=== PATIENT | female | born 1940 | race Caucasian/White ===

== ENCOUNTER 2016-05-05 19:31 | Inpatient (IN) | payer MEDICARE, OTHER ==
[~2016-05-05] VITALS: Ht 152.4 cm; Wt 57.5 kg
[~2016-05-05 19:31] MED LIST: ACET-2047 PO; ALBU2.5V3 NEB; AMLO5TAB4 PO; ASCO500C7 PO; BACL10TA PO; DICL25CA PO; DOCU-144 PO; DOCU250C58 PO; EPO10ESRD SC; FER325 PO; FOLI-49 PO; GABA100C14 PO; HYDR-3671 PO; HYDR-906 PO; INSU100I12 SQ; LACT20SO2 PO; LEVEM SC; LORA-186 PO; MET25 PO; METO-429 PO; MORP15TA92 PO; ONDA4TAB95 PO; PANT40TA4 PO; SENN25TA21 PO; SITA50TA2 PO; ZOLP5TAB6 PO
[2016-05-05] MEDS ORDERED: ALBUTEROL 0.5% (NEB) 2.5 MG/0.5 ML AMP INH STA (19:36)
[2016-05-05] MEDS ORDERED: IPRATROPIUM (NEB) 0.5 MG/2.5 ML AMP INH STA (19:36)
[2016-05-05] MEDS ORDERED: SODIUM CHLORIDE 0.9% 1L BAG IV* STA (19:36)
[2016-05-05] MEDS ORDERED: CEFEPIME 2GM/50 ML (PMX) 50 ML IVPB STA (19:36)
[2016-05-05] MEDS ORDERED: ACETAMINOPHEN 325 MG TAB PO STA (19:36)
--- NOTE | 2016-05-05 19:40 | ERA ---
ER Documentation Chief Complaint Date/Time DATE: 05/05/16 TIME: 19:40 Chief Complaint short of breath HPI History is limited due to the patient's clinical condition. 75-year-old female with a history of pulmonary fibrosis, respiratory failure, diabetes mellitus type 2, anemia, dyslipidemia, rheumatoid arthritis, DJD, O2 dependent brought to the ED via rescue ambulance complaining of a 1 day history of increasing, severe, shortness of breath and nonproductive cough. Denies chest pain or palpitations. No abdominal pain, nausea vomiting. No leg pain or swelling. Denies headache or neck pain. No fevers or chills. ROS All systems reviewed and are negative except as per history of present illness. Medications Home Meds Reported Medications Glucagon,Human Recombinant (Glucagon Emergency Kit) 1 Mg Kit, 1 MG IM Y for BS < 70, KIT 05/06/16 Insulin Regular, Human (Humulin R) 100 Unit/1 Ml Vial, 4 UNIT SC TID, VIAL 05/06/16 Insulin Glargine* (Lantus*) 100 Unit/Ml Soln, 10 UNIT SC QHS, #1 VIAL 05/06/16 Magnesium Hydroxide* (Milk Of Magnesia*) 400 Mg/5 Ml Oral.susp, 30 ML PO DAILY Y for CONSTIPATION, ML 05/06/16 Multivitamin with Minerals (Multivitamins with Minerals) 1 Each Tablet, 1 EACH PO DAILY, TAB 05/06/16 Linagliptin (TRADJENTA) 5 Mg Tablet, 5 MG PO DAILY, TAB 05/06/16 Budesonide-Formoterol Fumarate* (Symbicort*) 160-4.5 Hfa.aer.ad, 2 PUFF INHALATION BID, #1 EACH 05/06/16 Ipratropium-Albuterol (Ipratropium-Albuterol) 0.5-3 Mg/3 Ml Ampul.neb, 3 ML INHALATION Q2 Y for SHORTNESS OF BREATH, #30 VIAL 05/06/16 Ipratropium-Albuterol (Ipratropium-Albuterol) 0.5-3 Mg/3 Ml Ampul.neb, 3 ML INHALATION Q8, #30 VIAL 05/06/16 Aspirin* (Aspirin* Chew) 81 Mg Tab.chew, 81 MG PO DAILY, TAB.CHEW 05/06/16 Insulin Lispro (Humalog Kwikpen U-100) 100 Unit/1 Ml Insuln.pen, SQ SLIDING SCALE IF 150-199=3UNITS CALL MD IF BS<60;200-249=5UNITS; 250-299=8UNITS; 300-349=10UNITS; 350+12UNITS CALL MD IF BS>351 01/05/16 Zolpidem Tartrate* (Zolpidem Tartrate*) 5 Mg Tablet, 5 MG PO QHS Y for INSOMNIA , #30 TAB 01/05/16 Sennosides (Senna Laxative) 25 Mg Tablet, 25 MG PO QHS Y for BOWEL PREP, TAB 01/05/16 Pantoprazole* (Pantoprazole*) 40 Mg Tablet.dr, 40 MG PO DAILY, TAB 01/05/16 Hydrocodone/Acetaminophen ([place] 5-325 Tablet) 1 Each Tablet, 1 EACH PO Q4 Y for PAIN LEVEL 6-10, TAB 01/05/16 Methotrexate* (Methotrexate*) 2.5 Mg Tab, 15 MG PO Q7D, TAB TAKE EVERY Friday01/05/16 Gabapentin* (Gabapentin*) 100 Mg Capsule, 300 MG PO TID, #180 CAP 01/05/16 Folic Acid* (Folic Acid*) 1 Mg Tablet, 1 MG PO DAILY, TAB 01/05/16 Ferrous Sulfate* (Ferrous Sulfate*) 325 Mg Tabec, 325 MG PO DAILY, TAB 01/05/16 Epoetin Terrell (Epogen) 10,000 Units/Ml Soln, 26006 UNITS SC DAILY, VIAL EVERY MON.,WED.,FRI.,HOLD IF HGB GREATER THAT 10. CALL MD IF HGB>10. 01/05/16 Docusate Sodium* (Colace*) 100 Mg Capsule, 100 MG PO Q12 Y for CONSTIPATION, # 30 CAP 01/05/16 Acetaminophen* (Acetaminophen*) 650 Mg Tablet, 650 MG PO Q6 Y for PAIN AND OR ELEVATED TEMP, #30 TAB FOR PAIN SCALE 1-5, AND FOR TEMPERATURE>101 01/05/16 Discontinued Reported Medications Ascorbic Acid* (Vitamin C*) 500 Mg Capsule.sa, 500 MG PO DAILY, CAP 01/05/16 Ondansetron Hcl* (Ondansetron Hcl*) 4 Mg Tablet, 4 MG PO Q6H Y for VOMITTING, TAB 01/05/16 Morphine Sulfate* (Ms Contin*) 15 Mg Tablet.sa, 15 MG PO Q12 Y for RHEUMATOID ARTHRITIC PAIN, TAB 01/05/16 Metoprolol Tartrate* (Lopressor*) 50 Mg Tab, 50 MG PO BID, #60 TAB HOLD FOR SBP<110 OR <60 01/05/16 Lactulose* (Lactulose*) 20 Gm/30 Ml Solution, 30 GM PO DAILY Y for PRN, ML 01/05/16 Sitagliptin* (Januvia*) 50 Mg Tablet, 50 MG PO DAILY, #30 TAB 01/05/16 Insulin Detemir (Levemir) 100 Unit/1 Ml Vial, 20 UNIT SC QHS, VIAL 01/05/16 Hydralazine Hcl* (Hydralazine Hcl*) 25 Mg Tab, 25 MG PO Q3H Y for NEEDED, TAB FOR HTN SBP>165 01/05/16 Diclofenac Potassium (Zipsor) 25 Mg Capsule, 25 MG PO DAILY Y for INFLAMATION, CAP 01/05/16 Docusate Sodium* (Colace*) 250 Mg Capsule, 250 MG PO DAILY, #30 CAP HOLD FOR LBM 01/05/16 Loratadine* (Claritin*) 10 Mg Tablet, 10 MG PO DAILY, TAB 01/05/16 Baclofen* (Baclofen*) 10 Mg Tablet, 10 MG PO TID, TAB 01/05/16 Amlodipine Besylate* (Norvasc*) 5 Mg Tablet, 5 MG PO BID, TAB HOLD SBP<110 OR HR<60 01/05/16 Albuterol Sulfate* (Albuterol Sulfate* Neb) 0.083%-3 Ml Neb, 2.5 MG NEB Q6 Y for WHEEZING AND SOB, #30 VIAL 01/05/16 Allergies Allergies: Coded Allergies: No Known Allergies (Verified Allergy, Unknown, 05/05/16) PMhx/Soc Reviewed in chart. As per HPI. nursing home facility resident. History of Surgery: Yes (HERNIA REPAIR) Anesthesia Reaction: No Hx Neurological Disorder: No Hx Respiratory Disorders: Yes (COPD) Hx Cardiac Disorders: Yes (HTN) Hx Psychiatric Problems: No Hx Miscellaneous Medical Probl: No Hx Alcohol Use: No Hx Substance Use: No Hx Tobacco Use: No Smoking Status: Former smoker (Quit smoking 40 years ago) FmHx As per previous medical record. Mother: Diabetes. No family history of stroke or cancer. Physical Exam Vitals Vital Signs Date Time Temp Pulse Resp B/P Pulse Ox O2 Delivery O2 Flow Rate FiO2 05/05/16 21:00 120 100 40 05/05/16 20:10 100 15.0 05/05/16 20:07 128 40 100 Non Rebreather Mask 15.0 100 05/05/16 20:06 Rebreather 15 05/05/16 19:50 135 44 137/78 100 Non Rebreather 15.0 05/05/16 19:34 102.7 141 34 100 Physical Exam Const: Alert, severe respiratory distress. Head: Atraumatic Eyes: Normal Conjunctiva ENT: Normal External Ears, Nose and Mouth. Neck: Full range of motion. Nontender. Resp: Markedly decreased breath sounds bilaterally with diffuse crackles in both lung mcmanus and expiratory wheezes Cardio: Tachycardic. Regular rate and rhythm, no murmurs Abd: Soft, non tender, non distended. Normal bowel sounds Skin: No petechiae or rashes Back: No midline or flank tenderness Ext: No cyanosis, or edema. No calf swelling or tenderness Neur: Awake and alert Psych: Normal Mood and Affect Result Diagram: 05/06/16 0616 05/06/16 0616 Results 24 hrs Laboratory Tests Test 05/05/16 00:01 05/05/16 19:48 Urine Amorphous Urates MANY Urine Bacteria FEW Urine Bilirubin NEGATIVE Urine Clarity CLOUDY Urine Color YELLOW Urine Glucose NEGATIVE% Urine Granular Casts FEW Urine Hemoglobin 2+ Urine Ketones TRACE Urine Leukocyte Esterase TRACE Urine Microscopic RBC 25-50/HPF Urine Microscopic WBC 2-5/HPF Urine Nitrite NEGATIVE Urine Specific [place] 1.020 Urine Squamous Epithelial Cells MANY Urine Total Protein 2+ Urine Urobilinogen 0.2 E.U./dL Urine pH 5.5 Activated Partial Thromboplast Time 30.5Sec Alanine Aminotransferase (ALT/SGPT) 8IU/L Albumin 3.1g/dl Albumin/Globulin Ratio 0.67 Alkaline Phosphatase 172IU/L Anion Gap 17 Aspartate Amino Transf (AST/SGOT) 18IU/L Basophils # 0.110^3/ul Basophils % 0.2% Blood Urea Nitrogen 33mg/dl Calcium Level 8.9mg/dl Carbon Dioxide Level 27mmol/L Chloride Level 98mmol/L Creatinine 1.15mg/dl Direct Bilirubin 0.00mg/dl Eosinophils # 0.110^3/ul Eosinophils % 0.6% Globulin 4.60g/dl Glucose Level 208mg/dl Hematocrit 35.3% Hemoglobin 10.5g/dl INR International Normalized Ratio 1.07 Indirect Bilirubin 0.2mg/dl Lactic Acid Level 1.9mmol/L Lymphocytes # 1.510^3/ul Lymphocytes % 6.4% Mean Corpuscular Hemoglobin 26.6pg Mean Corpuscular Hemoglobin Concent 29.7g/dl Mean Corpuscular Volume 89.6fl Mean Platelet Volume 10.2fl Monocytes # 0.810^3/ul Monocytes % 3.4% Neutrophils # 20.310^3/ul Neutrophils % 88.8% Nucleated Red Blood Cells # 0.010^3/ul Nucleated Red Blood Cells % 0.0/100WBC Platelet Count 70778^3/UL Potassium Level 4.6mmol/L Prothrombin Time 13.9Sec Prothrombin Time Ratio 1.1 Red Blood Count 3.9410^6/ul Red Cell Distribution Width 16.8% Sodium Level 137mmol/L Total Bilirubin 0.2mg/dl Total Protein 7.7g/dl Troponin I < 0.012ng/ml White Blood Count 22.910^3/ul Current Medications Medications (Trade) Dose Ordered Sig/Renetta Route PRN Reason Start Time Stop Time Status Last Admin Dose Admin Sodium Chloride (NS) 2,020 ml BOLUS OVER 2 HOURS STAT IV* 05/05/16 19:36 05/05/16 19:41 DC 05/05/16 20:04 Acetaminophen 650 mg 650 mg ONCE STAT PO 05/05/16 19:36 05/05/16 19:41 DC 05/05/16 20:04 Cefepime HCl 50 ml @ 100 mls/hr ONCE STAT IVPB 05/05/16 19:36 05/05/16 20:05 DC 05/05/16 20:04 Vancomycin HCl (Vancocin) 250 ml @ 125 mls/hr ONCE ONCE IVPB 05/05/16 20:00 05/05/16 21:59 DC 05/05/16 20:57 Albuterol (Proventil 0.5% (Neb)) 15 mg ONCE STAT INH 05/05/16 19:36 05/05/16 19:41 DC 05/05/16 20:05 Ipratropium [place] (Atrovent 0.02% (Neb)) 1 mg ONCE STAT INH 05/05/16 19:36 05/05/16 19:41 DC 05/05/16 20:06 RHYTHM STRIP INTERPRETATION: Time: 19:30. Sinus tachycardia. Ventricular rate 140. No ectopy. Indication: Shortness of breath. EKG: TIME: 19:38. Sinus tachycardia. Ventricular rate 139. Normal NC and QRS. Right axis deviation. Nonspecific ST-T wave changes. No ectopy. EP Interpretation: Abnormal EKG. IMAGING: PROCEDURE: XR Chest. CLINICAL INDICATION: Dyspnea, cough TECHNIQUE: Anterior chest x-ray. COMPARISON: 01/05/2016 FINDINGS: Heart is enlarged.. There are atherosclerotic calcifications of the aortic knob.. There is diffuse interstitial prominence multiple small lucencies suggesting severe fibrosis with superimposed CHF or infiltrates.. There is no pleural effusion. There is no pneumothorax. There are postop changes of the lower cervical spine. There are degenerative changes of the shoulders and thoracic spine.. IMPRESSION: 1. Cardiomegaly. 2. Diffuse interstitial prominence with multiple lucency suggesting honeycombing/severe fibrosis. 3. Atherosclerotic calcification of the aorta. 4. No significant change from previous exam. RPTAT: QQ .Jalen Hernandez MD, MD Date Time Electronically viewed and signed by .Jalen Hernandez MD, MD on 05/05/2016 19: 58 .M/ Procedures/MDM DOCUMENTS REVIEWED: ED nurse, prior ED, prior records ED COURSE: Nebulized albuterol 15 mg/Atrovent 1 mg. BiPAP. Tylenol. Normal saline 30 cc/kg fluid bolus. Antibiotics after cultures. MEDICAL DECISION MAKIN-year-old female with a history of pulmonary fibrosis , respiratory failure, diabetes mellitus type 2, anemia, dyslipidemia, rheumatoid arthritis, DJD, O2 dependent brought to the ED via rescue ambulance complaining of a 1 day history of increasing, severe, shortness of breath and nonproductive cough. Patient with hypoxic respiratory failure requiring BiPAP. Criteria for systemic inflammatory response syndrome including fever, tachycardia and tachypnea. Sepsis secondary to pneumonia. Initial lactate is 1.9. Sepsis but no severe sepsis or septic shock. 30cc/kg NS fluid bolus and antibiotics after cultures. Patient will be admitted to telemetry for further evaluation and management Counseled patient regarding diagnosis, diagnostic results and plan for admission. CALLS/CONSULTS: Time 20:40. Dr Marixa Maldonado for Dr Pelletier, Recommends admission to telemetry. PATIENT CARE TRANSITIONED: Time: 21:15, Dr. Marixa Maldonado. Critical Care Time: 35 minutes Treatments/Evaluations: Close monitoring and treatment of unstable vital signs, cardiorespiratory, and neurologic status, while maintaining tight balance of fluid, respiratory, and cardiac interventions. This time includes discussing the case with the patient and the patient's family. This time does not include all procedures stated elsewhere in this record. This time also includes reviewing old records, labs and radiological studies. This time includes examining and re-examining the patient. Additionally, this time also includes arranging care with admitting and consulting physicians. Departure Diagnosis: Primary Impression: Acute respiratory failure Qualified Code: J96.01 - Acute respiratory failure with hypoxia Additional Impressions: Sepsis Qualified Code: A41.9 - Sepsis, due to unspecified organism Pneumonia Qualified Code: J18.9 - Pneumonia of both lungs due to infectious organism, unspecified part of lung Diabetes mellitus type 2 in obese Pulmonary fibrosis Condition: Serious ALEJANDRA MARTINEZ MD May 05, 2016 19:40
--- NOTE | 2016-05-05 19:59 | RADRPT ---
PROCEDURE: XR Chest. CLINICAL INDICATION: Dyspnea, cough TECHNIQUE: Anterior chest x-ray. COMPARISON: 01/05/2016 FINDINGS: Heart is enlarged.. There are atherosclerotic calcifications of the aortic knob.. There is diffuse interstitial prominence multiple small lucencies suggesting severe fibrosis with [place] perimposed CHF or infiltrates.. There is no pleural effusion. There is no pneumothorax. There are postop changes of the lower cervical spine. There are degenerative changes of the shoulders and thoracic spine.. IMPRESSION: 1. Cardiomegaly. 2. Diffuse interstitial prominence with multiple lucency suggesting honeycombing/severe fibrosis. 3. Atherosclerotic calcification of the aorta. 4. No significant change from previous exam. RPTAT: QQ .Jalen Hernandez MD, MD Date Time Electronically viewed and signed by .Jalen Hernandez MD, on 05/05/2016 19:58 .M/
[2016-05-05] MEDS ORDERED: VANCOMYCIN 1 GM (PMX) 250 ML IVPB ONE (20:00)
[2016-05-05 20:06] LABS: ADD SCAN DIFF NO
[2016-05-05 20:10] LABS: ABNORMAL IP MESSAGE 1; BASOPHIL # 0.1 10^3/ul (0.0-0.1); BASOPHILS % 0.2 % (0.0-2.0); EOSINOPHILS # 0.1 10^3/ul (0.0-0.5); EOSINOPHILS % 0.6 % (0.0-7.0); HEMATOCRIT 35.3 % (37.0-47.0); HEMOGLOBIN 10.5 g/dl (12.0-16.0); LYMPHOCYTES # 1.5 10^3/ul (0.8-2.9); LYMPHOCYTES % 6.4 % (15.0-51.0); MEAN CORPUSCULAR HEMOGLOBIN 26.6 pg (29.0-33.0); MEAN CORPUSCULAR HGB CONC 29.7 g/dl (32.0-37.0); MEAN CORPUSCULAR VOLUME 89.6 fl (82.0-101.0); MEAN PLATELET VOLUME 10.2 fl (7.4-10.4); MONOCYTE # 0.8 10^3/ul (0.3-0.9); MONOCYTES % 3.4 % (0.0-11.0); NEUTROPHIL # 20.3 10^3/ul (1.6-7.5); NEUTROPHILS % 88.8 % (39.0-77.0); PLATELET COUNT 294 10^3/UL (140-415); RED BLOOD COUNT 3.94 10^6/ul (4.20-5.40); RED CELL DISTRIBUTION WIDTH 16.8 % (11.5-14.5); WHITE BLOOD COUNT 22.9 10^3/ul (4.8-10.8)
[2016-05-05 20:23] LABS: INR 1.07; PROTIME 13.9 Sec (12.2-14.2); PT RATIO 1.1
[2016-05-05 20:24] LABS: PARTIAL THROMBOPLASTIN TIME 30.5 Sec (25.0-35.0)
[2016-05-05 20:29] LABS: CHLORIDE 98 mmol/L (97-110)
[2016-05-05 20:30] LABS: ALBUMIN 3.1 g/dl (3.3-4.9); POTASSIUM 4.6 mmol/L (3.5-5.1); SODIUM 137 mmol/L (135-144)
[2016-05-05 20:32] LABS: BILIRUBIN,INDIRECT 0.2 mg/dl (0-1.1); BILIRUBIN,TOTAL 0.2 mg/dl (0.2-1.3); CREATININE 1.15 mg/dl (0.44-1.00)
[2016-05-05 20:33] LABS: ALANINE AMINOTRANSFERASE 8 IU/L (13-69); ALBUMIN/GLOBULIN RATIO 0.67; ALKALINE PHOSPHATASE 172 IU/L (42-121); ANION GAP 17 (8-16); ASPARTATE AMINO TRANSFERASE 18 IU/L (15-46); BLOOD UREA NITROGEN 33 mg/dl (7-20); CALCIUM 8.9 mg/dl (8.4-10.2); CARBON DIOXIDE 27 mmol/L (21-31); GLUCOSE 208 mg/dl (70-220); TOTAL PROTEIN 7.7 g/dl (6.1-8.1)
[2016-05-05 20:45] LABS: TROPONIN-I < 0.012 ng/ml (0.00-0.12)
[2016-05-05] MEDS ORDERED: ACETAMINOPHEN 325 MG TAB PO PRN ×2 (21:30→23:30)
[2016-05-05] MEDS ORDERED: ONDANSETRON 4 MG INJ IV PRN (21:30)
[2016-05-05 21:34] VITALS: TEMP 99.3
[2016-05-05 21:56] VITALS: PULSE 115
[2016-05-05 22:00] VITALS: PULSE 115
[2016-05-05 22:30] VITALS: BP 103/52; PULSE 112; RESP 30
[2016-05-05 23:10] VITALS: Ht 152.4 cm; Wt 57.5 kg
[2016-05-05] MEDS ORDERED: DOCUSATE SODIUM 100 MG CAP PO PRN (23:30)
[2016-05-05] MEDS ORDERED: VANCOMYCIN IV PER PHARMACY XX SCH (23:30)
[2016-05-05] MEDS ORDERED: ZOLPIDEM 5 MG TAB PO PRN (23:30)
[2016-05-05] MEDS ORDERED: MAGNESIUM HYDROXIDE 30ML CUP PO PRN (23:30)
[2016-05-05] MEDS ORDERED: SENNA TAB PO PRN (23:30)
[2016-05-05 23:50] VITALS: PULSE 113
[2016-05-05 23:58] LABS: AADO2 Arterial 129.5 mmHg (7.0-24.0); Allen Test ACCEPTAB; Arterial Base Excess -1.9 mmol/L (-3.0-3); Arterial COHb 0.3 % (0.0-3.0); Arterial Fraction of Oxyhgb 97.1 % (93.0-99.0); Arterial HCO3 23.5 mmol/L (22.0-26.0); Arterial MetHb 0.4 % (0.0-1.5); Blood Gas IEPAP 15/5; MODE MASK - BIPAP
[2016-05-06] VITALS (17 sets, daily range): BP systolic 103–146; BP diastolic 47–65; PULSE 74–97; RESP 16–22
[2016-05-06] MEDS ORDERED: PIPER-TAZO 3.375 GM IV (PMX) 100 ML IVPB SCH
[2016-05-06] MEDS: ACCUCHECK XX SCH (02:00)
[2016-05-06] MEDS ORDERED: ACCUCHECK XX SCH (02:00)
[2016-05-06 02:37] LABS: ADD UMIC YES; URINE BILIRUBIN (Dip) NEGATIVE (NEGATIVE); URINE BLOOD (Dip) 2+ (NEGATIVE); URINE COLOR YELLOW (YELLOW); URINE GLUCOSE (Dip) NEGATIVE (NEGATIVE); URINE KETONES (Dip) TRACE (NEGATIVE); URINE LEUKOCYTE ESTERASE (Dip) TRACE (NEGATIVE); URINE NITRITE (Dip) NEGATIVE (NEGATIVE); URINE TOTAL PROTEIN (Dip) 2+ (NEGATIVE); URINE UROBILINOGEN (Dip) 0.2 E.U./dL (0.1-1.0)
[2016-05-06] MEDS: LEVALBUTEROL (NEB) 0.63 MG/3 ML AMP HHN PRN ×2 (03:47→22:40)
[2016-05-06] MEDS: IPRATROPIUM (NEB) 0.5 MG/2.5 ML AMP HHN PRN ×2 (03:47→22:40)
[2016-05-06] MEDS ORDERED: ASPI81TA3 PO (04:56)
[2016-05-06] MEDS ORDERED: MAGN400O4 PO (04:56)
[2016-05-06] MEDS ORDERED: BUDE6HFA INHALATION (04:56)
[2016-05-06] MEDS ORDERED: IPRA3AMP INHALATION ×2 (04:56)
[2016-05-06] MEDS ORDERED: LINA5TAB PO (04:56)
[2016-05-06] MEDS ORDERED: MULT-105 PO (04:56)
[2016-05-06] MEDS ORDERED: LANT3I SC (05:04)
[2016-05-06] MEDS ORDERED: GLUC1KIT IM (05:04)
[2016-05-06] MEDS ORDERED: INSU100V3 SC (05:04)
[2016-05-06 05:23] LABS: BACTERIA,URINE FEW; SQUAMOUS EPITHELIAL CELL,UR MANY; URINE RBCS 25-50 /HPF (0)
[2016-05-06] MEDS: PANTOPRAZOLE (EC) 40 MG TAB PO SCH (05:51)
[2016-05-06] MEDS: PIPER-TAZO 3.375 GM IV (PMX) 100 ML IVPB SCH ×3 (06:02→21:10)
[2016-05-06 07:14] LABS: ADD SCAN DIFF NO
[2016-05-06 07:23] LABS: BASOPHIL # 0.1 10^3/ul (0.0-0.1); BASOPHILS % 0.3 % (0.0-2.0); EOSINOPHILS # 0.3 10^3/ul (0.0-0.5); EOSINOPHILS % 1.7 % (0.0-7.0); HEMATOCRIT 31.2 % (37.0-47.0); HEMOGLOBIN 9.2 g/dl (12.0-16.0); LYMPHOCYTES # 2.2 10^3/ul (0.8-2.9); LYMPHOCYTES % 12.9 % (15.0-51.0); MEAN CORPUSCULAR HEMOGLOBIN 26.8 pg (29.0-33.0); MEAN CORPUSCULAR HGB CONC 29.5 g/dl (32.0-37.0); MEAN PLATELET VOLUME 10.2 fl (7.4-10.4); MONOCYTE # 0.6 10^3/ul (0.3-0.9); MONOCYTES % 3.4 % (0.0-11.0); NEUTROPHILS % 81.1 % (39.0-77.0); PLATELET COUNT 249 10^3/UL (140-415); RED BLOOD COUNT 3.43 10^6/ul (4.20-5.40); WHITE BLOOD COUNT 17.3 10^3/ul (4.8-10.8)
[2016-05-06] MEDS ORDERED: GLUCOSE GEL 15 GRAM TUBE PO PRN ×2 (07:30)
[2016-05-06] MEDS ORDERED: DEXTROSE 50% 50 ML SYRINGE IV PRN ×2 (07:30)
[2016-05-06] MEDS ORDERED: GLUCAGON 1 MG INJ IM PRN (07:30)
[2016-05-06] MEDS ORDERED: GLUCOSE GEL 15 GRAM TUBE BUCCAL PRN (07:30)
[2016-05-06 07:38] LABS: CREATININE 1.14 mg/dl (0.44-1.00)
[2016-05-06 07:39] LABS: CALCIUM 8.5 mg/dl (8.4-10.2); MAGNESIUM 1.7 mg/dl (1.7-2.5); PHOSPHORUS 4.5 mg/dl (2.5-4.9)
[2016-05-06 08:11] LABS: AADO2 Arterial 111.3 mmHg (7.0-24.0); Allen Test ACCEPTAB; Arterial Base Excess -1.3 mmol/L (-3.0-3); Arterial COHb 0.3 % (0.0-3.0); Arterial Fraction of Oxyhgb 97.4 % (93.0-99.0); Arterial HCO3 24.9 mmol/L (22.0-26.0); Arterial MetHb 0.4 % (0.0-1.5); Arterial Total Hemglobin 11.6 g/dl (12.0-18.0); Blood Gas IEPAP 15/5; MODE MASK - BIPAP
[2016-05-06] MEDS: MULTIVITAMINS/MINERALS TAB PO SCH (08:40)
[2016-05-06] MEDS: FERROUS SULFATE (EC) 325 MG TAB PO SCH (08:40)
[2016-05-06] MEDS: ASPIRIN 81 MG TAB PO SCH (08:40)
[2016-05-06] MEDS: GABAPENTIN 300 MG CAP PO SCH ×3 (08:40→20:47)
[2016-05-06] MEDS: SALMETEROL/FLUTICASONE 250/50 INHA INH SCH ×2 (08:41→20:46)
[2016-05-06] MEDS: METOPROLOL 50 MG TAB PO SCH ×2 (08:42→20:47)
[2016-05-06] MEDS: INSULIN ASPART [NOVOLOG] 3 ML PEN SC SCH ×4 (08:50→21:03)
[2016-05-06] MEDS ORDERED: VANCOMYCIN 1 GM INJ ONE (08:51)
[2016-05-06] MEDS ORDERED: PAPAVERINE 60 MG INJ ONE (08:51)
[2016-05-06] MEDS ORDERED: GELATIN SIZE 100 SPONGE ONE (08:51)
[2016-05-06] MEDS ORDERED: THROMBIN 5000 UNIT VIAL ONE (08:51)
[2016-05-06] MEDS ORDERED: HEPARIN 1000 UNITS/ML 10 ML INJ ONE (08:51)
--- NOTE | 2016-05-06 09:17 | HP ---
DATE OF ADMISSION: 05/05/2016 CHIEF COMPLAINT: Respiratory failure. HISTORY OF PRESENT ILLNESS: This is a 75-year-old female with a past medical history of pulmonary f ibrosis, history of diabetes, anemia, dyslipidemia, arthritis, rheumatoid arthritis, degenerative mireya int disease, who presents to [facility] with shortness of breath. The patient's h istory was obtained by reviewing medical records. Patient is currently unable to give adequate hist ory. Apparently over the past several days the patient has noted increased work of breathing and sh ortness of breath. As a result she came to [facility] Emergency Room. Upon arrival to the emergency room, the patient was noted to be hypoxemic. A chest x-ray was obtained which showed dif fuse interstitial prominence with honeycombing, severe fibrosis. The patient in the emergency room was placed on BiPAP, started on IV antibiotics, given IV fluids, and admitted to telemetry. Overnig ht, the patient remained on BiPAP, has been stable. There have been no reports of hemoptysis, hemat emesis or hematochezia. PAST MEDICAL HISTORY: As stated above, history of pulmonary fibrosis, COPD, anemia, dyslipidemia, d iabetes, rheumatoid arthritis. PAST SURGICAL HISTORY: Includes C-spine surgery, total abdominal hysterectomy. SOCIAL HISTORY: History of smoking in the past. FAMILY HISTORY: No family history of kidney disease or heart disease. ALLERGIES: NO KNOWN DRUG ALLERGIES. MEDICATIONS: The patient's medications have been reviewed and reconciled. REVIEW OF SYSTEMS: A 14-point review of systems was conducted. Pertinent positives in HPI, otherwi se negative. PHYSICAL EXAMINATION: VITAL SIGNS: Blood pressure is currently 119/59, respirations 16, pulse 79, temperature 97.6. HEENT: Head is normocephalic. NECK: Supple. HEART: Regular rate. LUNGS: Show diminished breath sounds at base. ABDOMEN: Soft, nontender to palpation. No rebound or guarding. EXTREMITIES: Negative for clubbing, cyanosis. No edema. DERMATOLOGIC: No rashes. MUSCULOSKELETAL: No joint effusions. NEUROLOGIC: Limited exam, but no obvious focal deficits. LABORATORY DATA: Shows white count 17.3, hemoglobin 9.2, hematocrit platelet count 249,000. Sodium 139, potassium 4.4, chloride 102, BUN 34, creatinine 1.14. The patient's urinalysis shows po sitive granular casts, positive bacteria. Chest x-ray as stated in HPI. ASSESSMENT AND PLAN: This is a 75-year-old female who presents with: 1. Acute hypoxemic respiratory failure, etiology secondary to chronic obstructive pulmonary disease exacerbation, advanced pulmonary fibrosis, with possible superimposed pneumonia. The patient is cu rrently on BiPAP, tolerating it well. ABG was reviewed. Patient is also on broad spectrum antibiot ics. The plan at this point is to continue current treatment plan. Continue IV antibiotics, contin ue nebulizer therapy, continue BiPAP. We will place a pulmonary consult with Dr. West for evalua tion and monitor closely. 2. Systemic inflammatory response syndrome, possible sepsis, secondary to healthcare-associated pne umonia. The patient's chest x-ray was reviewed. White count is elevated at 17,000. At this point, continue current antibiotic regimen. We will follow up blood cultures. We will place an infectiou s disease consult for Dr. Hein for evaluation and monitor closely. 3. Nonoliguric acute kidney injury with a previous baseline creatinine of around 0.9 mg/dL. Etiolo gy of acute kidney injury may be secondary to tubular injury, septic acute kidney injury. The patie nt's urinalysis was reviewed, showed evidence of coarse granular casts which can be seen in tubular injury. At this point, would continue supportive care, renally dose all meds, avoid nephrotoxins. Continue to treat underlying sepsis and monitor closely. 4. History of chronic obstructive pulmonary disease/pulmonary fibrosis. Continue current medical m anagement. 5. History of rheumatoid arthritis. Continue methotrexate. 6. Diabetes. Continue Accu-Cheks, insulin sliding scale. 7. Hypertension. Continue current blood pressure regimen. 8. History of coronary artery disease. Continue medical management. 9. Neuropathy. Continue Neurontin. 10. Gastrointestinal and deep venous thrombosis prophylaxis. Continue proton pump inhibitor and Lo venox. Please note, I spent over 25 minutes of abxg-vj-occk time with the patient. I discussed the code st atus. The patient is FULL CODE. Dictated By: ADNNY SHABAZZ DO NR/NTS Conf#: [id number] DID#: [id number]
--- NOTE | 2016-05-06 12:11 | CONS ---
Date/Time of Note Date/Time of Note DATE: 05/06/16 TIME: 12:05 Assessment/Plan Assessment/Plan Additional Assessment/Plan Chest x-ray was reviewed from admission which is showing severe interstitial lung disease. ABG also was reviewed on BiPAP. Assessment recommendations; next 1. Patient admitted with acute bronchitis possibly superimposed pneumonia on a background of severe fibrotic lung disease on account of underlying rheumatoid arthritis. 2. Stable hypertension and neuropathy. Continue current antibiotic regimen. Continue BiPAP on an as-needed basis. Add Solu-Medrol 40 mg every 8 hours. Consultation Date/Type/Reason Admit Date/Time May 05, 2016 at 21:12 Date of Consultation: May 06, 2016 Type of Consultation: Pulmonary Reason for Consultation Pulmonary consultation obtained for evaluation of severe pulmonary fibrosis with hypoxemia and acute bronchitis. History present illness; patient is a very pleasant 75-year-old white lady who came into the emergency room yesterday with a 2 day history of increasing chest congestion with production of yellow and green sputum with increased shortness of breath. Patient does complain of chronic wheezing off and on without any interval change. Denies any high fever chills body aches or myalgias. Upon evaluation a chest x-ray was done which is showing severe fibrotic changes. He also has significant leukocytosis. Has been started on broad-spectrum antibiotic coverage and according to her she is feeling significantly improved over the last couple of hours. Patient also has been using BiPAP on a as needed basis. Past medical history; next 1. Patient has a history of severe rheumatoid arthritis leading to severe pulmonary fibrosis. Which is oxygen dependent. But not steroid dependent. She maintained on methotrexate. 2. Neuropathy. 3. Hypertension. 4. History of C-spine surgery. 5. History of hysterectomy. Medications; were reviewed. Allergies; none. Social history; patient has a scant history of smoking in the past. Most of alcohol or drug abuse. Family history; she is single. No history of any connective tissue diseases in the family. 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 Any sinus symptoms. Any sore throat. Denies any dysphagia, odynophagia chest pain angina. Complains of chronic wheezing. Some days of cough with production of yellow/green sputum production. Denies any hemoptysis. Denies any abdominal pain, nausea. Vomiting. Complaint of severe arthritis symptoms owing to underlying rheumatoid arthritis. Has stable weight. Does complain of mild orthopnea. Denies any melena, hematochezia. Also denies any urinary symptoms. General examination; elderly lady, currently in no distress. Awake and alert. Social History Smoking Status: Former smoker Exam/Review of Systems Vital Signs Vitals Vital Signs Date Time Temp Pulse Resp B/P Pulse Ox O2 Delivery O2 Flow Rate FiO2 05/06/16 11:33 97.9 78 21 103/47 97 05/06/16 08:30 6.0 05/06/16 07:30 40 05/05/16 22:30 BIPAP Intake and Output 05/05/16 05/05/16 05/06/16 15:00 23:00 07:00 Intake Total 340 ml Balance 340 ml Exam HEENT examination; supple neck, no JVD. No lymphadenopathy. Midline trachea. No thyromegaly. Pharynx is clear. Patient has multiple missing teeth and the remaining teeth are carious. Pupils are midsize and reactive to light bilaterally. Next Chest examination scattered crackles bilaterally. S1-S2 audible, no murmurs. Regular rhythm. Abdomen examination; soft, no organomegaly. Bowel sounds audible. Nontender. Extremity examination; no peripheral edema. There is no clubbing. Pulses 1+ bilaterally. There are changes of severe rheumatoid arthritis affecting both hands. 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 Results Result Diagram: 05/06/16 0616 05/06/16 0616 Results 24 hrs Laboratory Tests Test 05/05/16 19:48 05/05/16 21:31 05/05/16 22:35 05/05/16 23:11 Activated Partial Thromboplast Time 30.5 Alanine Aminotransferase (ALT/SGPT) 8 L Albumin 3.1 L Albumin/Globulin Ratio 0.67 Alkaline Phosphatase 172 H Anion Gap 17 H Aspartate Amino Transf (AST/SGOT) 18 Basophils # 0.1 Basophils % 0.2 Blood Urea Nitrogen 33 H Calcium Level 8.9 Carbon Dioxide Level 27 Chloride Level 98 Creatinine 1.15 H Direct Bilirubin 0.00 Eosinophils # 0.1 Eosinophils % 0.6 Globulin 4.60 H Glucose Level 208 Hematocrit 35.3 L Hemoglobin 10.5 L INR International Normalized Ratio 1.07 Indirect Bilirubin 0.2 Lactic Acid Level 1.9 2.0 Lymphocytes # 1.5 Lymphocytes % 6.4 L Mean Corpuscular Hemoglobin 26.6 L Mean Corpuscular Hemoglobin Concent 29.7 L Mean Corpuscular Volume 89.6 Mean Platelet Volume 10.2 # Monocytes # 0.8 Monocytes % 3.4 Neutrophils # 20.3 H Neutrophils % 88.8 H Nucleated Red Blood Cells # 0.0 Nucleated Red Blood Cells % 0.0 Platelet Count 294 Potassium Level 4.6 Prothrombin Time 13.9 Prothrombin Time Ratio 1.1 Red Blood Count 3.94 L Red Cell Distribution Width 16.8 H Sodium Level 137 Total Bilirubin 0.2 Total Protein 7.7 Troponin I < 0.012 White Blood Count 22.9 #H Bedside Glucose 165 Arterial Blood HCO3 23.5 Arterial Blood Base Excess -1.9 Arterial Blood Oxygen Saturation 97.8 Melo Test ACCEPTAB Arterial Blood Gas Puncture Site Right Radial Arterial Blood Carboxyhemoglobin 0.3 Arterial Blood Date Drawn 05/05/2016 11:50:42 PM Arterial Blood Methemoglobin 0.4 Arterial Blood pCO2 (Temp correct) 43.1 Arterial Blood pH (Temp corrected) 7.355 Arterial Blood pO2 (Temp corrected) 106.1 H Blood Gas A-a O2 Differential 129.5 H Blood Gas Actual Respiration Rate 27 Blood Gas IPAP/EPAP Ratio 15 Blood Gas Modality MASK - BIPAP Blood Gas Notified Time 05/05/2016 11:58:06 PM Blood Gas Notified Whom MG Blood Gas Respiration Rate 16.0 Blood Gas Specimen Source Blood arterial Blood Gas Temperature 37.0 FiO2 40.0 Oxyhemoglobin Percent 97.1 Total Hemoglobin 10.0 L Test 05/05/16 23:55 05/06/16 06:16 05/06/16 07:00 05/06/16 07:45 Lactic Acid Level 1.1 Anion Gap 13 Basophils # 0.1 Basophils % 0.3 Blood Urea Nitrogen 34 H Calcium Level 8.5 Carbon Dioxide Level 28 Chloride Level 102 Creatinine 1.14 H Eosinophils # 0.3 Eosinophils % 1.7 Glucose Level 169 Hematocrit 31.2 L Hemoglobin 9.2 L Lymphocytes # 2.2 Lymphocytes % 12.9 L Magnesium Level 1.7 Mean Corpuscular Hemoglobin 26.8 L Mean Corpuscular Hemoglobin Concent 29.5 L Mean Corpuscular Volume 91.0 Mean Platelet Volume 10.2 Monocytes # 0.6 Monocytes % 3.4 Neutrophils # 14.0 H Neutrophils % 81.1 H Nucleated Red Blood Cells # 0.0 Nucleated Red Blood Cells % 0.0 Phosphorus Level 4.5 Platelet Count 249 Potassium Level 4.0 Red Blood Count 3.43 L Red Cell Distribution Width 17.0 H Sodium Level 139 White Blood Count 17.3 #H Arterial Blood HCO3 24.9 Arterial Blood Base Excess -1.3 Arterial Blood Oxygen Saturation 98.1 Melo Test ACCEPTAB Arterial Blood Gas Puncture Site Right Radial Arterial Blood Carboxyhemoglobin 0.3 Arterial Blood Date Drawn 05/06/2016 7:51:05 AM Arterial Blood Methemoglobin 0.4 Arterial Blood pCO2 (Temp correct) 48.4 H Arterial Blood pH (Temp corrected) 7.330 L Arterial Blood pO2 (Temp corrected) 118.2 H Blood Gas A-a O2 Differential 111.3 H Blood Gas Actual Respiration Rate 27 Blood Gas IPAP/EPAP Ratio 15/5 Blood Gas Modality MASK - BIPAP Blood Gas Notified Time 05/06/2016 8:10:58 AM Blood Gas Notified Whom JLD Blood Gas Respiration Rate 16.0 Blood Gas Specimen Source Blood arterial Blood Gas Temperature 37.0 FiO2 40.0 Oxyhemoglobin Percent 97.4 Total Hemoglobin 11.6 L Bedside Glucose 148 Medications Medications Current Medications Acetaminophen (Tylenol Tab) 650 mg Q6H PRN PO PAIN AND OR ELEVATED TEMP; Start 05/05/16 at 23:30 Zolpidem Tartrate (Ambien) 5 mg HS PRN PO INSOMNIA; Start 05/05/16 at 23:30 Aspirin (Aspirin) 81 mg DAILY PO Last administered on 05/06/16 08:40; Admin Dose 81 MG; Start 05/06/16 at 09:00 Docusate Sodium (Colace) 100 mg BID PRN PO CONSTIPATION; Start 05/05/16 at 23:30 Ferrous Sulfate (Ferrous Sulfate (Ec)) 325 mg DAILY PO Last administered on 05/06 08:40; Admin Dose 325 MG; Start 05/06/16 at 09:00 Gabapentin (Neurontin) 300 mg TID PO Last administered on 05/06/16 08:40; Admin Dose 300 MG; Start 05/06/16 at 09:00 Magnesium Hydroxide (Milk Of Mag) 30 ml DAILY PRN PO CONSTIPATION; Start at 23:30 Methotrexate (Methotrexate) 15 mg Q7D PO ; Start 05/12/16 at 09:00; Status Future Hold Metoprolol Tartrate (Lopressor) 50 mg BID PO Last administered on 05/06/16 08: 42; Admin Dose 50 MG; Start 05/06/16 at 09:00 Multivitamins/ Minerals (Theragran-M) 1 tab DAILY PO Last administered on 08:40; Admin Dose 1 TAB; Start 05/06/16 at 09:00 Acetaminophen/ Hydrocodone Bitart ([place] (5/325)) 1 tab Q6H PRN PO PAIN; Start 05/05/16 at 23:30 Pantoprazole (Protonix Tab) 40 mg DAILY@06 PO Last administered on 05/06/16 05: 51; Admin Dose 40 MG; Start 05/06/16 at 06:00 Senna (Senokot) 1 tab DAILY PRN PO CONSTIPATION; Start 05/05/16 at 23:30 Diagnostic Test (Pha) (Accucheck) 1 ea 02 XX ; Start 05/06/16 at 02:00 Salmeterol Xinafoate/ Fluticasone 1 inh 1 inh BID INH Last administered on 08:41; Admin Dose 1 INH; Start 05/06/16 at 09:00 Vancomycin HCl 250 ml @ 125 mls/hr Q24H IVPB ; Start 05/06/16 at 21:00 Piperacillin Sod/ Tazobactam Sod (Zosyn 3.375gm/ 100 ml (Pmx)) 100 ml @ 200 mls /hr Q8 IVPB Last administered on 05/06/16 06:02; Admin Dose 200 MLS/HR; Start 05/06/16 at 06:00 Miscellaneous Information 1 ea NOTE XX ; Start 05/06/16 at 07:30 Glucose (Glutose) 15 gm Q15M PRN PO DECREASED GLUCOSE; Start 05/06/16 at 07:30 Glucose (Glutose) 22.5 gm Q15M PRN PO DECREASED GLUCOSE; Start 05/06/16 at 07:30 Dextrose (D50w Syringe) 25 ml Q15M PRN IV DECREASED GLUCOSE; Start 05/06/16 at 07:30 Dextrose (D50w Syringe) 50 ml Q15M PRN IV DECREASED GLUCOSE; Start 05/06/16 at 07:30 Glucagon (Glucagen) 1 mg Q15M PRN IM DECREASED GLUCOSE; Start 05/06/16 at 07:30 Glucose (Glutose) 15 gm Q15M PRN BUCCAL DECREASED GLUCOSE; Start 05/06/16 at 07: 30 GARRET SOARES May 06, 2016 12:11
[2016-05-06] MEDS: METHYLPREDNISOLONE 40 MG INJ IV SCH ×3 (12:20→23:22)
[2016-05-06] MEDS: HYDROCODONE/APAP (5/325) TAB PO PRN ×2 (17:33→23:22)
--- NOTE | 2016-05-06 18:30 | CONS ---
DATE OF ADMISSION: 05/05/2016 DATE OF CONSULTATION: 05/06/2016 TYPE OF CONSULTATION: Infectious Disease REASON FOR CONSULTATION: Antibiotic management. HISTORY OF PRESENT ILLNESS: Suad Mitchell is a 75-year-old female who was admitted on 05/05/2016 with respiratory failure and is being seen for antibiotic management. The patient is a 75-year-old female with numerous problems includin. Pulmonary fibrosis. 2. Adult-onset diabetes mellitus. 3. Anemia. 4. Dyslipidemia. 5. Rheumatoid arthritis. 6. Degenerative joint disease. 7. Status post C-spine surgery. 8. Status post total abdominal hysterectomy. The patient acutely presents with shortness of breath over the last several days with the increased work of breathing. She was hypoxemic in the emergency room. Chest x-ray showed diffuse interstitia l prominence with honeycombing and severe fibrosis. In the emergency room, the patient was placed o n BiPAP and started on IV antibiotics, given IV fluids, and admitted to telemetry. Should remain on BiPAP and has been stable. On admission, her white count was 22.9, H and H of 10.5 and 35.3, plate let count 294,000. On the 6th, white count 17.3. BUN and creatinine 34/1.14. Urine showed trace l eukocyte esterase, 2 to 5 white cells per high-powered field. Chest x-ray: Cardiomegaly, diffuse i nterstitial prominence with multiple lucencies suggesting honeycombing, severe fibrosis. Her urine culture is negative. Respiratory culture gram-positive cocci and TMNs. PAST MEDICAL HISTORY: Operations as outlined. FAMILY HISTORY: Noncontributory. SOCIAL HISTORY: She has a history of smoking in the past. She does not drink or abuse drugs. FAMILY HISTORY: Noncontributory. SOCIAL HISTORY: As noted. ALLERGIES: NONE TO PENICILLIN, SULFA, OR FOODS. MEDICATIONS: Per chart. REVIEW OF SYSTEMS: As per HPI. PHYSICAL EXAMINATION: GENERAL: The patient is a well-developed, well-nourished female who is alert, responsive, in no acu te distress. VITAL SIGNS: Stable. She is afebrile. SKIN: Without generalized rash. HEENT: Within normal limits. She has intermittent BiPAP. NECK: Supple. LYMPH NODES: None palpable. CHEST: Decreased breath sounds at the bases. HEART: Without murmur or gallop. ABDOMEN: Soft, nontender, without organosplenomegaly or masses. EXTREMITIES: Without cyanosis, clubbing, or edema. RECTAL AND GENITAL: Deferred. NEUROLOGIC: No focal neurological abnormality. IMPRESSION AND PLAN: As noted, the patient presented with a white count of 17.3. BUN and creatinin e 33/1.14. The patient has systemic inflammatory response syndrome secondary to healthcare-associat ed pneumonia. White count is 17,300. Blood cultures were done, and the patient was begun on vancom ycin and Zosyn. Will continue vancomycin and Zosyn. I will dictate my findings to Dr. Cruz. Th e patient was also seen by Dr. eHrnandez, who notes that she is on methotrexate for her rheumatoid arthr itis and pulmonary fibrosis. He felt that she had acute bronchitis, possibly superimposed pneumonia on the background of the severe fibrotic lung, on account of underlying rheumatoid arthritis. Cont inue BiPAP on an as needed basis, add 40 of Solu-Medrol q.8h. I will dictate my findings to Dr. Braxton mcbride as well As Dr. Cruz. Dictated By: CARINE POTTER MD, JD/NGHIA Conf#: [id number] DID#: [id number]
[2016-05-06] MEDS: VANCOMYCIN 1 GM in NS 250 ML IVPB SCH (21:07)
[2016-05-07] VITALS (12 sets, daily range): BP systolic 127–178; BP diastolic 59–88; PULSE 69–88; RESP 16–70
[2016-05-07] MEDS: ACCUCHECK XX SCH (02:00)
[2016-05-07] MEDS: PANTOPRAZOLE (EC) 40 MG TAB PO SCH (05:09)
[2016-05-07] MEDS: PIPER-TAZO 3.375 GM IV (PMX) 100 ML IVPB SCH ×3 (05:09→22:47)
[2016-05-07] MEDS: METHYLPREDNISOLONE 40 MG INJ IV SCH ×3 (05:09→22:48)
--- NOTE | 2016-05-07 08:22 | PN ---
DATE: 05/07/2016 SUBJECTIVE: The patient is clinically improved, currently off BiPAP, no acute events noted overnigh t. No hemoptysis, hematemesis or hematochezia. The patient is stable. No other events noted. OBJECTIVE: VITAL SIGNS: Blood pressure is 156/74, respiratory rate 20, pulse 70, temperature 98.0. The patien t is saturating 96% on 5 liters of oxygen. HEENT: Head is normocephalic. NECK: Supple. HEART: Regular rate. LUNGS: Show diminished breath sounds at base. ABDOMEN: Soft, nontender to palpation. No rebound or guarding. EXTREMITIES: Negative for clubbing, cyanosis. No edema. DERMATOLOGIC: No rashes. MUSCULOSKELETAL: No joint effusions. NEUROLOGIC: No change in exam. MEDICATIONS: The patient's medications have been reviewed. LABORATORY DATA: Currently pending. ASSESSMENT AND PLAN: 1. Nonoliguric acute kidney injury with previous baseline creatinine of 0.9 mg/dL. Etiology of acu te kidney injury is multifactorial secondary to tubular injury, sepsis. The patient's urinalysis sh ows evidence of granular casts, which can be seen in tubular injury/acute tubular necrosis. At this point, would continue current treatment plan. We will follow up renal panel, monitor renal functio n closely on IV antibiotics. Will monitor vancomycin level. Otherwise, continue supportive care, r enally dose meds, avoid nephrotoxins. Continue treating underlying sepsis. 2. Anemia. We will continue to monitor H and H levels. No need for Epogen at this time. 3. Mineral bone disorder. Will monitor calcium and phosphorus levels. No need for phosphate binde rs at this time. 4. Hypertension. Will continue current blood pressure regimen. 5. Acute hypoxemic respiratory failure secondary to chronic obstructive pulmonary disease exacerbat ion, pulmonary fibrosis with superimposed pneumonia. Continue current antibiotic regimen. The ericka ent is weaned off BiPAP. Continue nebulizers, steroids. Will follow up with pulmonary for further recommendations. 6. Sepsis secondary to possible healthcare-associated pneumonia/tracheobronchitis. Continue curren t antibiotic regimen. Cultures have been reviewed. Will follow up with Infectious Disease. 7. History of rheumatoid arthritis. Continue methotrexate. 8. Diabetes. Continue current insulin regimen. 9. History of coronary artery disease. Continue medical management. 10. Neuropathy. Continue Neurontin. Dictated By: DANNY TUBBS/NGHIA Conf#: [id number] DID#: [id number]
[2016-05-07 08:27] LABS: ADD SCAN DIFF NO
[2016-05-07 08:33] LABS: BASOPHILS % 0.1 % (0.0-2.0); HEMATOCRIT 33.5 % (37.0-47.0); LYMPHOCYTES # 0.6 10^3/ul (0.8-2.9); LYMPHOCYTES % 8.4 % (15.0-51.0); MEAN CORPUSCULAR HEMOGLOBIN 26.6 pg (29.0-33.0); MEAN CORPUSCULAR HGB CONC 29.9 g/dl (32.0-37.0); MEAN CORPUSCULAR VOLUME 89.1 fl (82.0-101.0); MEAN PLATELET VOLUME 10.2 fl (7.4-10.4); MONOCYTES % 0.4 % (0.0-11.0); NEUTROPHIL # 6.8 10^3/ul (1.6-7.5); NEUTROPHILS % 90.4 % (39.0-77.0); PLATELET COUNT 278 10^3/UL (140-415); RED BLOOD COUNT 3.76 10^6/ul (4.20-5.40); RED CELL DISTRIBUTION WIDTH 16.7 % (11.5-14.5); WHITE BLOOD COUNT 7.5 10^3/ul (4.8-10.8)
[2016-05-07 08:43] LABS: CREATININE 0.98 mg/dl (0.44-1.00)
[2016-05-07 08:44] LABS: CALCIUM 9.1 mg/dl (8.4-10.2)
[2016-05-07] MEDS: ASPIRIN 81 MG TAB PO SCH (08:45)
[2016-05-07] MEDS: FERROUS SULFATE (EC) 325 MG TAB PO SCH (08:45)
[2016-05-07] MEDS: SALMETEROL/FLUTICASONE 250/50 INHA INH SCH ×2 (08:45→21:29)
[2016-05-07] MEDS: GABAPENTIN 300 MG CAP PO SCH ×3 (08:46→21:28)
[2016-05-07] MEDS: METOPROLOL 50 MG TAB PO SCH ×2 (08:46→21:28)
[2016-05-07] MEDS: MULTIVITAMINS/MINERALS TAB PO SCH (08:46)
[2016-05-07] MEDS: INSULIN ASPART [NOVOLOG] 3 ML PEN SC SCH ×4 (08:53→21:02)
[2016-05-07] MEDS: ENOXAPARIN 30 MG/0.3 ML SYG SC SCH (08:54)
--- NOTE | 2016-05-07 11:13 | CONS ---
Date/Time of Note Date/Time of Note DATE: 05/07/16 TIME: 11:10 Assessment/Plan Assessment/Plan Additional Assessment/Plan Assessment and recommendations; 1. Patient admitted for acute bronchitis with possibly flare up of pulmonary fibrosis from rheumatoid arthritis. Responding very well to Solu-Medrol and current antibiotic regimen. 2. Advanced primary fibrosis. 3. Diabetes with hyperglycemia exacerbated by systemic steroids. Continue current treatment. Add Lantus insulin 12 units subcutaneously daily. Continue sliding scale insulin. Continue current Solu-Medrol dosing as well. Consultation Date/Type/Reason Admit Date/Time May 05, 2016 at 21:12 Initial Consult Date 05/06/16 Type of Consultation: Pulmonary 24 HR Interval Summary Free Text/Dictation Patient condition is significantly improved. She reports much decreased chest congestion shortness of breath also is markedly improved. Also appearing much more perkier today. General examination; elderly lady, currently in no distress awake and alert. Exam/Review of Systems Vital Signs Vitals Vital Signs Date Time Temp Pulse Resp B/P Pulse Ox O2 Delivery O2 Flow Rate FiO2 05/07/16 10:32 Nasal Cannula 4.0 05/07/16 08:41 77 05/07/16 08:01 97.8 18 159/79 96 05/06/16 07:30 40 Intake and Output 05/06/16 05/06/16 05/07/16 15:00 23:00 07:00 Intake Total 840 ml 250 ml Balance 840 ml 250 ml Exam HEENT examination; supple neck, no JVD. No lymphadenopathy. Midline trachea. Patient has few missing teeth. Pharynx is clear. No neck bruits. Pupils are midsize and reactive to light. Chest examination; diminished breath sounds bilaterally with scattered crackles. S1-S2 audible, no murmurs. Regular rhythm. Abdomen examination; soft, nontender. Bowel sounds audible. No organomegaly. Next Extremity examination; no peripheral edema. Patient has a severe changes of rheumatoid arthritis involving both hands. 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 Results Result Diagram: 05/07/16 0810 05/07/16 0810 Results 24 hrs Laboratory Tests Test 05/06/16 12:19 05/06/16 17:05 05/06/16 20:45 05/07/16 07:46 Bedside Glucose 154 259 H 262 H 246 H Test 05/07/16 08:10 Anion Gap 15 Basophils # 0.0 Basophils % 0.1 Blood Urea Nitrogen 38 H Calcium Level 9.1 Carbon Dioxide Level 26 Chloride Level 106 Creatinine 0.98 Eosinophils # 0.0 Eosinophils % 0.0 Glucose Level 248 H Hematocrit 33.5 L Hemoglobin 10.0 L Lymphocytes # 0.6 L Lymphocytes % 8.4 L Mean Corpuscular Hemoglobin 26.6 L Mean Corpuscular Hemoglobin Concent 29.9 L Mean Corpuscular Volume 89.1 Mean Platelet Volume 10.2 Monocytes # 0.0 L Monocytes % 0.4 Neutrophils # 6.8 Neutrophils % 90.4 H Nucleated Red Blood Cells # 0.0 Nucleated Red Blood Cells % 0.0 Platelet Count 278 Potassium Level 5.0 Red Blood Count 3.76 L Red Cell Distribution Width 16.7 H Sodium Level 142 White Blood Count 7.5 # Medications Medications Current Medications Acetaminophen (Tylenol Tab) 650 mg Q6H PRN PO PAIN AND OR ELEVATED TEMP Last administered on 05/07/16 01:59; Admin Dose 650 MG; Start 05/05/16 at 23:30 Zolpidem Tartrate (Ambien) 5 mg HS PRN PO INSOMNIA Last administered on 23:22; Admin Dose 5 MG; Start 05/05/16 at 23:30 Aspirin (Aspirin) 81 mg DAILY PO Last administered on 05/07/16 08:45; Admin Dose 81 MG; Start 05/06/16 at 09:00 Docusate Sodium (Colace) 100 mg BID PRN PO CONSTIPATION; Start 05/05/16 at 23:30 Ferrous Sulfate (Ferrous Sulfate (Ec)) 325 mg DAILY PO Last administered on 05/07 08:45; Admin Dose 325 MG; Start 05/06/16 at 09:00 Gabapentin (Neurontin) 300 mg TID PO Last administered on 05/07/16 08:46; Admin Dose 300 MG; Start 05/06/16 at 09:00 Magnesium Hydroxide (Milk Of Mag) 30 ml DAILY PRN PO CONSTIPATION; Start at 23:30 Methotrexate (Methotrexate) 15 mg Q7D PO ; Start 05/12/16 at 09:00; Status Future Hold Metoprolol Tartrate (Lopressor) 50 mg BID PO Last administered on 05/07/16 08: 46; Admin Dose 50 MG; Start 05/06/16 at 09:00 Multivitamins/ Minerals (Theragran-M) 1 tab DAILY PO Last administered on 08:46; Admin Dose 1 TAB; Start 05/06/16 at 09:00 Acetaminophen/ Hydrocodone Bitart ([place] (5/325)) 1 tab Q6H PRN PO PAIN Last administered on 05/06/16 23:22; Admin Dose 1 TAB; Start 05/05/16 at 23:30 Pantoprazole (Protonix Tab) 40 mg DAILY@06 PO Last administered on 05/07/16 05: 09; Admin Dose 40 MG; Start 05/06/16 at 06:00 Senna (Senokot) 1 tab DAILY PRN PO CONSTIPATION; Start 05/05/16 at 23:30 Diagnostic Test (Pha) (Accucheck) 1 ea 02 XX ; Start 05/06/16 at 02:00 Salmeterol Xinafoate/ Fluticasone 1 inh 1 inh BID INH Last administered on 08:45; Admin Dose 1 INH; Start 05/06/16 at 09:00 Vancomycin HCl 250 ml @ 125 mls/hr Q24H IVPB Last administered on 05/06/16 21: 07; Admin Dose 125 MLS/HR; Start 05/06/16 at 21:00 Piperacillin Sod/ Tazobactam Sod (Zosyn 3.375gm/ 100 ml (Pmx)) 100 ml @ 200 mls /hr Q8 IVPB Last administered on 05/07/16 05:09; Admin Dose 200 MLS/HR; Start 05/06/16 at 06:00 Miscellaneous Information 1 ea NOTE XX ; Start 05/06/16 at 07:30 Glucose (Glutose) 15 gm Q15M PRN PO DECREASED GLUCOSE; Start 05/06/16 at 07:30 Glucose (Glutose) 22.5 gm Q15M PRN PO DECREASED GLUCOSE; Start 05/06/16 at 07:30 Dextrose (D50w Syringe) 25 ml Q15M PRN IV DECREASED GLUCOSE; Start 05/06/16 at 07:30 Dextrose (D50w Syringe) 50 ml Q15M PRN IV DECREASED GLUCOSE; Start 05/06/16 at 07:30 Glucagon (Glucagen) 1 mg Q15M PRN IM DECREASED GLUCOSE; Start 05/06/16 at 07:30 Glucose (Glutose) 15 gm Q15M PRN BUCCAL DECREASED GLUCOSE; Start 05/06/16 at 07: 30 Methylprednisolone Sodium Succinate (Solu-Medrol) 40 mg Q6 IV Last administered on 05/07/16 05:09; Admin Dose 40 MG; Start 05/06/16 at 12:00 Enoxaparin Sodium (Lovenox) 30 mg DAILY SC Last administered on 05/07/16 08:54 ; Admin Dose 30 MG; Start 05/07/16 at 09:00 GARRET SOARES May 07, 2016 11:13
[2016-05-07] MEDS ORDERED: AMLODIPINE 10 MG TAB PO ONE (13:00)
--- NOTE | 2016-05-07 13:46 | PN ---
DATE: 05/07/2016 INFECTIOUS DISEASE PROGRESS NOTE SUBJECTIVE: Patient is awake, sitting in bed, looks comfortable. She is on 5 liters nasal cannula. No shortness of breath. No fevers. WBC today 7.5, platelets 278, neutrophils 90.4, BUN 38, creatinine 0.98. MICROBIOLOGY: Blood and urine cultures remain negative. Sputum culture negative. Nares swab posit sadie for MRSA. ANTIMICROBIALS: Patient is on: 1. IV vancomycin. 2. Zosyn. PHYSICAL EXAMINATION: GENERAL: This is a well-developed, obese, elderly woman who is alert, in no distress. HEENT: Head atraumatic, normocephalic. Sclerae anicteric. Buccal mucosa pink. NECK: Supple, trachea midline. CHEST: Rise symmetrical. Breath sounds diminished to bases. HEART: S1, S2. ABDOMEN: Soft. Bowel tones present. EXTREMITIES: Without cyanosis. ASSESSMENT: 1. Acute bronchitis, rule out pneumonia. 2. Plan pulmonary fibrosis. 3. Diabetes. 4. Methicillin-resistant Staphylococcus aureus nares colonization. 5. Acute hypoxemic respiratory failure. PLAN: The patient remains stable. WBC tracing down. We are going to add Bactroban to nares. Cont inue her on current antimicrobials, follow chest x-ray. Pulmonary recommendations. Dictated By: HELEN GARCIA SHINGLE BOLT CUTTER for CARINE CISSE/NGHIA Conf#: [id number] DID#: [id number]
[2016-05-07] MEDS: MUPIROCIN 2% 22 GM OINT TOP SCH ×2 (14:00→21:29)
--- NOTE | 2016-05-07 17:38 | PN ---
DATE: 05/07/[address] Anthony celestin. Chart reviewed extensively. The patient is overall feeling bett er, complaining of arthralgias as the patient has rheumatoid arthritis and also complaining of insom jason, but otherwise respiratory-myesr feeling better. I appreciate pulmonary and ID recommendations a s well. Also, I appreciate nephrology followup. Patient initially presented with acute renal failu re. PHYSICAL EXAMINATION: VITAL SIGNS: Temperature 97.7, pulse 73, respirations 18, blood pressure is elevated to 178/81, sat uration is 99% on 4 liters nasal cannula. GENERAL: The patient is in no acute distress. The patient is pale, in no distress. HEENT: Nasal cannula is in place. CARDIOVASCULAR: Positive S1 and S2. LUNGS: Bilateral chronic crackles are heard. ABDOMEN: Soft, nontender. EXTREMITIES: No clubbing, cyanosis, or edema. Deformities of the hands, swan neck deformities were noted, all suggestive of severe rheumatoid arthritis. LABORATORY DATA: White count is now normal at 7.5, hemoglobin is 10, hematocrit 34, platelet count is 278, neutrophils 90%, lymphocytes is 8%. Chemistry: Sodium 142, potassium 5.0, chloride 106, bi carbonate 26, BUN is 38, creatinine 0.98, glucose of 248. Last glucose level was 236 with slight el evation of her sugars in the low 200s. On admission, alkaline phosphatase was elevated to 172, lact ic acid was negative. UA shows trace leukocyte esterase with WBC 2 to 5 and respiratory culture deidre ws normal respiratory raúl. MRSA screening was positive and the blood cultures and urine cultures were negative. Chest x-ray did show interstitial prominence with multiple lucency suggestive of honeycombing and se raza fibrosis, otherwise there is atherosclerosis and calcification of the aorta. No significant ch pablo from prior exam. MEDICATIONS: The patient's meds include: 1. Methotrexate 50 mg weekly. 2. Norvasc 10 mg daily. 3. Lantus 12 units daily. 4. Bactroban ointment b.i.d. 5. Lovenox 40 mg subcutaneously daily. 6. Vancomycin dose per pharmacy. 7. Solu-Medrol 40 mg q.6. 8. Aspirin 81 mg daily. 9. ____ daily. 10. Neurontin 300 t.i.d. 11. Lopressor 50 mg b.i.d. 12. Multivitamin 1 tablet daily. 13. Advair 250/50 one puff b.i.d. 14. Insulin Aspart per sliding scale, hypoglycemia protocol. 15. Protonix 40 mg daily. 16. Zosyn 3.375 IV q. 8. 17. Vancomycin dosed per pharmacy. 18. Xopenex every 4 hours p.r.n. 19. Tylenol p.r.n. 20. Ambien p.r.n. 21. Colace p.r.n. 22. Milk of magnesia p.r.n. 23. [place] p.r.n. 24. Senna p.r.n. ASSESSMENT AND PLAN: This is an unfortunate 75-year-old female who is very well known to me, who has history of rheumatoid arthritis, severe pulmonary fibrosis, O2 dependent, hypertension who presented with tracheobronchitis, possible healthcare-associated pulmonary infection. 1. Respiratory. Continue antibiotic management with Zosyn and vancomycin as the patient does have methicillin-resistant Staphylococcus aureus of the nares. White count is now normal and clinically better. Taper down steroids. Continue breathing treatments and oxygen support. The patient was p laced also on BiPAP at night. ABG was reviewed. 2. Rheumatoid arthritis. Continue methotrexate. Continue pain control as patient does take opioid s 3. History of gastroparesis, stable. Previously on erythromycin and Reglan. 4. Diabetes mellitus. Taper down steroids. Will increase insulin Lantus. May consider starting o ral medications. 5. Hypertension, with history of pulmonary fibrosis and cor pulmonale ____ of severe pulmonary dise ase, currently no evidence of fluid overload state observed. 6. Acute renal failure, likely from sepsis and prerenal azotemia. Nephrology is following. 7. Infectious Disease: The patient with methicillin-resistant Staphylococcus aureus of the nares. Continue Bactroban. Continue vancomycin and Zosyn as the patient is now afebrile with normal white count. Responding to the above care treatment plan. DISPOSITION: 1. [facility]. 2. Continue stool softeners. 3. We will follow. Dictated By: FAISAL ALVAREZ/NGHIA Conf#: [id number] DID#: [id number]
[2016-05-07] MEDS: LEVALBUTEROL (NEB) 0.63 MG/3 ML AMP HHN SCH ×2 (17:46→20:18)
[2016-05-07] MEDS ORDERED: INSULIN GLARGINE [LANtus] 3 ML PEN SC SCH (20:00)
[2016-05-07] MEDS: IPRATROPIUM (NEB) 0.5 MG/2.5 ML AMP HHN SCH (20:18)
[2016-05-07] MEDS: VANCOMYCIN 1 GM in NS 250 ML IVPB SCH (20:56)
[2016-05-07] MEDS: INSULIN GLARGINE [LANtus] 3 ML PEN SC SCH (21:01)
[2016-05-07] MEDS: HYDROCODONE/APAP (5/325) TAB PO PRN (21:28)
[2016-05-07] MEDS: ZOLPIDEM 5 MG TAB PO PRN (21:29)
[2016-05-08] VITALS (12 sets, daily range): BP systolic 127–153; BP diastolic 58–94; PULSE 49–71; RESP 16–22
[2016-05-08] MEDS: LEVALBUTEROL (NEB) 0.63 MG/3 ML AMP HHN SCH ×4 (01:10→21:00)
[2016-05-08] MEDS: ACCUCHECK XX SCH (02:00)
[2016-05-08] MEDS: METHYLPREDNISOLONE 40 MG INJ IV SCH ×3 (06:13→21:32)
[2016-05-08] MEDS: PANTOPRAZOLE (EC) 40 MG TAB PO SCH (06:16)
[2016-05-08] MEDS: PIPER-TAZO 3.375 GM IV (PMX) 100 ML IVPB SCH ×3 (06:17→21:31)
[2016-05-08 07:24] LABS: ADD SCAN DIFF NO
[2016-05-08 07:49] LABS: CREATININE 0.72 mg/dl (0.44-1.00)
[2016-05-08 07:50] LABS: CALCIUM 9.3 mg/dl (8.4-10.2); MAGNESIUM 1.8 mg/dl (1.7-2.5)
[2016-05-08 07:55] LABS: ABNORMAL IP MESSAGE 1; HEMATOCRIT 36.4 % (37.0-47.0); HEMOGLOBIN 10.5 g/dl (12.0-16.0); MEAN CORPUSCULAR HEMOGLOBIN 26.1 pg (29.0-33.0); MEAN CORPUSCULAR HGB CONC 28.8 g/dl (32.0-37.0); MEAN CORPUSCULAR VOLUME 90.3 fl (82.0-101.0); MEAN PLATELET VOLUME 10.4 fl (7.4-10.4); PLATELET COUNT 314 10^3/UL (140-415); RED BLOOD COUNT 4.03 10^6/ul (4.20-5.40); WHITE BLOOD COUNT 11.8 10^3/ul (4.8-10.8)
[2016-05-08 08:21] LABS: BASOPHILS % 0.2 % (0.0-2.0)
[2016-05-08] MEDS: SALMETEROL/FLUTICASONE 250/50 INHA INH SCH ×2 (08:40→21:40)
[2016-05-08] MEDS: FERROUS SULFATE (EC) 325 MG TAB PO SCH (08:40)
[2016-05-08] MEDS: ASPIRIN 81 MG TAB PO SCH (08:40)
[2016-05-08] MEDS: GABAPENTIN 300 MG CAP PO SCH ×3 (08:41→21:32)
[2016-05-08] MEDS: METOPROLOL 50 MG TAB PO SCH ×2 (08:41→21:33)
[2016-05-08] MEDS: AMLODIPINE 10 MG TAB PO SCH (08:42)
[2016-05-08] MEDS: MULTIVITAMINS/MINERALS TAB PO SCH (08:42)
[2016-05-08] MEDS: MUPIROCIN 2% 22 GM OINT TOP SCH ×2 (08:43→21:46)
[2016-05-08] MEDS: INSULIN ASPART [NOVOLOG] 3 ML PEN SC SCH ×5 (08:50→21:52)
[2016-05-08] MEDS: ENOXAPARIN 30 MG/0.3 ML SYG SC SCH (08:50)
[2016-05-08] MEDS: IPRATROPIUM (NEB) 0.5 MG/2.5 ML AMP HHN SCH ×3 (08:51→21:00)
--- NOTE | 2016-05-08 08:53 | PN ---
DATE: 05/08/2016 SUBJECTIVE: The patient is stable, no acute events overnight. No fevers, chills, nausea, vomiting. No shortness of breath. OBJECTIVE: VITAL SIGNS: Blood pressure 130/94, respirations 18, pulse 58, temperature 97.8. HEENT: Head is normocephalic. NECK: Supple. HEART: Regular rate. LUNGS: Show diminished breath sounds at the base. ABDOMEN: Soft, nontender to palpation. No rebound or guarding. EXTREMITIES: Negative for clubbing, cyanosis. No edema. DERMATOLOGIC: No rashes. MUSCULOSKELETAL: No joint effusions. NEUROLOGIC: No focal deficits. LABORATORY DATA: Shows a sodium of 142, potassium 5.0, chloride 105, BUN 30, creatinine 0.98, gluco se 248. ASSESSMENT AND PLAN: 1. Nonoliguric acute kidney injury with a previous baseline creatinine of 0.9 mg/dL. The etiology of acute kidney injury is secondary to hemodynamics, tubular injury. The patient's renal function a ppears to be returning to previous baseline. At this point, continue current treatment plan, suppor tive care, renally dose medications, avoid nephrotoxins. 2. Anemia. Hemoglobin level stable, continue to monitor. No need for Epogen at this time. 3. Mineral bone disorder. Continue to monitor calcium and phosphorus levels. No need for phosphat e binders. 4. Hypertension. Continue current blood pressure regimen. 5. Acute hypoxic respiratory failure secondary to chronic obstructive pulmonary disease exacerbatio n and pneumonia. Continue current antibiotic regimen. Continue nebulizers, steroids. Follow up pulmonary. 6. Sepsis secondary to healthcare-associated pneumonia. Continue current antibiotic regimen. 7. History of rheumatoid arthritis. The patient is on methotrexate. 8. Diabetes. Continue current insulin regimen. 9. History of coronary artery disease. 10. Neuropathy. Continue Neurontin. Dictated By: DANNY TUBBS/NGHIA Conf#: [id number] DID#: [id number]
[2016-05-08 10:26] LABS: LYMPHOCYTES # 1.3 10^3/ul (0.8-2.9); LYMPHOCYTES % 10.2 % (15.0-51.0); MONOCYTES % 0.3 % (0.0-11.0); NEUTROPHIL # 10.9 10^3/ul (1.6-7.5)
[2016-05-08 10:27] LABS: TOTAL CELLS COUNTED % 100
[2016-05-08] MEDS: HYDROCODONE/APAP (5/325) TAB PO PRN ×2 (12:04→21:30)
--- NOTE | 2016-05-08 12:43 | PN ---
DATE: 05/08/2016 INFECTIOUS DISEASE PROGRESS NOTE SUBJECTIVE: No acute events overnight. The patient is sleeping, looks comfortable on 5 L nasal can nula. No shortness of breath. No fevers. LABORATORY DATA: WBC today 11.8, platelets 314, neutrophils 89, no bands. BUN 36, creatinine 0.72. MICROBIOLOGY: All cultures had been negative. Nares swab positive for MRSA. ANTIMICROBIALS: The patient is on: 1. IV vancomycin. 2. Topical Bactroban to nares. 3. Zosyn. PHYSICAL EXAMINATION: GENERAL: This is well-developed, fragile, elderly woman who is in no distress. HEENT: Head atraumatic, normocephalic. Sclerae anicteric. Buccal mucosa dry. NECK: Supple, trachea midline. CHEST: Rise symmetrical. Breath sounds diminished to bases. HEART: S1, S2. ABDOMEN: Soft. Bowel sounds present. EXTREMITIES: Without cyanosis. ASSESSMENT: 1. Acute respiratory failure, resolving. 2. Acute bronchitis. 3. Pulmonary fibrosis. 4. Diabetes. 5. Methicillin-resistant Staphylococcus aureus nares colonization. 6. History of rheumatoid arthritis. 7. Leukocytosis, remains on steroid taper. PLAN: The patient remains stable. Continue present care, continue on antibiotics for now. Monitor labs, chest x-ray. Follow recommendation of consultants. Dictated By: HELEN GARCIA BITUMINOUS DISTRIBUTOR OPERATOR for [employer]INE CISSE/NGHIA Conf#: [id number] DID#: [id number]
--- NOTE | 2016-05-08 13:47 | CONS ---
Date/Time of Note Date/Time of Note DATE: 05/08/16 TIME: 13:45 Assessment/Plan Assessment/Plan Additional Assessment/Plan Assessment and recommendations; next 1. Patient admitted for acute bronchitis and possibly superimposed pneumonia with significant clinical improvement on current treatment regimen. 2. Advanced pulmonary fibrosis from rheumatoid arthritis. 3. Diabetes with mild hyperglycemia exacerbated by systemic steroid treatment. Continue current treatment however decrease Solu-Medrol to 40 mg every 12 hours from every 8 hours. Further tapering down in 24 hours of Solu-Medrol dosing to prednisone. Consultation Date/Type/Reason Admit Date/Time May 05, 2016 at 21:12 Initial Consult Date 05/06/16 Type of Consultation: Pulmonary 24 HR Interval Summary Free Text/Dictation Patient condition is stable. Reports markedly improved shortness of breath. Denies any cough chest congestion. Any fever chills. General exam; elderly lady, currently in no distress awake and alert. Exam/Review of Systems Vital Signs Vitals Vital Signs Date Time Temp Pulse Resp B/P Pulse Ox O2 Delivery O2 Flow Rate FiO2 05/08/16 12:33 69 05/08/16 11:46 96.6 18 148/67 100 05/08/16 08:53 Nasal Cannula 5.0 05/06/16 07:30 40 Intake and Output 05/07/16 05/07/16 05/08/16 15:00 23:00 07:00 Intake Total 1080 ml 250 ml Balance 1080 ml 250 ml Exam HEENT examination; supple neck, no JVD. No lymphadenopathy. Midline trachea. No thyromegaly. Pharynx is clear. Patient has multiple carious teeth. Chest examination; bilateral crackles. S1-S2 audible, no murmurs. Regular rhythm. Abdomen examination; soft, nontender. Nondistended. No organomegaly. Bowel sounds audible. Extremity examination; no peripheral edema. Patient does have severe changes of rheumatoid arthritis involving both hands. 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 Results Result Diagram: 05/08/16 0645 05/08/16 0645 Results 24 hrs Laboratory Tests Test 05/07/16 17:09 05/07/16 21:00 05/08/16 02:16 05/08/16 06:45 Bedside Glucose 278 H 301 H 239 H Anion Gap 13 Band Neutrophils % 0.0 Basophils # 0.0 Basophils % 0.2 Blood Urea Nitrogen 36 H Calcium Level 9.3 Carbon Dioxide Level 26 Chloride Level 105 Creatinine 0.72 Eosinophils # 0.0 Eosinophils % 0.0 Glucose Level 228 H Hematocrit 36.4 L Hemoglobin 10.5 L Lymphocytes # 1.3 Lymphocytes % 10.2 L Magnesium Level 1.8 Mean Corpuscular Hemoglobin 26.1 L Mean Corpuscular Hemoglobin Concent 28.8 L Mean Corpuscular Volume 90.3 Mean Platelet Volume 10.4 Monocytes # 0.0 L Monocytes % 0.3 Neutrophils # 10.9 H Neutrophils % 89.0 H Nucleated Red Blood Cells # 0.0 Nucleated Red Blood Cells % 0.0 Phosphorus Level 3.0 Platelet Count 314 Potassium Level 5.0 Red Blood Count 4.03 L Red Cell Distribution Width 17.0 H Sodium Level 139 White Blood Count 11.8 #H Test 05/08/16 08:39 05/08/16 12:06 Bedside Glucose 246 H 267 H Medications Medications Current Medications Acetaminophen (Tylenol Tab) 650 mg Q6H PRN PO PAIN AND OR ELEVATED TEMP Last administered on 05/07/16 01:59; Admin Dose 650 MG; Start 05/05/16 at 23:30 Aspirin (Aspirin) 81 mg DAILY PO Last administered on 05/08/16 08:40; Admin Dose 81 MG; Start 05/06/16 at 09:00 Docusate Sodium (Colace) 100 mg BID PRN PO CONSTIPATION; Start 05/05/16 at 23:30 Ferrous Sulfate (Ferrous Sulfate (Ec)) 325 mg DAILY PO Last administered on 05/08 08:40; Admin Dose 325 MG; Start 05/06/16 at 09:00 Gabapentin (Neurontin) 300 mg TID PO Last administered on 05/08/16 13:21; Admin Dose 300 MG; Start 05/06/16 at 09:00 Magnesium Hydroxide (Milk Of Mag) 30 ml DAILY PRN PO CONSTIPATION; Start at 23:30 Methotrexate (Methotrexate) 15 mg Q7D PO ; Start 05/12/16 at 09:00; Status Future Hold Metoprolol Tartrate (Lopressor) 50 mg BID PO Last administered on 05/08/16 08: 41; Admin Dose 50 MG; Start 05/06/16 at 09:00 Multivitamins/ Minerals (Theragran-M) 1 tab DAILY PO Last administered on 08:42; Admin Dose 1 TAB; Start 05/06/16 at 09:00 Acetaminophen/ Hydrocodone Bitart ([place]yman (5/325)) 1 tab Q6H PRN PO PAIN Last administered on 05/08/16 12:04; Admin Dose 1 TAB; Start 05/05/16 at 23:30 Pantoprazole (Protonix Tab) 40 mg DAILY@06 PO Last administered on 05/08/16 06: 16; Admin Dose 40 MG; Start 05/06/16 at 06:00 Senna (Senokot) 1 tab DAILY PRN PO CONSTIPATION; Start 05/05/16 at 23:30 Diagnostic Test (Pha) (Accucheck) 1 ea 02 XX ; Start 05/06/16 at 02:00 Salmeterol Xinafoate/ Fluticasone 1 inh 1 inh BID INH Last administered on 08:40; Admin Dose 1 INH; Start 05/06/16 at 09:00 Vancomycin HCl 250 ml @ 125 mls/hr Q24H IVPB Last administered on 05/07/16 20: 56; Admin Dose 125 MLS/HR; Start 05/06/16 at 21:00 Piperacillin Sod/ Tazobactam Sod (Zosyn 3.375gm/ 100 ml (Pmx)) 100 ml @ 200 mls /hr Q8 IVPB Last administered on 05/08/16 13:22; Admin Dose 200 MLS/HR; Start 05/06/16 at 06:00 Miscellaneous Information 1 ea NOTE XX ; Start 05/06/16 at 07:30 Glucose (Glutose) 15 gm Q15M PRN PO DECREASED GLUCOSE; Start 05/06/16 at 07:30 Glucose (Glutose) 22.5 gm Q15M PRN PO DECREASED GLUCOSE; Start 05/06/16 at 07:30 Dextrose (D50w Syringe) 25 ml Q15M PRN IV DECREASED GLUCOSE; Start 05/06/16 at 07:30 Dextrose (D50w Syringe) 50 ml Q15M PRN IV DECREASED GLUCOSE; Start 05/06/16 at 07:30 Glucagon (Glucagen) 1 mg Q15M PRN IM DECREASED GLUCOSE; Start 05/06/16 at 07:30 Glucose (Glutose) 15 gm Q15M PRN BUCCAL DECREASED GLUCOSE; Start 05/06/16 at 07: 30 Enoxaparin Sodium (Lovenox) 30 mg DAILY SC Last administered on 05/08/16 08:50 ; Admin Dose 30 MG; Start 05/07/16 at 09:00 Amlodipine Besylate (Norvasc) 10 mg DAILY PO Last administered on 05/08/16 08: 42; Admin Dose 10 MG; Start 05/08/16 at 09:00 Mupirocin (Bactroban) 1 applic BID TOP Last administered on 05/08/16 08:43; Admin Dose 1 APPLIC; Start 05/07/16 at 14:00 Insulin Glargine (Lantus) 16 unit DAILY@20 SC Last administered on 05/07/16 21: 01; Admin Dose 16 UNIT; Start 05/07/16 at 20:00 Methylprednisolone Sodium Succinate (Solu-Medrol) 40 mg Q8 IV Last administered on 05/08/16 13:22; Admin Dose 40 MG; Start 05/07/16 at 22:00 Miscellaneous Information (*Rx Drug Level Order Reminder*) VANCO TROUGH @ 2, 000 ON... ONCE ONCE XX ; Start 05/08/16 at 20:00; Stop 05/08/16 at 20:01 GARRET SOARES May 08, 2016 13:46
--- NOTE | 2016-05-08 16:41 | PN ---
DATE: 05/08/2016 SUBJECTIVE: Patient is seen, says she is fatigued, tired, otherwise no complaints. Remains on oxyg en supplements almost 5 liters nasal cannula. PHYSICAL EXAMINATION: VITAL SIGNS: Temperature 97.8, pulse 84, respirations 16, blood pressure 130/58, saturation 97% on 5 liters. GENERAL: The patient is in no acute distress. The patient is pale, fragile. HEENT: Decreased dentition. CARDIOVASCULAR: Positive S1 and S2. LUNGS: Diffuse chronic crackles and rhonchi. ABDOMEN: Soft, nontender. EXTREMITIES: No clubbing, cyanosis, or edema. LABORATORY DATA: White count is slightly high at 11.8, hemoglobin 10.5, hematocrit 36, platelet cou nt 314, neutrophils 89%, lymphocytes 10%. Chemistry: Sodium 139, potassium 5.0, chloride 105, bica rbonate 26, BUN is 36, creatinine 0.72, glucose of 228. Last glucose levels remain high in the low mid ____267 and 246. Respiratory culture shows normal respiratory culture, MRSA of the nares was po sitive. Blood cultures and urine cultures were negative. MEDICATIONS: Include: 1. Methotrexate 50 mg weekly. 2. Solu-Medrol 40 mg IV q.12h. 3. Norvasc 10 mg daily. 4. Lantus 16 units daily. 5. Atrovent and Xopenex every 6 hours. 6. Ambien p.r.n. 7. Bactroban ointment b.i.d. to the nares. 8. Lovenox 30 mg subcutaneous daily. 9. Vancomycin dose per pharmacy. 10. Aspirin 81 mg daily. 11. Ferrous sulfate 325 mg daily. 12. Neurontin 300 mg t.i.d. 13. Metoprolol 50 b.i.d. 14. Multivitamin 1 tablet daily. 15. Advair 250/50 one puff b.i.d. 16. Insulin aspart per sliding scale. 17. Hypoglycemia protocol as directed. 18. Protonix 40 mg daily. 19. Zosyn 3.375 IV q.8h. 20. Accu-Cheks as directed. 21. Vancomycin dose per pharmacy. 22. Breathing treatments p.r.n. 23. Colace p.r.n. 24. Milk of magnesia p.r.n. 21. [place] p.r.n. 22. Senna p.r.n. ASSESSMENT AND PLAN: This is a very unfortunate 75-year-old female, very well known to me with history of rheumatoid arthritis, severe pulmonary fibrosis, O2 dependency, hypertension, scoli osis, who presented with tracheobronchitis, possible pneumonia. 1. Respiratory. Continue antibiotic management with Zosyn and vancomycin. The patient does have M RSA of the nares. White count is slightly higher. Will observe. The patient remains afebrile, cli nically improving. We will taper down steroids. Continue O2 support, BiPAP per pulmonary. 2. Rheumatoid arthritis. Continue methotrexate, pain control. 3. History of gastroparesis, stable, no evidence of a nausea or vomiting. 4. Diabetes mellitus. Will add NovoLog 4 units before meals. Continue current regimen of Lantus. We are titrating steroids down, as that improve with diabetes control. 5. Hypertension. Continue above medications. Blood pressure improved. 6. Acute renal failure, back to baseline. Monitor electrolytes. Monitor patient's p.o. intake ___ _. DISPOSITION: Back to [facility] soon. Dictated By: FAISAL ALVAREZ/NGHIA Conf#: [id number] DID#: [id number]
[2016-05-08] MEDS ORDERED: VANCOMYCIN 1 GM in NS 250 ML IVPB SCH (21:14)
[2016-05-08] MEDS: ZOLPIDEM 5 MG TAB PO PRN (21:30)
[2016-05-08] MEDS: INSULIN GLARGINE [LANtus] 3 ML PEN SC SCH (21:52)
[2016-05-08] MEDS ORDERED: INSULIN ASPART [NOVOLOG] 3 ML PEN SC ONE (22:30)
[2016-05-09] VITALS (11 sets, daily range): BP systolic 119–165; BP diastolic 58–80; PULSE 55–78; RESP 17–21
[2016-05-09] MEDS: LEVALBUTEROL (NEB) 0.63 MG/3 ML AMP HHN SCH ×3 (01:48→14:20)
[2016-05-09] MEDS: ACCUCHECK XX SCH (02:00)
[2016-05-09] MEDS: PIPER-TAZO 3.375 GM IV (PMX) 100 ML IVPB SCH ×2 (05:35→14:15)
[2016-05-09] MEDS: PANTOPRAZOLE (EC) 40 MG TAB PO SCH (05:35)
[2016-05-09 07:01] LABS: POTASSIUM 4.5 mmol/L (3.5-5.1)
[2016-05-09 07:03] LABS: CREATININE 0.77 mg/dl (0.44-1.00)
[2016-05-09 07:04] LABS: CALCIUM 9.4 mg/dl (8.4-10.2); PHOSPHORUS 3.2 mg/dl (2.5-4.9)
[2016-05-09 07:05] LABS: MAGNESIUM 1.8 mg/dl (1.7-2.5)
[2016-05-09] MEDS: IPRATROPIUM (NEB) 0.5 MG/2.5 ML AMP HHN SCH ×2 (07:58→14:20)
[2016-05-09] MEDS: FERROUS SULFATE (EC) 325 MG TAB PO SCH (08:06)
[2016-05-09] MEDS: ASPIRIN 81 MG TAB PO SCH (08:06)
[2016-05-09] MEDS: MULTIVITAMINS/MINERALS TAB PO SCH (08:06)
[2016-05-09] MEDS: AMLODIPINE 10 MG TAB PO SCH (08:06)
[2016-05-09] MEDS: METOPROLOL 50 MG TAB PO SCH (08:07)
[2016-05-09] MEDS: GABAPENTIN 300 MG CAP PO SCH ×2 (08:07→12:25)
[2016-05-09] MEDS: SALMETEROL/FLUTICASONE 250/50 INHA INH SCH (08:07)
[2016-05-09] MEDS: METHYLPREDNISOLONE 40 MG INJ IV SCH (08:07)
[2016-05-09] MEDS: MUPIROCIN 2% 22 GM OINT TOP SCH (08:07)
[2016-05-09] MEDS: INSULIN ASPART [NOVOLOG] 3 ML PEN SC SCH ×4 (08:23→12:28)
[2016-05-09] MEDS: ENOXAPARIN 30 MG/0.3 ML SYG SC SCH (08:24)
--- NOTE | 2016-05-09 09:43 | PN ---
DATE: 05/09/2016 SUBJECTIVE: The patient is stable, no acute events overnight. No fevers, chills, nausea, vomiting. The patient is comfortable on nasal cannula. OBJECTIVE: VITAL SIGNS: Blood pressure is 151/80, respirations 17, pulse 64, temperature 97.9. HEENT: Head is normocephalic. NECK: Supple. HEART: Regular rate. LUNGS: Show diminished breath sounds at the base. ABDOMEN: Soft, nontender to palpation. No rebound or guarding. EXTREMITIES: Negative for clubbing, cyanosis. No edema. DERMATOLOGIC: No rashes. MUSCULOSKELETAL: No joint effusions. NEUROLOGIC: No change in exam. MEDICATIONS: The patient's medications have been reviewed. LABORATORY DATA: Showed sodium 140, potassium 3.5, chloride 105, BUN 35, creatinine 0.77. White co unt 11.8, hemoglobin 10.5, hematocrit 36.4, platelet count 314. ASSESSMENT AND PLAN: 1. Nonoliguric acute kidney injury with previous baseline creatinine of 0.9 mg/dL. Etiology of acu te kidney injury is secondary to hemodynamics, tubular injury. The patient's renal function has ret urned back to baseline. At this point, continue current treatment plan, supportive care, renally do se all meds. 2. Anemia. Hemoglobin levels have been stable, no need for Epogen. 3. Mineral bone disorder. Continue to monitor calcium and phosphorus levels. 4. Hypertension. Continue ____ regimen. 5. Acute hypoxemic respiratory failure secondary to chronic obstructive pulmonary disease exacerbat ion, pneumonia. The patient is clinically improving. Continue current medical management. Continu e nebulizers, steroids. Follow up with pulmonary. 6. Sepsis secondary to healthcare-associated pneumonia, clinically improving. Continue current robin atment plan. 7. History of rheumatoid arthritis. The patient is on methotrexate. 8. Diabetes. Continue current insulin regimen. 9. History of coronary artery disease. 10. Neuropathy. Continue Neurontin. Dictated By: DANNY TUBBS/NGHIA Conf#: [id number] DID#: [id number]
[2016-05-09] MEDS ORDERED: VANCOMYCIN 750 MG in SOD CHLORIDE 0.9% 150 ML IVPB SCH (10:00)
--- NOTE | 2016-05-09 11:42 | CONS ---
Date/Time of Note Date/Time of Note DATE: 05/09/16 TIME: 11:39 Assessment/Plan Assessment/Plan Additional Assessment/Plan Assessment recommendations; 1. Patient admitted for pulmonary fibrosis exacerbation with possibly superimposed pneumonia with significant clinical improvement. 2. Rheumatoid lung. 3. Diabetes. With significant improvement in blood sugar readings. Continue current treatment. Continue current antibiotics, Solu-Medrol at current dosing. Switch Solu-Medrol to oral prednisone starting tomorrow. Consultation Date/Type/Reason Admit Date/Time May 05, 2016 at 21:12 Initial Consult Date 05/06/16 Type of Consultation: Pulmonary 24 HR Interval Summary Free Text/Dictation Patient condition is stable. Patient is denying any further chest congestion. According to her that is markedly improved. Shortness of breath also is markedly improved. Any fever, chest pain. Any wheezing. General exam; elderly lady, currently in no distress, awake and alert. Exam/Review of Systems Vital Signs Vitals Vital Signs Date Time Temp Pulse Resp B/P Pulse Ox O2 Delivery O2 Flow Rate FiO2 05/09/16 11:25 98.0 56 18 119/58 100 05/09/16 08:00 Nasal Cannula 4.0 05/06/16 07:30 40 Intake and Output 05/08/16 05/08/16 05/09/16 15:00 23:00 07:00 Intake Total 980 ml 700 ml Balance 980 ml 700 ml Exam HEENT cavity; supple neck, no JVD. No lymphadenopathy. Midline trachea. No neck masses. Chest examination; diffuse bilateral crackles with interval improvement. S1-S2 audible, no murmurs. Regular rhythm. Abdomen examination; soft, nontender. No organomegaly. Bowel sounds audible. Extremity examination; no peripheral edema. Patient does have changes of severe rheumatoid arthritis involving both hands. CARGO AGENT examination; no focal deficit. Results Result Diagram: 05/08/16 0645 05/09/16 0612 Results 24 hrs Laboratory Tests Test 05/08/16 12:06 05/08/16 17:39 05/08/16 19:55 05/08/16 21:38 Bedside Glucose 267 H 298 H 352 H Vancomycin Level Trough 7.5 L Test 05/09/16 03:39 05/09/16 06:12 05/09/16 07:27 Bedside Glucose 186 196 Anion Gap 12 Blood Urea Nitrogen 35 H Calcium Level 9.4 Carbon Dioxide Level 28 Chloride Level 105 Creatinine 0.77 Glucose Level 205 Magnesium Level 1.8 Phosphorus Level 3.2 Potassium Level 4.5 Sodium Level 140 Medications Medications Current Medications Acetaminophen (Tylenol Tab) 650 mg Q6H PRN PO PAIN AND OR ELEVATED TEMP Last administered on 05/07/16 01:59; Admin Dose 650 MG; Start 05/05/16 at 23:30 Aspirin (Aspirin) 81 mg DAILY PO Last administered on 05/09/16 08:06; Admin Dose 81 MG; Start 05/06/16 at 09:00 Docusate Sodium (Colace) 100 mg BID PRN PO CONSTIPATION; Start 05/05/16 at 23:30 Ferrous Sulfate (Ferrous Sulfate (Ec)) 325 mg DAILY PO Last administered on 05/09 08:06; Admin Dose 325 MG; Start 05/06/16 at 09:00 Gabapentin (Neurontin) 300 mg TID PO Last administered on 05/09/16 08:07; Admin Dose 300 MG; Start 05/06/16 at 09:00 Magnesium Hydroxide (Milk Of Mag) 30 ml DAILY PRN PO CONSTIPATION; Start at 23:30 Methotrexate (Methotrexate) 15 mg Q7D PO ; Start 05/12/16 at 09:00; Status Future Hold Metoprolol Tartrate (Lopressor) 50 mg BID PO Last administered on 05/09/16 08: 07; Admin Dose 50 MG; Start 05/06/16 at 09:00 Multivitamins/ Minerals (Theragran-M) 1 tab DAILY PO Last administered on 08:06; Admin Dose 1 TAB; Start 05/06/16 at 09:00 Acetaminophen/ Hydrocodone Bitart ([place] (5/325)) 1 tab Q6H PRN PO PAIN Last administered on 05/08/16 21:30; Admin Dose 1 TAB; Start 05/05/16 at 23:30 Pantoprazole (Protonix Tab) 40 mg DAILY@06 PO Last administered on 05/09/16 05: 35; Admin Dose 40 MG; Start 05/06/16 at 06:00 Senna (Senokot) 1 tab DAILY PRN PO CONSTIPATION; Start 05/05/16 at 23:30 Diagnostic Test (Pha) (Accucheck) 1 ea 02 XX Last administered on 05/09/16 02: 00; Admin Dose 1 EA; Start 05/06/16 at 02:00 Salmeterol Xinafoate/ Fluticasone 1 inh 1 inh BID INH Last administered on 08:07; Admin Dose 1 INH; Start 05/06/16 at 09:00 Piperacillin Sod/ Tazobactam Sod (Zosyn 3.375gm/ 100 ml (Pmx)) 100 ml @ 200 mls /hr Q8 IVPB Last administered on 05/09/16 05:35; Admin Dose 200 MLS/HR; Start 05/06/16 at 06:00 Miscellaneous Information 1 ea NOTE XX ; Start 05/06/16 at 07:30 Glucose (Glutose) 15 gm Q15M PRN PO DECREASED GLUCOSE; Start 05/06/16 at 07:30 Glucose (Glutose) 22.5 gm Q15M PRN PO DECREASED GLUCOSE; Start 05/06/16 at 07:30 Dextrose (D50w Syringe) 25 ml Q15M PRN IV DECREASED GLUCOSE; Start 05/06/16 at 07:30 Dextrose (D50w Syringe) 50 ml Q15M PRN IV DECREASED GLUCOSE; Start 05/06/16 at 07:30 Glucagon (Glucagen) 1 mg Q15M PRN IM DECREASED GLUCOSE; Start 05/06/16 at 07:30 Glucose (Glutose) 15 gm Q15M PRN BUCCAL DECREASED GLUCOSE; Start 05/06/16 at 07: 30 Enoxaparin Sodium (Lovenox) 30 mg DAILY SC Last administered on 05/09/16 08:24 ; Admin Dose 30 MG; Start 05/07/16 at 09:00 Amlodipine Besylate (Norvasc) 10 mg DAILY PO Last administered on 05/09/16 08: 06; Admin Dose 10 MG; Start 05/08/16 at 09:00 Mupirocin (Bactroban) 1 applic BID TOP Last administered on 05/09/16 08:07; Admin Dose 1 APPLIC; Start 05/07/16 at 14:00 Insulin Glargine (Lantus) 16 unit DAILY@20 SC Last administered on 05/08/16 21: 52; Admin Dose 16 UNIT; Start 05/07/16 at 20:00 Methylprednisolone Sodium Succinate 40 mg 40 mg Q12 IV Last administered on 05/09 08:07; Admin Dose 40 MG; Start 05/08/16 at 21:00 Vancomycin HCl/ Sodium Chloride (Vancocin/NS) 150 ml @ 75 mls/hr Q12H IVPB Last administered on 05/09/16 08:08; Admin Dose 75 MLS/HR; Start 05/09/16 at 10: 00 GARRET SOARES May 09, 2016 11:42
--- NOTE | 2016-05-09 12:52 | PDOCDIS ---
Discharge Instructions CONDITION Patient Condition: Stable HOME CARE INSTRUCTIONS: Special Diet: 1800 calorie ACTIVITY: Activity Restrictions: Slowly Increase Activity FOLLOW UP/APPOINTMENTS Appointments discharge to [facility], see reconciliation, keep on O2 NC 2-4 FAISAL Soto MD May 09, 2016 12:51
--- NOTE | 2016-05-09 13:41 | CONS ---
Date/Time of Note Date/Time of Note DATE: 05/09/16 TIME: 13:39 Assessment/Plan Assessment/Plan Chief Complaint/Hosp Course SUBJECTIVE: No acute events overnight. Awake, no SOB, comfortable on 4 L nasal cannula. No fevers. MICROBIOLOGY: All cultures had been negative. Nares swab positive for MRSA. ANTIMICROBIALS: The patient is on: 1. IV vancomycin. 2. Topical Bactroban to nares. 3. Zosyn. PHYSICAL EXAMINATION: GENERAL: This is well-developed, fragile, elderly woman who is in no distress. HEENT: Head atraumatic, normocephalic. Sclerae anicteric. Buccal mucosa dry. NECK: Supple, trachea midline. CHEST: Rise symmetrical. Breath sounds with scattered rhonchi. HEART: S1, S2. ABDOMEN: Soft. Bowel sounds present. EXTREMITIES: Without cyanosis. ASSESSMENT: 1. Acute respiratory failure, resolving. 2. Acute bronchitis. 3. Pulmonary fibrosis. 4. Diabetes. 5. Methicillin-resistant Staphylococcus aureus nares colonization. 6. History of rheumatoid arthritis. 7. Leukocytosis, remains on steroid taper. PLAN: Improving. Continue present care, antibiotics, steroids taper. Follow recommendation of consultants. staff Problems: Consultation Date/Type/Reason Admit Date/Time May 05, 2016 at 21:12 Initial Consult Date 05/06/16 Type of Consultation: id Exam/Review of Systems Vital Signs Vitals Vital Signs Date Time Temp Pulse Resp B/P Pulse Ox O2 Delivery O2 Flow Rate FiO2 05/09/16 12:31 56 05/09/16 11:25 98.0 18 119/58 100 05/09/16 08:00 Nasal Cannula 4.0 05/06/16 07:30 40 Intake and Output 05/08/16 05/08/16 05/09/16 15:00 23:00 07:00 Intake Total 980 ml 700 ml Balance 980 ml 700 ml Results Result Diagram: 05/08/16 0645 05/09/16 0612 Results 24 hrs Laboratory Tests Test 05/08/16 17:39 05/08/16 19:55 05/08/16 21:38 05/09/16 03:39 Bedside Glucose 298 H 352 H 186 Vancomycin Level Trough 7.5 L Test 05/09/16 06:12 05/09/16 07:27 05/09/16 11:57 Anion Gap 12 Blood Urea Nitrogen 35 H Calcium Level 9.4 Carbon Dioxide Level 28 Chloride Level 105 Creatinine 0.77 Glucose Level 205 Magnesium Level 1.8 Phosphorus Level 3.2 Potassium Level 4.5 Sodium Level 140 Bedside Glucose 196 136 Medications Medications Current Medications Acetaminophen (Tylenol Tab) 650 mg Q6H PRN PO PAIN AND OR ELEVATED TEMP Last administered on 05/07/16 01:59; Admin Dose 650 MG; Start 05/05/16 at 23:30 Aspirin (Aspirin) 81 mg DAILY PO Last administered on 05/09/16 08:06; Admin Dose 81 MG; Start 05/06/16 at 09:00 Docusate Sodium (Colace) 100 mg BID PRN PO CONSTIPATION; Start 05/05/16 at 23:30 Ferrous Sulfate (Ferrous Sulfate (Ec)) 325 mg DAILY PO Last administered on 05/09 08:06; Admin Dose 325 MG; Start 05/06/16 at 09:00 Gabapentin (Neurontin) 300 mg TID PO Last administered on 05/09/16 12:25; Admin Dose 300 MG; Start 05/06/16 at 09:00 Magnesium Hydroxide (Milk Of Mag) 30 ml DAILY PRN PO CONSTIPATION; Start at 23:30 Methotrexate (Methotrexate) 15 mg Q7D PO ; Start 05/12/16 at 09:00; Status Future Hold Metoprolol Tartrate (Lopressor) 50 mg BID PO Last administered on 05/09/16 08: 07; Admin Dose 50 MG; Start 05/06/16 at 09:00 Multivitamins/ Minerals (Theragran-M) 1 tab DAILY PO Last administered on 08:06; Admin Dose 1 TAB; Start 05/06/16 at 09:00 Acetaminophen/ Hydrocodone Bitart ([place] (5/325)) 1 tab Q6H PRN PO PAIN Last administered on 05/08/16 21:30; Admin Dose 1 TAB; Start 05/05/16 at 23:30 Pantoprazole (Protonix Tab) 40 mg DAILY@06 PO Last administered on 05/09/16 05: 35; Admin Dose 40 MG; Start 05/06/16 at 06:00 Senna (Senokot) 1 tab DAILY PRN PO CONSTIPATION; Start 05/05/16 at 23:30 Diagnostic Test (Pha) (Accucheck) 1 ea 02 XX Last administered on 05/09/16 02: 00; Admin Dose 1 EA; Start 05/06/16 at 02:00 Salmeterol Xinafoate/ Fluticasone 1 inh 1 inh BID INH Last administered on 08:07; Admin Dose 1 INH; Start 05/06/16 at 09:00 Piperacillin Sod/ Tazobactam Sod (Zosyn 3.375gm/ 100 ml (Pmx)) 100 ml @ 200 mls /hr Q8 IVPB Last administered on 05/09/16 05:35; Admin Dose 200 MLS/HR; Start 05/06/16 at 06:00 Miscellaneous Information 1 ea NOTE XX ; Start 05/06/16 at 07:30 Glucose (Glutose) 15 gm Q15M PRN PO DECREASED GLUCOSE; Start 05/06/16 at 07:30 Glucose (Glutose) 22.5 gm Q15M PRN PO DECREASED GLUCOSE; Start 05/06/16 at 07:30 Dextrose (D50w Syringe) 25 ml Q15M PRN IV DECREASED GLUCOSE; Start 05/06/16 at 07:30 Dextrose (D50w Syringe) 50 ml Q15M PRN IV DECREASED GLUCOSE; Start 05/06/16 at 07:30 Glucagon (Glucagen) 1 mg Q15M PRN IM DECREASED GLUCOSE; Start 05/06/16 at 07:30 Glucose (Glutose) 15 gm Q15M PRN BUCCAL DECREASED GLUCOSE; Start 05/06/16 at 07: 30 Enoxaparin Sodium (Lovenox) 30 mg DAILY SC Last administered on 05/09/16 08:24 ; Admin Dose 30 MG; Start 05/07/16 at 09:00 Amlodipine Besylate (Norvasc) 10 mg DAILY PO Last administered on 05/09/16 08: 06; Admin Dose 10 MG; Start 05/08/16 at 09:00 Mupirocin (Bactroban) 1 applic BID TOP Last administered on 05/09/16 08:07; Admin Dose 1 APPLIC; Start 05/07/16 at 14:00 Insulin Glargine (Lantus) 16 unit DAILY@20 SC Last administered on 05/08/16 21: 52; Admin Dose 16 UNIT; Start 05/07/16 at 20:00 Methylprednisolone Sodium Succinate 40 mg 40 mg Q12 IV Last administered on 05/09 08:07; Admin Dose 40 MG; Start 05/08/16 at 21:00 Vancomycin HCl/ Sodium Chloride (Vancocin/NS) 150 ml @ 75 mls/hr Q12H IVPB Last administered on 05/09/16 08:08; Admin Dose 75 MLS/HR; Start 05/09/16 at 10: 00 HELEN GARCIA NP May 09, 2016 13:41
--- NOTE | 2016-05-09 13:46 | DS ---
DATE OF ADMISSION: 05/05/2016 DATE OF DISCHARGE: 05/09/2016 REASON FOR ADMISSION: Pulmonary fibrosis exacerbation, acute respiratory failure, pneumonia. HOSPITAL COURSE: The patient is a very unfortunate 75-year-old female with history of adva nced pulmonary fibrosis, O2 dependent, history of diabetes mellitus, anemia, dyslipidemia, osteoarth ritis, rheumatoid arthritis on methotrexate, history of degenerative joint disease, overall very giovanni ilitated, nonambulatory, who presented to [facility] for increasing shortness of b reath. Upon arrival, she was hypoxic. Chest x-ray showed diffuse interstitial prominence with sj ycombing suggestive of severe pulmonary fibrosis and possible underlying pneumonia. She was placed on BiPAP, IV antibiotics, IV fluids and was transferred to telemetry unit for further care. Otherwi se, no other complaints. Upon admission, the patient was seen by multiple physicians including the furnace fitter, Dr. Jayson marcos and also Dr. Homero Hein, the infectious disease specialist. The patient was started on van comycin and Zosyn. Cultures: MRSA of the nares was positive. Respiratory culture turned out to be negative. Blood cultures and urine cultures were negative. The patient responded to the antibioti c management as her white count went from 22.9 to 7.5, but the patient is on steroids so she still n ow has mild leukocytosis, but clinically doing much better. The patient is hemodynamically stable. She has baseline hypoxia on room air, so she is on home O2. The patient's vital: Temperature 98, pulse is 56, respirations 18, blood pressure 119/58, saturation 100% on 4 liters. The patient remai vickie stable, tolerating a diet, so she can be discharged back to the [facility] facility for fur ther medical management, antibiotics management. DISCHARGE MEDICATIONS: The patient will be discharged with: 1. Tylenol 650 q.6h. p.r.n. 2. Norvasc 10 mg daily. 3. Aspirin 81 mg daily. 4. Hypoglycemia protocol. 5. Colace 100 q.12h. p.r.n. 6. Senna at bedtime p.r.n. 7. Lovenox 30 mg subcutaneous daily. 8. Ferrous sulfate 325 mg daily. 9. Gabapentin 300 mg t.i.d. 10. [place] 5/325 q.6h. p.r.n. for moderate pain as patient has severe osteoarthritis and rheumatoid arthritis. 11. Insulin per sliding scale with NovoLog insulin, NovoLog 4 units before meals. 12. Insulin Lantus we will decrease it to 10 units as she will be tapered off the steroids. 13. Atrovent every 6 hours . 14. Xopenex q.6h. and p.r.n. 15. Milk of magnesia 30 mL daily. 16. Methotrexate 50 mg q. weekly. 17. Discontinue Solu-Medrol. 18. Lopressor 50 mg b.i.d. 19. Treatment of hypoglycemia. 20. Multivitamin 1 tablet daily. 21. Bactroban ointment to the nares for 14 days. 22. Protonix 40 mg daily. 23. Continue Zosyn 3.375 IV q.8h for 5 days. 24. Advair 250/50 one puff b.i.d. 25. Vancomycin dose per pharmacy for 5 more days. 26. Ambien 5 mg at bedtime p.r.n. for insomnia. 27. We will continue Tradjenta 5 mg daily. FINAL DIAGNOSES: 1. Acute respiratory failure. 2. Pulmonary fibrosis exacerbation. 3. Healthcare-related pneumonia. 4. Anemia. 5. Rheumatoid arthritis. 6. Osteoarthritis. 7. Neuropathy. 8. Diabetes mellitus. 9. Constipation. 10. End-stage lung disease, pulmonary fibrosis, O2 dependent. 11. Anemia. 12. Diabetic gastroparesis. 13. Diastolic dysfunction heart failure, compensated. 14. Hypertension. DIET: 2 g sodium. ACTIVITY: With physical therapy as tolerated. DISPOSITION: The patient will be discharged in fair condition to [facility]. Vital signs remained stable. We will also place her on prednisone 20 mg p.o. daily x3, the n 10 mg p.o. daily x3, then just 5 mg p.o. daily to be given routine. Dictated By: FAISAL ALVAREZ/NGHIA Conf#: [id number] DID#: [id number]
[2016-05-12] MEDS ORDERED: METHOTREXATE 2.5 MG TAB PO SCH (09:00)
== END 2016-05-09 16:55 | DRG 871 ==
LOC: E/R 19:31 → TEL 21:12
PROVIDERS: ADMIT Internal Medicine Nephrology; ATTEND Internal Medicine Nephrology
PROC: 5A0935Z Assistance with Respiratory Ventilation, Less than 24 Consecutive Hours (ICD-10-PCS; principal; 2016-05-05)
DX: A41.9 Sepsis, unspecified organism (principal); J96.01 Acute respiratory failure with hypoxia; N17.0 Acute kidney failure with tubular necrosis; J18.9 Pneumonia, unspecified organism; I50.32 Chronic diastolic (congestive) heart failure; J84.10 Pulmonary fibrosis, unspecified; Z99.81 Dependence on supplemental oxygen; J44.0 Chronic obstructive pulmonary disease with (acute) lower respiratory infection; E11.65 Type 2 diabetes mellitus with hyperglycemia; K31.84 Gastroparesis; N17.9 Acute kidney failure, unspecified; J44.1 Chronic obstructive pulmonary disease with (acute) exacerbation; G62.9 Polyneuropathy, unspecified; M06.9 Rheumatoid arthritis, unspecified; R65.20 Severe sepsis without septic shock; J20.9 Acute bronchitis, unspecified; Z22.322 Carrier or suspected carrier of Methicillin resistant Staphylococcus aureus; E11.43 Type 2 diabetes mellitus with diabetic autonomic (poly)neuropathy
CPT/HCPCS: 36415; 36600; 71010; 80048; 80053; 80202; 81001; 81003; 82803; 82962; 83605; 83735; 84100; 84484; 85025; 85610; 85730; 87040; 87070; 87081; 87086; 93005; 94640; 94644; 94660; 94664; 96374; 96375; J0692; J1644; J1650; J1815; J2440; J2543; J2920; J3370; J7030

== ENCOUNTER 2016-06-03 14:17 | Inpatient (IN) | payer MEDICARE, OTHER ==
[~2016-06-03] VITALS: Ht 152.4 cm; Wt 57.0 kg
[~2016-06-03 14:17] MED LIST changes: -ALBU2.5V3 NEB; -AMLO5TAB4 PO; -ASCO500C7 PO; +ASPI81TA3 PO; -BACL10TA PO; +BUDE6HFA INHALATION; -DICL25CA PO; -DOCU250C58 PO; +GLUC1KIT IM; -HYDR-3671 PO; +INSU100V3 SC; +IPRA3AMP INHALATION; -LACT20SO2 PO; +LANT3I SC; -LEVEM SC; +LINA5TAB PO; -LORA-186 PO; +MAGN400O4 PO; -METO-429 PO; -MORP15TA92 PO; +MULT-105 PO; -ONDA4TAB95 PO; -SITA50TA2 PO
[2016-06-03 14:45] LABS: ADD SCAN DIFF NO
[2016-06-03 14:47] LABS: BASOPHILS % 0.2 % (0.0-2.0); EOSINOPHILS # 0.1 10^3/ul (0.0-0.5); EOSINOPHILS % 0.4 % (0.0-7.0); HEMATOCRIT 36.2 % (37.0-47.0); HEMOGLOBIN 10.5 g/dl (12.0-16.0); LYMPHOCYTES # 1.4 10^3/ul (0.8-2.9); LYMPHOCYTES % 8.5 % (15.0-51.0); MEAN CORPUSCULAR HEMOGLOBIN 25.6 pg (29.0-33.0); MEAN CORPUSCULAR VOLUME 88.3 fl (82.0-101.0); MEAN PLATELET VOLUME 10.1 fl (7.4-10.4); MONOCYTE # 0.2 10^3/ul (0.3-0.9); NEUTROPHIL # 14.3 10^3/ul (1.6-7.5); NEUTROPHILS % 89.3 % (39.0-77.0); PLATELET COUNT 337 10^3/UL (140-415); RED CELL DISTRIBUTION WIDTH 16.3 % (11.5-14.5)
--- NOTE | 2016-06-03 14:51 | RADRPT ---
PROCEDURE: Chest x-ray CLINICAL INDICATION: Shortness of breath TECHNIQUE: Chest single view COMPARISON: 05/05/2016 FINDINGS: There is stable moderate cardiomegaly and an sclerotic aortic calcification. Pulmonary vessels are normal in caliber. As before there is diffuse interstitial lung fibrosis with coarse bilateral inte rstitial markings. No definite acute infiltrates are seen. Costophrenic angles are sharp. There i s lower cervical spine fusion. Bones are osteopenic IMPRESSION: 1. Extensive diffuse interstitial lung fibrosis. 2. No acute infiltrates seen. 3. Stable cardiomegaly and atherosclerotic aortic calcification RPTAT: HH .Jim Lay MD, MD Date Time Electronically viewed and signed by .Jim Lay MD, on 06/03/2016 14:50 .W/
[2016-06-03 14:58] LABS: INR 1.07; PROTIME 13.9 Sec (12.2-14.2); PT RATIO 1.1
[2016-06-03 15:00] LABS: ALBUMIN 3.1 g/dl (3.3-4.9); CHLORIDE 98 mmol/L (97-110); PARTIAL THROMBOPLASTIN TIME 28.6 Sec (25.0-35.0); POTASSIUM 5.1 mmol/L (3.5-5.1); SODIUM 136 mmol/L (135-144)
[2016-06-03 15:02] LABS: BILIRUBIN,INDIRECT 0.1 mg/dl (0-1.1); BILIRUBIN,TOTAL 0.1 mg/dl (0.2-1.3); CREATININE 0.93 mg/dl (0.44-1.00)
[2016-06-03 15:03] LABS: ALANINE AMINOTRANSFERASE 11 IU/L (13-69); ALBUMIN/GLOBULIN RATIO 0.64; ALKALINE PHOSPHATASE 154 IU/L (42-121); ANION GAP 15 (8-16); BLOOD UREA NITROGEN 21 mg/dl (7-20); CALCIUM 8.9 mg/dl (8.4-10.2); CARBON DIOXIDE 28 mmol/L (21-31); GLUCOSE 369 mg/dl (70-220); TOTAL PROTEIN 7.9 g/dl (6.1-8.1)
[2016-06-03 15:07] LABS: ASPARTATE AMINO TRANSFERASE 13 IU/L (15-46)
[2016-06-03 15:11] LABS: AADO2 Arterial 382.5 mmHg (7.0-24.0); Allen Test ACCEPTAB; Arterial Base Excess 5.1 mmol/L (-3.0-3); Arterial COHb 0.3 % (0.0-3.0); Arterial Fraction of Oxyhgb 98.9 % (93.0-99.0); Arterial HCO3 31.8 mmol/L (22.0-26.0); Arterial MetHb 0.2 % (0.0-1.5); Blood Gas IEPAP 15/5; Blood Gas PS 10; MODE MASK - BIPAP
[2016-06-03 15:11] LABS: B-TYPE NATRIURETIC PEPTIDE 1220 PG/ML (0-125)
[2016-06-03 15:22] LABS: TROPONIN-I < 0.012 ng/ml (0.00-0.12)
[2016-06-03] MEDS ORDERED: VANCOMYCIN 1 GM (PMX) 250 ML IVPB SCH (16:00)
[2016-06-03] MEDS ORDERED: PIPER-TAZO 3.375 GM IV (PMX) 100 ML IVPB ONE (16:00)
[2016-06-03] MEDS ORDERED: FUROSEMIDE 40 MG INJ IV ONE (16:00)
[2016-06-03] MEDS ORDERED: LEVA0.634 INHALATION (16:34)
[2016-06-03] MEDS ORDERED: ASC500 PO (16:34)
[2016-06-03] MEDS ORDERED: SENN-36 PO (16:35)
[2016-06-03] MEDS ORDERED: PROT946L PO (16:36)
[2016-06-03] MEDS ORDERED: PRED20TA PO (16:36)
[2016-06-03] MEDS ORDERED: METO-429 PO (16:38)
[2016-06-03] MEDS ORDERED: ENOX30DI10 SQ (16:39)
[2016-06-03] MEDS ORDERED: LACTINEX PO (16:40)
[2016-06-03] MEDS ORDERED: INSU100I17 SQ (16:41)
[2016-06-03] MEDS ORDERED: GABA300C16 PO (16:42)
[2016-06-03] MEDS ORDERED: BACL10TA PO (16:42)
[2016-06-03] MEDS ORDERED: MAGNESIUM HYDROXIDE 30ML CUP PO PRN (17:00)
[2016-06-03] MEDS ORDERED: ONDANSETRON 4 MG INJ IV PRN (17:00)
[2016-06-03] MEDS ORDERED: morphine 2 MG INJ IV PRN (17:00)
[2016-06-03] MEDS ORDERED: ALBUTEROL/IPRATROPIUM (NEB) 3 ML AMP NEB PRN (17:00)
[2016-06-03] MEDS ORDERED: NITROGLYCERIN (SL) 0.4 MG TAB SL PRN (17:00)
[2016-06-03] MEDS ORDERED: LORAZEPAM 2 MG INJ IV PRN (17:00)
[2016-06-03] MEDS ORDERED: ACETAMINOPHEN 650MG/20.3ML CUP PO PRN (17:00)
[2016-06-03] MEDS ORDERED: VANCOMYCIN IV PER PHARMACY XX SCH (17:00)
[2016-06-03] MEDS ORDERED: DOCUSATE SODIUM 100 MG CAP PO PRN (17:00)
[2016-06-03] MEDS ORDERED: ZOLPIDEM 5 MG TAB PO PRN (17:00)
[2016-06-03 17:40] LABS: ADD UMIC YES; URINE BILIRUBIN (Dip) NEGATIVE (NEGATIVE); URINE BLOOD (Dip) 1+ (NEGATIVE); URINE COLOR LT. YELLOW (YELLOW); URINE KETONES (Dip) NEGATIVE (NEGATIVE); URINE LEUKOCYTE ESTERASE (Dip) NEGATIVE (NEGATIVE); URINE NITRITE (Dip) NEGATIVE (NEGATIVE); URINE TOTAL PROTEIN (Dip) 2+ (NEGATIVE); URINE UROBILINOGEN (Dip) 0.2 E.U./dL (0.1-1.0)
[2016-06-03] MEDS: INSULIN ASPART [NOVOLOG] 3 ML PEN SC SCH ×2 (18:00→21:24)
[2016-06-03 18:01] LABS: BACTERIA,URINE MANY
--- NOTE | 2016-06-03 18:43 | ERA ---
ER Documentation Chief Complaint Date/Time DATE: 06/03/16 Chief Complaint SOB FROM CONV HOME HPI The patient is a 75-year-old female, presenting to the ER because of severe dyspnea from a long-term. She normally uses nasal cannula, however she became more dyspneic today. She is awake, alert, able to answer question. She denies fever, chills, neck pain, chest pain, abdominal pain, vomiting, dysuria, diarrhea. She does not smoke Past medical history: Pulmonary fibrosis, diabetes mellitus, anemia, dyslipidemia, osteoarthritis, rheumatoid arthritis, history of CHF, hypertension ROS All systems reviewed and are negative except as per history of present illness. Medications Home Meds Reported Medications Baclofen* (Baclofen*) 10 Mg Tablet, 10 MG PO Q8 Y for PRN, TAB 06/03/16 Gabapentin* (Gabapentin*) 300 Mg Capsule, 300 MG PO TID, #90 CAP 06/03/16 Insulin Glulisine (Apidra Solostar) 100 Unit/1 Ml Insuln.pen, 10 UNIT SQ QHS, # 1 TUB 06/03/16 Lactobacillus Acidophilus* (Lactinex*) 1 Tab Chew, 1 TAB PO TID, TAB 06/03/16 Prednisone* (Prednisone*) 20 Mg Tab, 40 MG PO DAILY, TAB 06/03/16 Protein Supplement (Promod) 946 Ml Liquid, 30 ML PO TID 06/03/16 Sennosides* (Senokot*) 8.6 Mg Tablet, 1 TAB PO DAILY, TAB 06/03/16 Ascorbic Acid (Vitamin C) 500 Mg Tab, 500 MG PO DAILY, TAB 06/03/16 Insulin Regular, Human (Humulin R) 100 Unit/1 Ml Vial, 4 UNIT SC SLIDING SCALES , VIAL IF BS 151-200=2 UNITS, 201-250=4 UNITS, 251-300=6 UNITS, 301-350=8 UNITS, 351-400=10 UNITS,BS<60 AND >400 CALL MD. 05/06/16 Magnesium Hydroxide* (Milk Of Magnesia*) 400 Mg/5 Ml Oral.susp, 30 ML PO DAILY Y for CONSTIPATION, ML 05/06/16 Multivitamin with Minerals (Multivitamins with Minerals) 1 Each Tablet, 1 EACH PO DAILY, TAB 05/06/16 Linagliptin (TRADJENTA) 5 Mg Tablet, 5 MG PO DAILY, TAB 05/06/16 Aspirin* (Aspirin* Chew) 81 Mg Tab.chew, 81 MG PO DAILY, TAB.CHEW 05/06/16 Sennosides (Senna Laxative) 25 Mg Tablet, 25 MG PO QHS Y for BOWEL PREP, TAB 01/05/16 Pantoprazole* (Pantoprazole*) 40 Mg Tablet.dr, 40 MG PO DAILY, TAB 01/05/16 Hydrocodone/Acetaminophen ([address] 5-325 Tablet) 1 Each Tablet, 1 EACH PO Q6H Y for PAIN LEVEL 3-10, TAB 01/05/16 Docusate Sodium* (Colace*) 100 Mg Capsule, 100 MG PO Q12 Y for CONSTIPATION, # 30 CAP 01/05/16 Discontinued Reported Medications Enoxaparin Sodium* (Lovenox*) 30 Mg/0.3 Ml Disp.syrin, 30 MG SQ DAILY, SYR 06/03/16 Metoprolol Tartrate* (Lopressor*) 50 Mg Tab, 50 MG PO BID, #60 TAB HOLD IF SBP<110 OR HR<60 06/03/16 Levalbuterol Hcl* (Levalbuterol Hcl*) 0.63 Mg/3 Ml Vial.neb, 0.63 MG INHALATION Q6H Y for WHEEZING AND SOB, VIAL 06/03/16 Glucagon,Human Recombinant (Glucagon Emergency Kit) 1 Mg Kit, 1 MG IM Y for BS < 70, KIT 05/06/16 Insulin Glargine* (Lantus*) 100 Unit/Ml Soln, 10 UNIT SC QHS, #1 VIAL 05/06/16 Budesonide-Formoterol Fumarate* (Symbicort*) 160-4.5 Hfa.aer.ad, 2 PUFF INHALATION BID, #1 EACH 05/06/16 Ipratropium-Albuterol (Ipratropium-Albuterol) 0.5-3 Mg/3 Ml Ampul.neb, 3 ML INHALATION Q6H Y for SHORTNESS OF BREATH, #30 VIAL 05/06/16 Ipratropium-Albuterol (Ipratropium-Albuterol) 0.5-3 Mg/3 Ml Ampul.neb, 3 ML INHALATION Q8, #30 VIAL 05/06/16 Insulin Lispro (Humalog Kwikpen U-100) 100 Unit/1 Ml Insuln.pen, SQ SLIDING SCALE IF 150-199=3UNITS CALL MD IF BS<60;200-249=5UNITS; 250-299=8UNITS; 300-349=10UNITS; 350+12UNITS CALL MD IF BS>351 01/05/16 Zolpidem Tartrate* (Zolpidem Tartrate*) 5 Mg Tablet, 5 MG PO QHS Y for INSOMNIA , #30 TAB 01/05/16 Methotrexate* (Methotrexate*) 2.5 Mg Tab, 15 MG PO Q7D, TAB TAKE EVERY Friday01/05/16 Gabapentin* (Gabapentin*) 100 Mg Capsule, 300 MG PO TID, #180 CAP 01/05/16 Folic Acid* (Folic Acid*) 1 Mg Tablet, 1 MG PO DAILY, TAB 01/05/16 Ferrous Sulfate* (Ferrous Sulfate*) 325 Mg Tabec, 325 MG PO DAILY, TAB 01/05/16 Epoetin Terrell (Epogen) 10,000 Units/Ml Soln, 33676 UNITS SC DAILY, VIAL EVERY MON.,WED.,FRI.,HOLD IF HGB GREATER THAT 10. CALL MD IF HGB>10. 01/05/16 Acetaminophen* (Acetaminophen*) 650 Mg Tablet, 650 MG PO Q6 Y for PAIN AND OR ELEVATED TEMP, #30 TAB FOR PAIN SCALE 1-3, AND FOR TEMPERATURE>101 01/05/16 Allergies Allergies: Coded Allergies: No Known Allergies (Verified Allergy, Unknown, 06/03/16) PMhx/Soc History of Surgery: No Anesthesia Reaction: No Hx Neurological Disorder: No Hx Respiratory Disorders: No Hx Cardiac Disorders: No Hx Psychiatric Problems: No Hx Miscellaneous Medical Probl: No Hx Alcohol Use: No Hx Substance Use: No Hx Tobacco Use: No Smoking Status: Never smoker Physical Exam Vitals Vital Signs Date Time Temp Pulse Resp B/P Pulse Ox O2 Delivery O2 Flow Rate FiO2 06/03/16 16:50 98 40 06/03/16 16:33 88 97 50 06/03/16 15:30 98.8 87 24 138/71 100 BIPAP 10.0 06/03/16 15:05 90 100 100 06/03/16 14:57 Non Rebreather 10.0 06/03/16 14:30 98.3 94 24 148/71 100 BIPAP 10.0 06/03/16 14:30 Bag Valve Mask 10 06/03/16 14:17 97.8 92 40 148/71 89 Physical Exam Const: Moderate acute distress. Head: Atraumatic. Eyes: Normal Conjunctiva. ENT: Normal External Ears, Nose and Mouth. Neck: Full range of motion. No meningismus. Resp: Bilateral crackles and wheezes Cardio: Regular rate and rhythm, no murmurs. Abd: Soft, non distended, normal bowel sounds, non tender. Skin: No petechiae or rashes. Back: No midline or flank tenderness. Ext: No cyanosis, or edema. Neur: Awake and alert. No focal deficit Psych: Normal Mood and Affect. Result Diagram: 06/03/16 1425 06/03/16 1425 Results 24 hrs Laboratory Tests Test 06/03/16 14:25 06/03/16 15:00 06/03/16 17:18 06/03/16 18:30 White Blood Count 16.010^3/ul Red Blood Count 4.1010^6/ul Hemoglobin 10.5g/dl Hematocrit 36.2% Mean Corpuscular Volume 88.3fl Mean Corpuscular Hemoglobin 25.6pg Mean Corpuscular Hemoglobin Concent 29.0g/dl Red Cell Distribution Width 16.3% Platelet Count 05834^3/UL Mean Platelet Volume 10.1fl Neutrophils % 89.3% Lymphocytes % 8.5% Monocytes % 1.0% Eosinophils % 0.4% Basophils % 0.2% Nucleated Red Blood Cells % 0.0/100WBC Neutrophils # 14.310^3/ul Lymphocytes # 1.410^3/ul Monocytes # 0.210^3/ul Eosinophils # 0.110^3/ul Basophils # 0.010^3/ul Nucleated Red Blood Cells # 0.010^3/ul Prothrombin Time 13.9Sec Prothrombin Time Ratio 1.1 INR International Normalized Ratio 1.07 Activated Partial Thromboplast Time 28.6Sec Sodium Level 136mmol/L Potassium Level 5.1mmol/L Chloride Level 98mmol/L Carbon Dioxide Level 28mmol/L Anion Gap 15 Blood Urea Nitrogen 21mg/dl Creatinine 0.93mg/dl Glucose Level 369mg/dl Lactic Acid Level 1.3mmol/L 1.6mmol/L Calcium Level 8.9mg/dl Total Bilirubin 0.1mg/dl Direct Bilirubin 0.00mg/dl Indirect Bilirubin 0.1mg/dl Aspartate Amino Transf (AST/SGOT) 13IU/L Alanine Aminotransferase (ALT/SGPT) 11IU/L Alkaline Phosphatase 154IU/L Troponin I < 0.012ng/ml B-Type Natriuretic Peptide 1220PG/ML Total Protein 7.9g/dl Albumin 3.1g/dl Globulin 4.80g/dl Albumin/Globulin Ratio 0.64 Blood Gas Specimen Source Blood arterial Arterial Blood Date Drawn 06/03/2016 3:02:38 PM Arterial Blood pH (Temp corrected) 7.360 Arterial Blood pCO2 (Temp correct) 57.5mmhg Arterial Blood pO2 (Temp corrected) 273.0mmHG Arterial Blood HCO3 31.8mmol/L Arterial Blood Base Excess 5.1mmol/L Arterial Blood Oxygen Saturation 99.4mmHG Melo Test ACCEPTAB Arterial Blood Gas Puncture Site Right Radial Arterial Blood Carboxyhemoglobin 0.3% Arterial Blood Methemoglobin 0.2% Blood Gas A-a O2 Differential 382.5mmHg Oxyhemoglobin Percent 98.9% Total Hemoglobin 11.0g/dl Blood Gas Temperature 37.0C Blood Gas Respiration Rate 20.0 Blood Gas Actual Respiration Rate 28 Blood Gas Modality MASK - BIPAP FiO2 100.0% Blood Gas Pressure Support 10 Blood Gas IPAP/EPAP Ratio 15/5 Blood Gas Notified Whom Georgie Blood Gas Notified Time 06/03/2016 3:11:26 PM Urine Color LT. YELLOW Urine Clarity SLIGHTLY CLOUDY Urine pH 6.0 Urine Specific [place] 1.015 Urine Ketones NEGATIVE Urine Nitrite NEGATIVE Urine Bilirubin NEGATIVE Urine Urobilinogen 0.2 E.U./dL Urine Leukocyte Esterase NEGATIVE Urine Microscopic RBC 5-10/HPF Urine Microscopic WBC 2-5/HPF Urine Epithelial Cells FEW Urine Bacteria MANY Urine Hemoglobin 1+ Urine Glucose 0.1%% Urine Total Protein 2+ Current Medications Medications (Trade) Dose Ordered Sig/Renetta Route PRN Reason Start Time Stop Time Status Last Admin Dose Admin Piperacillin Sod/ Tazobactam Sod 100 ml @ 200 mls/hr ONCE ONCE IVPB 06/03/16 16:00 06/03/16 16:29 DC 06/03/16 16:33 Vancomycin HCl (Vancocin) 250 ml @ 125 mls/hr ONCE IVPB 06/03/16 16:00 06/03/16 17:59 DC 06/03/16 17:12 Furosemide (Lasix) 40 mg ONCE ONCE IV 06/03/16 16:00 06/03/16 16:01 DC 06/03/16 16:33 Ondansetron HCl (Zofran Inj) 4 mg Q6H PRN IV NAUSEA AND/OR VOMITING 06/03/16 17:00 Albuterol/ Ipratropium (Duoneb) 3 ml Q4H RESP THERAPY NEB 06/03/16 17:00 Albuterol/ Ipratropium (Duoneb) 3 ml Q2H RESP THERAPY PRN NEB SHORTNESS OF BREATH 06/03/16 17:00 Methylprednisolone Sodium Succinate (Solu-Medrol) 60 mg Q6 IV 06/03/16 18:00 Nitroglycerin (Nitroglycerin (Sl Tab) 0.4 Mg) 1 tab Q5M PRN SL CHEST PAIN 06/03/16 17:00 Acetaminophen (Tylenol Liquid) 650 mg Q6H PRN PO PAIN LEVEL 1-3 OR FEVER 06/03/16 17:00 Acetaminophen/ Hydrocodone Bitart ([address] (5/325)) 1 tab Q6H PRN PO PAIN LEVEL 4-6 06/03/16 17:00 Morphine Sulfate (morphine) 2 mg Q4H PRN IV PAIN LEVEL 7-10 06/03/16 17:00 Lorazepam (Ativan) 1 mg Q2H PRN IV ANXIETY 06/03/16 17:00 Zolpidem Tartrate (Ambien) 5 mg QHS PRN PO INSOMNIA 06/03/16 17:00 Docusate Sodium (Colace) 100 mg Q12H PRN PO CONSTIPATION 06/03/16 17:00 Magnesium Hydroxide (Milk Of Mag) 30 ml DAILY PRN PO CONSTIPATION 06/03/16 17:00 Pantoprazole (Protonix Tab) 40 mg DAILY@06 PO 06/04/16 06:00 Enoxaparin Sodium (Lovenox) 40 mg DAILY SC 06/04/16 09:00 Ascorbic Acid (Vitamin C) 500 mg DAILY PO 06/04/16 09:00 Aspirin (Aspirin) 81 mg DAILY PO 06/04/16 09:00 Gabapentin (Neurontin) 300 mg TID PO 06/03/16 21:00 Linagliptin (Tradjenta) 5 mg DAILY PO 06/04/16 09:00 Senna (Senokot) 1 tab DAILY PO 06/04/16 09:00 Insulin Aspart (Novolog Insulin Pen) NOVOLOG *MODERATE* ALGORITHM WITH MEALS BEDTIME SC 06/03/16 18:00 Insulin Glargine (Lantus) 14 unit DAILY@20 SC 06/03/16 20:00 Miscellaneous Information (* Miscellaneous Pharmacy Order) HYPOGLYCEMIA PROTOCOL w... ONCE ONCE XX 06/03/16 17:00 06/03/16 18:59 DC Miscellaneous Information (* Miscellaneous Pharmacy Order) Discontinue Glyburide, Glipizide,... ONCE ONCE XX 06/03/16 17:00 06/03/16 18:59 DC Miscellaneous Information (* Miscellaneous Pharmacy Order) Discontinue all previ... ONCE ONCE XX 06/03/16 17:00 06/03/16 18:59 DC Vancomycin HCl VANCOMYCIN PER PHARMACY PER PROTOCOL XX 06/03/16 17:00 Imipenem/ Cilastatin Sodium (Primaxin 500 Mg/ 100 ml (Pmx)) 100 ml @ 100 mls/hr Q8 IVPB 06/03/16 17:00 Miscellaneous Information 1 ea NOTE XX 06/03/16 19:30 Glucose (Glutose) 15 gm Q15M PRN PO DECREASED GLUCOSE 06/03/16 19:30 Glucose (Glutose) 22.5 gm Q15M PRN PO DECREASED GLUCOSE 06/03/16 19:30 Dextrose (D50w Syringe) 25 ml Q15M PRN IV DECREASED GLUCOSE 06/03/16 19:30 Dextrose (D50w Syringe) 50 ml Q15M PRN IV DECREASED GLUCOSE 06/03/16 19:30 Glucagon (Glucagen) 1 mg Q15M PRN IM DECREASED GLUCOSE 06/03/16 19:30 Glucose (Glutose) 15 gm Q15M PRN BUCCAL DECREASED GLUCOSE 06/03/16 19:30 Procedures/[place] [id number] Radiology Main Line: [phone] DIAGNOSTIC IMAGING REPORT Patient: HENRI KENNY : 1940 Age: 75 Sex: F MR #: [id number] DOS: 06/03/16 1425 Ordering MD: ISIDORO BERRY MD Location: E/R Room/Bed: PROCEDURE: Chest x-ray CLINICAL INDICATION: Shortness of breath TECHNIQUE: Chest single view COMPARISON: 05/05/2016 FINDINGS: There is stable moderate cardiomegaly and an sclerotic aortic calcification. Pulmonary vessels are normal in caliber. As before there is diffuse interstitial lung fibrosis with coarse bilateral interstitial markings. No definite acute infiltrates are seen. Costophrenic angles are sharp. There is lower cervical spine fusion. Bones are osteopenic IMPRESSION: 1. Extensive diffuse interstitial lung fibrosis. 2. No acute infiltrates seen. 3. Stable cardiomegaly and atherosclerotic aortic calcification RPTAT: HH .Jim Lay MD, MD Date Time Electronically viewed and signed by .Jim Lay MD, MD on 06/03/2016 14:50 .W/ CC: ISIDORO BERRY MD EKG: Read by emergency physician Rate/Rhythm: Normal Sinus Rhythm 96 beats/min QRS, ST, T-waves: No ST elevation, no T inversion, left atrial enlargement Impression: Abnormal EKG MEDICAL MAKING DECISION: The patient is a 75-year-old female, presenting with acute on chronic respiratory failure, acute exacerbation of pulmonary fibrosis, acute CHF exacerbation, acute hyperglycemia. She was put on BiPAP and she was able to tolerate BiPAP well. She was treated with vancomycin IV, Zosyn IV for acute pulmonary fibrosis exacerbation, Lasix 40 mg IV for acute CHF exacerbation with good response. The differential diagnoses considered include but are not limited to asthma, COPD, pneumonia, pulmonary embolus, pleural effusion, congestive heart failure. Critical Care: Time: 35 minutes excluding all billable procedures. Treatments/Evaluations: Close monitoring and treatment of unstable vital signs, cardiorespiratory, and neurologic status, while maintaining tight balance of fluid, respiratory, and cardiac interventions. Departure Diagnosis: Primary Impression: Acute and chronic respiratory failure Additional Impressions: Acute exacerbation of CHF (congestive heart failure) Acute idiopathic pulmonary fibrosis Diabetes mellitus with hyperglycemia Anemia Condition: Critical Comments I discussed the findings with the patient. I discussed the patient with her physician Dr. Pelletier who was made aware of the lab, the treatment, the patient condition. The patient is admitted to ICU at 4:15 PM ISIDORO BERRY MD Jun 03, 2016 18:43
[2016-06-03] MEDS ORDERED: GLUCAGON 1 MG INJ IM PRN (19:30)
[2016-06-03] MEDS ORDERED: GLUCOSE GEL 15 GRAM TUBE PO PRN ×2 (19:30)
[2016-06-03] MEDS ORDERED: GLUCOSE GEL 15 GRAM TUBE BUCCAL PRN (19:30)
[2016-06-03] MEDS ORDERED: DEXTROSE 50% 50 ML SYRINGE IV PRN ×2 (19:30)
[2016-06-03] MEDS: IMIPENEM-CILAST 500MG IV (PMX) 100 ML IVPB SCH ×2 (19:56→22:00)
[2016-06-03] MEDS ORDERED: INSULIN GLARGINE [LANtus] 3 ML PEN SC SCH (20:00)
[2016-06-03] MEDS: METHYLPREDNISOLONE 125 MG INJ IV SCH (20:00)
--- NOTE | 2016-06-03 20:22 | HP ---
DATE OF ADMISSION: 06/03/2016 REASON FOR ADMISSION: Acute respiratory failure, pulmonary fibrosis exacerbation, rule out underlyi ng pneumonia. HISTORY OF PRESENT ILLNESS: The patient is a very unfortunate 75-year-old female very well known to me. She has a history of advanced pulmonary fibrosis, O2 dependent; history of diabetes m ellitus; anemia; dyslipidemia; osteoarthritis; rheumatoid arthritis, has been on methotrexate; also history of degenerative joint disease, overall very debilitated, nonambulatory who has been admitted multiple times to the hospital for respiratory failure. The patient was in usual state of health u p until this morning, when she was noted to feel more short of breath. She was evaluated and was no santiago to be hypoxic. The patient briefly stabilized. My plan was to start her on steroids and antibi otics, but unfortunately she later on today again had episodes of hypoxia and worsening shortness of breath. We decided to call 911. The patient was transferred to [facility] for e valuation. In the ER, the patient was hypoxic. She underwent an ABG which showed a pH of 7.36, pCO 2 58, pO2 of 273, bicarbonate 32, saturation was 99%. This was on BiPAP 100%. The patient tolerate d ____ well and doing better. She also received Zosyn, Lasix and vancomycin. The patient was pancu ltured. Lab revealed white count elevated at 16 with neutrophil count 89%, glucose of 363. Lactic acid was normal at 1.3. BNP was slightly high at 1220. Chest x-ray showed officially extensive dif fuse interstitial lung fibrosis. No acute infiltrates are seen. There is stable cardiomegaly and a therosclerotic aortic calcification. The [facility] was [facility] feeling [facility] She denies any chest pain, does report shortness of breath, denies any fevers or chills, denies any new weaknesses or numbness. The patient is admitted for further care. PAST MEDICAL HISTORY: Includes the following: Pulmonary fibrosis, COPD, anemia, dyslipidemia, diab etes mellitus, degenerative disk disease, C-spine injury, rheumatoid arthritis, hypoxia, O2 dependen cy, osteoarthritis. SURGICAL HISTORY: C-spine surgery, total abdominal hysterectomy, hernia repair surgery. SOCIAL HISTORY: The patient is single. She has 4 children, 1 . Tobacco: She stopped smok ing 40 years ago. IV drug abuse: Denies. Alcohol: Denies. The patient resides at [facility]. FAMILY HISTORY: Both parents are . Mother has diabetes. Father with no history of cancer per patient. ALLERGIES: NO KNOWN DRUG ALLERGIES. REVIEW OF SYSTEMS: Per HPI. CURRENT MEDICATIONS: Include the followin. Prednisone 40 mg daily. I started that today, but it was not given yet. 2. ProMod 30 t.i.d. 3. Protonix 40 mg daily. 4. Senna 25 mg every 24 hours. 5. Tradjenta 5 mg daily. 6. Tylenol p.r.n. 7. Vitamin C 500 mg daily. 8. Xopenex breathing treatments ____ every 6 hours p.r.n. 9. Aspirin 81 mg daily. 10. Baclofen 10 mg every 8 hours p.r.n. 11. Colace 100 mg q.12 p.r.n. 12. Ferrous sulfate 325 mg daily. 13. Gabapentin 300 mg t.i.d. 14. Insulin Lantus 10 units at bedtime. 15. Insulin regular per sliding scale. 16. Ipratropium p.r.n. 17. Lactobacillus 1 tablet t.i.d. 18. Lovenox 30 mg subQ daily. 19. Metoprolol 50 mg b.i.d. 20. Milk of magnesia p.r.n. 21. Multivitamin 1 tablet daily. 22. [place] p.r.n. 23. Advair 250/50 one puff b.i.d. 24. Ambien p.r.n. 25. Amlodipine 10 mg daily. Previously she was taking methotrexate 15 mg weekly. PHYSICAL EXAMINATION: VITAL SIGNS: Temperature 98.8, pulse 88, respirations 24, blood pressure 138/71, saturation 98% cur rently on BiPAP of 100% on 40% FIO2. GENERAL: The patient is in no acute distress. The patient is pale. Decreased dentition. BiPAP is in place. CARDIOVASCULAR: S1 and S2, appears to be regular. LUNGS: Diffuse bilateral rhonchi and wheezing, crackles. ABDOMEN: Soft, nontender. EXTREMITIES: No clubbing, cyanosis or edema. The patient is moving all extremities. She has some deformities of the hands secondary to her rheumatoid arthritis. ELECTROCARDIOGRAM: Left atrial enlargement, otherwise normal EKG. IMAGING: Chest x-ray as above. LABORATORY DATA: White count is 16, hemoglobin 10.5, hematocrit 36, platelet count 337, neutrophils 89%, lymphocytes 9%. Chemistry: Sodium 136, potassium 5.1, chloride 98, bicarbonate 28, BUN is 21 , creatinine 0.98, glucose of 369, lactic acid 1.3, AST 13, ALT 11, alkaline phosphatase slightly hi gh at 154. Troponin is negative, less than 0.012. BNP slightly high at 1220. Albumin 3.1. INR 1. 07. ASSESSMENT AND PLAN: This is a very unfortunate 75-year-old female with history of advance d end-stage pulmonary fibrosis, rheumatoid arthritis, hypertension, diabetes mellitus who presents a gain with likely tracheobronchitis, possible early pneumonia, acute respiratory failure. 1. The patient with acute respiratory failure, likely from tracheobronchitis or/and pneumonia. The patient will be started on broad spectrum antibiotic with vancomycin and imipenem, responded in the past to it well. 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 We will repeat that and cont inue above antibiotics. Will start the patient on IV Solu-Medrol; breathing treatment around the cl ock; currently keep her on BiPAP, will titrate it off. I consulted Dr. West, the cooking show host, to see the patient and assist with care. 2. Rheumatoid arthritis. Previously on methotrexate, likely will resume that. Pain control will b e provided. 3. Gastrointestinal. The patient will be placed on Protonix for GI prophylaxis. 4. The patient will be placed on deep venous thrombosis prophylaxis. 5. Diabetes mellitus. The patient will likely need higher dose of insulin as she is on steroids. Will start with Lantus 14 units, titrate up, and insulin sliding scale for now. Continue Tradjenta. 6. Hypertension. Titrate medication up and observe. 7. The patient will be admitted to intensive care unit. 8. Cardiovascular. The patient will be placed on Lovenox. Titrate blood pressure medication up. Status post Lasix for possible slight fluid overload state. Will re-assess need for Lasix daily and we will follow. Dictated By: FAISAL ALVAREZ/NGHIA Conf#: [id number] DID#: [id number]
[2016-06-03] MEDS: ALBUTEROL/IPRATROPIUM (NEB) 3 ML AMP NEB SCH (21:00)
[2016-06-03] MEDS: GABAPENTIN 300 MG CAP PO SCH (21:02)
[2016-06-04] MEDS: INSULIN ASPART [NOVOLOG] 3 ML PEN SC SCH ×6 (00:30→20:38)
[2016-06-04] MEDS: METHYLPREDNISOLONE 125 MG INJ IV SCH ×2 (00:32→06:58)
[2016-06-04] MEDS: ALBUTEROL/IPRATROPIUM (NEB) 3 ML AMP NEB SCH ×6 (02:41→21:00)
[2016-06-04] MEDS ORDERED: VANCOMYCIN 750 MG in SOD CHLORIDE 0.9% 150 ML IVPB SCH (06:30)
[2016-06-04] MEDS: PANTOPRAZOLE (EC) 40 MG TAB PO SCH (06:58)
[2016-06-04] MEDS: IMIPENEM-CILAST 500MG IV (PMX) 100 ML IVPB SCH ×3 (06:58→20:43)
[2016-06-04] MEDS: ENOXAPARIN 40 MG/0.4 ML SYG SC SCH (09:36)
[2016-06-04] MEDS: ASPIRIN 81 MG TAB PO SCH (09:36)
[2016-06-04] MEDS: SENNA TAB PO SCH (10:27)
[2016-06-04] MEDS: ASCORBIC ACID 500 MG TAB PO SCH (10:27)
[2016-06-04] MEDS: GABAPENTIN 300 MG CAP PO SCH ×3 (10:27→20:29)
[2016-06-04] MEDS: LINAGLIPTIN 5 MG TABLET PO SCH (10:28)
--- NOTE | 2016-06-04 11:07 | CONS ---
Date/Time of Note Date/Time of Note DATE: 06/04/16 TIME: 11:03 Assessment/Plan Assessment/Plan Additional Assessment/Plan Chest x-ray was reviewed from yesterday which is showing diffuse fibrotic changes. ABG also was reviewed which is showing adequate oxygenation without any evidence of hypercapnia. Assessment recommendations; 1. Patient admitted for flareup of IPF. 2. Possibly superimposed pneumonia 3. Diabetes. Continue current antibiotics other supportive measures discontinue Solu-Medrol at current dosing which is 60 mg every 6 hours for the patient to 40 mg IV every 8 hours. Continue supplemental oxygen to keep O2 saturation above 92%. Consultation Date/Type/Reason Admit Date/Time Date of Consultation: Jun 04, 2016 Type of Consultation: Pulmonary Reason for Consultation Pulmonary consultation obtained for evaluation of pulmonary fibrosis. Patient admitted for hypoxemia and shortness of breath. History presenting; patient is a very pleasant 74-year-old lady who was sent over from snf to the ER with complaints of being short of breath for the last day or 2. Patient however denies any wheezing, any significant chest congestion or sputum production. Denies any fever chills. Upon evaluation he had a chest x-ray was done which is again showing evidence of severe bilateral pulmonary fibrosis. Patient was last 24 hours is markedly improved. Denies any chest pain, wheezing, sputum production or hemoptysis. Also has been taken off BiPAP and maintain on nasal cannula with adequate O2 saturation. Past medical history; 1. Patient with history of advanced pulmonary fibrosis, O2 dependent. 2. DM. Medications; were reviewed. Allergies; are none. Social history; never smoked. No history of alcohol or drug abuse. Family history; she is single she has 4 children. No history of any pulmonary fibrosis in the family. Review of systems; denies any headache, visual changes. Any sinus symptoms. Any dysphagia, odynophagia. Chest pain. Shortness of breath is markedly improved. Denies any chest congestion. Denies any abdominal pain, nausea vomiting. Denies any weight loss. Any edema. Complains of mild orthopnea. Does complain of dyspnea on exertion which has been stable for the last several years. Denies any skin changes. Has a good appetite. Occupational history; patient used to work in [employer] industry. Social History Smoking Status: Never smoker Exam/Review of Systems Vital Signs Vitals Vital Signs Date Time Temp Pulse Resp B/P Pulse Ox O2 Delivery O2 Flow Rate FiO2 06/04/16 10:01 100 26 127/55 94 Nasal Cannula 6.0 06/04/16 08:41 40 06/04/16 02:30 96.9 Intake and Output 06/03/16 06/03/16 06/04/16 15:00 23:00 07:00 Intake Total 100 ml Output Total 1200 ml Balance 100 ml -1200 ml Exam HEENT examination; supple neck, no JVD. No lymphadenopathy. Midline trachea. No thyromegaly. Patient multiple carious teeth. Pupils are equal and reactive to light bilaterally. No thyromegaly. Chest exam; diffuse bilateral crackles. S1-S2 audible, no murmurs. Regular rhythm. Abdomen examination; soft, nontender. No organomegaly. Bowel sounds audible. Extremity exam is; no peripheral edema. Pulses 1+ bilaterally. There is no clubbing. SW[employer]MING PO[employer]ER examination; cranial nerves are intact. No motor deficit. Results Result Diagram: 06/03/16 1425 06/03/16 1425 Results 24 hrs Laboratory Tests Test 06/03/16 14:25 06/03/16 15:00 06/03/16 17:18 06/03/16 18:30 White Blood Count 16.0 #H Red Blood Count 4.10 L Hemoglobin 10.5 L Hematocrit 36.2 L Mean Corpuscular Volume 88.3 Mean Corpuscular Hemoglobin 25.6 L Mean Corpuscular Hemoglobin Concent 29.0 L Red Cell Distribution Width 16.3 H Platelet Count 337 Mean Platelet Volume 10.1 Neutrophils % 89.3 H Lymphocytes % 8.5 L Monocytes % 1.0 Eosinophils % 0.4 Basophils % 0.2 Nucleated Red Blood Cells % 0.0 Neutrophils # 14.3 H Lymphocytes # 1.4 Monocytes # 0.2 L Eosinophils # 0.1 Basophils # 0.0 Nucleated Red Blood Cells # 0.0 Prothrombin Time 13.9 Prothrombin Time Ratio 1.1 INR International Normalized Ratio 1.07 Activated Partial Thromboplast Time 28.6 Sodium Level 136 Potassium Level 5.1 Chloride Level 98 Carbon Dioxide Level 28 Anion Gap 15 Blood Urea Nitrogen 21 H Creatinine 0.93 Glucose Level 369 H Lactic Acid Level 1.3 1.6 Calcium Level 8.9 Total Bilirubin 0.1 L Direct Bilirubin 0.00 Indirect Bilirubin 0.1 Aspartate Amino Transf (AST/SGOT) 13 L Alanine Aminotransferase (ALT/SGPT) 11 L Alkaline Phosphatase 154 H Troponin I < 0.012 B-Type Natriuretic Peptide 1220 H Total Protein 7.9 Albumin 3.1 L Globulin 4.80 H Albumin/Globulin Ratio 0.64 Blood Gas Specimen Source Blood arterial Arterial Blood Date Drawn 06/03/2016 3:02:38 PM Arterial Blood pH (Temp corrected) 7.360 Arterial Blood pCO2 (Temp correct) 57.5 H Arterial Blood pO2 (Temp corrected) 273.0 H Arterial Blood HCO3 31.8 H Arterial Blood Base Excess 5.1 H Arterial Blood Oxygen Saturation 99.4 Melo Test ACCEPTAB Arterial Blood Gas Puncture Site Right Radial Arterial Blood Carboxyhemoglobin 0.3 Arterial Blood Methemoglobin 0.2 Blood Gas A-a O2 Differential 382.5 H Oxyhemoglobin Percent 98.9 Total Hemoglobin 11.0 L Blood Gas Temperature 37.0 Blood Gas Respiration Rate 20.0 Blood Gas Actual Respiration Rate 28 Blood Gas Modality MASK - BIPAP FiO2 100.0 Blood Gas Pressure Support 10 Blood Gas IPAP/EPAP Ratio 15/5 Blood Gas Notified Whom Georgie Blood Gas Notified Time 06/03/2016 3:11:26 PM Urine Color LT. YELLOW Urine Clarity SLIGHTLY CLOUDY Urine pH 6.0 Urine Specific [place] 1.015 Urine Ketones NEGATIVE Urine Nitrite NEGATIVE Urine Bilirubin NEGATIVE Urine Urobilinogen 0.2 E.U./dL Urine Leukocyte Esterase NEGATIVE Urine Microscopic RBC 5-10 Urine Microscopic WBC 2-5 Urine Epithelial Cells FEW Urine Bacteria MANY Urine Hemoglobin 1+ H Urine Glucose 0.1% H Urine Total Protein 2+ H Test 06/03/16 20:10 06/03/16 20:54 06/04/16 00:24 06/04/16 08:56 Lactic Acid Level 2.2 Bedside Glucose 351 H 338 H 295 H Medications Medications Current Medications Ondansetron HCl (Zofran Inj) 4 mg Q6H PRN IV NAUSEA AND/OR VOMITING; Start 06/03 at 17:00 Methylprednisolone Sodium Succinate (Solu-Medrol) 60 mg Q6 IV Last administered on 06/04/16t 06:58; Admin Dose 60 MG; Start 06/03/16 at 18:00 Nitroglycerin (Nitroglycerin (Sl Tab) 0.4 Mg) 1 tab Q5M PRN SL CHEST PAIN; Start 06/03/16 at 17:00 Acetaminophen (Tylenol Liquid) 650 mg Q6H PRN PO PAIN LEVEL 1-3 OR FEVER; Start 06/03/16 at 17:00 Acetaminophen/ Hydrocodone Bitart ([place] (5/325)) 1 tab Q6H PRN PO PAIN LEVEL 4 -6; Start 06/03/16 at 17:00 Morphine Sulfate (morphine) 2 mg Q4H PRN IV PAIN LEVEL 7-10; Start 06/03/16 at 17:00 Lorazepam (Ativan) 1 mg Q2H PRN IV ANXIETY; Start 06/03/16 at 17:00 Zolpidem Tartrate (Ambien) 5 mg QHS PRN PO INSOMNIA; Start 06/03/16 at 17:00 Docusate Sodium (Colace) 100 mg Q12H PRN PO CONSTIPATION; Start 06/03/16 at 17: 00 Magnesium Hydroxide (Milk Of Mag) 30 ml DAILY PRN PO CONSTIPATION; Start at 17:00 Pantoprazole (Protonix Tab) 40 mg DAILY@06 PO Last administered on 06/04/16 06: 58; Admin Dose 40 MG; Start 06/04/16 at 06:00 Enoxaparin Sodium (Lovenox) 40 mg DAILY SC Last administered on 06/04/16 09:36 ; Admin Dose 40 MG; Start 06/04/16 at 09:00 Ascorbic Acid (Vitamin C) 500 mg DAILY PO Last administered on 06/04/16 10:27; Admin Dose 500 MG; Start 06/04/16 at 09:00 Aspirin (Aspirin) 81 mg DAILY PO Last administered on 06/04/16 09:36; Admin Dose 81 MG; Start 06/04/16 at 09:00 Gabapentin (Neurontin) 300 mg TID PO Last administered on 06/04/16 10:27; Admin Dose 300 MG; Start 06/03/16 at 21:00 Linagliptin (Tradjenta) 5 mg DAILY PO Last administered on 06/04/16 10:28; Admin Dose 5 MG; Start 06/04/16 at 09:00 Senna (Senokot) 1 tab DAILY PO Last administered on 06/04/16 10:27; Admin Dose 1 TAB; Start 06/04/16 at 09:00 Insulin Glargine 14 unit 14 unit DAILY@20 SC Last administered on 06/03/16 21: 01; Admin Dose 14 UNIT; Start 06/03/16 at 20:00 Imipenem/ Cilastatin Sodium (Primaxin 500 Mg/ 100 ml (Pmx)) 100 ml @ 100 mls/ hr Q8 IVPB Last administered on 06/04/16 06:58; Admin Dose 100 MLS/HR; Start at 17:00 Miscellaneous Information 1 ea NOTE XX ; Start 06/03/16 at 19:30 Glucose (Glutose) 15 gm Q15M PRN PO DECREASED GLUCOSE; Start 06/03/16 at 19:30 Glucose (Glutose) 22.5 gm Q15M PRN PO DECREASED GLUCOSE; Start 06/03/16 at 19:30 Dextrose (D50w Syringe) 25 ml Q15M PRN IV DECREASED GLUCOSE; Start 06/03/16 at 19:30 Dextrose (D50w Syringe) 50 ml Q15M PRN IV DECREASED GLUCOSE; Start 06/03/16 at 19:30 Glucagon (Glucagen) 1 mg Q15M PRN IM DECREASED GLUCOSE; Start 06/03/16 at 19:30 Glucose 15 gm 15 gm Q15M PRN BUCCAL DECREASED GLUCOSE; Start 06/03/16 at 19:30 Vancomycin HCl/ Sodium Chloride (Vancocin/NS) 150 ml @ 75 mls/hr Q12H IVPB Last administered on 06/04/16 08:39; Admin Dose 75 MLS/HR; Start 06/04/16 at 06: 30 GARRET SOARES Jun 04, 2016 11:07
[2016-06-04] MEDS ORDERED: METHYLPREDNISOLONE 40 MG INJ IV ONE (11:30)
[2016-06-04 12:08] VITALS: TEMP 97.8
[2016-06-04 14:19] VITALS: PULSE 97
[2016-06-04 16:03] VITALS: BP 110/52; RESP 24
[2016-06-04 16:13] VITALS: PULSE 106
[2016-06-04 16:16] VITALS: Ht 152.4 cm; Wt 57.0 kg
--- NOTE | 2016-06-04 18:18 | PN ---
DATE: 06/04/2016 Patient was seen and she was admitted from the ER to the telemetry unit as there was no ICU beds. T he patient now is on nasal cannula. I appreciate pulmonary input. The patient was seen by Dr. Latoya Hernandez. The patient also has positive blood cultures and positive urine culture so far. Overall, clinically better. PHYSICAL EXAMINATION: VITAL SIGNS: Patient is afebrile. Temperature is 97.6, pulse 97 to 106, respirations 24, blood pre ssure was 110/52, saturation 96% on 5 liters nasal cannula. GENERAL: The patient is in no acute distress, coughing at times. The patient is pale. HEENT: No JVD. CARDIOVASCULAR: S1 and S2. LUNGS: Diffuse rhonchi and mild crackles. ABDOMEN: Soft, nontender. EXTREMITIES: No clubbing, cyanosis, or edema. Hands, deformities bilaterally secondary to rheumato id arthritis. LABORATORY DATA: Do not see labs today. Last glucose levels are elevated 263, 295 and 338. The jose francisco otoole is on IV steroids. Labs yesterday were all reviewed. Blood cultures shows gram-positive cocc i in clusters, 2/2 bottles and urine culture shows gram-negative rods greater than 100,000. MEDICATIONS: Reviewed the followin. Lovenox 40 mg subcutaneous daily. 2. Vitamin C 500 mg daily. 3. Aspirin 81 mg daily. 4. Tradjenta 5 mg daily. 5. Senna 1 tab daily. 6. Vancomycin IV dose per pharmacy. 7. Protonix 40 mg daily. 8. Neurontin 300 mg t.i.d. 9. Lantus 14 units daily. Hypoglycemia protocol. 10. Insulin aspart per sliding scale. 11. Zofran p.r.n. 12. DuoNeb every 4 hours. 13. Nitroglycerin p.r.n. 14. Tylenol p.r.n. 15. [place] p.r.n. 16. Morphine p.r.n. 17. Ativan p.r.n. 18. Ambien p.r.n. 19. Colace p.r.n. 20. Milk of magnesia p.r.n. 21. The patient is on Vancomycin dose per pharmacy. 22. Imipenem 500 IV q.8 hours. ASSESSMENT AND PLAN: This is a 75-year-old female with history of advanced end stage pulmo nary fibrosis, O2 dependent, rheumatoid arthritis, hypertension, diabetes mellitus who presented lik bandar with tracheobronchitis, possible pneumonia, acute respiratory failure, urinary tract infection a nd sepsis. 1. Respiratory. Continue steroids. We are tapering it down. Continue breathing treatment around the clock and IV antibiotics. Continue O2 support. Antitussives will be given as well for her coug h. 2. Cardiovascular. The patient is slightly tachycardic, likely from her inhalers. Otherwise, the patient is normotensive. Continue Lovenox for DVT prophylaxis. May restart the patient's beta bloc ker soon. 3. Diabetes mellitus. Glucose levels are high. Will increase both basal insulin and short-acting insulin, give it weight-based and titrate up slowly and taper down steroids. We will follow. 4. Rheumatoid arthritis. We will resume patient's previous methotrexate. I believe she was taking 15 mg q. weekly. 5. Gastrointestinal. Continue Protonix. 6. Hypertension, currently controlled. See above. 7. Infectious disease. The patient with evidence of urinary tract infection. The patient's urine culture is positive, bacteremia and bronchitis. Follow up all cultures. We will continue imipenem and vancomycin. Clinically, she is doing better. Follow up WBC, follow up repeat cultures as well and to document resolution. Follow up lactic acid levels as it is trending up. 8. Continue stool softeners. Continue supportive care in the telemetry unit. We will follow. Dictated By: FAISAL ALVAREZ/NGHIA Conf#: [id number] DID#: [id number]
[2016-06-04 20:00] VITALS: BP 92/50; RESP 19
[2016-06-04 20:13] VITALS: PULSE 112
[2016-06-04] MEDS: GUAIFENESIN/CODEINE 5ML CUP PO PRN (20:29)
[2016-06-04] MEDS: HYDROCODONE/APAP (5/325) TAB PO PRN (20:29)
[2016-06-04] MEDS: VANCOMYCIN 750 MG in SOD CHLORIDE 0.9% 150 ML IVPB SCH (20:30)
[2016-06-04] MEDS: INSULIN GLARGINE [LANtus] 3 ML PEN SC SCH (20:35)
[2016-06-05] VITALS (13 sets, daily range): BP systolic 106–133; BP diastolic 53–63; PULSE 93–109; RESP 19–20
[2016-06-05] MEDS: ALBUTEROL/IPRATROPIUM (NEB) 3 ML AMP NEB SCH ×6 (02:04→20:48)
[2016-06-05] MEDS: HYDROCODONE/APAP (5/325) TAB PO PRN ×3 (02:37→17:27)
[2016-06-05] MEDS: GUAIFENESIN/CODEINE 5ML CUP PO PRN ×2 (02:37→06:23)
[2016-06-05] MEDS: PANTOPRAZOLE (EC) 40 MG TAB PO SCH (05:20)
[2016-06-05] MEDS: IMIPENEM-CILAST 500MG IV (PMX) 100 ML IVPB SCH ×3 (05:20→21:37)
[2016-06-05 06:15] LABS: ADD SCAN DIFF NO
[2016-06-05 06:20] LABS: BASOPHILS % 0.1 % (0.0-2.0); HEMATOCRIT 32.1 % (37.0-47.0); HEMOGLOBIN 9.6 g/dl (12.0-16.0); LYMPHOCYTES # 1.8 10^3/ul (0.8-2.9); LYMPHOCYTES % 11.8 % (15.0-51.0); MEAN CORPUSCULAR HEMOGLOBIN 26.1 pg (29.0-33.0); MEAN CORPUSCULAR HGB CONC 29.9 g/dl (32.0-37.0); MEAN CORPUSCULAR VOLUME 87.2 fl (82.0-101.0); MEAN PLATELET VOLUME 9.9 fl (7.4-10.4); MONOCYTE # 0.5 10^3/ul (0.3-0.9); MONOCYTES % 3.2 % (0.0-11.0); NEUTROPHIL # 12.5 10^3/ul (1.6-7.5); NEUTROPHILS % 84.2 % (39.0-77.0); PLATELET COUNT 347 10^3/UL (140-415); RED BLOOD COUNT 3.68 10^6/ul (4.20-5.40); RED CELL DISTRIBUTION WIDTH 16.4 % (11.5-14.5); WHITE BLOOD COUNT 14.8 10^3/ul (4.8-10.8)
[2016-06-05 06:36] LABS: POTASSIUM 4.3 mmol/L (3.5-5.1)
[2016-06-05 06:39] LABS: CALCIUM 9.2 mg/dl (8.4-10.2); CREATININE 0.88 mg/dl (0.44-1.00)
[2016-06-05 07:36] LABS: MAGNESIUM 1.7 mg/dl (1.7-2.5); PHOSPHORUS 3.8 mg/dl (2.5-4.9)
[2016-06-05] MEDS: INSULIN ASPART [NOVOLOG] 3 ML PEN SC SCH ×7 (07:49→21:00)
[2016-06-05] MEDS: GABAPENTIN 300 MG CAP PO SCH ×3 (08:57→21:35)
[2016-06-05] MEDS: VANCOMYCIN 750 MG in SOD CHLORIDE 0.9% 150 ML IVPB SCH ×2 (08:57→21:36)
[2016-06-05] MEDS: ASPIRIN 81 MG TAB PO SCH (08:57)
[2016-06-05] MEDS: SENNA TAB PO SCH (08:58)
[2016-06-05] MEDS: ASCORBIC ACID 500 MG TAB PO SCH (08:58)
[2016-06-05] MEDS: LINAGLIPTIN 5 MG TABLET PO SCH (08:58)
[2016-06-05] MEDS: ENOXAPARIN 40 MG/0.4 ML SYG SC SCH (10:08)
--- NOTE | 2016-06-05 12:03 | CONS ---
Date/Time of Note Date/Time of Note DATE: 06/05/16 TIME: 12:02 Assessment/Plan Assessment/Plan Additional Assessment/Plan Assessment recommendations; 1. Patient admitted for bronchopneumonia and exacerbation of IPF. 4. History of diabetes. Continue current treatment. Consultation Date/Type/Reason Admit Date/Time Jun 03, 2016 at 22:16 Initial Consult Date 06/04/16 Type of Consultation: Pulmonary 24 HR Interval Summary Free Text/Dictation Patient condition is stable. According to the patient shortness of breath is improved. Denies any wheezing, any sputum production any fever chills or chest pain. Exam; elderly lady, awake alert currently in no distress. Exam/Review of Systems Vital Signs Vitals Vital Signs Date Time Temp Pulse Resp B/P Pulse Ox O2 Delivery O2 Flow Rate FiO2 06/05/16 11:56 97.9 97 20 130/62 94 06/05/16 09:27 Nasal Cannula 6.0 06/04/16 08:41 40 Intake and Output 06/04/16 06/04/16 06/05/16 15:00 23:00 07:00 Intake Total 1230 ml 550 ml Output Total 1 ml 450 ml Balance 1229 ml 100 ml Exam HEENT exam is; supple neck, no JVD. No lymphadenopathy. Midline trachea. Patient has fair dentition. Pupils are small bilaterally. No neck masses. No neck bruits. No thyromegaly. Chest examination; bilateral crackles. S1-S2 audible, no murmurs. Regular rhythm. Abdomen exam is; soft, nontender. No organomegaly. Bowel sounds audible. Extremity exam is; no peripheral edema. Pulses 1+ bilaterally. No clubbing. HEALTH CARE TECHNICIAN examination; no focal deficit. Results Result Diagram: 06/05/16 0550 06/05/16 0550 Results 24 hrs Laboratory Tests Test 06/04/16 13:16 06/04/16 17:40 06/04/16 20:33 06/05/16 02:32 Bedside Glucose 263 H 347 H 293 H 175 Test 06/05/16 05:00 06/05/16 05:50 06/05/16 07:42 06/05/16 11:58 Phosphorus Level 3.8 Magnesium Level 1.7 White Blood Count 14.8 H Red Blood Count 3.68 L Hemoglobin 9.6 L Hematocrit 32.1 L Mean Corpuscular Volume 87.2 Mean Corpuscular Hemoglobin 26.1 L Mean Corpuscular Hemoglobin Concent 29.9 L Red Cell Distribution Width 16.4 H Platelet Count 347 Mean Platelet Volume 9.9 Neutrophils % 84.2 H Lymphocytes % 11.8 L Monocytes % 3.2 Eosinophils % 0.0 Basophils % 0.1 Nucleated Red Blood Cells % 0.0 Neutrophils # 12.5 H Lymphocytes # 1.8 Monocytes # 0.5 Eosinophils # 0.0 Basophils # 0.0 Nucleated Red Blood Cells # 0.0 Sodium Level 138 Potassium Level 4.3 Chloride Level 99 Carbon Dioxide Level 29 Anion Gap 14 Blood Urea Nitrogen 32 #H Creatinine 0.88 Glucose Level 226 #H Lactic Acid Level 1.8 Calcium Level 9.2 Vancomycin Level Trough 15.3 Bedside Glucose 174 126 Medications Medications Current Medications Ondansetron HCl (Zofran Inj) 4 mg Q6H PRN IV NAUSEA AND/OR VOMITING; Start 06/03 at 17:00 Nitroglycerin (Nitroglycerin (Sl Tab) 0.4 Mg) 1 tab Q5M PRN SL CHEST PAIN; Start 06/03/16 at 17:00 Acetaminophen (Tylenol Liquid) 650 mg Q6H PRN PO PAIN LEVEL 1-3 OR FEVER; Start 06/03/16 at 17:00 Acetaminophen/ Hydrocodone Bitart ([place] (5/325)) 1 tab Q6H PRN PO PAIN LEVEL 4 -6 Last administered on 06/05/16 02:37; Admin Dose 1 TAB; Start 06/03/16 at 17:00 Morphine Sulfate (morphine) 2 mg Q4H PRN IV PAIN LEVEL 7-10; Start 06/03/16 at 17:00 Lorazepam (Ativan) 1 mg Q2H PRN IV ANXIETY; Start 06/03/16 at 17:00 Zolpidem Tartrate (Ambien) 5 mg QHS PRN PO INSOMNIA; Start 06/03/16 at 17:00 Docusate Sodium (Colace) 100 mg Q12H PRN PO CONSTIPATION; Start 06/03/16 at 17: 00 Magnesium Hydroxide (Milk Of Mag) 30 ml DAILY PRN PO CONSTIPATION; Start at 17:00 Pantoprazole (Protonix Tab) 40 mg DAILY@06 PO Last administered on 06/05/16 05: 20; Admin Dose 40 MG; Start 06/04/16 at 06:00 Enoxaparin Sodium (Lovenox) 40 mg DAILY SC Last administered on 06/05/16 10:08 ; Admin Dose 40 MG; Start 06/04/16 at 09:00 Ascorbic Acid (Vitamin C) 500 mg DAILY PO Last administered on 06/05/16 08:58; Admin Dose 500 MG; Start 06/04/16 at 09:00 Aspirin (Aspirin) 81 mg DAILY PO Last administered on 06/05/16 08:57; Admin Dose 81 MG; Start 06/04/16 at 09:00 Gabapentin (Neurontin) 300 mg TID PO Last administered on 06/05/16 08:57; Admin Dose 300 MG; Start 06/03/16 at 21:00 Linagliptin (Tradjenta) 5 mg DAILY PO Last administered on 06/05/16 08:58; Admin Dose 5 MG; Start 06/04/16 at 09:00 Senna 1 tab 1 tab DAILY PO Last administered on 06/05/16 08:58; Admin Dose 1 TAB; Start 06/04/16 at 09:00 Imipenem/ Cilastatin Sodium (Primaxin 500 Mg/ 100 ml (Pmx)) 100 ml @ 100 mls/ hr Q8 IVPB Last administered on 06/05/16 05:20; Admin Dose 100 MLS/HR; Start at 17:00 Miscellaneous Information 1 ea NOTE XX ; Start 06/03/16 at 19:30 Glucose (Glutose) 15 gm Q15M PRN PO DECREASED GLUCOSE; Start 06/03/16 at 19:30 Glucose (Glutose) 22.5 gm Q15M PRN PO DECREASED GLUCOSE; Start 06/03/16 at 19:30 Dextrose (D50w Syringe) 25 ml Q15M PRN IV DECREASED GLUCOSE; Start 06/03/16 at 19:30 Dextrose (D50w Syringe) 50 ml Q15M PRN IV DECREASED GLUCOSE; Start 06/03/16 at 19:30 Glucagon (Glucagen) 1 mg Q15M PRN IM DECREASED GLUCOSE; Start 06/03/16 at 19:30 Glucose (Glutose) 15 gm Q15M PRN BUCCAL DECREASED GLUCOSE; Start 06/03/16 at 19: 30 Insulin Glargine (Lantus) 24 unit DAILY@20 SC Last administered on 06/04/16 20: 35; Admin Dose 24 UNIT; Start 06/04/16 at 20:00 Guaifenesin/ Codeine Phosphate 5 ml 5 ml Q4H PRN PO cough Last administered on 06/05/16 06:23; Admin Dose 5 ML; Start 06/04/16 at 17:30 Vancomycin HCl/ Sodium Chloride (Vancocin/NS) 150 ml @ 75 mls/hr Q12H IVPB Last administered on 06/05/16 08:57; Admin Dose 75 MLS/HR; Start 06/04/16 at 20: 00 GARRET SOARES Jun 05, 2016 12:03
[2016-06-05] MEDS: METHYLPREDNISOLONE 40 MG INJ IV SCH (21:35)
[2016-06-05] MEDS: INSULIN GLARGINE [LANtus] 3 ML PEN SC SCH (21:52)
[2016-06-06] VITALS (12 sets, daily range): BP systolic 107–151; BP diastolic 54–74; PULSE 91–112; RESP 18–24
[2016-06-06] MEDS: ALBUTEROL/IPRATROPIUM (NEB) 3 ML AMP NEB SCH ×6 (01:56→21:12)
[2016-06-06] MEDS: IMIPENEM-CILAST 500MG IV (PMX) 100 ML IVPB SCH ×2 (06:30→13:06)
[2016-06-06] MEDS: PANTOPRAZOLE (EC) 40 MG TAB PO SCH (06:30)
[2016-06-06 07:23] LABS: ADD SCAN DIFF NO
[2016-06-06 07:32] LABS: ABNORMAL IP MESSAGE 1; BASOPHILS % 0.1 % (0.0-2.0); HEMATOCRIT 34.2 % (37.0-47.0); HEMOGLOBIN 9.8 g/dl (12.0-16.0); LYMPHOCYTES # 0.6 10^3/ul (0.8-2.9); LYMPHOCYTES % 6.6 % (15.0-51.0); MEAN CORPUSCULAR HEMOGLOBIN 25.7 pg (29.0-33.0); MEAN CORPUSCULAR HGB CONC 28.7 g/dl (32.0-37.0); MEAN CORPUSCULAR VOLUME 89.5 fl (82.0-101.0); MEAN PLATELET VOLUME 10.1 fl (7.4-10.4); MONOCYTES % 0.3 % (0.0-11.0); NEUTROPHIL # 8.1 10^3/ul (1.6-7.5); NEUTROPHILS % 92.5 % (39.0-77.0); PLATELET COUNT 305 10^3/UL (140-415); RED BLOOD COUNT 3.82 10^6/ul (4.20-5.40); RED CELL DISTRIBUTION WIDTH 16.8 % (11.5-14.5); WHITE BLOOD COUNT 8.8 10^3/ul (4.8-10.8)
[2016-06-06] MEDS: INSULIN ASPART [NOVOLOG] 3 ML PEN SC SCH ×7 (07:55→20:50)
--- NOTE | 2016-06-06 07:55 | PN ---
DATE: 06/05/2016 SUBJECTIVE: The patient seen. She says she is feeling better. I appreciate pulmonary input and re commendations. The patient is asking for more solid foods. She does not like soft mechanical diet. PHYSICAL EXAMINATION: VITAL SIGNS: Temperature 98, afebrile. Heart rate 91, respirations 22, blood pressure 107/53, satu ration is 95% on 6 L. GENERAL: The patient is in no acute distress. HEENT: Pale. Decreased dentition. CARDIOVASCULAR: S1 and S2. LUNGS: Diffuse rhonchi bilaterally. ABDOMEN: Soft, nontender. EXTREMITIES: No clubbing, cyanosis or edema. LABORATORY DATA: White count is 14.8, hemoglobin 9.6, hematocrit 32, platelet count 347. Neutrophi ls 84%, lymphocytes 12%. Chemistry: Sodium 138, potassium 4.3, chloride 99, bicarbonate 29, BUN 32 , creatinine 0.88, glucose of 226. Last glucose level is 141, 126 and 174, better glycemic control. UA on admission shows leukocyte esterase negative and nitrites negative, but urine culture was pos itive for E. coli greater than 100,000 sensitive to all cephalosporins, quinolones. See culture res ults. Blood culture did show staph species. Respiratory shows gram-negative rods, awaiting final results. MEDICATIONS: 1. Lantus 24 units daily. 2. Vancomycin IV dose per pharmacy. 3. Insulin aspart 6 units with meals. 4. Robitussin-AC 5 mL q.4 p.r.n. 5. Lovenox 40 mg subQ daily. 6. Vitamin C 500 mg daily. 7. Aspirin 81 daily. 8. Tradjenta 5 mg daily. 9. Senna 1 tablet daily. 10. Protonix 40 mg daily. 11. Neurontin 300 t.i.d. 12. Hypoglycemia protocol as directed. 13. Zofran p.r.n. 14. DuoNeb q.4 around the clock and p.r.n. 15. Nitroglycerin p.r.n. 16. Tylenol p.r.n. 17. [place] p.r.n. 18. Morphine p.r.n. 19. Ativan p.r.n. 20. Ambien p.r.n. 21. Colace p.r.n. 22. Milk of magnesia p.r.n. 23. Imipenem 500 IV q.8 as well. ASSESSMENT AND PLAN: This is a 75-year-old female with advanced end-stage pulmonary fibros is, O2 dependent, rheumatoid arthritis, hypertension, diabetes mellitus who presents with tracheobro nchitis, possible pneumonia, respiratory failure and urinary tract infection and sepsis. 1. Respiratory. Will continue tapering down steroids. Continue antibiotic management, breathing t reatment, O2 support. 2. Infectious disease. The patient with bacteremia, urinary tract infection and bronchial pneumoni a or tracheobronchitis. Continue above antibiotics. Follow up respiratory culture, follow up urine culture and follow up blood culture results. 3. Diabetes mellitus. I increased the patient's insulin. Sugars are better. ____ I'm going to co ntinue the steroids for a few more days. 4. Rheumatoid arthritis. Resume the patient's previous methotrexate. 5. Gastrointestinal. Continue Protonix. 6. Advance diet to regular, no added salt to 2 gram sodium. 7. Hypertension. Continue current medications. 8. Stool softeners to be given. Clinically improving. DISPOSITION: Once cultures all back and patient is feeling somewhat better. We will follow. Dictated By: FAISAL ALVAREZ/NGHIA Conf#: [id number] DID#: [id number]
[2016-06-06 07:57] LABS: CALCIUM 8.6 mg/dl (8.4-10.2); CREATININE 0.9 mg/dl (0.44-1.00); POTASSIUM 5.4 mmol/L (3.5-5.1)
[2016-06-06] MEDS ORDERED: INSULIN ASPART [NOVOLOG] 3 ML PEN SC ONE (08:00)
[2016-06-06 08:04] LABS: MAGNESIUM 1.7 mg/dl (1.7-2.5); PHOSPHORUS 4.6 mg/dl (2.5-4.9)
[2016-06-06] MEDS: ASPIRIN 81 MG TAB PO SCH (08:39)
[2016-06-06] MEDS: METHYLPREDNISOLONE 40 MG INJ IV SCH (08:39)
[2016-06-06] MEDS: SENNA TAB PO SCH (08:40)
[2016-06-06] MEDS: LINAGLIPTIN 5 MG TABLET PO SCH (08:40)
[2016-06-06] MEDS: GABAPENTIN 300 MG CAP PO SCH ×3 (08:40→20:55)
[2016-06-06] MEDS: ASCORBIC ACID 500 MG TAB PO SCH (08:40)
[2016-06-06] MEDS: HYDROCODONE/APAP (5/325) TAB PO PRN ×4 (08:41→22:39)
[2016-06-06] MEDS: ENOXAPARIN 40 MG/0.4 ML SYG SC SCH (08:44)
[2016-06-06] MEDS: VANCOMYCIN 750 MG in SOD CHLORIDE 0.9% 150 ML IVPB SCH (08:46)
--- NOTE | 2016-06-06 11:01 | CONS ---
Date/Time of Note Date/Time of Note DATE: 06/06/16 TIME: 10:59 Assessment/Plan Assessment/Plan Additional Assessment/Plan Assessment recommendations; 1. Patient admitted for IBS as well as possibly bilateral bronchopneumonia with significant clinical improvement. 2. Diabetes. With hyperglycemia exacerbated by systemic steroid treatment. Discontinue Solu-Medrol. Continue current other medications. Patient responding well to current treatment regimen. Consultation Date/Type/Reason Admit Date/Time Jun 03, 2016 at 22:16 Initial Consult Date 06/04/16 Type of Consultation: Pulmonary 24 HR Interval Summary Free Text/Dictation Patient condition is stable. Reports improving shortness of breath. Denies any coughing, wheezing. Any sputum production. Fever chills. Urine exam; elderly lady, awake alert currently in no distress. Exam/Review of Systems Vital Signs Vitals Vital Signs Date Time Temp Pulse Resp B/P Pulse Ox O2 Delivery O2 Flow Rate FiO2 06/06/16 08:47 85 97 Nasal Cannula 6.0 06/06/16 07:07 97.9 24 143/65 06/04/16 08:41 40 Intake and Output 06/05/16 06/05/16 06/06/16 15:00 23:00 07:00 Intake Total 900 ml 250 ml Output Total 750 ml 700 ml Balance 150 ml -450 ml Exam HEENT exam; supple neck, no JVD. No lymphadenopathy. Midline trachea. No cervical. Pharynx is clear. Patient does have multiple missing teeth. Pupils are midsize and reactive to light. Chest exam; diminished breath sound bilaterally with bilateral crackles. S1-S2 audible, no murmurs. Regular rhythm. Abdomen examination; soft, nondistended. No organomegaly. Bowel sounds are audible. Extremity exam is; no peripheral edema. Pulses 1+ bilaterally. PSYCHOLOGIST examination; no focal deficit. Results Result Diagram: 06/06/16 0631 06/06/16 0631 Results 24 hrs Laboratory Tests Test 06/05/16 11:58 06/05/16 17:29 06/05/16 21:33 06/06/16 06:31 Bedside Glucose 126 141 158 White Blood Count 8.8 # Red Blood Count 3.82 L Hemoglobin 9.8 L Hematocrit 34.2 L Mean Corpuscular Volume 89.5 Mean Corpuscular Hemoglobin 25.7 L Mean Corpuscular Hemoglobin Concent 28.7 L Red Cell Distribution Width 16.8 H Platelet Count 305 Mean Platelet Volume 10.1 Neutrophils % 92.5 H Lymphocytes % 6.6 L Monocytes % 0.3 Eosinophils % 0.0 Basophils % 0.1 Nucleated Red Blood Cells % 0.0 Neutrophils # 8.1 H Lymphocytes # 0.6 L Monocytes # 0.0 L Eosinophils # 0.0 Basophils # 0.0 Nucleated Red Blood Cells # 0.0 Sodium Level 136 Potassium Level 5.4 H Chloride Level 102 Carbon Dioxide Level 30 Anion Gap 9 # Blood Urea Nitrogen 28 H Creatinine 0.90 Glucose Level 456 #*H Calcium Level 8.6 Phosphorus Level 4.6 Magnesium Level 1.7 Test 06/06/16 07:30 06/06/16 07:31 Bedside Glucose 454 *H 482 *H Medications Medications Current Medications Ondansetron HCl (Zofran Inj) 4 mg Q6H PRN IV NAUSEA AND/OR VOMITING; Start 06/03 at 17:00 Nitroglycerin (Nitroglycerin (Sl Tab) 0.4 Mg) 1 tab Q5M PRN SL CHEST PAIN; Start 06/03/16 at 17:00 Acetaminophen (Tylenol Liquid) 650 mg Q6H PRN PO PAIN LEVEL 1-3 OR FEVER; Start 06/03/16 at 17:00 Acetaminophen/ Hydrocodone Bitart ([place] (5/325)) 1 tab Q6H PRN PO PAIN LEVEL 4 -6 Last administered on 06/06/16 08:41; Admin Dose 1 TAB; Start 06/03/16 at 17:00 Morphine Sulfate (morphine) 2 mg Q4H PRN IV PAIN LEVEL 7-10; Start 06/03/16 at 17:00 Lorazepam (Ativan) 1 mg Q2H PRN IV ANXIETY; Start 06/03/16 at 17:00 Zolpidem Tartrate (Ambien) 5 mg QHS PRN PO INSOMNIA; Start 06/03/16 at 17:00 Docusate Sodium (Colace) 100 mg Q12H PRN PO CONSTIPATION; Start 06/03/16 at 17: 00 Magnesium Hydroxide (Milk Of Mag) 30 ml DAILY PRN PO CONSTIPATION; Start at 17:00 Pantoprazole (Protonix Tab) 40 mg DAILY@06 PO Last administered on 06/06/16 06: 30; Admin Dose 40 MG; Start 06/04/16 at 06:00 Enoxaparin Sodium (Lovenox) 40 mg DAILY SC Last administered on 06/06/16 08:44 ; Admin Dose 40 MG; Start 06/04/16 at 09:00 Ascorbic Acid (Vitamin C) 500 mg DAILY PO Last administered on 06/06/16 08:40; Admin Dose 500 MG; Start 06/04/16 at 09:00 Aspirin (Aspirin) 81 mg DAILY PO Last administered on 06/06/16 08:39; Admin Dose 81 MG; Start 06/04/16 at 09:00 Gabapentin (Neurontin) 300 mg TID PO Last administered on 06/06/16 08:40; Admin Dose 300 MG; Start 06/03/16 at 21:00 Linagliptin (Tradjenta) 5 mg DAILY PO Last administered on 06/06/16 08:40; Admin Dose 5 MG; Start 06/04/16 at 09:00 Senna 1 tab 1 tab DAILY PO Last administered on 06/06/16 08:40; Admin Dose 1 TAB; Start 06/04/16 at 09:00 Imipenem/ Cilastatin Sodium (Primaxin 500 Mg/ 100 ml (Pmx)) 100 ml @ 100 mls/ hr Q8 IVPB Last administered on 06/06/16 06:30; Admin Dose 100 MLS/HR; Start at 17:00 Miscellaneous Information 1 ea NOTE XX ; Start 06/03/16 at 19:30 Glucose (Glutose) 15 gm Q15M PRN PO DECREASED GLUCOSE; Start 06/03/16 at 19:30 Glucose (Glutose) 22.5 gm Q15M PRN PO DECREASED GLUCOSE; Start 06/03/16 at 19:30 Dextrose (D50w Syringe) 25 ml Q15M PRN IV DECREASED GLUCOSE; Start 06/03/16 at 19:30 Dextrose (D50w Syringe) 50 ml Q15M PRN IV DECREASED GLUCOSE; Start 06/03/16 at 19:30 Glucagon (Glucagen) 1 mg Q15M PRN IM DECREASED GLUCOSE; Start 06/03/16 at 19:30 Glucose (Glutose) 15 gm Q15M PRN BUCCAL DECREASED GLUCOSE; Start 06/03/16 at 19: 30 Insulin Glargine (Lantus) 24 unit DAILY@20 SC Last administered on 06/05/16 21: 52; Admin Dose 24 UNIT; Start 06/04/16 at 20:00 Guaifenesin/ Codeine Phosphate 5 ml 5 ml Q4H PRN PO cough Last administered on 06/05/16 06:23; Admin Dose 5 ML; Start 06/04/16 at 17:30 Vancomycin HCl/ Sodium Chloride (Vancocin/NS) 150 ml @ 75 mls/hr Q12H IVPB Last administered on 06/06/16 08:46; Admin Dose 75 MLS/HR; Start 06/04/16 at 20: 00 Methylprednisolone Sodium Succinate (Solu-Medrol) 40 mg Q12 IV Last administered on 06/06/16 08:39; Admin Dose 40 MG; Start 06/05/16 at 21:00 GARRET SOARES Jun 06, 2016 11:01
--- NOTE | 2016-06-06 20:07 | PN ---
DATE: 06/06/2016 The patient seen, overall feeling better. Noted pulmonary recommendation to discontinue Solu-Medrol . The patient's cultures including urine and respiratory culture, also the patient's blood culture show coagulase-negative staph which is likely contamination. All organisms are sensitive to Levaqui n. PHYSICAL EXAMINATION: VITAL SIGNS: Temperature 98.1, pulse 92, respirations 20, blood pressure 139/65, saturation 95% on 4 L. GENERAL: No acute distress. The patient is pale. CARDIOVASCULAR: S1 and S2. LUNGS: Mild rhonchi bilaterally. ABDOMEN: Soft, nontender. EXTREMITIES: No clubbing, cyanosis or edema. LABORATORY DATA: White count is 8.8, hemoglobin 9.8, hematocrit 34, platelet count 305. Neutrophil s 93%, lymphocytes 7%. Chemistry: Sodium is 136, potassium 5.4, chloride 102, bicarbonate 30, BUN is 28, creatinine 0.9, glucose of 456 ____ because of the steroids. Last glucose level was 172. CURRENT MEDICATIONS: Reviewed, include: 1. Lantus 24 units daily. 2. Vancomycin dose per pharmacy. 3. NovoLog 6 units q.a.c. meals. 4. Robitussin-AC 5 mL q.4 p.r.n. 5. Lovenox 40 mg subQ daily. 6. Vitamin C 500 mg daily. 7. Aspirin 81 daily. 8. Tradjenta 5 mg daily. 9. Senna 1 tablet daily. 10. Protonix 40 mg daily. 11. Neurontin 300 t.i.d. 12. Hypoglycemia protocol as directed. 13. Zofran p.r.n. 14. Breathing treatments with DuoNeb around the clock every 4 hours and p.r.n. 15. Tylenol p.r.n. 16. [place] p.r.n. 17. Morphine p.r.n. 18. Ativan p.r.n. 19. Colace p.r.n. 20. Imipenem 500 IV q.8. ASSESSMENT AND PLAN: This is a 75-year-old female with history of advanced end-stage pulmo nary fibrosis, O2 dependent, rheumatoid arthritis, hypertension, diabetes mellitus who presented wit h tracheobronchitis, possible pneumonia, respiratory failure, urinary tract infection and sepsis. 1. Respiratory. Steroids were discontinued. Continue O2 support and breathing treatments. Contin ue antibiotic management. 2. Infectious disease. The patient with urinary tract infection and bronchial pneumonia or tracheo bronchitis, organism Escherichia coli. Discontinue imipenem, place the patient on oral Levaquin for a period of at least 7 more days. 3. Cardiovascular. Stable. 4. Diabetes mellitus. Now sugars will be better as patient's steroids were stopped. 5. Rheumatoid arthritis. Resume patient's methotrexate upon discharge. 6. Gastrointestinal. Continue Protonix. 7. Discontinue R[place] in the a.m. 8. Stool softeners as tolerated for constipation. 9. Continue deep vein thrombosis prophylaxis, gastrointestinal prophylaxis. Overall clinically better. Disposition hopefully in the a.m. Dictated By: FAISAL ALVAREZ/NGHIA Conf#: [id number] DID#: [id number]
[2016-06-06] MEDS: INSULIN GLARGINE [LANtus] 3 ML PEN SC SCH (20:49)
[2016-06-06] MEDS: GUAIFENESIN/CODEINE 5ML CUP PO PRN (22:39)
[2016-06-07] VITALS (10 sets, daily range): BP systolic 131–181; BP diastolic 64–79; PULSE 85–111; RESP 16–18
[2016-06-07] MEDS: ALBUTEROL/IPRATROPIUM (NEB) 3 ML AMP NEB SCH ×5 (00:16→17:02)
[2016-06-07] MEDS ORDERED: LEVOFLOXACIN 500 MG TAB PO SCH (06:00)
[2016-06-07] MEDS: PANTOPRAZOLE (EC) 40 MG TAB PO SCH (06:25)
[2016-06-07 07:11] LABS: ADD SCAN DIFF NO
[2016-06-07 07:16] LABS: BASOPHILS % 0.1 % (0.0-2.0); EOSINOPHILS % 0.3 % (0.0-7.0); HEMATOCRIT 32.4 % (37.0-47.0); HEMOGLOBIN 9.5 g/dl (12.0-16.0); LYMPHOCYTES # 3.1 10^3/ul (0.8-2.9); LYMPHOCYTES % 22.9 % (15.0-51.0); MEAN CORPUSCULAR HEMOGLOBIN 25.9 pg (29.0-33.0); MEAN CORPUSCULAR HGB CONC 29.3 g/dl (32.0-37.0); MEAN CORPUSCULAR VOLUME 88.3 fl (82.0-101.0); MEAN PLATELET VOLUME 9.8 fl (7.4-10.4); MONOCYTE # 0.6 10^3/ul (0.3-0.9); MONOCYTES % 4.7 % (0.0-11.0); NEUTROPHIL # 9.5 10^3/ul (1.6-7.5); NEUTROPHILS % 71.2 % (39.0-77.0); PLATELET COUNT 329 10^3/UL (140-415); RED BLOOD COUNT 3.67 10^6/ul (4.20-5.40); RED CELL DISTRIBUTION WIDTH 16.7 % (11.5-14.5); WHITE BLOOD COUNT 13.3 10^3/ul (4.8-10.8)
[2016-06-07 07:46] LABS: MAGNESIUM 1.7 mg/dl (1.7-2.5); PHOSPHORUS 3.4 mg/dl (2.5-4.9)
[2016-06-07 07:50] LABS: CREATININE 0.78 mg/dl (0.44-1.00); POTASSIUM 4.2 mmol/L (3.5-5.1)
[2016-06-07] MEDS: INSULIN ASPART [NOVOLOG] 3 ML PEN SC SCH ×5 (07:55→17:45)
[2016-06-07] MEDS: ASPIRIN 81 MG TAB PO SCH (08:19)
[2016-06-07] MEDS: SENNA TAB PO SCH (08:19)
[2016-06-07] MEDS: ASCORBIC ACID 500 MG TAB PO SCH (08:19)
[2016-06-07] MEDS: LINAGLIPTIN 5 MG TABLET PO SCH (08:19)
[2016-06-07] MEDS: GABAPENTIN 300 MG CAP PO SCH ×2 (08:19→13:48)
[2016-06-07] MEDS: ENOXAPARIN 40 MG/0.4 ML SYG SC SCH (08:23)
[2016-06-07] MEDS: HYDROCODONE/APAP (5/325) TAB PO PRN (10:37)
--- NOTE | 2016-06-07 15:49 | PDOCDIS ---
Discharge Instructions CONDITION Patient Condition: Guarded HOME CARE INSTRUCTIONS: Special Diet: 2 g Na, carb controlled ACTIVITY: Activity Restrictions: Slowly Increase Activity FOLLOW UP/APPOINTMENTS Appointments see reconciliation, dc with 2-4 liter of NC o2, dc to FAISAL Davidson MD Jun 07, 2016 15:49
--- NOTE | 2016-06-07 15:53 | CONS ---
Date/Time of Note Date/Time of Note DATE: 06/07/16 TIME: 15:52 Consult Date/Type/Reason Admit Date/Time Jun 03, 2016 at 22:16 Initial Consult Date 06/04/16 Type of Consultation: Pulmonary Subjective Patient continues to improve Objective Vital Signs Date Time Temp Pulse Resp B/P Pulse Ox O2 Delivery O2 Flow Rate FiO2 06/07/16 15:14 5.0 06/07/16 15:10 98.4 111 18 131/64 94 06/07/16 13:37 Nasal Cannula 06/04/16 08:41 40 Intake and Output 06/06/16 06/06/16 06/07/16 15:00 23:00 07:00 Intake Total 1600 ml 500 ml Output Total 1250 ml 1300 ml Balance 350 ml -800 ml Exam GENERAL: Elderly lady comfortable at rest VITAL SIGNS: per chart NECK: Supple. No JVD or lymphadenopathy. CARDIAC EXAM: S1, S2. No added sounds or murmurs. CHEST: clear bilaterally, No added sounds, rales or wheezes ABDOMEN: Soft, nontender. No guarding or rebound. EXTREMITIES: No cyanosis, clubbing or edema. NEUROLOGIC: Generalized weakness. No focal deficits. Results/Medications Result Diagram: 06/07/16 0541 06/07/16 0541 Results 24 hrs Laboratory Tests Test 06/06/16 17:47 06/06/16 20:27 06/07/16 02:05 06/07/16 05:41 Bedside Glucose 172 283 H 151 White Blood Count 13.3 #H Red Blood Count 3.67 L Hemoglobin 9.5 L Hematocrit 32.4 L Mean Corpuscular Volume 88.3 Mean Corpuscular Hemoglobin 25.9 L Mean Corpuscular Hemoglobin Concent 29.3 L Red Cell Distribution Width 16.7 H Platelet Count 329 Mean Platelet Volume 9.8 Neutrophils % 71.2 Lymphocytes % 22.9 Monocytes % 4.7 Eosinophils % 0.3 Basophils % 0.1 Nucleated Red Blood Cells % 0.0 Neutrophils # 9.5 H Lymphocytes # 3.1 H Monocytes # 0.6 Eosinophils # 0.0 Basophils # 0.0 Nucleated Red Blood Cells # 0.0 Sodium Level 137 Potassium Level 4.2 Chloride Level 101 Carbon Dioxide Level 33 H Anion Gap 7 L Blood Urea Nitrogen 23 H Creatinine 0.78 Glucose Level 77 # Calcium Level 9.0 Phosphorus Level 3.4 Magnesium Level 1.7 Test 06/07/16 07:55 06/07/16 12:13 Bedside Glucose 75 116 Medications Current Medications Ondansetron HCl (Zofran Inj) 4 mg Q6H PRN IV NAUSEA AND/OR VOMITING; Start 06/03 at 17:00 Nitroglycerin (Nitroglycerin (Sl Tab) 0.4 Mg) 1 tab Q5M PRN SL CHEST PAIN; Start 06/03/16 at 17:00 Acetaminophen (Tylenol Liquid) 650 mg Q6H PRN PO PAIN LEVEL 1-3 OR FEVER; Start 06/03/16 at 17:00 Acetaminophen/ Hydrocodone Bitart ([place] (5/325)) 1 tab Q6H PRN PO PAIN LEVEL 4 -6 Last administered on 06/07/16 10:37; Admin Dose 1 TAB; Start 06/03/16 at 17:00 Morphine Sulfate (morphine) 2 mg Q4H PRN IV PAIN LEVEL 7-10; Start 06/03/16 at 17:00 Lorazepam (Ativan) 1 mg Q2H PRN IV ANXIETY; Start 06/03/16 at 17:00 Zolpidem Tartrate (Ambien) 5 mg QHS PRN PO INSOMNIA; Start 06/03/16 at 17:00 Docusate Sodium (Colace) 100 mg Q12H PRN PO CONSTIPATION; Start 06/03/16 at 17: 00 Magnesium Hydroxide (Milk Of Mag) 30 ml DAILY PRN PO CONSTIPATION; Start at 17:00 Pantoprazole (Protonix Tab) 40 mg DAILY@06 PO Last administered on 06/07/16 06: 25; Admin Dose 40 MG; Start 06/04/16 at 06:00 Enoxaparin Sodium (Lovenox) 40 mg DAILY SC Last administered on 06/07/16 08:23 ; Admin Dose 40 MG; Start 06/04/16 at 09:00 Ascorbic Acid (Vitamin C) 500 mg DAILY PO Last administered on 06/07/16 08:19; Admin Dose 500 MG; Start 06/04/16 at 09:00 Aspirin (Aspirin) 81 mg DAILY PO Last administered on 06/07/16 08:19; Admin Dose 81 MG; Start 06/04/16 at 09:00 Gabapentin (Neurontin) 300 mg TID PO Last administered on 06/07/16 13:48; Admin Dose 300 MG; Start 06/03/16 at 21:00 Linagliptin (Tradjenta) 5 mg DAILY PO Last administered on 06/07/16 08:19; Admin Dose 5 MG; Start 06/04/16 at 09:00 Senna (Senokot) 1 tab DAILY PO Last administered on 06/07/16 08:19; Admin Dose 1 TAB; Start 06/04/16 at 09:00 Miscellaneous Information 1 ea NOTE XX ; Start 06/03/16 at 19:30 Glucose (Glutose) 15 gm Q15M PRN PO DECREASED GLUCOSE; Start 06/03/16 at 19:30 Glucose (Glutose) 22.5 gm Q15M PRN PO DECREASED GLUCOSE; Start 06/03/16 at 19:30 Dextrose (D50w Syringe) 25 ml Q15M PRN IV DECREASED GLUCOSE; Start 06/03/16 at 19:30 Dextrose (D50w Syringe) 50 ml Q15M PRN IV DECREASED GLUCOSE; Start 06/03/16 at 19:30 Glucagon (Glucagen) 1 mg Q15M PRN IM DECREASED GLUCOSE; Start 06/03/16 at 19:30 Glucose (Glutose) 15 gm Q15M PRN BUCCAL DECREASED GLUCOSE; Start 06/03/16 at 19: 30 Guaifenesin/ Codeine Phosphate (Robitussin Ac Liquid Cup) 5 ml Q4H PRN PO cough Last administered on 06/06/16 22:39; Admin Dose 5 ML; Start 06/04/16 at 17: 30 Levofloxacin (Levaquin) 500 mg DAILY@06 PO Last administered on 06/07/16 06:25 ; Admin Dose 500 MG; Start 06/07/16 at 06:00 Insulin Glargine (Lantus) 10 unit DAILY@20 SC ; Start 06/07/16 at 20:00 Assessment/Plan Chief Complaint/Hosp Course Assessment 1. Resolving bilateral pneumonia 2. History of IBS 3. History of diabetes mellitus Plan 1. Antibiotics per primary care 2. Supplemental O2 as needed 3. Agree with discharge planning Problems: CHARLES YOUNGBLOOD [facility], [facility] Jun 07, 2016 15:53
--- NOTE | 2016-06-07 16:36 | DS ---
DATE OF ADMISSION: 06/03/2016 DATE OF DISCHARGE: 06/07/2016 REASON FOR ADMISSION: Acute respiratory failure, sepsis, urinary tract infection, bronchitis, rule out pneumonia. HOSPITAL COURSE: The patient is an unfortunate 75-year-old female with history of advanced pulmonary fibrosis, O2 dependent, history of diabetes mellitus, anemia, dyslipidemia, osteoarthriti s, and rheumatoid arthritis. The patient overall is very debilitated, not ambulatory, had contractu res. She is subsequently being hospitalized in the past for respiratory failure. Patient was in community [facility] systems up until the day of admission when she was noted to be hypoxic and short of viridiana th. She was saturating in the 80s. In the ER, she was evaluated. ABG was done and she was placed on BiPAP. The patient was stabilized. She was placed on broad-spectrum antibiotics. She was found to have urinary tract infection and bronchitis, possible pneumonia. The patient was pancultured. Sputum culture shows E. coli sensitive to Levaquin and urine culture as well showed E. coli sensiti ve to Levaquin, so I exchanged patient's antibiotics, which initially were imipenem and vancomycin, to oral Levaquin. The patient in general has persistent leukocytosis, and patient clinically improv ed on a daily basis. I consulted Dr. West and Dr. Jayson Hernandez, and she was placed also on IV [place] u-Medrol which was tapered off, per pulmonology recommendations. MRSA of the nares was negative. B lood cultures, only 1 out of 2 bottles shows coagulase negative staph, suggestive of contamination. The patient will be discharged back to the assisted facility if she is feeling better. She will continue with oral Levaquin. May consider putting her back on the prednisone. DISCHARGE MEDICATIONS: Patient will be discharged with: 1. Tylenol 650 q.6h. p.r.n. 2. DuoNebs every q.6h. routine plus q.2h. p.r.n. 3. Vitamin C 500 mg daily. 4. Aspirin 81 mg daily. 5. Colace 100 q. 12 p.r.n. 6. She is on Lovenox; we can discontinue the Lovenox. 7. Senna 1 tab daily. 8. Neurontin 300 mg t.i.d. 9. Robitussin-AC 5 mL q.4h. p.r.n. 10. [place] 5/325 q.6h. p.r.n. 11. Insulin aspart moderate algorithm. 12. Insulin Lantus 10 units daily. 13. Levaquin 500 mg daily for 7 days. 14. Tradjenta 5 mg daily. 15. Ativan 1 mg, 0.5 p.o. q.6h. p.r.n. anxiety. 16. Milk of magnesia as directed. 17. Treatment of hypoglycemia as directed 18. Nitroglycerin p.r.n. 19. Zofran 4 mg p.o. p.r.n. 20. Protonix 40 mg daily. 21. Senna 1 tab daily. 22. Ambien 5 mg at bedtime p.r.n. for insomnia. 23. Will continue Baclofen q.8h. 24. Lactinex 1 tab t.i.d. x10 days. 25. Multivitamin 1 tablet daily. 26. We will put her on methotrexate 15 mg p.o. q. weekly, which she took before. FINAL DIAGNOSES: 1. Acute respiratory failure. 2. Tracheobronchitis, rule out pneumonia. 3. ____Escherichia coli. 4. Urinary tract infection. 5. Sepsis. 6. Persistent leukocytosis. 7. Diabetes mellitus, difficult to control as she is also oral IV steroids. 8. Rheumatoid arthritis. 9. Osteoarthritis. 10. Advanced pulmonary fibrosis, O2 dependent. 11. Constipation. 12. Anemia. H and H remain stable. No need for transfusion. 13. Tachycardia. We will add metoprolol 12.5 p.o. b.i.d. 15. She has been on beta blockers before. 16. Debilitated state. DIET: Two-gram sodium. ACTIVITY: With physical therapy as tolerated. Long-term prognosis guarded. The patient has advanc ed pulmonary fibrosis. The patient will be discharged today back to [facility]. Will follow her closely. As the patient is feeling well, she says she is at baseline an d she would like to be discharged. Dictated By: FAISAL ALVAREZ/NGHIA Conf#: [id number] DID#: [id number]
[2016-06-07] MEDS ORDERED: INSULIN GLARGINE [LANtus] 3 ML PEN SC SCH (20:00)
== END 2016-06-07 19:26 | DRG 871 ==
LOC: E/R 14:17 → TEL 22:16
PROVIDERS: ADMIT Internal Medicine; ATTEND Internal Medicine
PROC: 5A09457 Assistance with Respiratory Ventilation, 24-96 Consecutive Hours, Continuous Positive Airway Pressure (ICD-10-PCS; principal; 2016-06-03)
DX: A41.9 Sepsis, unspecified organism (principal); J18.9 Pneumonia, unspecified organism; J96.20 Acute and chronic respiratory failure, unspecified whether with hypoxia or hypercapnia; E11.65 Type 2 diabetes mellitus with hyperglycemia; I50.9 Heart failure, unspecified; J84.112 Idiopathic pulmonary fibrosis; N39.0 Urinary tract infection, site not specified; M06.9 Rheumatoid arthritis, unspecified; J40 Bronchitis, not specified as acute or chronic; A49.8 Other bacterial infections of unspecified site; D64.9 Anemia, unspecified; Z87.891 Personal history of nicotine dependence
CPT/HCPCS: 36415; 36600; 71010; 80048; 80053; 80202; 81001; 81003; 82803; 82962; 83605; 83735; 83880; 84100; 84484; 85025; 85610; 85730; 87040; 87070; 87081; 87086; 93005; 94640; 94660; 94664; 96365; 96366; 96367; 96372; 96375; 96376; J0743; J1650; J1815; J1940; J2543; J2920; J2930; J3370

== ENCOUNTER 2016-07-01 02:23 | Inpatient (IN) | payer MEDICARE, OTHER ==
[~2016-07-01] VITALS: Ht 152.4 cm; Wt 55.0 kg
[~2016-07-01 02:23] MED LIST changes: -ACET-2047 PO; +ASC500 PO; +BACL10TA PO; -BUDE6HFA INHALATION; -EPO10ESRD SC; -FER325 PO; -FOLI-49 PO; -GABA100C14 PO; +GABA300C16 PO; -GLUC1KIT IM; -INSU100I12 SQ; +INSU100I17 SQ; -IPRA3AMP INHALATION; +LACTINEX PO; -LANT3I SC; -MET25 PO; +PRED20TA PO; +PROT946L PO; +SENN-36 PO; -ZOLP5TAB6 PO
[2016-07-01] MEDS ORDERED: VANCOMYCIN 1 GM (PMX) 250 ML IVPB STA (02:30)
[2016-07-01] MEDS ORDERED: CEFEPIME 1GM/50 ML (PMX) 50 ML IVPB STA (02:30)
[2016-07-01] MEDS ORDERED: IPRATROPIUM (NEB) 0.5 MG/2.5 ML AMP INH ONE (02:30)
[2016-07-01] MEDS ORDERED: ALBUTEROL 0.083% (NEB) 2.5 MG/3 ML AMP INH ONE (02:30)
[2016-07-01 03:02] LABS: ADD SCAN DIFF NO
[2016-07-01 03:12] LABS: ABNORMAL IP MESSAGE 1; BASOPHILS % 0.3 % (0.0-2.0); EOSINOPHILS # 0.4 10^3/ul (0.0-0.5); EOSINOPHILS % 3.5 % (0.0-7.0); HEMOGLOBIN 10.3 g/dl (12.0-16.0); LYMPHOCYTES # 1.4 10^3/ul (0.8-2.9); LYMPHOCYTES % 12.6 % (15.0-51.0); MEAN CORPUSCULAR HEMOGLOBIN 25.6 pg (29.0-33.0); MEAN CORPUSCULAR HGB CONC 28.6 g/dl (32.0-37.0); MEAN CORPUSCULAR VOLUME 89.6 fl (82.0-101.0); MEAN PLATELET VOLUME 10.3 fl (7.4-10.4); MONOCYTE # 0.5 10^3/ul (0.3-0.9); MONOCYTES % 4.5 % (0.0-11.0); NEUTROPHIL # 8.5 10^3/ul (1.6-7.5); NEUTROPHILS % 78.7 % (39.0-77.0); PLATELET COUNT 232 10^3/UL (140-415); RED BLOOD COUNT 4.02 10^6/ul (4.20-5.40); RED CELL DISTRIBUTION WIDTH 17.5 % (11.5-14.5); WHITE BLOOD COUNT 10.8 10^3/ul (4.8-10.8)
[2016-07-01 03:20] LABS: INR 1.05; PROTIME 13.7 Sec (12.2-14.2); PT RATIO 1.1
--- NOTE | 2016-07-01 03:20 | ERA ---
ER Documentation Chief Complaint Date/Time DATE: 07/01/16 TIME: 03:17 Chief Complaint "low sats, cough/congestion long time" per staff, 80's ra upon EMS arrival HPI This is a 75-year-old female sent from a alf for low oxygen saturation. The level of declining oxygen saturations unknown. The report is that the patient has had a chronic cough and chronic pain. She was given a 10 mg [place] 30 minutes prior to arrival. The patient is arousable and will answer questions and she states that she has chronic back pain. She says she has had a cough for the past few weeks is gotten worse over the past few days. Denies any chest pain. Does not know if she has had a fever. No abdominal pain nausea vomiting or diarrhea. No focal neurological complaints no back pain dysuria or hematuria ROS All systems reviewed and are negative except as per history of present illness. Medications Home Meds Reported Medications Baclofen* (Baclofen*) 10 Mg Tablet, 10 MG PO Q8 Y for PRN, TAB 06/03/16 Gabapentin* (Gabapentin*) 300 Mg Capsule, 300 MG PO TID, #90 CAP 06/03/16 Insulin Glulisine (Apidra Solostar) 100 Unit/1 Ml Insuln.pen, 10 UNIT SQ QHS, # 1 TUB 06/03/16 Lactobacillus Acidophilus* (Lactinex*) 1 Tab Chew, 1 TAB PO TID, TAB 06/03/16 Prednisone* (Prednisone*) 20 Mg Tab, 40 MG PO DAILY, TAB 06/03/16 Protein Supplement (Promod) 946 Ml Liquid, 30 ML PO TID 06/03/16 Sennosides* (Senokot*) 8.6 Mg Tablet, 1 TAB PO DAILY, TAB 06/03/16 Ascorbic Acid (Vitamin C) 500 Mg Tab, 500 MG PO DAILY, TAB 06/03/16 Insulin Regular, Human (Humulin R) 100 Unit/1 Ml Vial, 4 UNIT SC SLIDING SCALES , VIAL IF BS 151-200=2 UNITS, 201-250=4 UNITS, 251-300=6 UNITS, 301-350=8 UNITS, 351-400=10 UNITS,BS<60 AND >400 CALL MD. 05/06/16 Magnesium Hydroxide* (Milk Of Magnesia*) 400 Mg/5 Ml Oral.susp, 30 ML PO DAILY Y for CONSTIPATION, ML 05/06/16 Multivitamin with Minerals (Multivitamins with Minerals) 1 Each Tablet, 1 EACH PO DAILY, TAB 05/06/16 Linagliptin (TRADJENTA) 5 Mg Tablet, 5 MG PO DAILY, TAB 05/06/16 Aspirin* (Aspirin* Chew) 81 Mg Tab.chew, 81 MG PO DAILY, TAB.CHEW 05/06/16 Sennosides (Senna Laxative) 25 Mg Tablet, 25 MG PO QHS Y for BOWEL PREP, TAB 01/05/16 Pantoprazole* (Pantoprazole*) 40 Mg Tablet.dr, 40 MG PO DAILY, TAB 01/05/16 Hydrocodone/Acetaminophen ([place] 5-325 Tablet) 1 Each Tablet, 1 EACH PO Q6H Y for PAIN LEVEL 3-10, TAB 01/05/16 Docusate Sodium* (Colace*) 100 Mg Capsule, 100 MG PO Q12 Y for CONSTIPATION, # 30 CAP 01/05/16 Allergies Allergies: Coded Allergies: No Known Allergies (Verified Allergy, Unknown, 06/03/16) PMhx/Soc History of Surgery: Yes (GABRIELA BSO) Anesthesia Reaction: No Hx Neurological Disorder: No Hx Respiratory Disorders: Yes (INTERSTITIAL LUNG FIBROSIS) Hx Cardiac Disorders: No Hx Psychiatric Problems: No Hx Miscellaneous Medical Probl: No Hx Alcohol Use: No Hx Substance Use: No Hx Tobacco Use: No Smoking Status: Never smoker FmHx Family History: No coronary disease Physical Exam Vitals Vital Signs Date Time Temp Pulse Resp B/P Pulse Ox O2 Delivery O2 Flow Rate FiO2 07/01/16 04:22 104 16 136/59 100 Mask 8.0 07/01/16 03:20 118 22 100 Non Rebreather Mask 15.0 100 07/01/16 03:00 100 15.0 07/01/16 03:00 108 18 100 Non Rebreather Mask 15.0 100 07/01/16 02:30 Simple Mask 10 07/01/16 02:30 Simple Mask 10.0 07/01/16 02:25 98.7 116 21 126/58 100 Physical Exam Const: Well-developed, well-nourished Head: Atraumatic, normocephalic Eyes: Normal Conjunctiva, PERRLA, EOMI, normal sclera, no nystagmus ENT: Normal External Ears, Nose and Mouth, moist mucus membranes. Neck: Full range of motion. No meningismus, no lymphadenopathy. Resp: Slight increased work of breathing with diffuse coarse rhonchi Cardio: Regular rate and rhythm, no murmurs, S1 S2 present Abd: Soft, non tender x 4, non distended. Normal bowel sounds, no guarding or rebound, no pulsitile abdominal masses or bruits Skin: No petechiae or rashes, no ecchymosis , no maculopapular rash Back: No midline or flank tenderness Ext: No cyanosis, or edema, FROM x 4, normal inspection, neurovascularly intact x 4 Neur: Awake and alert, STR 5/5 x 4, sensation intact x 4, no focal findings, cerebellum intact Psych: Normal Mood and Affect Result Diagram: 07/01/1625407/01/165 Results 24 hrs Laboratory Tests Test 07/01/16 02:55 White Blood Count 10.810^3/ul Red Blood Count 4.0210^6/ul Hemoglobin 10.3g/dl Hematocrit 36.0% Mean Corpuscular Volume 89.6fl Mean Corpuscular Hemoglobin 25.6pg Mean Corpuscular Hemoglobin Concent 28.6g/dl Red Cell Distribution Width 17.5% Platelet Count 68463^3/UL Mean Platelet Volume 10.3fl Neutrophils % 78.7% Lymphocytes % 12.6% Monocytes % 4.5% Eosinophils % 3.5% Basophils % 0.3% Nucleated Red Blood Cells % 0.0/100WBC Neutrophils # 8.510^3/ul Lymphocytes # 1.410^3/ul Monocytes # 0.510^3/ul Eosinophils # 0.410^3/ul Basophils # 0.010^3/ul Nucleated Red Blood Cells # 0.010^3/ul Prothrombin Time 13.7Sec Prothrombin Time Ratio 1.1 INR International Normalized Ratio 1.05 Activated Partial Thromboplast Time 29.6Sec Sodium Level 145mmol/L Potassium Level 4.6mmol/L Chloride Level 102mmol/L Carbon Dioxide Level 33mmol/L Anion Gap 15 Blood Urea Nitrogen 32mg/dl Creatinine 1.13mg/dl Glucose Level 181mg/dl Lactic Acid Level 1.0mmol/L Calcium Level 9.0mg/dl Total Bilirubin 0.1mg/dl Direct Bilirubin 0.00mg/dl Indirect Bilirubin 0.1mg/dl Aspartate Amino Transf (AST/SGOT) 13IU/L Alanine Aminotransferase (ALT/SGPT) 18IU/L Alkaline Phosphatase 118IU/L Troponin I 0.041ng/ml B-Type Natriuretic Peptide 1840PG/ML Total Protein 7.4g/dl Albumin 3.1g/dl Globulin 4.30g/dl Albumin/Globulin Ratio 0.72 Current Medications Medications (Trade) Dose Ordered Sig/Renetta Route PRN Reason Start Time Stop Time Status Last Admin Dose Admin Albuterol (Proventil 0.083% (Neb)) 7.5 mg ONCE ONCE INH 07/01/16 02:30 07/01/16 02:34 DC 07/01/16 02:58 Ipratropium [place] 1.5 mg 1.5 mg ONCE ONCE INH 07/01/16 02:30 07/01/16 02:34 DC 07/01/16 02:58 Cefepime HCl 50 ml @ 100 mls/hr ONCE STAT IVPB 07/01/16 02:30 07/01/16 02:59 DC 07/01/16 03:00 Vancomycin HCl (Vancocin) 250 ml @ 125 mls/hr ONCE STAT IVPB 07/01/16 02:30 07/01/16 04:29 DC 07/01/16 03:57 Procedures/MDM EKG: Rate/Rhythm: Sinus tachycardia heart rate 112 QRS, ST, QT: NORMAL DC, QRS, QT] Impression: Tachycardia PROCEDURE: Chest. CLINICAL INDICATION: Chest pain. TECHNIQUE: Single frontal view of the chest was obtained. COMPARISON: 06/03/2016. FINDINGS: The cardiac silhouette is enlarged. The aortic arch is calcified. There are diffuse coarse interstitial opacities bilaterally. There is no pleural effusion. There is no pneumothorax. IMPRESSION: Extensive interstitial pulmonary fibrosis, unchanged. Cardiomegaly and aortic atherosclerosis. .Randy Rosenbaum MD, MD Date Time Electronically viewed and signed by .Randy Rosenbaum MD, MD on 07/01/2016 04:28 .T/ CC: MAX MOORE DO Patient is not septic with a lactic acid of 1.0 Chest x-ray shows pulmonary fibrosis but no pneumonia. The patient clinically sounds wet will give her a dose of Lasix because her BNP is elevated at 1840. She clinically sounds volume overloaded. I paged Dr. Pelletier for admission to the hospital for continued pulmonary therapy , echocardiogram and possible more diuresis Departure Diagnosis: Primary Impression: Dyspnea Qualified Code: R06.00 - Dyspnea, unspecified type Additional Impressions: Pulmonary fibrosis Hypoxia Condition: Stable MAX MOORE DO July 01, 2016 03:20
[2016-07-01 03:25] LABS: PARTIAL THROMBOPLASTIN TIME 29.6 Sec (25.0-35.0)
[2016-07-01 03:26] LABS: ALBUMIN 3.1 g/dl (3.3-4.9)
[2016-07-01 03:27] LABS: POTASSIUM 4.6 mmol/L (3.5-5.1)
[2016-07-01 03:29] LABS: ALBUMIN/GLOBULIN RATIO 0.72; BILIRUBIN,INDIRECT 0.1 mg/dl (0-1.1); BILIRUBIN,TOTAL 0.1 mg/dl (0.2-1.3); CREATININE 1.13 mg/dl (0.44-1.00); TOTAL PROTEIN 7.4 g/dl (6.1-8.1)
[2016-07-01 03:39] LABS: TROPONIN-I 0.041 ng/ml (0.00-0.12)
--- NOTE | 2016-07-01 04:28 | RADRPT ---
PROCEDURE: Chest. CLINICAL INDICATION: Chest pain. TECHNIQUE: Single frontal view of the chest was obtained. COMPARISON: 06/03/2016. FINDINGS: The cardiac silhouette is enlarged. The aortic arch is calcified. There are diffuse coarse interst itial opacities bilaterally. There is no pleural effusion. There is no pneumothorax. IMPRESSION: Extensive interstitial pulmonary fibrosis, unchanged. Cardiomegaly and aortic atherosclerosis. .Randy Rosenbaum MD, MD Date Time Electronically viewed and signed by .Randy Rosenbaum MD, on 07/01/2016 04:28 .T/
[2016-07-01] MEDS ORDERED: ZOLPIDEM 5 MG TAB PO PRN (05:30)
[2016-07-01] MEDS ORDERED: morphine 2 MG INJ IV PRN (05:30)
[2016-07-01] MEDS ORDERED: ACETAMINOPHEN 325 MG TAB PO PRN ×2 (05:30)
[2016-07-01] MEDS ORDERED: NACL 0.9% 3 ML SYG IV SCH (05:30)
[2016-07-01] MEDS ORDERED: FUROSEMIDE 40 MG INJ IV ONE ×2 (05:30→23:00)
[2016-07-01] MEDS ORDERED: BACLOFEN 10 MG TAB PO PRN (05:30)
[2016-07-01] MEDS ORDERED: LORAZEPAM 0.5 MG TAB PO PRN (05:30)
[2016-07-01] MEDS ORDERED: ALBUTEROL/IPRATROPIUM (NEB) 3 ML AMP NEB PRN (05:30)
[2016-07-01] MEDS ORDERED: ONDANSETRON 4 MG INJ IV PRN ×2 (05:30)
[2016-07-01] MEDS ORDERED: DOCUSATE SODIUM 100 MG CAP PO PRN ×2 (05:30)
[2016-07-01] MEDS ORDERED: NITROGLYCERIN (SL) 0.4 MG TAB SL PRN (05:30)
[2016-07-01] MEDS ORDERED: MAGNESIUM HYDROXIDE 30ML CUP PO PRN (05:30)
[2016-07-01] MEDS ORDERED: VANCOMYCIN IV PER PHARMACY XX SCH (06:00)
[2016-07-01] MEDS ORDERED: GLUCOSE GEL 15 GRAM TUBE BUCCAL PRN (06:30)
[2016-07-01] MEDS ORDERED: GLUCAGON 1 MG INJ IM PRN (06:30)
[2016-07-01] MEDS ORDERED: DEXTROSE 50% 50 ML SYRINGE IV PRN ×2 (06:30)
[2016-07-01] MEDS ORDERED: GLUCOSE GEL 15 GRAM TUBE PO PRN ×2 (06:30)
[2016-07-01] MEDS: PANTOPRAZOLE (EC) 40 MG TAB PO SCH (07:58)
[2016-07-01] MEDS: FUROSEMIDE 40 MG INJ IV SCH ×2 (07:59→18:22)
[2016-07-01] MEDS: CEFEPIME 1GM/50 ML (PMX) 50 ML IV SCH ×2 (07:59→23:06)
[2016-07-01] MEDS: INSULIN ASPART [NOVOLOG] 3 ML PEN SC SCH ×4 (08:00→21:00)
[2016-07-01] MEDS: LINAGLIPTIN 5 MG TABLET PO SCH (08:14)
[2016-07-01] MEDS: GABAPENTIN 300 MG CAP PO SCH ×3 (08:14→21:06)
[2016-07-01] MEDS: ASCORBIC ACID 500 MG TAB PO SCH (08:14)
[2016-07-01] MEDS: ENOXAPARIN 40 MG/0.4 ML SYG SC SCH (08:16)
[2016-07-01] MEDS: ASPIRIN 81 MG TAB PO SCH (08:16)
[2016-07-01] MEDS: ALBUTEROL/IPRATROPIUM (NEB) 3 ML AMP NEB SCH ×4 (09:42→21:12)
[2016-07-01 14:08] LABS: AADO2 Arterial 72.3 mmHg (7.0-24.0); Allen Test ACCEPTAB; Arterial Base Excess 8.3 mmol/L (-3.0-3); Arterial COHb 0.2 % (0.0-3.0); Arterial HCO3 36.3 mmol/L (22.0-26.0); Arterial MetHb 0.3 % (0.0-1.5); Arterial Total Hemglobin 11.3 g/dl (12.0-18.0); MODE NASAL CANNULA
[2016-07-01 16:30] VITALS: Ht 152.4 cm; Wt 55.0 kg
[2016-07-01 16:46] VITALS: BP 123/58; RESP 18
[2016-07-01] MEDS: VANCOMYCIN 750 MG in SOD CHLORIDE 0.9% 150 ML IVPB SCH (16:50)
[2016-07-01 17:18] VITALS: PULSE 103
--- NOTE | 2016-07-01 19:49 | HP ---
DATE OF ADMISSION: 07/01/2016 REASON FOR ADMISSION: Acute respiratory failure, hypoxia, rule out pneumonia, rule out CHF exacerba tion. HISTORY OF PRESENT ILLNESS: The patient is an unfortunate 75-year-old female, very well kn own to me with history of advanced pulmonary fibrosis, O2 dependent, history of diabetes mellitus, a nemia, dyslipidemia, osteoarthritis, rheumatoid arthritis, previously on methotrexate, overall very debilitated, not ambulatory and multiple contractures, including the toes and hands. She was admitt ed multiple times secondary to hypoxia and respiratory failure. Patient currently resides at [facility]. Previously she had sputum culture for E. coli, sensitive to Lev aquin. The patient was in usual state of health up until actually I saw her a few days ago and she had mild shortness of breath. She had a baseline reactive airway disease and active lung sounds. I started her on Levaquin for possible infectious process. I received a call earlier this morning th at the patient is desaturating and tachycardic and not looking good. 911 was called and the patient was transferred to [facility] Emergency Department. Upon arrival, initial vital signs deidre wed the following: Temperature 97, pulse 116, respirations 21, blood pressure 126/58, saturation 10 0% on 10 liters simple mask and then placed on a nonrebreather mask with 15 liters. White count was normal at 10.8. BNP was slightly high at 1840 and chest x-ray suggested extensive interstitial pul monary fibrosis, unchanged, cardiomegaly and aortic atherosclerosis. The patient was stabilized in the emergency department. She received breathing treatments and broad-spectrum antibiotics with cef epime and vancomycin for possible infection, Lasix 40 x1, pain medication and antiemetics. Patient still remains in the ER, she will be admitted soon to the telemetry unit for further care. Upon vika luation of the patient, the patient actually stated that her breathing is okay. She has chronic pul monary fibrosis. Her main complaint is arthralgia, neck pain and back pain. Otherwise, no other sp ecific complaints. She denies dysuria, denies abdominal pain. She denies any headaches; more from neck pain radiates to the head. The patient is admitted for further care. PAST MEDICAL HISTORY: Advanced pulmonary fibrosis, COPD, anemia, dyslipidemia, diabetes mellitus, d egenerative disk disease and C-spine injury, rheumatoid arthritis, hypoxia, O2 dependency, osteoarth ritis. PAST SURGICAL HISTORY: Includes C-spine surgery, total abdominal hysterectomy, hernia repair surger y. SOCIAL HISTORY: The patient is single. She has 4 children, one Tobacco, she stopped smoki ng 40 years ago. IV drug abuse denies. Alcohol: None. The patient resides at [facility]. FAMILY HISTORY: Both parents are . Mother had diabetes. Father with no known history. ALLERGIES: NO KNOWN DRUG ALLERGIES. REVIEW OF SYSTEMS: Limited secondary to patient's condition. CURRENT MEDICATIONS: Include the followin. Baclofen 10 mg q.8h. p.r.n. 2. Aspirin 81 mg daily. 3. Gabapentin 300 t.i.d. 4. Hydrocodone 5/325. 5. [place] q.6h. p.r.n. 6. Promod 30 mL q.i.d. 7. Colace 100 q. p.r.n. 8. Lactinex 1 tab b.i.d. 9. Milk of magnesia p.r.n. 10. Protonix 40 mg daily. 11. Senna as directed p.r.n. daily at night. 12. Senna 1 tab daily. 13. Insulin ____ or ____ 10 units subcutaneous at bedtime. 14. Insulin Humulin 4 units before meals. 15. Tradjenta 5 mg daily. 16. Prednisone, she took before. I am not sure this is actually her current medications. We will review all medications from the [facility]. Did place her recently on Levaquin and she is still on it. I did put her back on Methot rexate 15 mg q. weekly. PHYSICAL EXAMINATION: VITAL SIGNS: Temperature is 98.7, pulse is 100, respirations 20, blood pressure 130/65, actually wh en I saw her she was saturating at 90 to 92% on 3 liters nasal cannula. GENERAL: The patient is in no acute distress, weak looking, patient is pale. HEENT: Decreased dentition. NECK: No JVD. CARDIOVASCULAR: S1 and S2. LUNGS: Diffuse rhonchi and crackles bilaterally. ABDOMEN: Soft, nontender. EXTREMITIES: No clubbing, cyanosis, or edema. NEUROLOGIC: The patient is contracted at the toes and the hands. LABORATORY DATA: White count is 10.8, hemoglobin 10.3, hematocrit 36, platelet count 232, neutrophi ls 79%, lymphocytes 13%. Chemistry: Sodium is 145, potassium 4.6, ____ 102, bicarbonate 33, BUN is elevated at 32, creatinine 1.13, glucose of 181. Last glucose of 167, 124, AST 13, ALT 18, alkalin e phosphatase 118. Troponin negative at 0.041. BNP slightly high at 1840, albumin 3.1. INR is 1.0 5. ABG on admission shows the following: This was just done at 1:56 p.m. pH of 7.33, pCO2 of 70, p O2 of 60, bicarbonate 36, saturation is 89% on 30% FIO2. Chest x-ray shows extensive interstitial p ulmonary fibrosis, unchanged cardiomegaly and aortic atherosclerosis. ASSESSMENT AND PLAN: This is a very unfortunate 75-year-old female with advanced pulmonary fibrosis, O2 dependent, rheumatoid arthritis, hypertension, diabetes mellitus, presented with recur rent respiratory failure, hypoxia, possible tracheobronchitis versus pneumonia, also arthralgia and back pain. 1. Respiratory. The patient is to be placed on breathing treatment around the clock, antibiotics, O2 support, will consult pulmonology for further recommendation. At times she is placed on steroid therapy. We will discuss with pulmonary. 2. Cardiovascular: The patient with tendency for CHF as patient has pulmonary hypertension. The p atient will be started on oral Lasix daily. Monitor kidney function and monitor urine output. The patient will be placed on deep venous thrombosis prophylaxis with Lovenox. 3. GI. The patient will be placed on Protonix for GI prophylaxis. 4. Diabetes mellitus. Titrate insulin up slowly during her stay. In the meantime, we will start h er on insulin sliding scale. For her diabetes, will continue the patient's Tradjenta 5 mg daily. 5. Rheumatoid arthritis. We would like to start her back on methotrexate 15 mg weekly. 7. Back pain. Pain medication will be provided for relief. 8. Stool softeners will be provided. The patient is ____ opioids. 9. Monitor the patient's symptoms closely, monitor the patient's p.o. intake. 10. The patient is being placed on mechanical soft diet as patient does have a history of some dysphagia. Overall, trudy g-term prognosis very guarded. The patient's pulmonary disease is quite extensive and advanced. The patient is FULL CODE. We will follow. Dictated By: FAISAL ALVAREZ/NGHIA Conf#: [id number] DID#: [id number]
[2016-07-01 20:15] VITALS: BP 159/67; RESP 19
[2016-07-01 20:27] VITALS: PULSE 107
[2016-07-01 23:27] VITALS: PULSE 119
[2016-07-02] VITALS (20 sets, daily range): BP systolic 113–144; BP diastolic 53–75; PULSE 85–118; RESP 19–24
[2016-07-02 00:36] LABS: AADO2 Arterial 129.8 mmHg (7.0-24.0); Arterial Base Excess 6.1 mmol/L (-3.0-3); Arterial COHb 0.5 % (0.0-3.0); Arterial Fraction of Oxyhgb 97.9 % (93.0-99.0); Arterial MetHb 0.3 % (0.0-1.5); Arterial Total Hemglobin 11.5 g/dl (12.0-18.0); Blood Gas PS 7; MODE MASK - BIPAP
[2016-07-02] MEDS: METHYLPREDNISOLONE 125 MG INJ IV SCH ×4 (00:40→21:26)
[2016-07-02] MEDS: ALBUTEROL/IPRATROPIUM (NEB) 3 ML AMP NEB SCH ×6 (01:40→20:56)
[2016-07-02] MEDS: ACCUCHECK AT 2AM (Patients on SS coverage) XX SCH (01:47)
[2016-07-02] MEDS: VANCOMYCIN 750 MG in SOD CHLORIDE 0.9% 150 ML IVPB SCH (03:33)
[2016-07-02] MEDS: PANTOPRAZOLE (EC) 40 MG TAB PO SCH (05:40)
[2016-07-02] MEDS: FUROSEMIDE 40 MG INJ IV SCH (05:40)
[2016-07-02] MEDS: CEFEPIME 1GM/50 ML (PMX) 50 ML IV SCH (08:11)
[2016-07-02] MEDS: ASCORBIC ACID 500 MG TAB PO SCH (08:13)
[2016-07-02] MEDS: LINAGLIPTIN 5 MG TABLET PO SCH ×2 (08:13→14:00)
[2016-07-02] MEDS: ASPIRIN 81 MG TAB PO SCH (08:13)
[2016-07-02] MEDS: GABAPENTIN 300 MG CAP PO SCH ×3 (08:13→21:26)
[2016-07-02] MEDS: INSULIN ASPART [NOVOLOG] 3 ML PEN SC SCH ×5 (08:24→21:27)
[2016-07-02] MEDS: ENOXAPARIN 40 MG/0.4 ML SYG SC SCH (08:25)
[2016-07-02 08:39] LABS: ADD SCAN DIFF NO
[2016-07-02 08:51] LABS: ABNORMAL IP MESSAGE 1; HEMATOCRIT 35.3 % (37.0-47.0); HEMOGLOBIN 10.1 g/dl (12.0-16.0); MEAN CORPUSCULAR HEMOGLOBIN 25.6 pg (29.0-33.0); MEAN CORPUSCULAR HGB CONC 28.6 g/dl (32.0-37.0); MEAN CORPUSCULAR VOLUME 89.4 fl (82.0-101.0); MEAN PLATELET VOLUME 10.9 fl (7.4-10.4); PLATELET COUNT 217 10^3/UL (140-415); RED BLOOD COUNT 3.95 10^6/ul (4.20-5.40); WHITE BLOOD COUNT 6.4 10^3/ul (4.8-10.8)
[2016-07-02 09:14] LABS: CALCIUM 8.5 mg/dl (8.4-10.2); CREATININE 1.12 mg/dl (0.44-1.00); POTASSIUM 5.7 mmol/L (3.5-5.1)
[2016-07-02 09:56] LABS: MAGNESIUM 1.6 mg/dl (1.7-2.5); PHOSPHORUS 5.8 mg/dl (2.5-4.9)
[2016-07-02] MEDS ORDERED: NA POLYST SULFON 15 GM/60 ML BTL PO ONE (11:00)
[2016-07-02 13:54] LABS: BASOPHILS % 0.2 % (0.0-2.0); EOSINOPHILS % 0.2 % (0.0-7.0); LYMPHOCYTES # 0.4 10^3/ul (0.8-2.9); LYMPHOCYTES % 6.1 % (15.0-51.0); MONOCYTES % 0.5 % (0.0-11.0); NEUTROPHIL # 5.9 10^3/ul (1.6-7.5); NEUTROPHILS % 92.4 % (39.0-77.0); TOTAL CELLS COUNTED % 100
[2016-07-02] MEDS: INSULIN GLARGINE [LANtus] 3 ML PEN SC SCH (14:19)
--- NOTE | 2016-07-02 14:29 | PN ---
DATE: 07/02/2016 SUBJECTIVE: The patient overnight was noted again to be hypoxic. She had to be placed back on BiPA P. The patient received an extra dose of IV Lasix and breathing treatment. I started her on IV Citlali u-Medrol as well. The patient was not responding to the current management which included antibioti cs, breathing treatment and O2 support. The patient has end-stage pulmonary fibrosis. I just asked the claims assistant to see the patient in consultation as well. I reviewed the patient's labs. Per labs, she is likely overdiuresed, as her kidney function has worsened in addition, now with hypergly cemia secondary to steroid administration. Patient seen at bedside. BiPAP is in place. Overall, a ppears comfortable. She is asking for water, O2 is 98%. PHYSICAL EXAMINATION: VITAL SIGNS: Temperature 98.9, pulse 89, respirations 20, blood pressure 122/70, saturation 97% on 40% FIO2. GENERAL: The patient is in no acute distress. BiPAP is in place. The patient is pale. Decreased dentition. CARDIOVASCULAR: S1, S2. LUNGS: There is diffuse wheezing and rhonchi, moderate. It is actually better than yesterday. EXTREMITIES: There is no clubbing, cyanosis, or edema. Patient moving all extremities. LABORATORY DATA: White count is 6.4, hemoglobin is 10.1, hematocrit 35, platelet count 217. Chemis try: Sodium 137, potassium increased to 5.7, chloride 98, bicarbonate 31, BUN is 40, creatinine 1.1 2 and glucose of 446. Last glucose level is 296. Magnesium was low at 1.6 and phosphorus is high a t 5.8. ABG done yesterday night shows a pH of 7.32, pCO2 of 68, high; pO2 of 150, bicarbonate 34, s aturation is 99% on BiPAP, 50% FIO2. Cultures: MRSA of the nares negative. Blood cultures are neg ative. MEDICATIONS: 1. I started her on Lantus 16 units daily. 2. Accu-Chek q.a.c. and at bedtime. 3. Solu-Medrol 60 IV q. 8 hours. 4. Vancomycin dose per pharmacy. 5. Lovenox 40 mg subcutaneous daily. 6. DuoNeb every 4 hours. 7. Cefepime 1 gram q.12h. 8. Vitamin C. 9. Aspirin. 10. Neurontin. 11. Tradjenta not administered as patient currently has a BiPAP. 12. Hypoglycemia protocol. 13. Protonix 40 mg daily. 14. Ativan 0.5 p.o. q.4h. p.r.n. 15. Nitroglycerin p.r.n. 16. Zofran p.r.n. 17. Morphine p.r.n. 18. Ambien p.r.n. 19. Milk of magnesia p.r.n. 20. DuoNebs p.r.n. 21. Baclofen p.r.n. 22. Colace p.r.n. ASSESSMENT AND PLAN: This is a very unfortunate 75-year-old female, very sick secondary t o advanced pulmonary fibrosis. Also, has history of rheumatoid arthritis, hypertension, chronic abbey n, diabetes mellitus who presented with acute respiratory failure, hypoxia, possible tracheobronchit is versus pneumonia, also arthralgia and back pain. 1. Respiratory. Continue supportive care, breathing treatment and antibiotics, steroids and O2 sup port. Hopefully, we can wean her off the BiPAP. Pulmonary will be consulted for further recommenda tions. 2. Cardiovascular: The patient with tendency to congestive heart failure, clinically appears to be compensated. Will hold diuretic therapy and monitor kidney function. Continue Lovenox for deep ve in thrombosis prophylaxis. Continue blood pressure medications. 3. Gastrointestinal. Continue Protonix for gastrointestinal prophylaxis. 4. Diabetes mellitus. I started her on weight-based insulin titrated up as needed, and taper down steroids slowly. Add Tradjenta 5 mg daily. 5. Rheumatoid arthritis, previously on Methotrexate 15 mg weekly, may resume as patient continues t o have arthralgia. 6. Back pain p.r.n. medications will be provided. 7. Stool softeners will be provided as well, as the patient is on opioids. 8. Continue to monitor the patient closely in telemetry unit. CONDITION: Guarded, mostly because of her severe pulmonary fibrosis. Keep patient comfortable as m uch as possible. The patient is FULL CODE. We will follow. Dictated By: FIASAL ALVAREZ/NGHIA Conf#: [id number] DID#: [id number]
[2016-07-02] MEDS ORDERED: VANCOMYCIN 1 GM in NS 250 ML IVPB SCH (16:00)
[2016-07-02] MEDS: LEVOFLOXACIN 500MG/D5W (PMX) 100 ML IVPB SCH ×2 (17:30→20:00)
[2016-07-03] VITALS (13 sets, daily range): BP systolic 128–144; BP diastolic 60–75; PULSE 98–110; RESP 17–23
[2016-07-03] MEDS: ALBUTEROL/IPRATROPIUM (NEB) 3 ML AMP NEB SCH ×6 (01:29→21:11)
[2016-07-03] MEDS: ACCUCHECK AT 2AM (Patients on SS coverage) XX SCH (01:55)
[2016-07-03] MEDS: METHYLPREDNISOLONE 125 MG INJ IV SCH ×2 (06:03→13:44)
[2016-07-03] MEDS: PANTOPRAZOLE (EC) 40 MG TAB PO SCH (06:04)
[2016-07-03 07:10] LABS: ADD SCAN DIFF NO
[2016-07-03 07:14] LABS: ABNORMAL IP MESSAGE 1; HEMATOCRIT 32.4 % (37.0-47.0); HEMOGLOBIN 9.5 g/dl (12.0-16.0); MEAN CORPUSCULAR HEMOGLOBIN 25.4 pg (29.0-33.0); MEAN CORPUSCULAR HGB CONC 29.3 g/dl (32.0-37.0); MEAN CORPUSCULAR VOLUME 86.6 fl (82.0-101.0); MEAN PLATELET VOLUME 10.8 fl (7.4-10.4); PLATELET COUNT 199 10^3/UL (140-415); RED BLOOD COUNT 3.74 10^6/ul (4.20-5.40); RED CELL DISTRIBUTION WIDTH 17.3 % (11.5-14.5); WHITE BLOOD COUNT 8.8 10^3/ul (4.8-10.8)
[2016-07-03 07:28] LABS: POTASSIUM 3.4 mmol/L (3.5-5.1)
[2016-07-03 07:31] LABS: CREATININE 0.83 mg/dl (0.44-1.00)
[2016-07-03 07:32] LABS: CALCIUM 8.7 mg/dl (8.4-10.2)
[2016-07-03 07:40] LABS: MAGNESIUM 1.5 mg/dl (1.7-2.5)
[2016-07-03] MEDS: INSULIN ASPART [NOVOLOG] 3 ML PEN SC SCH ×7 (08:01→21:27)
[2016-07-03] MEDS: LINAGLIPTIN 5 MG TABLET PO SCH (08:24)
[2016-07-03] MEDS: ASCORBIC ACID 500 MG TAB PO SCH (08:24)
[2016-07-03] MEDS: ASPIRIN 81 MG TAB PO SCH (08:24)
[2016-07-03] MEDS: GABAPENTIN 300 MG CAP PO SCH ×3 (08:24→21:47)
[2016-07-03] MEDS: INSULIN GLARGINE [LANtus] 3 ML PEN SC SCH (08:25)
[2016-07-03] MEDS: ENOXAPARIN 40 MG/0.4 ML SYG SC SCH (08:26)
[2016-07-03 10:20] LABS: LYMPHOCYTES # 0.2 10^3/ul (0.8-2.9); NEUTROPHIL # 8.3 10^3/ul (1.6-7.5)
--- NOTE | 2016-07-03 10:37 | CONS ---
Date/Time of Note Date/Time of Note DATE: 07/03/16 TIME: 10:35 Assessment/Plan Assessment/Plan Additional Assessment/Plan Assessment recommendations; 1. Patient admitted for pulmonary fibrosis exacerbation with acute bronchitis with significant clinical improvement. 2. Diabetes. 3. Rheumatoid arthritis with rheumatoid lung. The current treatment. Patient was to go home. I would recommend discharging her on maintenance prednisone at 20 mg daily. She is to continue with Levaquin at least for 1 week orally. Patient does have home oxygen. Consultation Date/Type/Reason Admit Date/Time July 01, 2016 at 05:24 Initial Consult Date Type of Consultation: Pulmonary 24 HR Interval Summary Free Text/Dictation Patient's condition is stable. According to her she is markedly improved and wants to go home today. Chest congestion as well as shortness of breath also are significantly improved. Denies any fever chills. General exam; elderly lady, awake alert currently in no distress. Exam/Review of Systems Vital Signs Vitals Vital Signs Date Time Temp Pulse Resp B/P Pulse Ox O2 Delivery O2 Flow Rate FiO2 07/03/16 08:30 102 07/03/16 08:15 Nasal Cannula 3.0 07/03/16 08:05 22 95 07/03/16 07:29 97.6 128/61 07/02/16 17:20 100 Intake and Output 07/02/16 07/02/16 07/03/16 15:00 23:00 07:00 Intake Total 700 ml 500 ml Balance 700 ml 500 ml Exam HEENT examination; supple neck, no JVD. No lymphadenopathy. Midline trachea. No thyromegaly. Patient has few remaining teeth. Chest examination; bilateral crackles. S1-S2 audible, no murmurs. Abdomen examination; soft, nondistended. No organomegaly. Bowel sounds audible. Extremity examination; no peripheral edema patient does have changes of rheumatoid arthritis in hands. MARINE TOWER OPERATOR examination; no focal deficit. Results Result Diagram: 07/03/16 0615 07/03/1615 Results 24 hrs Laboratory Tests Test 07/02/16 12:09 07/02/16 14:13 07/02/16 15:10 07/02/16 21:19 Bedside Glucose 296 H 242 H 295 H Vancomycin Level Trough 19.1 Test 07/03/16 01:54 07/03/16 06:15 07/03/16 07:35 07/03/16 08:23 Bedside Glucose 237 H 276 H 326 H White Blood Count 8.8 # Red Blood Count 3.74 L Hemoglobin 9.5 L Hematocrit 32.4 L Mean Corpuscular Volume 86.6 Mean Corpuscular Hemoglobin 25.4 L Mean Corpuscular Hemoglobin Concent 29.3 L Red Cell Distribution Width 17.3 H Platelet Count 199 Mean Platelet Volume 10.8 H Neutrophils % 94.0 H Band Neutrophils % 4.0 Lymphocytes % 2.0 L Monocytes % Neutrophils # 8.3 H Lymphocytes # 0.2 L Monocytes # Differential Comment MANUAL DIFF Large Platelets OCCASIONAL Giant Platelets RARE Sodium Level 138 Potassium Level 3.4 #L Chloride Level 93 L Carbon Dioxide Level 33 H Anion Gap 15 Blood Urea Nitrogen 44 H Creatinine 0.83 Glucose Level 276 #H Calcium Level 8.7 Phosphorus Level 4.0 Magnesium Level 1.5 L Medications Medications Current Medications Lorazepam (Ativan) 0.5 mg Q8H PRN PO ANXIETY; Start 07/01/16 at 05:30 Ondansetron HCl (Zofran Inj) 4 mg Q6H PRN IV NAUSEA AND/OR VOMITING; Start 07/01 at 05:30 Nitroglycerin (Nitroglycerin (Sl Tab) 0.4 Mg) 1 tab Q5M PRN SL CHEST PAIN; Start 07/01/16 at 05:30 Acetaminophen (Tylenol Tab) 650 mg Q6H PRN PO PAIN LEVEL 1-3 OR FEVER; Start at 05:30 Acetaminophen/ Hydrocodone Bitart ([place] (5/325)) 1 tab Q6H PRN PO PAIN LEVEL 4 -6; Start 07/01/16 at 05:30 Morphine Sulfate (morphine) 2 mg Q4H PRN IV PAIN LEVEL 7-10 Last administered on 07/01/16t 22:29; Admin Dose 2 MG; Start 07/01/16 at 05:30 Zolpidem Tartrate (Ambien) 5 mg QHS PRN PO INSOMNIA; Start 07/01/16 at 05:30 Docusate Sodium (Colace) 100 mg Q12H PRN PO CONSTIPATION; Start 07/01/16 at 05: 30 Magnesium Hydroxide (Milk Of Mag) 30 ml DAILY PRN PO CONSTIPATION; Start at 05:30 Pantoprazole (Protonix Tab) 40 mg DAILY@06 PO Last administered on 07/03/16 06: 04; Admin Dose 40 MG; Start 07/01/16 at 06:00 Enoxaparin Sodium (Lovenox) 40 mg DAILY SC Last administered on 07/03/16 08:26 ; Admin Dose 40 MG; Start 07/01/16 at 09:00 Ascorbic Acid (Vitamin C) 500 mg DAILY PO Last administered on 07/03/16 08:24; Admin Dose 500 MG; Start 07/01/16 at 09:00 Aspirin (Aspirin) 81 mg DAILY PO Last administered on 07/03/16 08:24; Admin Dose 81 MG; Start 07/01/16 at 09:00 Baclofen (Lioresal) 10 mg Q8 PRN PO PRN; Start 07/01/16 at 05:30 Docusate Sodium (Colace) 100 mg Q12 PRN PO CONSTIPATION; Start 07/01/16 at 05:30 Gabapentin (Neurontin) 300 mg TID PO Last administered on 07/03/16 08:24; Admin Dose 300 MG; Start 07/01/16 at 09:00 Diagnostic Test (Pha) (Accu-Chek) 1 ea 02 XX Last administered on 07/03/16 01: 55; Admin Dose 1 EA; Start 07/02/16 at 02:00 Miscellaneous Information 1 ea NOTE XX ; Start 07/01/16 at 06:30 Glucose (Glutose) 15 gm Q15M PRN PO DECREASED GLUCOSE; Start 07/01/16 at 06:30 Glucose (Glutose) 22.5 gm Q15M PRN PO DECREASED GLUCOSE; Start 07/01/16 at 06:30 Dextrose (D50w Syringe) 25 ml Q15M PRN IV DECREASED GLUCOSE; Start 07/01/16 at 06:30 Dextrose (D50w Syringe) 50 ml Q15M PRN IV DECREASED GLUCOSE; Start 07/01/16 at 06:30 Glucagon (Glucagen) 1 mg Q15M PRN IM DECREASED GLUCOSE; Start 07/01/16 at 06:30 Glucose (Glutose) 15 gm Q15M PRN BUCCAL DECREASED GLUCOSE; Start 07/01/16 at 06: 30 Methylprednisolone Sodium Succinate (Solu-Medrol) 60 mg Q8 IV Last administered on 07/03/16 06:03; Admin Dose 60 MG; Start 07/02/16 at 00:00 Insulin Glargine (Lantus) 16 unit DAILY SC Last administered on 07/03/16 08:25 ; Admin Dose 16 UNIT; Start 07/02/16 at 11:30 Linagliptin 5 mg 5 mg DAILY PO Last administered on 07/03/16 08:24; Admin Dose 5 MG; Start 07/02/16 at 14:00 Levofloxacin/ Dextrose (Levaquin 500mg/ D5W 100 ml (Pmx)) 100 ml @ 100 mls/hr Q24H IVPB Last administered on 07/02/16 20:00; Admin Dose 100 MLS/HR; Start 07/02/16 at 16:30 GARRET SOARES July 03, 2016 10:37
[2016-07-03] MEDS: LEVOFLOXACIN 500MG/D5W (PMX) 100 ML IVPB SCH (16:30)
[2016-07-03] MEDS: POTASSIUM CHLORIDE (SR) 10 MEQ TAB PO ONE ×2 (18:10→18:27)
--- NOTE | 2016-07-03 18:46 | PN ---
DATE: 07/03/2016 The patient was seen. Yesterday night I received a call the patient stated that she wants to be dis charged. I told her that she cannot be discharged yet, as patient also resides at the [facility]. Upon evaluation today, patient appears to be very upset. She said that she fired me a nd that she has a new doctor, I think Dr. Macedo. Again, I spoke with the nursing staff and they to ld me the patient has been upset all day. I have spoken to patient's family, her kids, and I explai vickie the patient's current condition, reason for hospitalization and plan of care. The patient was j ust taken off the BiPAP yesterday. I appreciate pulmonary recommendations regarding treatment plan and antibiotic management. I reviewed his recommendations. The patient is currently on nasal cannu la. I spoke with the respiratory therapist as currently she is on 4.5 liters and saturating adequat bnadar. PHYSICAL EXAMINATION: VITAL SIGNS: Temperature is 98, pulse is 110, respirations 20, blood pressure 139/61, saturation 95 % currently on 4.5 liters. GENERAL: The patient is pale. HEENT: Decreased dentition. CARDIOVASCULAR: S1 and S2. LUNGS: Mild rhonchi and crackles; this is chronic. ABDOMEN: Soft, nontender. EXTREMITIES: No clubbing, cyanosis, or edema. Patient with hand deformities secondary to rheumato id arthritis. LABORATORY DATA: White count is 8.8, hemoglobin 9.5, hematocrit 32, platelets 199, neutrophils 94%, lymphocytes 2%, bands 4%, elevated. This may be from the steroids. Glucose levels have been runni high as well 299, 278. This is all from the steroids. Magnesium is low at 1.5. The patient has been refusing IV placement. Sodium 138, potassium is low at 3.4, chloride 93, bicarbonate 33, BUN is 44, creatinine 0.83, glucose of 276. MRSA of the nares negative. Blood cultures are negative. MEDICATIONS: Include: 1. Insulin aspart 6 units q.a.c. 2. Levaquin 500 IV daily. 3. Tradjenta 5 mg daily. 4. Lantus 16 units daily. 5. Accu-Chek q.a.c. and at bedtime. 6. Solu-Medrol 60 IV q.8h. 7. Lovenox 40 mg subcutaneous daily. 8. DuoNeb every 4 hours. 9. Vitamin C 500 mg daily. 10. Aspirin 81 mg daily. 11. Neurontin 300 mg t.i.d. 12. Insulin aspart, before meals and at bedtime per sliding scale, hypoglycemia protocol. 13. Protonix 40 mg daily. 14. Ativan 0.5 p.o. q.8 p.r.n. 15. Zofran p.r.n. 16. Nitroglycerin p.r.n. 17. Tylenol p.r.n. 18. [place] p.r.n. 19. Morphine p.r.n. 20. Ambien p.r.n. 21. Milk of magnesia p.r.n. 22. DuoNebs p.r.n. 23. Baclofen 10 mg q.8h. p.r.n. 24. Colace 100 mg q. 12h. p.r.n. ASSESSMENT AND PLAN: This is a very unfortunate 75-year-old female, very sick secondary to advanced pulmonary fibrosis, O2 dependent, also history of rheumatoid arthritis, diabetes mellitus, chronic pain, overall debilitated, nonambulatory, who presents with recurrent respiratory failure, likely from tracheobronchitis versus pneumonia. 1. Respiratory. Taper down steroids, as likely this is contributing to some psychosis and confusio n. Continue O2 support. Antibiotics with Levaquin, currently off BiPAP. We will monitor closely. If remains stable, consider discharge planning. 2. Cardiovascular. Patient with tendency to congestive heart failure, currently appears to be comp ensated. The patient is status post diuretic therapy, observe. Continue Lovenox for deep venous th rombosis prophylaxis. Continue blood pressure medications. 3. Gastrointestinal: Continue Protonix for gastrointestinal prophylaxis. 4. Rheumatoid arthritis. We will schedule an appointment for her to see a telegraph operator for [facility] recommendations. Previously on methotrexate. 5. Back pain. P.r.n. pain ____ will be provided. 6. Stool softeners, as patient is on opioids. 7. Diabetes mellitus. Increase insulin further as patient's glucose levels are very high, which is secondary to steroids. Again, steroid dose will be reduced per Dr. Hernandez, the community development aide. He r ecommended to her to be on Prednisone 20 mg daily upon discharge. Continue Tradjenta, as well. Case discussed with family. The patient remains FULL CODE. Overall, long-term prognosis is not alfonso y good because of her extensive lung pathology. We will follow. Dictated By: FAISAL ALVAREZ/NGHIA Conf#: [id number] DID#: [id number]
--- NOTE | 2016-07-03 19:36 | PN ---
DATE: Again I spoke with the family. Again, patient appears to be more calm. She agrees to stay until we decide to discharge her. The patient's son, name is Zhang Daniels, phone number [phone], and th e patient's [id number], name is Radha. We had a conversation. We will continue to communicat e with them regarding the patient's plan of care and condition. We will follow. Dictated By: FAISAL ALVAREZ/NGHIA Conf#: [id number] DID#: [id number]
[2016-07-03] MEDS: METHYLPREDNISOLONE 40 MG INJ IV SCH (21:43)
[2016-07-03] MEDS: HYDROCODONE/APAP (5/325) TAB PO PRN (23:20)
[2016-07-04] VITALS (8 sets, daily range): BP systolic 142–156; BP diastolic 67–72; PULSE 95–103; RESP 16–18
[2016-07-04] MEDS: ALBUTEROL/IPRATROPIUM (NEB) 3 ML AMP NEB SCH ×5 (01:17→17:00)
[2016-07-04] MEDS: ACCUCHECK AT 2AM (Patients on SS coverage) XX SCH (02:00)
[2016-07-04] MEDS: PANTOPRAZOLE (EC) 40 MG TAB PO SCH (05:04)
[2016-07-04 08:08] LABS: ADD SCAN DIFF NO
[2016-07-04 08:12] LABS: HEMATOCRIT 31.4 % (37.0-47.0); HEMOGLOBIN 9.3 g/dl (12.0-16.0); MEAN CORPUSCULAR HEMOGLOBIN 25.5 pg (29.0-33.0); MEAN CORPUSCULAR HGB CONC 29.6 g/dl (32.0-37.0); MEAN PLATELET VOLUME 11.3 fl (7.4-10.4); PLATELET COUNT 203 10^3/UL (140-415); RED BLOOD COUNT 3.65 10^6/ul (4.20-5.40); RED CELL DISTRIBUTION WIDTH 17.2 % (11.5-14.5); WHITE BLOOD COUNT 9.1 10^3/ul (4.8-10.8)
[2016-07-04] MEDS: ASPIRIN 81 MG TAB PO SCH (08:22)
[2016-07-04] MEDS: METHYLPREDNISOLONE 40 MG INJ IV SCH (08:22)
[2016-07-04] MEDS: LINAGLIPTIN 5 MG TABLET PO SCH (08:23)
[2016-07-04] MEDS: GABAPENTIN 300 MG CAP PO SCH ×2 (08:23→13:05)
[2016-07-04] MEDS: ASCORBIC ACID 500 MG TAB PO SCH (08:23)
[2016-07-04] MEDS: ENOXAPARIN 40 MG/0.4 ML SYG SC SCH (08:24)
[2016-07-04] MEDS: INSULIN ASPART [NOVOLOG] 3 ML PEN SC SCH ×4 (08:25→12:22)
[2016-07-04] MEDS: HYDROCODONE/APAP (5/325) TAB PO PRN (08:29)
[2016-07-04 08:42] LABS: MAGNESIUM 1.7 mg/dl (1.7-2.5); PHOSPHORUS 3.2 mg/dl (2.5-4.9)
[2016-07-04 08:55] LABS: CALCIUM 9.2 mg/dl (8.4-10.2); CREATININE 0.87 mg/dl (0.44-1.00); POTASSIUM 4.8 mmol/L (3.5-5.1)
[2016-07-04] MEDS ORDERED: INSULIN GLARGINE [LANtus] 3 ML PEN SC SCH (09:00)
[2016-07-04 10:42] LABS: LYMPHOCYTES # 0.5 10^3/ul (0.8-2.9); NEUTROPHIL # 8.6 10^3/ul (1.6-7.5)
[2016-07-04] MEDS ORDERED: METOPROLOL 25 MG TAB PO SCH (12:00)
--- NOTE | 2016-07-04 12:01 | PDOCDIS ---
Discharge Instructions CONDITION Patient Condition: Stable ACTIVITY: Activity Restrictions: Slowly Increase Activity FOLLOW UP/APPOINTMENTS Appointments discharge to [facility], see reconciliation, keep on NC o2 to keep sat >90 FAISAL BENITEZ MD July 04, 2016 12:01
--- NOTE | 2016-07-04 14:14 | DS ---
DATE OF ADMISSION: 07/01/2016 DATE OF DISCHARGE: 07/04/2016 REASON FOR ADMISSION: Acute respiratory failure, acute bronchitis and hypoxia, rule out congestive heart failure. HOSPITAL COURSE: The patient is an unfortunate 75-year-old female with end stage pulmonary fibrosis, O2 dependent with frequent hospitalizations secondary to respiratory failure. She has hi story of diabetes mellitus as well, anemia, dyslipidemia, osteoarthritis, rheumatoid arthritis, over all very debilitated, not ambulatory, with hand contractures. The patient currently resides at [facility] nursing [facility]. She was in her usual state of health up until a few days prio r to admission when I started her on Levaquin as she had slight worsening symptoms, but on the day o f admission it was reported that patient was hypoxic despite O2 support. Therefore, the patient was sent to the hospital with 911. She was placed initially on BiPAP. I consulted Dr. Jayson Hernandez. T he patient was started on IV steroids, breathing treatments around the clock and broad spectrum anti biotics initially with cefepime and vancomycin for possible bronchitis. Cultures: MRSA of the nare s and blood cultures were negative. Later antibiotics were deescalated to Levaquin. The patient co ntinues to improve. She had episodes of worsening condition once at night for which she was placed back on BiPAP. I spoke to the warehouse consultant who stated that patient can be discharged and started o n prednisone and will taper that over the course of a few weeks. Also insulin was adjusted. Will ad d beta bhaskar as the patient has a tendency for tachycardia, may be related also to her breathing t reatments. The patient will be discharged back to the senior living facility. I have met the ernestina syed's son and they are aware of patient's condition. The patient had episode of hospital psychosis and she was very upset at being in the hospital, but currently doing better. DISCHARGE MEDICATIONS: Patient will be discharged with the following medications: 1. Accu-Cheks q.a.c. and at bedtime. 2. Tylenol 650 q.6 p.r.n. for pain. 3. DuoNeb every 4 hours and q.2 p.r.n. 4. Vitamin C 500 mg daily. 5. Aspirin 81 daily. 6. Baclofen 10 mg q.8 p.r.n. 7. Colace 100 mg q.12 . 8. Senna at night p.r.n. for constipation. 9. Neurontin 300 mg t.i.d. 10. Promod 30 mL t.i.d. 11. [place] 5/325 q.6 p.r.n. for moderate pain. 12. Insulin aspart per sliding scale. 13. Insulin aspart, we will reduce the dose as we taper down the steroids. Will make it insulin as part 8 units subcutaneous q.a.c. meals. 14. Insulin Lantus 20 units daily. 15. Levaquin 500 mg p.o. daily for 7 more days. 16. Tradjenta 5 mg daily. 17. Ativan 0.5 q.8 p.r.n. for anxiety. 18. Milk of magnesia p.r.n. for constipation. Discontinue Solu-Medrol. 19. Hypoglycemia protocol. 20. Nitroglycerin p.r.n. for chest pain. 21. Zofran 4 mg p.o. q.4 p.r.n. for nausea and vomiting. 22. Protonix 40 mg daily. 23. Zolpidem 5 mg at bedtime p.r.n. for insomnia. 24. Metoprolol tartrate 25 p.o. b.i.d. 25. Multivitamin 1 tab daily. 26. Put on ferrous sulfate 325 p.o. every day. FINAL DIAGNOSES: 1. Acute respiratory failure. 2. Acute bronchitis. 3. End-stage pulmonary fibrosis. 4. Diabetes mellitus. 5. Anemia. 6. Rheumatoid arthritis. 7. Osteoarthritis. 8. Tendency for congestive heart failure, more of a diastolic dysfunction heart failure, status pos t diuretic therapy. 9. Chronic obstructive pulmonary disease. 10. Dyslipidemia. 11. Dysphagia. DIET: Start the patient on soft mechanical 2 g sodium, ADA 1800. ACTIVITY: As tolerated with physical therapy. LONG-TERM PROGNOSIS: Guarded. DISPOSITION: The patient will be discharged back to [facility]. Dictated By: FAISAL ALVAREZ/NGHIA Conf#: [id number] DID#: [id number]
[2016-07-04] MEDS: LEVOFLOXACIN 500MG/D5W (PMX) 100 ML IVPB SCH (16:30)
== END 2016-07-04 17:28 | DRG 189 ==
LOC: E/R 02:23 → TEL 05:24
PROVIDERS: ADMIT Internal Medicine; ATTEND Internal Medicine
PROC: 5A09357 Assistance with Respiratory Ventilation, Less than 24 Consecutive Hours, Continuous Positive Airway Pressure (ICD-10-PCS; principal; 2016-07-01)
DX: J96.01 Acute respiratory failure with hypoxia (principal); I50.33 Acute on chronic diastolic (congestive) heart failure; J84.10 Pulmonary fibrosis, unspecified; Z99.81 Dependence on supplemental oxygen; R13.10 Dysphagia, unspecified; J44.0 Chronic obstructive pulmonary disease with (acute) lower respiratory infection; J20.9 Acute bronchitis, unspecified; M06.9 Rheumatoid arthritis, unspecified; D64.9 Anemia, unspecified; E78.5 Hyperlipidemia, unspecified; E11.9 Type 2 diabetes mellitus without complications; Z79.4 Long term (current) use of insulin; Z79.82 Long term (current) use of aspirin
CPT/HCPCS: 36415; 36600; 71010; 80048; 80053; 80202; 82803; 82962; 83605; 83735; 83880; 84100; 84484; 85025; 85610; 85730; 87040; 87081; 93005; 94640; 94644; 94660; 94664; 96365; 96372; 96375; 96376; J0692; J1650; J1815; J1940; J1956; J2270; J2405; J2920; J2930; J3370

== ENCOUNTER 2016-07-17 08:52 | Inpatient (IN) | payer MEDICARE, OTHER ==
[2016-07-17] VITALS (14 sets, daily range): BP systolic 124–138; BP diastolic 59–63; PULSE 81–120; RESP 18–22; TEMP 100.1; Ht 152.4 cm; Wt 57.7 kg
[~2016-07-17] VITALS: Ht 152.4 cm; Wt 57.7 kg
[2016-07-17] MEDS ORDERED: CEFEPIME 2GM/50 ML (PMX) 50 ML IVPB STA (08:56)
[2016-07-17] MEDS ORDERED: SOD CHLORIDE 0.9% 1,000 ML IV STA ×2 (08:56)
[2016-07-17] MEDS ORDERED: VANCOMYCIN 1 GM (PMX) 250 ML IVPB ONE (09:00)
[2016-07-17 09:18] LABS: ADD SCAN DIFF NO
[2016-07-17 09:20] LABS: ABNORMAL IP MESSAGE 1; HEMOGLOBIN 9.8 g/dl (12.0-16.0); MEAN CORPUSCULAR HEMOGLOBIN 26.1 pg (29.0-33.0); MEAN CORPUSCULAR HGB CONC 30.6 g/dl (32.0-37.0); MEAN CORPUSCULAR VOLUME 85.1 fl (82.0-101.0); MEAN PLATELET VOLUME 9.6 fl (7.4-10.4); PLATELET COUNT 442 10^3/UL (140-415); RED BLOOD COUNT 3.76 10^6/ul (4.20-5.40); RED CELL DISTRIBUTION WIDTH 17.5 % (11.5-14.5); WHITE BLOOD COUNT 19.2 10^3/ul (4.8-10.8)
--- NOTE | 2016-07-17 09:24 | RADRPT ---
PROCEDURE: XR Chest. CLINICAL INDICATION: Chest pain TECHNIQUE: Single frontal view of the chest was obtained COMPARISON: 06/03/16 FINDINGS: The heart is enlarged. The thoracic aorta is calcified. There are extensive chronic interstitial changes throughout the lungs. There is a possible new slig htly more focal right upper lobe infiltrate. There is no pleural effusion or pneumothorax. RPTAT: AA IMPRESSION: Limited evaluation of the lung parenchyma due to extensive chronic interstitial changes, consistent with pulmonary fibrosis. Possible developing right upper lobe infiltrate. Mild cardiomegaly. Calcified aorta consistent with atherosclerotic disease. .Carlton Haque MD, MD Date Time Electronically viewed and signed by .Carlton Haque MD, on 07/17/2016 09:24 .S/
[2016-07-17] MEDS ORDERED: ACETAMINOPHEN 325 MG TAB PO ONE (09:30)
[2016-07-17 09:37] LABS: ALBUMIN 3.1 g/dl (3.3-4.9); ALBUMIN/GLOBULIN RATIO 0.77; BILIRUBIN,INDIRECT 0.2 mg/dl (0-1.1); BILIRUBIN,TOTAL 0.2 mg/dl (0.2-1.3); CALCIUM 8.7 mg/dl (8.4-10.2); CREATININE 0.75 mg/dl (0.44-1.00); POTASSIUM 4.1 mmol/L (3.5-5.1); TOTAL PROTEIN 7.1 g/dl (6.1-8.1)
[2016-07-17 09:38] LABS: INR 1.12; PROTIME 14.4 Sec (12.2-14.2); PT RATIO 1.1
[2016-07-17 09:39] LABS: PARTIAL THROMBOPLASTIN TIME 29.2 Sec (25.0-35.0)
[2016-07-17 09:49] LABS: TROPONIN-I 0.03 ng/ml (0.00-0.12)
[2016-07-17] MEDS ORDERED: ACETAMINOPHEN 325 MG TAB PO PRN ×3 (10:00→13:30)
[2016-07-17] MEDS ORDERED: ONDANSETRON 4 MG INJ IV PRN ×2 (10:00→13:30)
[2016-07-17] MEDS ORDERED: ACET-2047 PO (10:05)
[2016-07-17] MEDS ORDERED: IPRA3AMP INHALATION (10:07)
[2016-07-17] MEDS ORDERED: FER325 PO (10:09)
[2016-07-17] MEDS ORDERED: LANT3I SC (10:10)
[2016-07-17] MEDS ORDERED: LORA0.5T PO (10:11)
--- NOTE | 2016-07-17 10:11 | ERA ---
ER Documentation Chief Complaint Date/Time DATE: 07/17/16 TIME: 10:08 Chief Complaint BIB RA FOR SOB , LOW O2 SATS , FEVER HPI Patient is a 75-year-old female with hypertension and diabetes who presents with cough and fever. The patient was brought in by ambulance. Oxygen saturation was 87% at the group home. The patient was given a breathing treatment by paramedics. The patient has cough, fever, and productive sputum. The symptoms started last night. She is usually on 3 L of oxygen normally. Her primary doctor is Dr. Pelletier. She said that she was recently taking antibiotics but she does not know what for. ROS All systems reviewed and are negative except as per history of present illness. Medications Home Meds Reported Medications Ipratropium-Albuterol (Ipratropium-Albuterol) 0.5-3 Mg/3 Ml Ampul.neb, 3 ML INHALATION Q2HWA Y for WHEEZING AND SOB, #30 VIAL 07/17/16 Acetaminophen* (Acetaminophen*) 650 Mg Tablet, 650 MG PO Q6 Y for PAIN AND OR ELEVATED TEMP, #30 TAB 07/17/16 Baclofen* (Baclofen*) 10 Mg Tablet, 10 MG PO Q8 Y for MUSCLE SPASMS, TAB 06/03/16 Gabapentin* (Gabapentin*) 300 Mg Capsule, 300 MG PO TID, #90 CAP 06/03/16 Insulin Glulisine (Apidra Solostar) 100 Unit/1 Ml Insuln.pen, 10 UNIT SQ QHS, # 1 TUB 06/03/16 Lactobacillus Acidophilus* (Lactinex*) 1 Tab Chew, 1 TAB PO TID, TAB 06/03/16 Prednisone* (Prednisone*) 20 Mg Tab, 40 MG PO DAILY, TAB 06/03/16 Protein Supplement (Promod) 946 Ml Liquid, 30 ML PO TID 06/03/16 Sennosides* (Senokot*) 8.6 Mg Tablet, 1 TAB PO DAILY, TAB 06/03/16 Ascorbic Acid (Vitamin C) 500 Mg Tab, 500 MG PO DAILY, TAB 06/03/16 Insulin Regular, Human (Humulin R) 100 Unit/1 Ml Vial, 4 UNIT SC SLIDING SCALES , VIAL IF BS 151-200=2 UNITS, 201-250=4 UNITS, 251-300=6 UNITS, 301-350=8 UNITS, 351-400=10 UNITS,BS<60 AND >400 CALL MD. 05/06/16 Magnesium Hydroxide* (Milk Of Magnesia*) 400 Mg/5 Ml Oral.susp, 30 ML PO DAILY Y for CONSTIPATION, ML 05/06/16 Multivitamin with Minerals (Multivitamins with Minerals) 1 Each Tablet, 1 EACH PO DAILY, TAB 05/06/16 Linagliptin (TRADJENTA) 5 Mg Tablet, 5 MG PO DAILY, TAB 05/06/16 Aspirin* (Aspirin* Chew) 81 Mg Tab.chew, 81 MG PO DAILY, TAB.CHEW 05/06/16 Sennosides (Senna Laxative) 25 Mg Tablet, 25 MG PO QHS Y for BOWEL PREP, TAB 01/05/16 Pantoprazole* (Pantoprazole*) 40 Mg Tablet.dr, 40 MG PO DAILY, TAB 01/05/16 Hydrocodone/Acetaminophen ([place] 5-325 Tablet) 1 Each Tablet, 1 EACH PO Q6H Y for PAIN LEVEL 3-10, TAB 01/05/16 Docusate Sodium* (Colace*) 100 Mg Capsule, 100 MG PO Q12 Y for CONSTIPATION, # 30 CAP 01/05/16 Allergies Allergies: Coded Allergies: No Known Allergies (Verified Allergy, Unknown, 07/02/16) PMhx/Soc History of Surgery: Yes Anesthesia Reaction: No Hx Neurological Disorder: Yes (anxiety) Hx Respiratory Disorders: Yes (pulmonary fibrosis, copd) Hx Cardiac Disorders: Yes (htn, cardiomyopathy, ) Hx Psychiatric Problems: Yes (anxiety, insomnia ) Hx Miscellaneous Medical Probl: No Hx Alcohol Use: No Hx Substance Use: No Hx Tobacco Use: No Smoking Status: Former smoker FmHx Family History: diabetes Physical Exam Vitals Vital Signs Date Time Temp Pulse Resp B/P Pulse Ox O2 Delivery O2 Flow Rate FiO2 07/17/16 09:24 Bag Valve Mask 13.0 07/17/16 09:04 15.0 07/17/16 09:04 Non Rebreather 15 07/17/16 09:02 101.0 148 24 160/94 87 Physical Exam Const: Moderate distress secondary to shortness of breath Head: Atraumatic Eyes: Normal Conjunctiva ENT: Normal External Ears, Nose and Mouth. Neck: Full range of motion..~ No meningismus. Resp: Tachypnea with decreased breath sounds bilaterally Cardio: Tachycardic rate without murmur Abd: Soft, non tender, non distended. Normal bowel sounds Skin: No petechiae or rashes Back: No midline or flank tenderness Ext: No cyanosis, or edema Neur: Awake and alert Psych: Normal Mood and Affect Result Diagram: 07/17/16 0900 07/17/16 0900 Results 24 hrs Laboratory Tests Test 07/17/16 09:00 White Blood Count 19.210^3/ul Red Blood Count 3.7610^6/ul Hemoglobin 9.8g/dl Hematocrit 32.0% Mean Corpuscular Volume 85.1fl Mean Corpuscular Hemoglobin 26.1pg Mean Corpuscular Hemoglobin Concent 30.6g/dl Red Cell Distribution Width 17.5% Platelet Count 31275^3/UL Mean Platelet Volume 9.6fl Neutrophils % % Eosinophils % % Neutrophils # 10^3/ul Eosinophils # 10^3/ul Prothrombin Time 14.4Sec Prothrombin Time Ratio 1.1 INR International Normalized Ratio 1.12 Activated Partial Thromboplast Time 29.2Sec Sodium Level 132mmol/L Potassium Level 4.1mmol/L Chloride Level 100mmol/L Carbon Dioxide Level 26mmol/L Anion Gap 10 Blood Urea Nitrogen 28mg/dl Creatinine 0.75mg/dl Glucose Level 201mg/dl Lactic Acid Level 1.7mmol/L Calcium Level 8.7mg/dl Total Bilirubin 0.2mg/dl Direct Bilirubin 0.00mg/dl Indirect Bilirubin 0.2mg/dl Aspartate Amino Transf (AST/SGOT) 13IU/L Alanine Aminotransferase (ALT/SGPT) 19IU/L Alkaline Phosphatase 119IU/L Troponin I 0.030ng/ml Total Protein 7.1g/dl Albumin 3.1g/dl Globulin 4.00g/dl Albumin/Globulin Ratio 0.77 Current Medications Medications (Trade) Dose Ordered Sig/Renetta Route PRN Reason Start Time Stop Time Status Last Admin Dose Admin Cefepime HCl 50 ml @ 100 mls/hr ONCE STAT IVPB 07/17/16 08:56 07/17/16 09:25 DC 07/17/16 09:12 Vancomycin HCl 250 ml @ 125 mls/hr ONCE ONCE IVPB 07/17/16 09:00 07/17/16 10:59 07/17/16 09:52 Sodium Chloride 1,000 ml @ 1,000 mls/hr Q1H STAT IV 07/17/16 08:56 07/17/16 09:55 DC 07/17/16 09:12 Sodium Chloride (NS) 1,000 ml @ 1,000 mls/hr Q1H STAT IV 07/17/16 08:56 07/17/16 09:55 DC Acetaminophen (Tylenol Tab) 650 mg ONCE ONCE PO 07/17/16 09:30 07/17/16 09:31 DC 07/17/16 09:12 Ondansetron HCl (Zofran Inj) 4 mg ER BRIDGE PRN IV NAUSEA AND/OR VOMITING 07/17/16 10:00 07/18/16 09:59 Acetaminophen (Tylenol Tab) 650 mg ER BRIDGE PRN PO MILD PAIN/FEVER 07/17/16 10:00 07/18/16 09:59 Procedures/MDM EKG read by me: Rate/Rhythm: Sinus tachycardia rate of 143 Intervals: Normal Impression: Sinus tachycardia with wandering baseline Chest x-ray shows right upper lobe pneumonia per radiology. Admit MDM: Patient's infectious symptoms have not stabilized and the patient is at risk of rapid decompensation. The patient will be admitted for careful hydration, antibiotic therapy, and infectious source control. Severe Sepsis criteria: Infectious source: Pneumonia End organ damage indicated by: Acute respiratory failure Sepsis Management: Time of recognition of sepsis: Upon arrival Within 3 hours of recognition: Blood cultures x 2 before broad-spectrum antibiotics: Yes 30 ml/kg NS bolus Completed Initial lactate 1.7 Repeat lactate pending Time of recognition of septic shock: No septic shock Septic Shock Assessment: Any lactic acid > 4.0 No Persistent hypotension (SBP < 90 or 40 mmHg drop, MAP < 65) despite 30 mL/kg IV fluid bolus No Volume Re-assessment for Septic Shock (post 30 ml/kg bolus): No septic shock at this time Persistent Hypotension Treatment: Comfort care No Central line Not Required Vasopressor started Not required I considered further perfusion assessment with CVP measurement, SCVO2, bedside ultrasound volume assessment, passive leg raise, trial of further fluid bolus. And proceeded with 30 ml/kg fluid bolus of NSS, broad spectrum antibiotics, and admission. Accepting Care Team Current data and ongoing care discussed. Admitting Physician: Dr. Pelletier the patient's primary doctor Roof Promenade Tile Setter(s): None Outstanding Data: Culture results and repeat lactic acid Critical Care: Critical care time 35 minutes excluding all billable procedures Emergent fluid management while maintaining close respiratory support. Provision of immediate and broad-spectrum antibiotic therapy. Simultaneous assessment for possible sources in order to direct targeted therapy. Consideration for invasive and chemical support to prevent cardiopulmonary collapse. Departure Diagnosis: Primary Impression: Severe sepsis Additional Impressions: Shortness of breath Hypoxia Pneumonia Qualified Code: J18.1 - Pneumonia of right upper lobe due to infectious organism Leukocytosis Qualified Code: D72.829 - Leukocytosis, unspecified type Anemia Qualified Code: D64.9 - Anemia, unspecified type Condition: Serious MICHELLE RENE MD July 17, 2016 10:11
[2016-07-17] MEDS ORDERED: METO25TA4 PO (10:12)
[2016-07-17] MEDS ORDERED: MAGN400O4 PO (10:17)
[2016-07-17] MEDS ORDERED: NITR0.4T6 SL (10:18)
[2016-07-17] MEDS ORDERED: HYDR-906 PO (10:19)
[2016-07-17] MEDS ORDERED: NOVO3I SC ×2 (10:19→10:20)
[2016-07-17 11:47] LABS: LYMPHOCYTES # 2.5 10^3/ul (0.8-2.9); MONOCYTE # 1.3 10^3/ul (0.3-0.9); NEUTROPHIL # 10.6 10^3/ul (1.6-7.5); POLYCHROMASIA OCCASIONAL
[2016-07-17] MEDS ORDERED: MAGNESIUM HYDROXIDE 30ML CUP PO PRN ×2 (13:30)
[2016-07-17] MEDS ORDERED: DOCUSATE SODIUM 100 MG CAP PO PRN (13:30)
[2016-07-17] MEDS ORDERED: BACLOFEN 10 MG TAB PO PRN (13:30)
[2016-07-17] MEDS ORDERED: VANCOMYCIN IV PER PHARMACY XX SCH (13:30)
[2016-07-17] MEDS ORDERED: NACL 0.9% 3 ML SYG IV SCH (13:30)
[2016-07-17] MEDS ORDERED: NITROGLYCERIN (SL) 0.4 MG TAB SL PRN (13:30)
[2016-07-17] MEDS ORDERED: ALBUTEROL/IPRATROPIUM (NEB) 3 ML AMP NEB PRN (13:30)
[2016-07-17] MEDS ORDERED: LORAZEPAM 0.5 MG TAB PO PRN (13:30)
--- NOTE | 2016-07-17 13:49 | CONS ---
Date/Time of Note Date/Time of Note DATE: 07/17/16 TIME: 13:46 Assessment/Plan Assessment/Plan Additional Assessment/Plan Assessment and recommendations; 1. Patient admitted for exacerbation of primary fibrosis with possibly superimposed bronchopneumonia. Chest x-ray from today is again showing diffuse fibrotic changes. 2. History of diabetes. 3. Mental condition, need to rule out CO2 narcosis. Obtain a stat ABG. Start the patient on BiPAP. Continue current treatment. Further recommendations to be made once ABG is obtained. Consultation Date/Type/Reason Admit Date/Time July 17, 2016 at 09:51 Date of Consultation: July 17, 2016 Type of Consultation: Pulmonary Reason for Consultation Pulmonary consultations requested for evaluation of respiratory failure. History presenting any; patient is a pleasant 74-year-old white lady who came into the hospital today with complaint of shortness of breath going on for the last 2 days with chest congestion and low-grade fever. The patient currently is quite obtunded and history was obtained from medical records as well as from my prior knowledge of her because of recent multiple admissions for respiratory failure. Past medical history; 1. Patient with a history of severe pulmonary fibrosis due to advanced rheumatoid arthritis. 2. Diabetes. Medications; were reviewed. Allergies; none. Social history; patient never smoked, no history of alcohol or drug abuse. Family history; noncontributory. 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 Review of systems; currently unable to be obtained. General exam; elderly woman, on 100% nonrebreather mask, not awake. Social History Smoking Status: Former smoker Exam/Review of Systems Vital Signs Vitals Vital Signs Date Time Temp Pulse Resp B/P Pulse Ox O2 Delivery O2 Flow Rate FiO2 07/17/16 12:00 111 07/17/16 10:50 Non Rebreather 15.0 07/17/16 10:40 98.9 22 130/63 99 Exam HEENT examined; supple neck, no JVD. No lymphadenopathy. Midline trachea. No thyromegaly. Patient is edentulous. Chest examination; diffuse bilateral crackles. S1-S2 audible, no murmurs. Regular rhythm. Abdomen examination; soft, no distention. No organomegaly. Bowel sounds audible. Extremity examination of [place] no peripheral edema. Patient has severe changes of rheumatoid arthritis involving both hands. CAR RESTORER examination; patient currently is not arousable. Results Result Diagram: 07/17/16 0900 07/17/16 0900 Results 24 hrs Laboratory Tests Test 07/17/16 09:00 07/17/16 11:45 White Blood Count 19.2 #H Red Blood Count 3.76 L Hemoglobin 9.8 L Hematocrit 32.0 L Mean Corpuscular Volume 85.1 Mean Corpuscular Hemoglobin 26.1 L Mean Corpuscular Hemoglobin Concent 30.6 L Red Cell Distribution Width 17.5 H Platelet Count 442 #H Mean Platelet Volume 9.6 Neutrophils % 55.0 Band Neutrophils % 20.0 H Lymphocytes % 13.0 L Monocytes % 7.0 Eosinophils % Metamyelocytes % 3.0 H Promyelocytes % 1.0 H Neutrophils # 10.6 H Lymphocytes # 2.5 Monocytes # 1.3 H Eosinophils # Metamyelocytes # 0.6 Promyelocytes # 0.2 Differential Comment MANUAL DIFF Large Platelets OCCASIONAL Polychromasia OCCASIONAL Prothrombin Time 14.4 H Prothrombin Time Ratio 1.1 INR International Normalized Ratio 1.12 Activated Partial Thromboplast Time 29.2 Sodium Level 132 L Potassium Level 4.1 Chloride Level 100 Carbon Dioxide Level 26 Anion Gap 10 Blood Urea Nitrogen 28 H Creatinine 0.75 Glucose Level 201 Lactic Acid Level 1.7 1.5 Calcium Level 8.7 Total Bilirubin 0.2 Direct Bilirubin 0.00 Indirect Bilirubin 0.2 Aspartate Amino Transf (AST/SGOT) 13 L Alanine Aminotransferase (ALT/SGPT) 19 Alkaline Phosphatase 119 Troponin I 0.030 Total Protein 7.1 Albumin 3.1 L Globulin 4.00 H Albumin/Globulin Ratio 0.77 Medications Medications Current Medications Lorazepam (Ativan) 0.5 mg Q6H PRN IV ANXIETY; Start 07/17/16 at 13:30 Ondansetron HCl (Zofran Inj) 4 mg Q6H PRN IV NAUSEA AND/OR VOMITING; Start at 13:30 Methylprednisolone Sodium Succinate (Solu-Medrol) 60 mg Q6 IV ; Start 07/17/16 at 18:00 Nitroglycerin (Nitroglycerin (Sl Tab) 0.4 Mg) 1 tab Q5M PRN SL CHEST PAIN; Start 07/17/16 at 13:30 Acetaminophen (Tylenol Tab) 650 mg Q6H PRN PO PAIN LEVEL 1-3 OR FEVER; Start at 13:30 Acetaminophen/ Hydrocodone Bitart ([place] (5/325)) 1 tab Q6H PRN PO PAIN LEVEL 4 -6; Start 07/17/16 at 13:30; Status UNV Morphine Sulfate (morphine) 2 mg Q4H PRN IV PAIN LEVEL 7-10; Start 07/17/16 at 13:30 Zolpidem Tartrate (Ambien) 5 mg QHS PRN PO INSOMNIA; Start 07/17/16 at 13:30 Docusate Sodium (Colace) 100 mg Q12H PRN PO CONSTIPATION; Start 07/17/16 at 13: 30; Status UNV Pantoprazole (Protonix Tab) 40 mg DAILY@06 PO ; Start 07/18/16 at 06:00 Enoxaparin Sodium 40 mg 40 mg DAILY SC ; Start 07/18/16 at 09:00; Status UNV Cefepime HCl (Maxipime 1gm/50 ml (Pmx)) 50 ml @ 100 mls/hr Q12 IV ; Start 07/17 at 21:00; Status UNV Acetaminophen (Tylenol Tab) 650 mg Q6 PRN PO PAIN AND OR ELEVATED TEMP; Start 07/17/16 at 13:30 Ascorbic Acid (Vitamin C) 500 mg DAILY PO ; Start 07/18/16 at 09:00; Status UNV Aspirin (Aspirin) 81 mg DAILY PO ; Start 07/18/16 at 09:00; Status UNV Baclofen (Lioresal) 10 mg Q8 PRN PO MUSCLE SPASMS; Start 07/17/16 at 13:30; Status UNV Ferrous Sulfate (Ferrous Sulfate (Ec)) 325 mg DAILY PO ; Start 07/18/16 at 09:00 ; Status UNV Gabapentin (Neurontin) 300 mg TID PO ; Start 07/17/16 at 21:00; Status UNV Insulin Glargine (Lantus) 20 unit QHS SC ; Start 07/17/16 at 21:00; Status UNV Linagliptin (Tradjenta) 5 mg DAILY PO ; Start 07/18/16 at 09:00; Status UNV Lorazepam (Ativan) 0.5 mg Q8 PRN PO ANXIETY; Start 07/17/16 at 13:30 Magnesium Hydroxide (Milk Of Mag) 30 ml Q12H PRN PO CONSTIPATION; Start at 13:30 Metoprolol Tartrate (Lopressor) 25 mg BID PO ; Start 07/17/16 at 21:00 Diagnostic Test (Pha) (Accu-Chek) 1 ea 02 XX ; Start 07/18/16 at 02:00 GARRET SOARES July 17, 2016 13:49
[2016-07-17 14:21] LABS: AADO2 Arterial 113.1 mmHg (7.0-24.0); Allen Test ACCEPTAB; Arterial Base Excess -2.7 mmol/L (-3.0-3); Arterial COHb 0.3 % (0.0-3.0); Arterial Fraction of Oxyhgb 94.9 % (93.0-99.0); Arterial MetHb 0.3 % (0.0-1.5); Arterial Total Hemglobin 9.9 g/dl (12.0-18.0); MODE NASAL CANNULA
[2016-07-17] MEDS ORDERED: DEXTROSE 50% 50 ML SYRINGE IV PRN ×2 (14:30)
[2016-07-17] MEDS ORDERED: GLUCOSE GEL 15 GRAM TUBE BUCCAL PRN (14:30)
[2016-07-17] MEDS ORDERED: GLUCOSE GEL 15 GRAM TUBE PO PRN ×2 (14:30)
[2016-07-17] MEDS ORDERED: GLUCAGON 1 MG INJ IM PRN (14:30)
--- NOTE | 2016-07-17 15:09 | HP ---
DATE OF ADMISSION: 07/17/2016 REASON FOR ADMISSION: Acute respiratory failure, pneumonia, sepsis. HISTORY OF PRESENT ILLNESS: The patient is a very unfortunate 75-year-old female with end- stage pulmonary fibrosis, O2-dependent, with frequent hospitalization, just recently discharged just 2 weeks ago where she presented with acute respiratory failure, tracheobronchitis, hypoxia, and con gestive heart failure exacerbation. The patient has a history of diabetes mellitus, anemia, dyslipi demia, osteoarthritis, rheumatoid arthritis. Overall very debilitated, not ambulatory with hand con tractures. She currently resides at [facility]. I received a call th is morning. The patient is tachycardic up to the 150s. We decided to send her to the hospital. Up on arrival to [facility], the patient was tachycardic to the 140s with a temperatu re of 101, all suggestive of an infectious process. White count was elevated at 19.2 with 20% bands . A chest x-ray also showed chronic pulmonary fibrosis picture with possible developing right upper lung infiltrate. The patient was started on broad-spectrum antibiotics, placed on nonrebreather ma sk, and admitted in guarded condition in telemetry unit. The patient's heart rate did improve as he r temperature came down. Most likely she began with sepsis and pneumonia. Upon evaluation, the pat ient is alert. She denies any shortness of breath or any complaints, usually she does not complain much, but overall she appears to have slightly labored breathing, saturating adequately now on a loren al cannula. As mentioned, the patient is very immunocompromise secondary to pulmonary fibrosis, rhe umatoid arthritis, diabetes mellitus, she is very ill. PAST MEDICAL HISTORY: Includes pulmonary fibrosis, advanced COPD, anemia, dyslipidemia, diabetes me llitus, degenerative disk disease, C-spine injury, rheumatoid arthritis, hypoxia, altered dependency , osteoarthritis, congestive heart failure more of a diastolic dysfunction heart failure. PAST SURGICAL HISTORY: Includes C-spine surgery, total abdominal hysterectomy, hernia repair surger y. SOCIAL HISTORY: She is single. She has 4 children. She smoked tobacco in the past but stopped 40 years ago. IV drug abuse: None. Alcohol: None. The patient resides at [facility]. FAMILY HISTORY: Both parents are . Mother had diabetes. Father with no known history. ALLERGIES: NO KNOWN DRUG ALLERGIES. REVIEW OF SYSTEMS: Per HPI. CURRENT MEDICATIONS: Include the followin. Tylenol p.r.n. for pain. 2. Vitamin C 500 mg daily. 3. Aspirin 81 mg daily. 4. Baclofen 10 mg every 8 hours p.r.n. for muscle spasm. 5. Colace 100 mg every 12 hours p.r.n. for constipation. 6. DuoNeb breathing treatments q.2h. and q.4h. around the clock. 7. Ferrous sulfate 325 mg daily. Carpentry 8. Gabapentin 300 mg t.i.d. 9. Insulin, Lantus 20 units at bedtime. 10. Levaquin 500 mg daily. She finished that on the . 11. Tradjenta 5 mg daily. 12. Lorazepam 0.5 q.8h. p.r.n. for anxiety. 13. Metoprolol tartrate 25 mg b.i.d. 14. Milk of magnesia p.r.n. 15. Multivitamin 1 tablet daily. 16. Nitroglycerin p.r.n. 17. [place] 5/325 q.6h. p.r.n. 18. NovoLog 8 units before meals. 19. Protonix 40 mg daily. 20. ProMod 30 mL t.i.d. 21. Senna 25 mg daily p.r.n. CODE STATUS: The patient is FULL CODE. PHYSICAL EXAMINATION: VITAL SIGNS: Blood pressure 130/63, pulse is 111, respirations 22, temperature 98.9, T-max is 101 o n admission, saturation 99% on nonrebreather, currently saturation actually at bedside 94% on 4 L na sania cannula. ABG is pending. GENERAL: The patient is in mild distress, appears to be tachypneic. The patient is pale. HEENT: Decreased dentition. CARDIOVASCULAR: S1 and S2. LUNGS: Diffuse wheezing and rhonchi, right greater than left with decreased breath sounds on the le ft. ABDOMEN: Soft, nontender. EXTREMITIES: No clubbing, cyanosis, or edema. The patient with contractures of the hands. LABORATORIES: White count is 19.2, hemoglobin 9.8, hematocrit 32, platelet count is 442, neutrophil s 55%, bands 20%, lymphocytes 13%. Chemistry: Sodium is 132, potassium is 4.1, chloride 100, bicar bonate 26, BUN is 28, creatinine 0.75, glucose of 201, elevated lactic acid on admission was 1.7, so it is normal. AST 13, ALT 19, alkaline phosphatase 119. Troponin negative at 0.030. Albumin 3.11 . INR 1.12. Chest x-ray as above, does show limited evaluation of the lung parenchyma due to exten sive chronic interstitial changes consistent with pulmonary fibrosis. There is undeveloped right up per lobe infiltrate, mild cardiomegaly. Calcified aorta consistent with atherosclerotic disease. ASSESSMENT AND PLAN: This is a very unfortunate 75-year-old female who has advanced pulmon akash fibrosis, oxygen dependent, history of rheumatoid arthritis, diabetes mellitus, chronic pain. O kim, very debilitated, not ambulatory, presented with recurrent respiratory failure. 1. Respiratory failure, likely exacerbated by underlying pneumonia and infectious process as the pa tient is febrile with bandemia and leukocytosis. The patient will be started on broad-spectrum anti biotic with cefepime and vancomycin. Will consult speech therapy to evaluate for possible aspiratio n, evaluate for dysphagia. Recently finished a course of oral Levaquin. BiPAP p.r.n. will be done. Follow up ABG results, I appreciate pulmonary recommendations. Also start on a breathing treatmen t around the clock and IV steroids. 2. Cardiovascular. The patient with tendency for CHF. Currently, appears to be compensated, obser ve. Continue Lovenox for DVT prophylaxis. Titrate blood pressure medications as needed. 3. Gastrointestinal. The can be placed on Protonix for GI prophylaxis. 4. Rheumatoid arthritis. Pain control as needed. Follow up with rheumatology for possible initiat ion of methotrexate which she took before. 5. Chronic pain. Pain control will be prescribed as needed. 6. Tachycardia, likely from sepsis. Continue above antibiotic management. Tylenol for fever. Mon itor her closely on the telemetry unit. 7. Diabetes mellitus, put her on weight-based insulin. The patient was placed on IV Solu-Medrol. Titrate insulin up as needed. I recently placed her also on prednisone taper. 8. Constipation. Stool softeners will be provided 9. Start the patient on soft mechanical diet as tolerated. Again, speech therapy to follow. 10. Anemia. The patient with chronic anemia, likely anemia of chronic disease. Transfusion p.r.n. will be given. Currently, no need. 11. Infectious disease. Again, treat underlying pneumonia and follow up sputum culture, will also obtain urine studies. Overall, long-term prognosis is guarded, the patient has advanced pulmonary fibrosis with multiple h ospitalizations. We will follow the patient closely. The patient is FULL CODE. Dictated By: FAISAL ALVAREZ/NGHIA Conf#: [id number] DID#: [id number]
[2016-07-17 15:25] LABS: ADD UMIC YES; URINE BILIRUBIN (Dip) NEGATIVE (NEGATIVE); URINE BLOOD (Dip) 1+ (NEGATIVE); URINE COLOR LT. YELLOW (YELLOW); URINE GLUCOSE (Dip) NEGATIVE (NEGATIVE); URINE KETONES (Dip) NEGATIVE (NEGATIVE); URINE LEUKOCYTE ESTERASE (Dip) NEGATIVE (NEGATIVE); URINE NITRITE (Dip) NEGATIVE (NEGATIVE); URINE TOTAL PROTEIN (Dip) 1+ (NEGATIVE); URINE UROBILINOGEN (Dip) 0.2 E.U./dL (0.1-1.0)
[2016-07-17] MEDS: HYDROCODONE/APAP (5/325) TAB PO PRN ×2 (15:31→23:14)
[2016-07-17 16:03] LABS: URINE RBCS 0-2 /HPF (0)
[2016-07-17 16:04] LABS: SQUAMOUS EPITHELIAL CELL,UR FEW
[2016-07-17] MEDS: ALBUTEROL/IPRATROPIUM (NEB) 3 ML AMP NEB SCH ×2 (16:45→20:46)
[2016-07-17] MEDS: METHYLPREDNISOLONE 125 MG INJ IV SCH (17:25)
[2016-07-17] MEDS: INSULIN ASPART [NOVOLOG] 3 ML PEN SC SCH ×2 (18:05→21:12)
[2016-07-17] MEDS ORDERED: INSULIN GLARGINE [LANtus] 3 ML PEN SC SCH (21:00)
[2016-07-17] MEDS: METOPROLOL 25 MG TAB PO SCH (21:07)
[2016-07-17] MEDS: GABAPENTIN 300 MG CAP PO SCH (21:07)
[2016-07-17] MEDS: CEFEPIME 1GM/50 ML (PMX) 50 ML IV SCH (21:12)
[2016-07-17] MEDS: ZOLPIDEM 5 MG TAB PO PRN (23:14)
[2016-07-17] MEDS: VANCOMYCIN 500MG/NS (PMX) 100 ML IVPB SCH ×2 (23:15→23:36)
[2016-07-18] VITALS (11 sets, daily range): BP systolic 107–127; BP diastolic 53–60; PULSE 67–84; RESP 16–30
[2016-07-18] MEDS: METHYLPREDNISOLONE 125 MG INJ IV SCH ×4 (01:31→23:32)
[2016-07-18] MEDS: ALBUTEROL/IPRATROPIUM (NEB) 3 ML AMP NEB SCH ×6 (01:36→21:07)
[2016-07-18] MEDS: ACCU-CHEK XX SCH (02:08)
[2016-07-18] MEDS: PANTOPRAZOLE (EC) 40 MG TAB PO SCH (05:20)
[2016-07-18 07:35] LABS: ADD SCAN DIFF NO
[2016-07-18 07:40] LABS: ABNORMAL IP MESSAGE 1; HEMATOCRIT 31.7 % (37.0-47.0); HEMOGLOBIN 9.3 g/dl (12.0-16.0); MEAN CORPUSCULAR HEMOGLOBIN 25.8 pg (29.0-33.0); MEAN CORPUSCULAR HGB CONC 29.3 g/dl (32.0-37.0); MEAN CORPUSCULAR VOLUME 88.1 fl (82.0-101.0); MEAN PLATELET VOLUME 9.9 fl (7.4-10.4); PLATELET COUNT 343 10^3/UL (140-415); RED CELL DISTRIBUTION WIDTH 17.7 % (11.5-14.5)
[2016-07-18] MEDS: INSULIN ASPART [NOVOLOG] 3 ML PEN SC SCH ×5 (08:15→21:06)
[2016-07-18] MEDS: LINAGLIPTIN 5 MG TABLET PO SCH (08:18)
[2016-07-18] MEDS: ASPIRIN 81 MG TAB PO SCH (08:18)
[2016-07-18] MEDS: FERROUS SULFATE (EC) 325 MG TAB PO SCH (08:18)
[2016-07-18] MEDS: METOPROLOL 25 MG TAB PO SCH ×2 (08:18→20:58)
[2016-07-18] MEDS: ENOXAPARIN 40 MG/0.4 ML SYG SC SCH (08:24)
[2016-07-18 08:48] LABS: ALBUMIN 2.8 g/dl (3.3-4.9); ALBUMIN/GLOBULIN RATIO 0.77; CALCIUM 8.7 mg/dl (8.4-10.2); CREATININE 0.84 mg/dl (0.44-1.00); POTASSIUM 4.5 mmol/L (3.5-5.1); TOTAL PROTEIN 6.4 g/dl (6.1-8.1)
[2016-07-18] MEDS ORDERED: VANCOMYCIN 1 GM in NS 250 ML IVPB SCH (09:00)
[2016-07-18] MEDS ORDERED: ASCORBIC ACID 500 MG TAB PO SCH (09:00)
[2016-07-18 09:16] LABS: THYROID STIMULATING HORMONE 0.553 MIU/L (0.465-4.680)
[2016-07-18] MEDS: GABAPENTIN 300 MG CAP PO SCH ×3 (09:54→20:57)
[2016-07-18] MEDS: CEFEPIME 1GM/50 ML (PMX) 50 ML IV SCH ×2 (09:54→20:58)
[2016-07-18 10:21] LABS: LYMPHOCYTES # 0.9 10^3/ul (0.8-2.9); NEUTROPHIL # 4.8 10^3/ul (1.6-7.5)
[2016-07-18] MEDS: VANCOMYCIN 500MG/NS (PMX) 100 ML IVPB SCH ×2 (10:59→23:32)
--- NOTE | 2016-07-18 11:24 | CONS ---
Date/Time of Note Date/Time of Note DATE: 07/18/16 TIME: 11:21 Assessment/Plan Assessment/Plan Additional Assessment/Plan Assessment recommendations; 1. Patient admitted with bronchopneumonia as well as flareup of underlying deformity fibrosis with clinical improvement. 2. Underlying severe rheumatoid arthritis. 3. Diabetes. Patient getting hyperglycemic on account of high-dose systemic steroid treatment. 4. Significantly improved mental status. Next Continue current treatment. Increase Lantus insulin dosing to 35 units daily from 20 units daily for better glycemic control. Steroid dosing to be tapered starting tomorrow. Consultation Date/Type/Reason Admit Date/Time July 17, 2016 at 09:51 Initial Consult Date 07/17/16 Type of Consultation: Pulmonary 24 HR Interval Summary Free Text/Dictation Patient's condition is stable, patient is completely awake and alert. However an ABG was done a short while ago which is showing mild hypercapnia, patient has been put on BiPAP with significant improvement in symptoms. Next General exam; elderly lady, awake alert currently in no distress. Exam/Review of Systems Vital Signs Vitals Vital Signs Date Time Temp Pulse Resp B/P Pulse Ox O2 Delivery O2 Flow Rate FiO2 07/18/16 08:43 100 50 07/18/16 08:14 72 07/18/16 07:37 97.4 24 110/58 07/17/16 20:47 Nasal Cannula 6.0 Intake and Output 07/17/16 07/17/16 07/18/16 15:00 23:00 07:00 Intake Total 120 ml 400 ml Output Total 250 ml 400 ml Balance -130 ml 0 ml Exam HEENT examination; supple neck, no JVD. No lymphadenopathy. Midline trachea. No thyromegaly. Pupils are small bilaterally. Patient is edentulous. Chest examination; diffuse bilateral crackles. S1-S2 audible, no murmurs. Regular rhythm. Abdomen examination; soft, nontender. No organomegaly. Bowel sounds audible. Extremity exam; no peripheral edema. Patient does have changes consistent with severe underlying rheumatoid arthritis in hands. 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 Results Result Diagram: 07/18/16 0701 07/18/16 07 Results 24 hrs Laboratory Tests Test 07/17/16 11:45 07/17/16 13:20 07/17/16 13:44 07/17/16 14:50 Lactic Acid Level 1.5 1.3 Blood Gas Specimen Source Blood arterial Arterial Blood Date Drawn 07/17/2016 2:10:45 PM Arterial Blood pH (Temp corrected) 7.296 *L Arterial Blood pCO2 (Temp correct) 50.3 H Arterial Blood pO2 (Temp corrected) 85.2 Arterial Blood HCO3 24.0 Arterial Blood Base Excess -2.7 Arterial Blood Oxygen Saturation 95.5 Melo Test ACCEPTAB Arterial Blood Gas Puncture Site Left Radial Arterial Blood Carboxyhemoglobin 0.3 Arterial Blood Methemoglobin 0.3 Blood Gas A-a O2 Differential 113.1 H Oxyhemoglobin Percent 94.9 Total Hemoglobin 9.9 L Blood Gas Temperature 37.0 Blood Gas Modality NASAL CANNULA FiO2 36.0 Blood Gas Critical Value Read Back B MIMI HEADLEY Blood Gas Notified Whom DOUGLAS Blood Gas Notified Time 07/17/2016 2:18:26 PM Urine Color LT. YELLOW Urine Clarity CLEAR Urine pH 6.0 Urine Specific [place] <=1.005 L Urine Ketones NEGATIVE Urine Nitrite NEGATIVE Urine Bilirubin NEGATIVE Urine Urobilinogen 0.2 E.U./dL Urine Leukocyte Esterase NEGATIVE Urine Microscopic RBC 0-2 Urine Microscopic WBC NONE SEEN Urine Squamous Epithelial Cells FEW Urine Amorphous Urates MODERATE Urine Hemoglobin 1+ H Urine Glucose NEGATIVE Urine Total Protein 1+ H Test 07/17/16 17:22 07/17/16 21:06 07/18/16 02:06 07/18/16 07:01 Bedside Glucose 169 257 H 290 H White Blood Count 7.0 # Red Blood Count 3.60 L Hemoglobin 9.3 L Hematocrit 31.7 L Mean Corpuscular Volume 88.1 Mean Corpuscular Hemoglobin 25.8 L Mean Corpuscular Hemoglobin Concent 29.3 L Red Cell Distribution Width 17.7 H Platelet Count 343 # Mean Platelet Volume 9.9 Neutrophils % 68.0 Band Neutrophils % 19.0 H Lymphocytes % 13.0 L Monocytes % Eosinophils % Neutrophils # 4.8 Lymphocytes # 0.9 Monocytes # Eosinophils # Sodium Level 139 Potassium Level 4.5 Chloride Level 110 # Carbon Dioxide Level 25 Anion Gap 9 Blood Urea Nitrogen 30 H Creatinine 0.84 Glucose Level 298 H Calcium Level 8.7 Total Bilirubin 0.0 L Direct Bilirubin 0.00 Indirect Bilirubin 0.0 Aspartate Amino Transf (AST/SGOT) 9 L Alanine Aminotransferase (ALT/SGPT) 20 Alkaline Phosphatase 96 Total Protein 6.4 Albumin 2.8 L Globulin 3.60 H Albumin/Globulin Ratio 0.77 Thyroid Stimulating Hormone (TSH) 0.553 Test 07/18/16 08:00 Bedside Glucose 295 H Medications Medications Current Medications Lorazepam (Ativan) 0.5 mg Q6H PRN IV ANXIETY; Start 07/17/16 at 13:30 Ondansetron HCl (Zofran Inj) 4 mg Q6H PRN IV NAUSEA AND/OR VOMITING; Start at 13:30 Methylprednisolone Sodium Succinate (Solu-Medrol) 60 mg Q6 IV Last administered on 07/18/16 05:20; Admin Dose 60 MG; Start 07/17/16 at 18:00 Nitroglycerin (Nitroglycerin (Sl Tab) 0.4 Mg) 1 tab Q5M PRN SL CHEST PAIN; Start 07/17/16 at 13:30 Acetaminophen/ Hydrocodone Bitart ([place] (5/325)) 1 tab Q6H PRN PO PAIN LEVEL 4 -6 Last administered on 07/17/16 23:14; Admin Dose 1 TAB; Start 07/17/16 at 13: 30 Morphine Sulfate (morphine) 2 mg Q4H PRN IV PAIN LEVEL 7-10; Start 07/17/16 at 13:30 Zolpidem Tartrate (Ambien) 5 mg QHS PRN PO INSOMNIA Last administered on 23:14; Admin Dose 5 MG; Start 07/17/16 at 13:30 Docusate Sodium (Colace) 100 mg Q12H PRN PO CONSTIPATION; Start 07/17/16 at 13: 30 Pantoprazole (Protonix Tab) 40 mg DAILY@06 PO Last administered on 07/18/16 05 :20; Admin Dose 40 MG; Start 07/18/16 at 06:00 Enoxaparin Sodium 40 mg 40 mg DAILY SC Last administered on 07/18/16 08:24; Admin Dose 40 MG; Start 07/18/16 at 09:00 Cefepime HCl (Maxipime 1gm/50 ml (Pmx)) 50 ml @ 100 mls/hr Q12 IV Last administered on 07/18/16 09:54; Admin Dose 100 MLS/HR; Start 07/17/16 at 21:00 Acetaminophen (Tylenol Tab) 650 mg Q6 PRN PO PAIN AND OR ELEVATED TEMP; Start 07/17/16 at 13:30 Ascorbic Acid (Vitamin C) 500 mg DAILY PO Last administered on 07/18/16 08:14 ; Admin Dose 500 MG; Start 07/18/16 at 09:00 Aspirin (Aspirin) 81 mg DAILY PO Last administered on 07/18/16 08:18; Admin Dose 81 MG; Start 07/18/16 at 09:00 Baclofen (Lioresal) 10 mg Q8 PRN PO MUSCLE SPASMS; Start 07/17/16 at 13:30 Ferrous Sulfate (Ferrous Sulfate (Ec)) 325 mg DAILY PO Last administered on 08:18; Admin Dose 325 MG; Start 07/18/16 at 09:00 Gabapentin (Neurontin) 300 mg TID PO Last administered on 07/18/16 09:54; Admin Dose 300 MG; Start 07/17/16 at 21:00 Insulin Glargine (Lantus) 20 unit QHS SC Last administered on 07/17/16 21:11; Admin Dose 20 UNIT; Start 07/17/16 at 21:00 Linagliptin (Tradjenta) 5 mg DAILY PO Last administered on 07/18/16 08:18; Admin Dose 5 MG; Start 07/18/16 at 09:00 Lorazepam (Ativan) 0.5 mg Q8 PRN PO ANXIETY; Start 07/17/16 at 13:30 Magnesium Hydroxide (Milk Of Mag) 30 ml Q12H PRN PO CONSTIPATION; Start at 13:30 Metoprolol Tartrate (Lopressor) 25 mg BID PO Last administered on 07/18/16 08: 18; Admin Dose 25 MG; Start 07/17/16 at 21:00 Diagnostic Test (Pha) (Accu-Chek) 1 ea 02 XX Last administered on 07/18/16 02: 08; Admin Dose 1 EA; Start 07/18/16 at 02:00 Miscellaneous Information 1 ea NOTE XX ; Start 07/17/16 at 14:30 Glucose (Glutose) 15 gm Q15M PRN PO DECREASED GLUCOSE; Start 07/17/16 at 14:30 Glucose (Glutose) 22.5 gm Q15M PRN PO DECREASED GLUCOSE; Start 07/17/16 at 14: 30 Dextrose (D50w Syringe) 25 ml Q15M PRN IV DECREASED GLUCOSE; Start 07/17/16 at 14:30 Dextrose (D50w Syringe) 50 ml Q15M PRN IV DECREASED GLUCOSE; Start 07/17/16 at 14:30 Glucagon (Glucagen) 1 mg Q15M PRN IM DECREASED GLUCOSE; Start 07/17/16 at 14:30 Glucose 15 gm 15 gm Q15M PRN BUCCAL DECREASED GLUCOSE; Start 07/17/16 at 14:30 Vancomycin HCl (Vancocin) 100 ml @ 100 mls/hr Q12H IVPB Last administered on t 10:59; Admin Dose 100 MLS/HR; Start 07/17/16 at 22:00 GARRET SOARES July 18, 2016 11:24
[2016-07-18 11:26] LABS: AADO2 Arterial 185.8 mmHg (7.0-24.0); Allen Test ACCEPTAB; Arterial Base Excess -1.1 mmol/L (-3.0-3); Arterial COHb 0.9 % (0.0-3.0); Arterial Fraction of Oxyhgb 98.3 % (93.0-99.0); Arterial HCO3 25.5 mmol/L (22.0-26.0); Arterial MetHb 0.2 % (0.0-1.5); Arterial Total Hemglobin 6.4 g/dl (12.0-18.0); MODE MASK - BIPAP
[2016-07-18] MEDS ORDERED: METHYLPREDNISOLONE 125 MG INJ IV SCH (14:00)
--- NOTE | 2016-07-18 14:09 | PN ---
DATE: 07/18/2016 SUBJECTIVE: Patient seen. Unfortunately, had to be placed on BiPAP. ABG was done this morning deidre ws a pH of 7.29, pCO2 of 54, pO2 of 183, bicarbonate of 26, saturation 99%. This was on BiPAP mask 10/5 at 60% FIO2. Also, patient's appetite is marginal. The patient's glucose levels became high a s patient has been placed on IV Solu-Medrol. Dr. Hernandez adjusted the patient's Levemir. PHYSICAL EXAMINATION: VITAL SIGNS: Patient is afebrile. Temperature is 97.5, pulse 67, respirations up to 30, blood pres sure 107/59, saturation 99% on 50% FIO2. GENERAL: The patient is in no acute distress. HEENT: BiPAP is in place. The patient is pale. CARDIOVASCULAR: S1 and S2. LUNGS: Faint rhonchi bilaterally. ABDOMEN: Soft, nontender. EXTREMITIES: No clubbing, cyanosis, or edema. Patient responding to my questions adequately. LABORATORY DATA: White count is now normal at 7, hemoglobin 9.3, hematocrit 32 and platelet count 3 43, neutrophils 68%, lymphocytes 13%, but bands remain high at 19%. Sodium 129, potassium 4.5, chlo ride 110, bicarbonate 25, BUN is 30, creatinine 0.84, glucose of 298. Last glucose levels are high at 229 and 295. LFTs are normal. Sputum culture shows gram-negative rods and normal respiratory fl ora. Urine culture negative. Blood cultures negative. MEDICATIONS: 1. Lantus 35 units daily. 2. Lovenox 40 mg subcutaneous daily. 3. Vitamin C 500 mg daily. 4. Aspirin 81 mg daily. 5. Ferrous sulfate 325 daily. 6. Tradjenta 5 mg daily. 7. Protonix 40 mg daily. 8. Accu-Chek q.a.c. and at bedtime. 9. Vancomycin IV dose per pharmacy. 10. Cefepime 1 gram q.12h. 11. Neurontin 300 t.i.d. 12. Lopressor 25 b.i.d. 13. Insulin aspart per sliding scale. 14. Solu-Medrol 60 mg IV q.6h. 15 DuoNeb as directed q.4h. 16. Hypoglycemia protocol. 17. Ativan p.r.n. 18. Zofran p.r.n. 19. Nitroglycerin p.r.n. 20. [place] p.r.n. 21. Morphine p.r.n. 22. Ambien p.r.n. 23. Colace p.r.n. 24. Breathing treatments p.r.n. 25. All other p.r.n. medications were reviewed. ASSESSMENT AND PLAN: 1. This is a 75-year-old female with advanced pulmonary fibrosis, O2 dependent, history of rheumatoid arthritis, diabetes mellitus, chronic pain, overall very debilitated, nonambulatory, who presented with recurrent respiratory failure, was found to have pneumonia. 2. Acute respiratory failure, likely exacerbated by bronchopneumonia. Patient with leukocytosis, p ositive sputum culture. Continue above antibiotics. Continue breathing treatments, steroids, and B iPAP as needed per pulmonology. Unfortunately, the patient's pulmonary fibrosis was quite advanced, as she gets readmitted frequently as she is quite to immunocompromised. 3. Cardiovascular. The patient with tendency to congestive heart failure. She appears to be compe nsated . Observe, continue Lovenox for DVT prophylaxis. Blood pressure is controlled. 4. Diabetes mellitus exacerbated by steroids. Levemir was increased to 35, will put her on also No voLog 8 units prior to meals. 5. Constipation. Stool softeners are being provided. 6. The patient is on deep vein thrombosis prophylaxis and gastrointestinal prophylaxis. 7. Anemia. Currently no need for transfusion. No evidence of active bleeding. 8. Malnutrition. Add Glucerna. 9. Note to dietitian, recommendation regarding vitamins regarding her wound healing. Follow up rec ommendations. 10. Chronic pain, rheumatoid arthritis. Continue Neurontin. Pain control with [place] as needed. C ontinue baclofen as needed. 11. Long-term prognosis is guarded. The patient is FULL CODE. We will followup. Dictated By: FAISAL ALVAREZ/NGHIA Conf#: [id number] DID#: [id number]
[2016-07-18] MEDS: ZINC SULFATE 220 MG CAP PO SCH (15:20)
[2016-07-18] MEDS: HYDROCODONE/APAP (5/325) TAB PO PRN (18:50)
[2016-07-18] MEDS: ZOLPIDEM 5 MG TAB PO PRN (20:57)
[2016-07-18] MEDS: INSULIN GLARGINE [LANtus] 3 ML PEN SC SCH (21:06)
[2016-07-19] VITALS (12 sets, daily range): BP systolic 122–134; BP diastolic 53–63; PULSE 76–94; RESP 16–20
[2016-07-19] MEDS: ALBUTEROL/IPRATROPIUM (NEB) 3 ML AMP NEB SCH ×6 (01:14→21:07)
[2016-07-19] MEDS: ACCU-CHEK XX SCH (02:00)
[2016-07-19] MEDS: PANTOPRAZOLE (EC) 40 MG TAB PO SCH (05:55)
[2016-07-19] MEDS: METHYLPREDNISOLONE 125 MG INJ IV SCH (05:55)
[2016-07-19 07:18] LABS: ADD SCAN DIFF NO
[2016-07-19 07:38] LABS: BASOPHILS % 0.1 % (0.0-2.0); HEMATOCRIT 31.6 % (37.0-47.0); HEMOGLOBIN 9.2 g/dl (12.0-16.0); LYMPHOCYTES # 0.9 10^3/ul (0.8-2.9); LYMPHOCYTES % 7.5 % (15.0-51.0); MEAN CORPUSCULAR HEMOGLOBIN 25.4 pg (29.0-33.0); MEAN CORPUSCULAR HGB CONC 29.1 g/dl (32.0-37.0); MEAN CORPUSCULAR VOLUME 87.3 fl (82.0-101.0); MEAN PLATELET VOLUME 10.2 fl (7.4-10.4); MONOCYTE # 0.2 10^3/ul (0.3-0.9); MONOCYTES % 1.6 % (0.0-11.0); NEUTROPHIL # 10.3 10^3/ul (1.6-7.5); NEUTROPHILS % 89.9 % (39.0-77.0); PLATELET COUNT 363 10^3/UL (140-415); RED BLOOD COUNT 3.62 10^6/ul (4.20-5.40); RED CELL DISTRIBUTION WIDTH 17.9 % (11.5-14.5); WHITE BLOOD COUNT 11.5 10^3/ul (4.8-10.8)
[2016-07-19 07:55] LABS: POTASSIUM 4.4 mmol/L (3.5-5.1)
[2016-07-19 07:56] LABS: MAGNESIUM 1.7 mg/dl (1.7-2.5)
[2016-07-19 07:58] LABS: CALCIUM 9.3 mg/dl (8.4-10.2); CREATININE 0.92 mg/dl (0.44-1.00)
[2016-07-19] MEDS: CEFEPIME 1GM/50 ML (PMX) 50 ML IV SCH ×2 (08:08→20:44)
[2016-07-19] MEDS: ZINC SULFATE 220 MG CAP PO SCH (08:12)
[2016-07-19] MEDS: FERROUS SULFATE (EC) 325 MG TAB PO SCH (08:12)
[2016-07-19] MEDS: ASCORBIC ACID 500 MG TAB PO SCH (08:12)
[2016-07-19] MEDS: GABAPENTIN 300 MG CAP PO SCH ×3 (08:12→20:45)
[2016-07-19] MEDS: ASPIRIN 81 MG TAB PO SCH (08:12)
[2016-07-19] MEDS: LINAGLIPTIN 5 MG TABLET PO SCH (08:13)
[2016-07-19] MEDS: METOPROLOL 25 MG TAB PO SCH ×2 (08:13→20:46)
[2016-07-19] MEDS: ENOXAPARIN 40 MG/0.4 ML SYG SC SCH (08:16)
[2016-07-19] MEDS: INSULIN ASPART [NOVOLOG] 3 ML PEN SC SCH ×7 (08:39→20:56)
[2016-07-19] MEDS: VANCOMYCIN 500MG/NS (PMX) 100 ML IVPB SCH (10:39)
--- NOTE | 2016-07-19 10:52 | CONS ---
Date/Time of Note Date/Time of Note DATE: 07/19/16 TIME: 10:48 Assessment/Plan Assessment/Plan Additional Assessment/Plan Assessment recommendations; 1. Patient admitted for exacerbation of deformity fibrosis with possibly superimposed bronchopneumonia, clinically improved. 2. Underlying severe rheumatoid arthritis causing pulmonary fibrosis. 3. Diabetes. Mild hyperglycemia secondary to high-dose steroid dosing. Continue current treatment. Decrease Solu-Medrol dosing. Consultation Date/Type/Reason Admit Date/Time July 17, 2016 at 09:51 Initial Consult Date 07/17/16 Type of Consultation: Pulmonary 24 HR Interval Summary Free Text/Dictation Patient condition is stable. Has been weaning off BiPAP. Patient is improving. Is reporting decreased shortness of breath and chest congestion. General exam; elderly lady, awake alert currently in no distress. Exam/Review of Systems Vital Signs Vitals Vital Signs Date Time Temp Pulse Resp B/P Pulse Ox O2 Delivery O2 Flow Rate FiO2 07/19/16 09:15 80 32 96 Nasal Cannula 4.0 07/19/16 07:30 98.3 124/53 07/18/16 17:57 35 Intake and Output 07/18/16 07/18/16 07/19/16 15:00 23:00 07:00 Intake Total 360 ml 400 ml Output Total 200 ml 350 ml Balance 160 ml 50 ml Exam HEENT exam is; supple neck, no JVD. No lymphadenopathy. Midline trachea. No thyromegaly. Chest examined; diffuse bilateral crackles. S1-S2 audible, no murmurs. Abdomen examination; soft, nondistended. No organomegaly. Bowel sounds audible. Extremity exam; no peripheral edema. She does have severe changes of rheumatoid arthritis. BUTTON TACKER examination; no focal deficit. Results Result Diagram: 07/19/16 0650 07/19/16 0650 Results 24 hrs Laboratory Tests Test 07/18/16 12:05 07/18/16 17:14 07/18/16 20:13 07/18/16 21:20 Bedside Glucose 229 H 178 259 H Vancomycin Level Trough 15.6 Test 07/19/16 04:05 07/19/16 06:50 07/19/16 08:22 Bedside Glucose 300 H 272 H White Blood Count 11.5 #H Red Blood Count 3.62 L Hemoglobin 9.2 L Hematocrit 31.6 L Mean Corpuscular Volume 87.3 Mean Corpuscular Hemoglobin 25.4 L Mean Corpuscular Hemoglobin Concent 29.1 L Red Cell Distribution Width 17.9 H Platelet Count 363 Mean Platelet Volume 10.2 Neutrophils % 89.9 H Lymphocytes % 7.5 L Monocytes % 1.6 Eosinophils % 0.0 Basophils % 0.1 Nucleated Red Blood Cells % 0.0 Neutrophils # 10.3 H Lymphocytes # 0.9 Monocytes # 0.2 L Eosinophils # 0.0 Basophils # 0.0 Nucleated Red Blood Cells # 0.0 Sodium Level 140 Potassium Level 4.4 Chloride Level 105 Carbon Dioxide Level 25 Anion Gap 14 Blood Urea Nitrogen 37 H Creatinine 0.92 Glucose Level 305 H Calcium Level 9.3 Phosphorus Level 4.0 Magnesium Level 1.7 Medications Medications Current Medications Lorazepam (Ativan) 0.5 mg Q6H PRN IV ANXIETY; Start 07/17/16 at 13:30 Ondansetron HCl (Zofran Inj) 4 mg Q6H PRN IV NAUSEA AND/OR VOMITING; Start at 13:30 Nitroglycerin (Nitroglycerin (Sl Tab) 0.4 Mg) 1 tab Q5M PRN SL CHEST PAIN; Start 07/17/16 at 13:30 Acetaminophen/ Hydrocodone Bitart ([place] (5/325)) 1 tab Q6H PRN PO PAIN LEVEL 4 -6 Last administered on 07/18/16 18:50; Admin Dose 1 TAB; Start 07/17/16 at 13: 30 Morphine Sulfate (morphine) 2 mg Q4H PRN IV PAIN LEVEL 7-10; Start 07/17/16 at 13:30 Zolpidem Tartrate (Ambien) 5 mg QHS PRN PO INSOMNIA Last administered on 20:57; Admin Dose 5 MG; Start 07/17/16 at 13:30 Docusate Sodium (Colace) 100 mg Q12H PRN PO CONSTIPATION; Start 07/17/16 at 13: 30 Pantoprazole (Protonix Tab) 40 mg DAILY@06 PO Last administered on 07/19/16 05 :55; Admin Dose 40 MG; Start 07/18/16 at 06:00 Enoxaparin Sodium 40 mg 40 mg DAILY SC Last administered on 07/19/16 08:16; Admin Dose 40 MG; Start 07/18/16 at 09:00 Cefepime HCl (Maxipime 1gm/50 ml (Pmx)) 50 ml @ 100 mls/hr Q12 IV Last administered on 07/19/16 08:08; Admin Dose 100 MLS/HR; Start 07/17/16 at 21:00 Acetaminophen (Tylenol Tab) 650 mg Q6 PRN PO PAIN AND OR ELEVATED TEMP; Start 07/17/16 at 13:30 Aspirin (Aspirin) 81 mg DAILY PO Last administered on 07/19/16 08:12; Admin Dose 81 MG; Start 07/18/16 at 09:00 Baclofen (Lioresal) 10 mg Q8 PRN PO MUSCLE SPASMS; Start 07/17/16 at 13:30 Ferrous Sulfate (Ferrous Sulfate (Ec)) 325 mg DAILY PO Last administered on 08:12; Admin Dose 325 MG; Start 07/18/16 at 09:00 Gabapentin (Neurontin) 300 mg TID PO Last administered on 07/19/16 08:12; Admin Dose 300 MG; Start 07/17/16 at 21:00 Linagliptin (Tradjenta) 5 mg DAILY PO Last administered on 07/19/16 08:13; Admin Dose 5 MG; Start 07/18/16 at 09:00 Lorazepam (Ativan) 0.5 mg Q8 PRN PO ANXIETY; Start 07/17/16 at 13:30 Magnesium Hydroxide (Milk Of Mag) 30 ml Q12H PRN PO CONSTIPATION; Start at 13:30 Metoprolol Tartrate (Lopressor) 25 mg BID PO Last administered on 07/19/16 08: 13; Admin Dose 25 MG; Start 07/17/16 at 21:00 Diagnostic Test (Pha) (Accu-Chek) 1 ea 02 XX Last administered on 07/19/16 02: 00; Admin Dose 1 EA; Start 07/18/16 at 02:00 Miscellaneous Information 1 ea NOTE XX ; Start 07/17/16 at 14:30 Glucose (Glutose) 15 gm Q15M PRN PO DECREASED GLUCOSE; Start 07/17/16 at 14:30 Glucose (Glutose) 22.5 gm Q15M PRN PO DECREASED GLUCOSE; Start 07/17/16 at 14: 30 Dextrose (D50w Syringe) 25 ml Q15M PRN IV DECREASED GLUCOSE; Start 07/17/16 at 14:30 Dextrose (D50w Syringe) 50 ml Q15M PRN IV DECREASED GLUCOSE; Start 07/17/16 at 14:30 Glucagon (Glucagen) 1 mg Q15M PRN IM DECREASED GLUCOSE; Start 07/17/16 at 14:30 Glucose 15 gm 15 gm Q15M PRN BUCCAL DECREASED GLUCOSE; Start 07/17/16 at 14:30 Vancomycin HCl (Vancocin) 100 ml @ 100 mls/hr Q12H IVPB Last administered on 10:39; Admin Dose 100 MLS/HR; Start 07/17/16 at 22:00 Insulin Glargine (Lantus) 35 unit DAILY@20 SC Last administered on 07/18/16 21 :06; Admin Dose 35 UNIT; Start 07/18/16 at 20:00 Ascorbic Acid (Vitamin C) 500 mg DAILY PO Last administered on 07/19/16 08:12 ; Admin Dose 500 MG; Start 07/19/16 at 09:00 Zinc Sulfate (Zinc Sulfate) 220 mg DAILY PO Last administered on 07/19/16 08: 12; Admin Dose 220 MG; Start 07/18/16 at 14:00 Methylprednisolone Sodium Succinate (Solu-Medrol) 60 mg Q8 IV Last administered on 07/19/16 05:55; Admin Dose 60 MG; Start 07/18/16 at 22:00 GARRET SOARES July 19, 2016 10:52
[2016-07-19] MEDS: METHYLPREDNISOLONE 40 MG INJ IV SCH ×2 (12:32→20:45)
[2016-07-19] MEDS: HYDROCODONE/APAP (5/325) TAB PO PRN ×2 (14:34→20:44)
--- NOTE | 2016-07-19 15:29 | PN ---
DATE: 07/19/2016 SUBJECTIVE: The patient is seen, feeling better, on nasal cannula. Noted pulmonary recommendations as we are tapering down the steroids. In addition, sputum culture showed Pseudomonas aeruginosa re sistant to quinolones. The patient was on oral quinolones at the longterm. Again, the patient is responding well to the above treatment plan. OBJECTIVE: VITAL SIGNS: Temperature 98.3, pulse 71, respirations 28, blood pressure 130/60, saturation 95% on 4 liters nasal cannula. GENERAL: The patient is in no acute distress. Pale. HEENT: Decreased dentition. CARDIOVASCULAR: S1, S2. LUNGS: Diffuse rhonchi bilaterally. ABDOMEN: Soft, nontender. EXTREMITIES: No clubbing, cyanosis, or edema. LABORATORY DATA: White count is 11.5, hemoglobin 9.2, hematocrit 32, platelet count 263, neutrophil s 90%, lymphocytes 8%, no bands today. Chemistry: Sodium 140, potassium 4.4, chloride 105, bicarbo js 25, BUN is 37, creatinine 0.92, glucose elevated at 305. Blood glucose levels 244, 272. Again , sputum culture shows Pseudomonas aeruginosa resistant to Cipro and Levaquin and sensitive to cefep michelle, gentamicin, imipenem, tobramycin, and Zosyn. MEDICATIONS: Include 1. Solu-Medrol 40 IV q. 12. 2. Vitamin C 500 mg daily. 3. Lantus 35 units daily. 4. Insulin aspart 8 units q. a.c. meals. 5. Zinc sulfate 220 daily. 6. Lovenox 40 mg subcutaneously daily. 7. Aspirin 81 mg daily. 8. Ferrous sulfate 325 daily. 9. Tradjenta 5 mg daily. 10. Protonix 40 mg daily. 11. Accu-Chek q. a.c. and at bedtime. 12. Vancomycin dose per pharmacy. 13. Cefepime 1 gram q. 12. 14. Neurontin 300 t.i.d. 15. Lopressor 25 b.i.d. 16. NovoLog per sliding scale. 17. Ativan. 18. Zofran p.r.n. 19. Nitroglycerin p.r.n. 20. [place] p.r.n. 21. Morphine p.r.n. 22. Ambien. 23. Colace p.r.n. 24. Baclofen. 25. Milk of magnesia p.r.n. ASSESSMENT AND PLAN: This is a very unfortunate 75-year-old female with advanced pulmonary fibrosis, O2 dependent, history of rheumatoid arthritis, diabetes mellitus, chronic pain, overall v davie debilitated, nonambulatory who presented with recurrent respiratory failure, likely secondary to Pseudomonas aeruginosa, pneumonia. 1. Acute respiratory failure exacerbated by pneumonia, Pseudomonas aeruginosa. The patient is on a ppropriate antibiotic therapy. Taper down steroids. Continue breathing treatment and O2 support. Disposition soon back to the [facility] facility. 2. Cardiovascular. Tendency to congestive heart failure. Appears to be compensated. Continue Nicole enox for DVT prophylaxis. Titrate blood pressure medications as needed. 3. Diabetes mellitus. Continue to titrate down steroids as the glucose levels will improve. Remai ns on Levemir and NovoLog. 4. Constipation or stool softeners. 5. Continue deep vein thrombosis prophylaxis and gastrointestinal prophylaxis. 6. Anemia. No need for transfusion. No evidence of active bleeding. 7. Malnutrition. Continue Glucerna. Overall, the patient's appetite appears to be good. 8. Rheumatoid arthritis. Continue Neurontin. Continue Baclofen. Outpatient followup with rheumat ology. 9. Long-term prognosis is guarded. The patient has advanced pulmonary fibrosis. The patient is FU LL CODE. Continue supportive care. Overall, the patient is improving. We will follow. Dictated By: FAISAL ALVAREZ/NGHIA Conf#: [id number] DID#: [id number]
[2016-07-19] MEDS: INSULIN GLARGINE [LANtus] 3 ML PEN SC SCH (20:57)
[2016-07-20] VITALS (15 sets, daily range): BP systolic 130–176; BP diastolic 59–87; PULSE 65–123; RESP 17–20
[2016-07-20] MEDS: ALBUTEROL/IPRATROPIUM (NEB) 3 ML AMP NEB SCH ×6 (01:03→20:05)
[2016-07-20] MEDS: ACCU-CHEK XX SCH (02:00)
[2016-07-20] MEDS: PANTOPRAZOLE (EC) 40 MG TAB PO SCH (05:29)
[2016-07-20] MEDS: morphine 2 MG INJ IV PRN (08:32)
[2016-07-20] MEDS: INSULIN ASPART [NOVOLOG] 3 ML PEN SC SCH ×8 (08:33→22:48)
[2016-07-20 08:50] LABS: ADD SCAN DIFF NO
[2016-07-20 09:11] LABS: BASOPHILS % 0.2 % (0.0-2.0); HEMOGLOBIN 9.6 g/dl (12.0-16.0); LYMPHOCYTES # 0.8 10^3/ul (0.8-2.9); LYMPHOCYTES % 7.4 % (15.0-51.0); MEAN CORPUSCULAR HEMOGLOBIN 25.5 pg (29.0-33.0); MEAN CORPUSCULAR HGB CONC 29.1 g/dl (32.0-37.0); MEAN CORPUSCULAR VOLUME 87.5 fl (82.0-101.0); MONOCYTE # 0.3 10^3/ul (0.3-0.9); MONOCYTES % 2.5 % (0.0-11.0); NEUTROPHIL # 9.7 10^3/ul (1.6-7.5); PLATELET COUNT 371 10^3/UL (140-415); RED BLOOD COUNT 3.77 10^6/ul (4.20-5.40); RED CELL DISTRIBUTION WIDTH 17.6 % (11.5-14.5); WHITE BLOOD COUNT 11.3 10^3/ul (4.8-10.8)
[2016-07-20 09:36] LABS: MAGNESIUM 1.8 mg/dl (1.7-2.5); PHOSPHORUS 3.8 mg/dl (2.5-4.9)
[2016-07-20 09:43] LABS: CALCIUM 9.6 mg/dl (8.4-10.2); CREATININE 0.96 mg/dl (0.44-1.00); POTASSIUM 4.8 mmol/L (3.5-5.1)
[2016-07-20] MEDS: CEFEPIME 1GM/50 ML (PMX) 50 ML IV SCH ×2 (09:49→22:43)
[2016-07-20] MEDS: LINAGLIPTIN 5 MG TABLET PO SCH (09:49)
[2016-07-20] MEDS: GABAPENTIN 300 MG CAP PO SCH ×3 (09:49→22:44)
[2016-07-20] MEDS: METHYLPREDNISOLONE 40 MG INJ IV SCH ×2 (09:49→22:43)
[2016-07-20] MEDS: ZINC SULFATE 220 MG CAP PO SCH (09:49)
[2016-07-20] MEDS: ASPIRIN 81 MG TAB PO SCH (09:49)
[2016-07-20] MEDS: FERROUS SULFATE (EC) 325 MG TAB PO SCH (09:49)
[2016-07-20] MEDS: METOPROLOL 25 MG TAB PO SCH ×2 (09:50→22:44)
[2016-07-20] MEDS: ASCORBIC ACID 500 MG TAB PO SCH (09:50)
[2016-07-20] MEDS: ENOXAPARIN 40 MG/0.4 ML SYG SC SCH (09:51)
[2016-07-20] MEDS: HYDROCODONE/APAP (5/325) TAB PO PRN ×2 (10:00→22:45)
[2016-07-20] MEDS: LORAZEPAM 2 MG INJ IV PRN (11:26)
--- NOTE | 2016-07-20 12:36 | CONS ---
Date/Time of Note Date/Time of Note DATE: 07/20/16 TIME: 12:34 Assessment/Plan Assessment/Plan Additional Assessment/Plan Assessment recommendations; 1. P patient admitted for bronchopneumonia and pulmonary fibrosis exacerbation with significant clinical improvement. 2. Advanced rheumatoid arthritis. 3. Diabetes. Continue current treatment. Consultation Date/Type/Reason Admit Date/Time July 17, 2016 at 09:51 Initial Consult Date 07/17/16 Type of Consultation: Pulmonary 24 HR Interval Summary Free Text/Dictation Patient condition has improved significantly. Patient reporting much reduced shortness of breath as well as significant improvement in chest congestion. Has remained hemodynamically stable. General exam; elderly lady, awake alert currently in no distress. Exam/Review of Systems Vital Signs Vitals Vital Signs Date Time Temp Pulse Resp B/P Pulse Ox O2 Delivery O2 Flow Rate FiO2 07/20/16 12:29 68 07/20/16 11:24 98.1 18 171/87 92 07/20/16 08:14 Nasal Cannula 4.0 07/18/16 17:57 35 Intake and Output 07/19/16 07/19/16 07/20/16 15:00 23:00 07:00 Intake Total 150 ml 350 ml 600 ml Output Total 300 ml Balance 150 ml 50 ml 600 ml Exam HEENT exam is; supple neck, no JVD. No lymphadenopathy. Midline trachea. No thyromegaly. Pupils are small bilaterally. Patient has few remaining teeth which all appear carious. Neck Chest exam; decreased crackles bilaterally. S1-S2 audible, no murmurs. Regular rhythm. Abdomen examination; soft, nondistended. No organomegaly. Bowel sounds audible. Extremity examination; no peripheral edema. Patient has changes consistent with rheumatoid arthritis. 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 Results Result Diagram: 07/20/1671907/20/16 0720 Results 24 hrs Laboratory Tests Test 07/19/16 17:25 07/19/16 20:49 07/20/16 05:31 07/20/16 07:20 Bedside Glucose 221 H 298 H 212 White Blood Count 11.3 H Red Blood Count 3.77 L Hemoglobin 9.6 L Hematocrit 33.0 L Mean Corpuscular Volume 87.5 Mean Corpuscular Hemoglobin 25.5 L Mean Corpuscular Hemoglobin Concent 29.1 L Red Cell Distribution Width 17.6 H Platelet Count 371 Mean Platelet Volume 10.0 Neutrophils % 86.0 H Lymphocytes % 7.4 L Monocytes % 2.5 Eosinophils % 0.0 Basophils % 0.2 Nucleated Red Blood Cells % 0.0 Neutrophils # 9.7 H Lymphocytes # 0.8 Monocytes # 0.3 Eosinophils # 0.0 Basophils # 0.0 Nucleated Red Blood Cells # 0.0 Sodium Level 138 Potassium Level 4.8 Chloride Level 106 Carbon Dioxide Level 26 Anion Gap 11 Blood Urea Nitrogen 34 H Creatinine 0.96 Glucose Level 230 H Calcium Level 9.6 Phosphorus Level 3.8 Magnesium Level 1.8 Test 07/20/16 08:17 07/20/16 12:08 Bedside Glucose 219 151 Medications Medications Current Medications Lorazepam (Ativan) 0.5 mg Q6H PRN IV ANXIETY Last administered on 07/20/16 11: 26; Admin Dose 0.5 MG; Start 07/17/16 at 13:30 Ondansetron HCl (Zofran Inj) 4 mg Q6H PRN IV NAUSEA AND/OR VOMITING; Start at 13:30 Nitroglycerin (Nitroglycerin (Sl Tab) 0.4 Mg) 1 tab Q5M PRN SL CHEST PAIN; Start 07/17/16 at 13:30 Acetaminophen/ Hydrocodone Bitart ([place] (5/325)) 1 tab Q6H PRN PO PAIN LEVEL 4 -6 Last administered on 07/20/16 10:00; Admin Dose 1 TAB; Start 07/17/16 at 13: 30 Morphine Sulfate (morphine) 2 mg Q4H PRN IV PAIN LEVEL 7-10 Last administered on 07/20/16 08:32; Admin Dose 2 MG; Start 07/17/16 at 13:30 Zolpidem Tartrate (Ambien) 5 mg QHS PRN PO INSOMNIA Last administered on 20:57; Admin Dose 5 MG; Start 07/17/16 at 13:30 Docusate Sodium (Colace) 100 mg Q12H PRN PO CONSTIPATION; Start 07/17/16 at 13: 30 Pantoprazole (Protonix Tab) 40 mg DAILY@06 PO Last administered on 07/20/16 05 :29; Admin Dose 40 MG; Start 07/18/16 at 06:00 Enoxaparin Sodium 40 mg 40 mg DAILY SC Last administered on 07/20/16 09:51; Admin Dose 40 MG; Start 07/18/16 at 09:00 Cefepime HCl (Maxipime 1gm/50 ml (Pmx)) 50 ml @ 100 mls/hr Q12 IV Last administered on 07/20/16 09:49; Admin Dose 100 MLS/HR; Start 07/17/16 at 21:00 Acetaminophen (Tylenol Tab) 650 mg Q6 PRN PO PAIN AND OR ELEVATED TEMP; Start 07/17/16 at 13:30 Aspirin (Aspirin) 81 mg DAILY PO Last administered on 07/20/16 09:49; Admin Dose 81 MG; Start 07/18/16 at 09:00 Baclofen (Lioresal) 10 mg Q8 PRN PO MUSCLE SPASMS; Start 07/17/16 at 13:30 Ferrous Sulfate (Ferrous Sulfate (Ec)) 325 mg DAILY PO Last administered on 09:49; Admin Dose 325 MG; Start 07/18/16 at 09:00 Gabapentin (Neurontin) 300 mg TID PO Last administered on 07/20/16 09:49; Admin Dose 300 MG; Start 07/17/16 at 21:00 Linagliptin (Tradjenta) 5 mg DAILY PO Last administered on 07/20/16 09:49; Admin Dose 5 MG; Start 07/18/16 at 09:00 Lorazepam (Ativan) 0.5 mg Q8 PRN PO ANXIETY; Start 07/17/16 at 13:30 Magnesium Hydroxide (Milk Of Mag) 30 ml Q12H PRN PO CONSTIPATION; Start at 13:30 Metoprolol Tartrate (Lopressor) 25 mg BID PO Last administered on 07/20/16 09: 50; Admin Dose 25 MG; Start 07/17/16 at 21:00 Diagnostic Test (Pha) (Accu-Chek) 1 ea 02 XX Last administered on 07/20/16 02: 00; Admin Dose 1 EA; Start 07/18/16 at 02:00 Miscellaneous Information 1 ea NOTE XX ; Start 07/17/16 at 14:30 Glucose (Glutose) 15 gm Q15M PRN PO DECREASED GLUCOSE; Start 07/17/16 at 14:30 Glucose (Glutose) 22.5 gm Q15M PRN PO DECREASED GLUCOSE; Start 07/17/16 at 14: 30 Dextrose (D50w Syringe) 25 ml Q15M PRN IV DECREASED GLUCOSE; Start 07/17/16 at 14:30 Dextrose (D50w Syringe) 50 ml Q15M PRN IV DECREASED GLUCOSE; Start 07/17/16 at 14:30 Glucagon (Glucagen) 1 mg Q15M PRN IM DECREASED GLUCOSE; Start 07/17/16 at 14:30 Glucose (Glutose) 15 gm Q15M PRN BUCCAL DECREASED GLUCOSE; Start 07/17/16 at 14 :30 Insulin Glargine (Lantus) 35 unit DAILY@20 SC Last administered on 07/19/16 20 :57; Admin Dose 35 UNIT; Start 07/18/16 at 20:00 Ascorbic Acid (Vitamin C) 500 mg DAILY PO Last administered on 07/20/16 09:50 ; Admin Dose 500 MG; Start 07/19/16 at 09:00 Zinc Sulfate (Zinc Sulfate) 220 mg DAILY PO Last administered on 07/20/16 09: 49; Admin Dose 220 MG; Start 07/18/16 at 14:00 Methylprednisolone Sodium Succinate (Solu-Medrol) 40 mg Q12 IV Last administered on 07/20/16 09:49; Admin Dose 40 MG; Start 07/19/16 at 12:00 GARRET SOARES July 20, 2016 12:35
[2016-07-20] MEDS ORDERED: AMLODIPINE 5 MG TAB PO SCH (13:00)
--- NOTE | 2016-07-20 13:28 | PN ---
DATE: 07/20/2016 SUBJECTIVE: I received a message from the speech therapist that patient refused to eat puree, so winter burgess stated we might as well advance the diet to soft mechanical, that was her prior diet. Video rheaall ow can be done either on Friday or outpatient. Noted sputum culture result which did show Pseudomon as aeruginosa, but now it also shows Staphylococcus aureus. We are still awaiting sensitivities for that. The patient overall clinically is doing better. PHYSICAL EXAMINATION: VITAL SIGNS: Temperature 98.1, pulse 68, respirations 18, blood pressure /87, saturation 92% t o 98% on 4 liters nasal cannula. GENERAL: The patient is in no acute distress. The patient is pale. HEENT: Decreased dentition. CARDIOVASCULAR: S1 and S2. LUNGS: Diffuse rhonchi bilaterally, mild to moderate. ABDOMEN: Soft. EXTREMITIES: There is no clubbing, cyanosis, or edema. She is contracted at the hands. LABORATORY DATA: White count is 11.3, hemoglobin 9.6, hematocrit 33, platelet count 371, neutrophil s 86%, lymphocytes 7%. Chemistry: Sodium 138, potassium 4.8, chloride 106, bicarbonate 26, BUN 34, creatinine 0.96, glucose of 230. Last glucose level is 151. Again, sputum culture shows Pseudomon as aeruginosa sensitive to cefepime, which she is currently on. Also she has Staphylococcus aureus, but MRSA of the nares was negative, so I did stop the patient's vancomycin, we will see if we have to restart it if the sputum shows MRSA. MEDICATIONS: Include 1. Solu-Medrol 40 IV q.12h. 2. Vitamin C 500 mg daily. 3. Lantus 35 units daily. 4. Insulin aspart 8 units before meals. 5. Zinc sulfate 220 daily. 6. Lovenox 40 mg daily. 7. Aspirin 81 mg daily. 8. Ferrous sulfate 325 daily. 9. Tradjenta 5 mg daily. 10. Protonix 40 mg daily. 11. Accu-Chek before meals and at bedtime. 12. Cefepime 1 gram q.12h. 13. Neurontin 300 t.i.d. 14. Lopressor 25 b.i.d. 15. Insulin aspart per sliding scale. 16. Albuterol or DuoNeb q.4h. 17. Hypoglycemia protocol. 18. P.r.n. medications all reviewed. ASSESSMENT AND PLAN: This is a 75-year-old female with advanced pulmonary fibrosis, O2 dep endent, rheumatoid arthritis, diabetes mellitus, chronic pain, debilitated, not ambulatory, presente d with recurrent respiratory failure, was found to have Pseudomonas aeruginosa pneumonia. 1. Respiratory. Continue above antibiotics. Continue tapering down steroids. Continue breathing treatment and O2 support. Continue aspiration precautions. 2. Cardiovascular. Currently appears to be compensated, observe. Continue deep venous thrombosis prophylaxis. Titrate blood pressure medications up. 3. Diabetes mellitus. Taper down steroids. Continue current regimen glucose levels are better. 4. Constipation, on stool softeners. 5. Continue deep vein thrombosis prophylaxis and gastrointestinal prophylaxis. 6. Anemia. Currently no need for transfusion. Observe. No evidence of active bleeding. 7. Malnutrition. Diet to continue now with soft mechanical as noted by speech therapy recommendati ons. 8. Rheumatoid arthritis. Continue Baclofen, Neurontin and outpatient rheumatology followup. 9. Long-term prognosis is guarded as the patient has advanced pulmonary fibrosis. The patient is a FULL CODE. Observe. DISPOSITION: Back to detention facility soon. Dictated By: FAISAL ALVAREZ/NGHIA Conf#: [id number] DID#: [id number]
[2016-07-20] MEDS ORDERED: FUROSEMIDE 40 MG INJ IV ONE (17:30)
[2016-07-20] MEDS: FLUCONAZOLE 100 MG TAB PO SCH (17:36)
[2016-07-20] MEDS: ZOLPIDEM 5 MG TAB PO PRN (22:45)
[2016-07-20] MEDS: INSULIN GLARGINE [LANtus] 3 ML PEN SC SCH (22:47)
[2016-07-21] VITALS (13 sets, daily range): BP systolic 137–189; BP diastolic 64–81; PULSE 76–94; RESP 17–20
[2016-07-21] MEDS: ALBUTEROL/IPRATROPIUM (NEB) 3 ML AMP NEB SCH ×6 (00:47→20:38)
[2016-07-21] MEDS: ACCU-CHEK XX SCH (02:00)
[2016-07-21] MEDS: PANTOPRAZOLE (EC) 40 MG TAB PO SCH (06:00)
[2016-07-21] MEDS: INSULIN ASPART [NOVOLOG] 3 ML PEN SC SCH ×6 (08:14→21:03)
[2016-07-21] MEDS ORDERED: BISACODYL (EC) 5 MG TAB PO ONE (08:30)
[2016-07-21] MEDS ORDERED: LACTULOSE 30ML CUP PO PRN (08:30)
[2016-07-21 08:34] LABS: ADD SCAN DIFF NO
[2016-07-21 08:49] LABS: ABNORMAL IP MESSAGE 1; HEMATOCRIT 33.3 % (37.0-47.0); HEMOGLOBIN 9.9 g/dl (12.0-16.0); MEAN CORPUSCULAR HEMOGLOBIN 25.7 pg (29.0-33.0); MEAN CORPUSCULAR HGB CONC 29.7 g/dl (32.0-37.0); MEAN CORPUSCULAR VOLUME 86.5 fl (82.0-101.0); MEAN PLATELET VOLUME 10.3 fl (7.4-10.4); PLATELET COUNT 369 10^3/UL (140-415); RED BLOOD COUNT 3.85 10^6/ul (4.20-5.40); RED CELL DISTRIBUTION WIDTH 17.6 % (11.5-14.5); WHITE BLOOD COUNT 15.1 10^3/ul (4.8-10.8)
[2016-07-21 09:07] LABS: MAGNESIUM 1.7 mg/dl (1.7-2.5); PHOSPHORUS 3.5 mg/dl (2.5-4.9)
[2016-07-21 09:21] LABS: POTASSIUM 4.6 mmol/L (3.5-5.1)
[2016-07-21 09:23] LABS: CREATININE 0.82 mg/dl (0.44-1.00)
[2016-07-21 09:24] LABS: CALCIUM 9.4 mg/dl (8.4-10.2)
[2016-07-21] MEDS: METOPROLOL 25 MG TAB PO SCH ×2 (09:42→20:59)
[2016-07-21] MEDS: FERROUS SULFATE (EC) 325 MG TAB PO SCH (09:42)
[2016-07-21] MEDS: ASPIRIN 81 MG TAB PO SCH (09:42)
[2016-07-21] MEDS: FLUCONAZOLE 100 MG TAB PO SCH (09:42)
[2016-07-21] MEDS: ZINC SULFATE 220 MG CAP PO SCH (09:42)
[2016-07-21] MEDS: LINAGLIPTIN 5 MG TABLET PO SCH (09:43)
[2016-07-21] MEDS: CEFEPIME 1GM/50 ML (PMX) 50 ML IV SCH ×2 (09:43→20:58)
[2016-07-21] MEDS: GABAPENTIN 300 MG CAP PO SCH ×3 (09:43→20:59)
[2016-07-21] MEDS: ASCORBIC ACID 500 MG TAB PO SCH (09:43)
[2016-07-21] MEDS: AMLODIPINE 5 MG TAB PO SCH ×2 (09:43→20:58)
[2016-07-21] MEDS: METHYLPREDNISOLONE 40 MG INJ IV SCH ×2 (09:44→20:58)
[2016-07-21] MEDS: ENOXAPARIN 40 MG/0.4 ML SYG SC SCH (09:45)
--- NOTE | 2016-07-21 10:30 | CONS ---
Date/Time of Note Date/Time of Note DATE: 07/21/16 TIME: 10:28 Assessment/Plan Assessment/Plan Additional Assessment/Plan Assessment recommendations; 1. Patient admitted for flareup of underlying pulmonary fibrosis with possibly superimposed bronchopneumonia, clinically markedly improved. 2. Advanced rheumatoid arthritis. 3. Diabetes. Continue current treatment. Patient responding very well to current treatment regimen. Further steroid tapering to be done in 24 hours. Consultation Date/Type/Reason Admit Date/Time July 17, 2016 at 09:51 Initial Consult Date 07/17/16 Type of Consultation: Pulmonary 24 HR Interval Summary Free Text/Dictation Patient condition is significantly improved. Denies any chest congestion, wheezing. Chest pain. Fever chills. General exam; elderly woman, awake alert currently in no distress. Exam/Review of Systems Vital Signs Vitals Vital Signs Date Time Temp Pulse Resp B/P Pulse Ox O2 Delivery O2 Flow Rate FiO2 07/21/16 09:17 81 32 95 Nasal Cannula 3.0 07/21/16 07:41 98.0 167/81 07/18/16 17:57 35 Intake and Output 07/20/16 07/20/16 07/21/16 15:00 23:00 07:00 Intake Total 650 ml 750 ml Balance 650 ml 750 ml Exam HEENT exam is; supple neck, no JVD. No lymphadenopathy. Midline trachea. No thyromegaly. Patient has multiple missing teeth. Chest examination; improved breath sounds bilaterally with decreased bilateral crackles. S1-S2 audible, no murmurs. Regular rhythm. Abdomen examination; soft, no organomegaly. Nontender. No distention. Bowel sounds audible. Extremity examination; no peripheral edema. Patient does have changes of severe rheumatoid arthritis. 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 Results Result Diagram: 07/21/16 0725 07/21/1625 Results 24 hrs Laboratory Tests Test 07/20/16 12:08 07/20/16 17:29 07/20/16 21:30 07/21/16 01:46 Bedside Glucose 151 177 230 H 259 H Test 07/21/16 07:25 07/21/16 08:06 White Blood Count 15.1 #H Red Blood Count 3.85 L Hemoglobin 9.9 L Hematocrit 33.3 L Mean Corpuscular Volume 86.5 Mean Corpuscular Hemoglobin 25.7 L Mean Corpuscular Hemoglobin Concent 29.7 L Red Cell Distribution Width 17.6 H Platelet Count 369 Mean Platelet Volume 10.3 Sodium Level 138 Potassium Level 4.6 Chloride Level 99 Carbon Dioxide Level 29 Anion Gap 15 Blood Urea Nitrogen 29 H Creatinine 0.82 Glucose Level 307 H Calcium Level 9.4 Phosphorus Level 3.5 Magnesium Level 1.7 Bedside Glucose 282 H Medications Medications Current Medications Lorazepam (Ativan) 0.5 mg Q6H PRN IV ANXIETY Last administered on 07/20/16 11: 26; Admin Dose 0.5 MG; Start 07/17/16 at 13:30 Ondansetron HCl (Zofran Inj) 4 mg Q6H PRN IV NAUSEA AND/OR VOMITING; Start at 13:30 Nitroglycerin (Nitroglycerin (Sl Tab) 0.4 Mg) 1 tab Q5M PRN SL CHEST PAIN; Start 07/17/16 at 13:30 Acetaminophen/ Hydrocodone Bitart ([place] (5/325)) 1 tab Q6H PRN PO PAIN LEVEL 4 -6 Last administered on 07/20/16 22:45; Admin Dose 1 TAB; Start 07/17/16 at 13: 30 Morphine Sulfate (morphine) 2 mg Q4H PRN IV PAIN LEVEL 7-10 Last administered on 07/20/16 08:32; Admin Dose 2 MG; Start 07/17/16 at 13:30 Zolpidem Tartrate (Ambien) 5 mg QHS PRN PO INSOMNIA Last administered on 22:45; Admin Dose 5 MG; Start 07/17/16 at 13:30 Docusate Sodium (Colace) 100 mg Q12H PRN PO CONSTIPATION; Start 07/17/16 at 13: 30 Pantoprazole (Protonix Tab) 40 mg DAILY@06 PO Last administered on 07/21/16 06 :00; Admin Dose 40 MG; Start 07/18/16 at 06:00 Enoxaparin Sodium 40 mg 40 mg DAILY SC Last administered on 07/21/16 09:45; Admin Dose 40 MG; Start 07/18/16 at 09:00 Cefepime HCl (Maxipime 1gm/50 ml (Pmx)) 50 ml @ 100 mls/hr Q12 IV Last administered on 07/21/16 09:43; Admin Dose 100 MLS/HR; Start 07/17/16 at 21:00 Acetaminophen (Tylenol Tab) 650 mg Q6 PRN PO PAIN AND OR ELEVATED TEMP; Start 07/17/16 at 13:30 Aspirin (Aspirin) 81 mg DAILY PO Last administered on 07/21/16 09:42; Admin Dose 81 MG; Start 07/18/16 at 09:00 Baclofen (Lioresal) 10 mg Q8 PRN PO MUSCLE SPASMS; Start 07/17/16 at 13:30 Ferrous Sulfate (Ferrous Sulfate (Ec)) 325 mg DAILY PO Last administered on 09:42; Admin Dose 325 MG; Start 07/18/16 at 09:00 Gabapentin (Neurontin) 300 mg TID PO Last administered on 07/21/16 09:43; Admin Dose 300 MG; Start 07/17/16 at 21:00 Linagliptin (Tradjenta) 5 mg DAILY PO Last administered on 07/21/16 09:43; Admin Dose 5 MG; Start 07/18/16 at 09:00 Lorazepam (Ativan) 0.5 mg Q8 PRN PO ANXIETY; Start 07/17/16 at 13:30 Magnesium Hydroxide (Milk Of Mag) 30 ml Q12H PRN PO CONSTIPATION; Start at 13:30 Metoprolol Tartrate (Lopressor) 25 mg BID PO Last administered on 07/21/16 09: 42; Admin Dose 25 MG; Start 07/17/16 at 21:00 Diagnostic Test (Pha) (Accu-Chek) 1 ea 02 XX Last administered on 07/20/16 02: 00; Admin Dose 1 EA; Start 07/18/16 at 02:00 Miscellaneous Information 1 ea NOTE XX ; Start 07/17/16 at 14:30 Glucose (Glutose) 15 gm Q15M PRN PO DECREASED GLUCOSE; Start 07/17/16 at 14:30 Glucose (Glutose) 22.5 gm Q15M PRN PO DECREASED GLUCOSE; Start 07/17/16 at 14: 30 Dextrose (D50w Syringe) 25 ml Q15M PRN IV DECREASED GLUCOSE; Start 07/17/16 at 14:30 Dextrose (D50w Syringe) 50 ml Q15M PRN IV DECREASED GLUCOSE; Start 07/17/16 at 14:30 Glucagon (Glucagen) 1 mg Q15M PRN IM DECREASED GLUCOSE; Start 07/17/16 at 14:30 Glucose (Glutose) 15 gm Q15M PRN BUCCAL DECREASED GLUCOSE; Start 07/17/16 at 14 :30 Insulin Glargine (Lantus) 35 unit DAILY@20 SC Last administered on 07/20/16 22 :47; Admin Dose 35 UNIT; Start 07/18/16 at 20:00 Ascorbic Acid (Vitamin C) 500 mg DAILY PO Last administered on 07/21/16 09:43 ; Admin Dose 500 MG; Start 07/19/16 at 09:00 Zinc Sulfate (Zinc Sulfate) 220 mg DAILY PO Last administered on 07/21/16 09: 42; Admin Dose 220 MG; Start 07/18/16 at 14:00 Fluconazole (Diflucan) 100 mg DAILY PO Last administered on 07/21/16 09:42; Admin Dose 100 MG; Start 07/20/16 at 14:00 Amlodipine Besylate (Norvasc) 5 mg BID PO Last administered on 07/21/16 09:43 ; Admin Dose 5 MG; Start 07/21/16 at 09:00 Methylprednisolone Sodium Succinate (Solu-Medrol) 30 mg Q12 IV Last administered on 07/21/16 09:44; Admin Dose 30 MG; Start 07/21/16 at 09:00 Lactulose (Enulose) 20 gm Q6H PRN PO CONSTIPATION; Start 07/21/16 at 08:30 GARRET SOARES July 21, 2016 10:30
[2016-07-21 11:01] LABS: LYMPHOCYTES # 0.6 10^3/ul (0.8-2.9); MONOCYTE # 0.3 10^3/ul (0.3-0.9); MYELOCYTES # 0.3; NEUTROPHIL # 13.6 10^3/ul (1.6-7.5)
--- NOTE | 2016-07-21 15:19 | PN ---
DATE: 07/21/2016 SUBJECTIVE: Patient seen, overall comfortable. Last bowel movement 2 days ago. Glucose level note d to be higher, as we are tapering steroids down. Also noted increased blood pressure. The patient is now eating her current soft mechanical diet. PHYSICAL EXAMINATION: VITAL SIGNS: Temperature 98, pulse ____, respirations 20, blood pressure 167/81, saturation 97 to 9 9 on 3 liters. GENERAL: The patient is in no acute distress, appears to be comfortable, pale. HEENT: Decreased dentition. CARDIOVASCULAR: S1 and S2. Regular rate. LUNGS: Mild rhonchi bilaterally which is chronic. ABDOMEN: Soft, slightly distended. EXTREMITIES: No clubbing, cyanosis, or edema. LABORATORY DATA: No new labs yet today as it is pending but glucose level was 259, 230 and 177. Sp utum culture shows Pseudomonas aeruginosa and Staph aureus, pseudomonas sensitive to cefepime, which she is currently on. MEDICATIONS: Reviewed and include: 1. Diflucan ____ daily. 2. Norvasc ____ mg daily. 3. Solu-Medrol 40 IV 12. 4. Vitamin C 500 daily. 5. Lantus 35 units daily. 6. Insulin aspart 8 units q. a.c. 7. Zinc sulfate ____ daily. 8. Lovenox 40 mg subq daily. 9. Aspirin 81 mg daily. 10. Ferrous sulfate 325 daily. 11. Tradjenta 5 mg daily. 12. Protonix 40 mg daily. 13. Accu-Chek q. a.c. and at bedtime. 14. Cefepime 1 g q.12. 15. Neurontin 300 t.i.d. 16. Lopressor 25 b.i.d. 17. Insulin aspart per sliding scale. 18. DuoNeb every 4 hours. 19. Hypoglycemia protocol as directed. 20. Ativan p.r.n. 21. Zofran p.r.n. 22. [place] p.r.n. 23. Ambien p.r.n. 24. Morphine p.r.n. 25. Colace p.r.n. 26. DuoNeb p.r.n. 27. Tylenol p.r.n. 28. Baclofen p.r.n. 29. Ativan p.r.n. 30. Milk of magnesia p.r.n. ASSESSMENT AND PLAN: This is a 75-year-old female with advanced pulmonary fibrosis, O2 dep endent, rheumatoid arthritis, diabetes mellitus, chronic pain, debilitated, who presented with recur rent respiratory failure, was found to have Pseudomonas aeruginosa and Staphylococcus aureus pneumon ia. 1. Respiratory: Doing much better with the above antibiotics. The patient is on cefepime. Contin ue tapering down steroids. Continue breathing treatment, O2 support. 2. Cardiovascular: Blood pressure is elevated. Increase Norvasc to 5 mg b.i.d. 3. Diabetes mellitus: Taper down steroids, change Solu-Medrol to 30 mg IV q.12. Increase NovoLog to 10 units q. a.c. meals. Continue Tradjenta. 4. Continue deep vein thrombosis prophylaxis and gastrointestinal prophylaxis. 5. Anemia: Hemoglobin and hematocrit remain stable. Follow up laboratories. 6. Malnutrition: Continue soft mechanical diet and Glucerna. 7. Rheumatoid arthritis: Outpatient followup. Continue Baclofen and Neurontin. Otherwise long-te rm prognosis is guarded. The patient is debilitated, nonambulatory. Discharge planning in the a.m. , [facility]. 8. Constipation: Stool softeners will be given. We will follow. Dictated By: FAISAL ALVAREZ/NGHIA Conf#: [id number] DID#: [id number]
[2016-07-21] MEDS: HYDROCODONE/APAP (5/325) TAB PO PRN (20:59)
[2016-07-21] MEDS: INSULIN GLARGINE [LANtus] 3 ML PEN SC SCH (21:04)
[2016-07-21] MEDS: ZOLPIDEM 5 MG TAB PO PRN (22:09)
[2016-07-22] VITALS (10 sets, daily range): BP systolic 121–164; BP diastolic 52–73; PULSE 82–93; RESP 18–21
[2016-07-22] MEDS: ALBUTEROL/IPRATROPIUM (NEB) 3 ML AMP NEB SCH ×6 (01:07→21:06)
[2016-07-22] MEDS: ACCU-CHEK XX SCH (02:00)
[2016-07-22] MEDS: PANTOPRAZOLE (EC) 40 MG TAB PO SCH (06:01)
[2016-07-22 08:29] LABS: ADD SCAN DIFF NO
[2016-07-22 08:37] LABS: ABNORMAL IP MESSAGE 1; BASOPHILS % 0.1 % (0.0-2.0); HEMATOCRIT 33.2 % (37.0-47.0); LYMPHOCYTES % 9.4 % (15.0-51.0); MEAN CORPUSCULAR HEMOGLOBIN 25.2 pg (29.0-33.0); MEAN CORPUSCULAR HGB CONC 30.1 g/dl (32.0-37.0); MEAN CORPUSCULAR VOLUME 83.6 fl (82.0-101.0); MEAN PLATELET VOLUME 9.8 fl (7.4-10.4); MONOCYTE # 0.8 10^3/ul (0.3-0.9); MONOCYTES % 3.7 % (0.0-11.0); NEUTROPHIL # 16.9 10^3/ul (1.6-7.5); NEUTROPHILS % 80.2 % (39.0-77.0); NUCLEATED RED BLOOD CELLS% 0.1 /100WBC (0.0-0.0); PLATELET COUNT 351 10^3/UL (140-415); RED BLOOD COUNT 3.97 10^6/ul (4.20-5.40); RED CELL DISTRIBUTION WIDTH 17.6 % (11.5-14.5)
[2016-07-22 08:56] LABS: MAGNESIUM 1.6 mg/dl (1.7-2.5)
[2016-07-22] MEDS: CEFEPIME 1GM/50 ML (PMX) 50 ML IV SCH ×2 (08:59→20:31)
[2016-07-22] MEDS: METHYLPREDNISOLONE 40 MG INJ IV SCH (09:00)
[2016-07-22] MEDS: FLUCONAZOLE 100 MG TAB PO SCH (09:00)
[2016-07-22] MEDS: FERROUS SULFATE (EC) 325 MG TAB PO SCH (09:00)
[2016-07-22] MEDS: AMLODIPINE 5 MG TAB PO SCH ×2 (09:01→20:32)
[2016-07-22] MEDS: ASCORBIC ACID 500 MG TAB PO SCH (09:01)
[2016-07-22] MEDS: ASPIRIN 81 MG TAB PO SCH (09:01)
[2016-07-22] MEDS: ZINC SULFATE 220 MG CAP PO SCH (09:01)
[2016-07-22] MEDS: LINAGLIPTIN 5 MG TABLET PO SCH (09:01)
[2016-07-22] MEDS: ENOXAPARIN 40 MG/0.4 ML SYG SC SCH (09:01)
[2016-07-22] MEDS: GABAPENTIN 300 MG CAP PO SCH ×3 (09:01→20:31)
[2016-07-22 09:02] LABS: POTASSIUM 4.2 mmol/L (3.5-5.1)
[2016-07-22] MEDS: METOPROLOL 25 MG TAB PO SCH ×2 (09:02→20:32)
[2016-07-22] MEDS: INSULIN ASPART [NOVOLOG] 3 ML PEN SC SCH ×7 (09:03→20:40)
[2016-07-22 09:05] LABS: CREATININE 0.74 mg/dl (0.44-1.00)
[2016-07-22 09:06] LABS: CALCIUM 9.1 mg/dl (8.4-10.2)
[2016-07-22] MEDS: morphine 2 MG INJ IV PRN (09:38)
--- NOTE | 2016-07-22 10:36 | CONS ---
Date/Time of Note Date/Time of Note DATE: 07/22/16 TIME: 10:35 Assessment/Plan Assessment/Plan Additional Assessment/Plan Assessment recommendations; 1. Patient admitted for bronchopneumonia and exacerbation of underlying pulmonary fibrosis from severe rheumatoid arthritis, clinically markedly improved. 2. History of hypertension or diabetes. Discontinue Solu-Medrol. Start the patient on prednisone 40 mg orally daily. Continue other medications. Monitor blood sugars. Consultation Date/Type/Reason Admit Date/Time July 17, 2016 at 09:51 Initial Consult Date 07/17/16 Type of Consultation: Pulmonary 24 HR Interval Summary Free Text/Dictation Patient condition is continually improving. Denies any chest congestion, wheezing. Cough is also markedly improved. General exam; elderly lady, awake alert currently in no distress. Exam/Review of Systems Vital Signs Vitals Vital Signs Date Time Temp Pulse Resp B/P Pulse Ox O2 Delivery O2 Flow Rate FiO2 07/22/16 08:37 72 28 96 Nasal Cannula 4.0 07/22/16 07:37 98.8 164/73 07/18/16 17:57 35 Intake and Output 07/21/16 07/21/16 07/22/16 15:00 23:00 07:00 Intake Total 650 ml Balance 650 ml Exam HEENT examination; supple neck, no JVD. No lymphadenopathy. Midline trachea. No thyromegaly. Patient has multiple carious teeth. Chest examined; scattered bilateral crackles. S1-S2 audible, no murmurs. Regular rhythm. Abdomen examination; soft, nontender. No organomegaly. Bowel sounds audible. Extremity exam is; no peripheral edema. There are changes of severe rheumatoid arthritis. 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 Results Result Diagram: 07/22/16 0807/22/16804 Results 24 hrs Laboratory Tests Test 07/21/16 12:03 07/21/16 17:28 07/21/16 20:56 07/22/16 01:54 Bedside Glucose 298 H 283 H 207 269 H Test 07/22/16 08:05 07/22/16 08:06 White Blood Count 21.0 #H Red Blood Count 3.97 L Hemoglobin 10.0 L Hematocrit 33.2 L Mean Corpuscular Volume 83.6 Mean Corpuscular Hemoglobin 25.2 L Mean Corpuscular Hemoglobin Concent 30.1 L Red Cell Distribution Width 17.6 H Platelet Count 351 Mean Platelet Volume 9.8 Neutrophils % 80.2 H Lymphocytes % 9.4 L Monocytes % 3.7 Eosinophils % 0.0 Basophils % 0.1 Nucleated Red Blood Cells % 0.1 H Neutrophils # 16.9 H Lymphocytes # 2.0 Monocytes # 0.8 Eosinophils # 0.0 Basophils # 0.0 Nucleated Red Blood Cells # 0.0 Sodium Level 135 Potassium Level 4.2 Chloride Level 92 L Carbon Dioxide Level 35 H Anion Gap 12 Blood Urea Nitrogen 32 H Creatinine 0.74 Glucose Level 260 H Calcium Level 9.1 Phosphorus Level 3.0 Magnesium Level 1.6 L Bedside Glucose 235 H Medications Medications Current Medications Lorazepam (Ativan) 0.5 mg Q6H PRN IV ANXIETY Last administered on 07/20/16 11: 26; Admin Dose 0.5 MG; Start 07/17/16 at 13:30 Ondansetron HCl (Zofran Inj) 4 mg Q6H PRN IV NAUSEA AND/OR VOMITING; Start at 13:30 Nitroglycerin (Nitroglycerin (Sl Tab) 0.4 Mg) 1 tab Q5M PRN SL CHEST PAIN; Start 07/17/16 at 13:30 Acetaminophen/ Hydrocodone Bitart ([place] (5/325)) 1 tab Q6H PRN PO PAIN LEVEL 4 -6 Last administered on 07/21/16 20:59; Admin Dose 1 TAB; Start 07/17/16 at 13: 30 Morphine Sulfate (morphine) 2 mg Q4H PRN IV PAIN LEVEL 7-10 Last administered on 07/22/16 09:38; Admin Dose 2 MG; Start 07/17/16 at 13:30 Zolpidem Tartrate (Ambien) 5 mg QHS PRN PO INSOMNIA Last administered on 22:09; Admin Dose 5 MG; Start 07/17/16 at 13:30 Docusate Sodium (Colace) 100 mg Q12H PRN PO CONSTIPATION; Start 07/17/16 at 13: 30 Pantoprazole (Protonix Tab) 40 mg DAILY@06 PO Last administered on 07/22/16 06 :01; Admin Dose 40 MG; Start 07/18/16 at 06:00 Enoxaparin Sodium 40 mg 40 mg DAILY SC Last administered on 07/22/16 09:01; Admin Dose 40 MG; Start 07/18/16 at 09:00 Cefepime HCl (Maxipime 1gm/50 ml (Pmx)) 50 ml @ 100 mls/hr Q12 IV Last administered on 07/22/16 08:59; Admin Dose 100 MLS/HR; Start 07/17/16 at 21:00 Acetaminophen (Tylenol Tab) 650 mg Q6 PRN PO PAIN AND OR ELEVATED TEMP; Start 07/17/16 at 13:30 Aspirin (Aspirin) 81 mg DAILY PO Last administered on 07/22/16 09:01; Admin Dose 81 MG; Start 07/18/16 at 09:00 Baclofen (Lioresal) 10 mg Q8 PRN PO MUSCLE SPASMS; Start 07/17/16 at 13:30 Ferrous Sulfate (Ferrous Sulfate (Ec)) 325 mg DAILY PO Last administered on 09:00; Admin Dose 325 MG; Start 07/18/16 at 09:00 Gabapentin (Neurontin) 300 mg TID PO Last administered on 07/22/16 09:01; Admin Dose 300 MG; Start 07/17/16 at 21:00 Linagliptin (Tradjenta) 5 mg DAILY PO Last administered on 07/22/16 09:01; Admin Dose 5 MG; Start 07/18/16 at 09:00 Lorazepam (Ativan) 0.5 mg Q8 PRN PO ANXIETY; Start 07/17/16 at 13:30 Magnesium Hydroxide (Milk Of Mag) 30 ml Q12H PRN PO CONSTIPATION; Start at 13:30 Metoprolol Tartrate (Lopressor) 25 mg BID PO Last administered on 07/22/16 09: 02; Admin Dose 25 MG; Start 07/17/16 at 21:00 Diagnostic Test (Pha) (Accu-Chek) 1 ea 02 XX Last administered on 07/20/16 02: 00; Admin Dose 1 EA; Start 07/18/16 at 02:00 Miscellaneous Information 1 ea NOTE XX ; Start 07/17/16 at 14:30 Glucose (Glutose) 15 gm Q15M PRN PO DECREASED GLUCOSE; Start 07/17/16 at 14:30 Glucose (Glutose) 22.5 gm Q15M PRN PO DECREASED GLUCOSE; Start 5/17/17 at 14: 30 Dextrose (D50w Syringe) 25 ml Q15M PRN IV DECREASED GLUCOSE; Start 07/17/16 at 14:30 Dextrose (D50w Syringe) 50 ml Q15M PRN IV DECREASED GLUCOSE; Start 07/17/16 at 14:30 Glucagon (Glucagen) 1 mg Q15M PRN IM DECREASED GLUCOSE; Start 07/17/16 at 14:30 Glucose (Glutose) 15 gm Q15M PRN BUCCAL DECREASED GLUCOSE; Start 07/17/16 at 14 :30 Insulin Glargine (Lantus) 35 unit DAILY@20 SC Last administered on 07/21/16 21 :04; Admin Dose 35 UNIT; Start 07/18/16 at 20:00 Ascorbic Acid (Vitamin C) 500 mg DAILY PO Last administered on 07/22/16 09:01 ; Admin Dose 500 MG; Start 07/19/16 at 09:00 Zinc Sulfate (Zinc Sulfate) 220 mg DAILY PO Last administered on 07/22/16 09: 01; Admin Dose 220 MG; Start 07/18/16 at 14:00 Fluconazole (Diflucan) 100 mg DAILY PO Last administered on 07/22/16 09:00; Admin Dose 100 MG; Start 07/20/16 at 14:00 Amlodipine Besylate (Norvasc) 5 mg BID PO Last administered on 07/22/16 09:01 ; Admin Dose 5 MG; Start 07/21/16 at 09:00 Methylprednisolone Sodium Succinate (Solu-Medrol) 30 mg Q12 IV Last administered on 07/22/16 09:00; Admin Dose 30 MG; Start 07/21/16 at 09:00 Lactulose (Enulose) 20 gm Q6H PRN PO CONSTIPATION; Start 07/21/16 at 08:30 GARRET SOARES July 22, 2016 10:36
[2016-07-22] MEDS: LORAZEPAM 2 MG INJ IV PRN (12:38)
[2016-07-22] MEDS ORDERED: VANCOMYCIN IV PER PHARMACY XX SCH (14:00)
[2016-07-22] MEDS ORDERED: MAGNESIUM SULFATE 2 GM/50 ML 50 ML IVPB ONE (14:00)
[2016-07-22] MEDS: HYDROCODONE/APAP (5/325) TAB PO PRN ×2 (14:32→22:42)
--- NOTE | 2016-07-22 15:24 | PN ---
DATE: 07/22/2016 SUBJECTIVE: Patient seen. The patient feels better. [facility]. I note that the patient's white count increased to 20,000. In addition, the staph aureus turned out to be MRSA. This is the respiratory culture. I did stop patient's vancomycin about 2 days ago, as I noted that there was no MRSA of the nares. We will definitely have to restart it. Otherw ise, clinically patient is doing better. PHYSICAL EXAMINATION: VITAL SIGNS: Temperature 98.2, pulse 82, respirations 18, blood pressure 142/64, saturation 97% on 4 liters of nasal cannula. GENERAL: The patient is in no acute distress, coughing at times. The patient is pale. HEENT: Decreased dentition. CARDIOVASCULAR: S1, S2, regular rate. LUNGS: Mild rhonchi bilaterally which is chronic. ABDOMEN: Soft, nontender. EXTREMITIES: No clubbing, cyanosis, or edema. LABORATORY DATA: White count is actually 21,000, hemoglobin 10, hematocrit 33, platelet count 351, neutrophils 80%, lymphocytes 9%. Chemistry: Sodium is 135, potassium 4.2, chloride 92, bicarbonate 35, BUN is 32, creatinine 0.74, glucose of 260. Last glucose level was 171. Again, sputum culture shows Pseudomonas aeruginosa sensitive to cefepime and MRSA sensitive to vancomycin, also to Bactri m. MEDICATIONS: Include: 1. Prednisone 4 mg daily. This was changed by ____ . 2. The patient remains on Insulin aspart 10 units q.a.c. meals. 3. Norvasc 5 mg b.i.d. 4. Lactulose 20 q.6h. p.r.n. 5. Diflucan 100 mg daily. 6. Vitamin C 500 mg daily. 7. Lantus 35 units daily. 8. Zinc sulfate 220 daily. 9. Lovenox 40 mg subcutaneous daily. 10. Aspirin 81 daily. 11. Ferrous sulfate 325 mg daily. 12. Tradjenta 5 mg daily. 13. Protonix 40 mg daily. 14. Accu-Chek q.a.c. and at bedtime. 15. Cefepime 1 gram q.12h. 16. Neurontin 300 t.i.d. 17. Lopressor 25 b.i.d. 18. NovoLog per sliding scale. 19. DuoNeb every 4 hours. 20. Routine hypoglycemia protocol. 21. Ativan p.r.n. 22. Zofran p.r.n. 23. Nitroglycerin p.r.n. 24. Morphine p.r.n. 25. Ambien p.r.n. 26. Colace b.i.d. 27. Breathing treatments p.r.n. 28. Baclofen p.r.n. 29. Ativan. 30. Milk of magnesia p.r.n. ASSESSMENT AND PLAN: 1. This is a 75-year-old female with advanced pulmonary fibrosis, O2 dependent, rheumatoid arthritis, diabetes mellitus, chronic pain, debilitated, who presented with recurrent respiratory f ailure, was found to have pneumonia, Pseudomonas aeruginosa and methicillin-resistant Staphylococcus aureus. 2. Respiratory, clinically, better. We will restart the patient on vancomycin. Follow up WBC. Emili syed is afebrile. We are tapering down her steroids, as we switch from IV Solu-Medrol to oral predni sone. 3. Cardiovascular. Blood pressure is better controlled. Continue amlodipine 5 mg b.i.d. 4. Continue DVT prophylaxis with Lovenox. 5. Diabetes mellitus. We have switched her to oral prednisone, continue current dose of insulin. 6. Continue deep vein thrombosis prophylaxis and gastrointestinal prophylaxis. 7. Anemia. H and H remain stable. No need for transfusion. 8. Malnutrition. Tolerating a soft mechanical diet well. 9. Rheumatoid arthritis. Outpatient followup with rheumatology. Continue Baclofen and Neurontin t o be given as needed as well. 10. Constipation. Stool softeners. 11. Hypomagnesemia. Magnesium sulfate will be provided. Again, I would hold discharge for another day as starting on IV vancomycin, would like to make sure she is afebrile and the white count is trending back down. Otherwise, the [facility] can [facility]. We will follow. Dictated By: FAISAL ALVAREZ/NGHIA Conf#: [id number] DID#: [id number]
[2016-07-22] MEDS ORDERED: VANCOMYCIN 1 GM in NS 250 ML IVPB ONE (16:00)
[2016-07-22] MEDS: INSULIN GLARGINE [LANtus] 3 ML PEN SC SCH (20:40)
[2016-07-22] MEDS: ZOLPIDEM 5 MG TAB PO PRN (21:14)
[2016-07-23] VITALS (12 sets, daily range): BP systolic 121–160; BP diastolic 57–68; PULSE 68–94; RESP 18–20
[2016-07-23] MEDS: ALBUTEROL/IPRATROPIUM (NEB) 3 ML AMP NEB SCH ×6 (01:08→21:49)
[2016-07-23] MEDS: ACCU-CHEK XX SCH (02:13)
[2016-07-23] MEDS: VANCOMYCIN 500MG/NS (PMX) 100 ML IVPB SCH ×2 (04:53→17:54)
[2016-07-23] MEDS: PANTOPRAZOLE (EC) 40 MG TAB PO SCH (06:37)
[2016-07-23 07:46] LABS: ADD SCAN DIFF NO
[2016-07-23 07:48] LABS: ABNORMAL IP MESSAGE 1; HEMOGLOBIN 10.1 g/dl (12.0-16.0); MEAN CORPUSCULAR HEMOGLOBIN 25.6 pg (29.0-33.0); MEAN CORPUSCULAR HGB CONC 29.7 g/dl (32.0-37.0); MEAN CORPUSCULAR VOLUME 86.1 fl (82.0-101.0); MEAN PLATELET VOLUME 10.2 fl (7.4-10.4); PLATELET COUNT 358 10^3/UL (140-415); RED BLOOD COUNT 3.95 10^6/ul (4.20-5.40); WHITE BLOOD COUNT 27.1 10^3/ul (4.8-10.8)
[2016-07-23] MEDS: INSULIN ASPART [NOVOLOG] 3 ML PEN SC SCH ×7 (08:00→20:18)
[2016-07-23 08:30] LABS: MAGNESIUM 2.3 mg/dl (1.7-2.5); PHOSPHORUS 3.7 mg/dl (2.5-4.9)
[2016-07-23 08:32] LABS: CALCIUM 9.2 mg/dl (8.4-10.2); CREATININE 0.74 mg/dl (0.44-1.00); POTASSIUM 3.8 mmol/L (3.5-5.1)
[2016-07-23] MEDS: ASCORBIC ACID 500 MG TAB PO SCH (08:41)
[2016-07-23] MEDS: ZINC SULFATE 220 MG CAP PO SCH (08:42)
[2016-07-23] MEDS: FERROUS SULFATE (EC) 325 MG TAB PO SCH (08:42)
[2016-07-23] MEDS: LINAGLIPTIN 5 MG TABLET PO SCH (08:42)
[2016-07-23] MEDS: FLUCONAZOLE 100 MG TAB PO SCH (08:42)
[2016-07-23] MEDS: AMLODIPINE 5 MG TAB PO SCH ×2 (08:42→20:10)
[2016-07-23] MEDS: GABAPENTIN 300 MG CAP PO SCH ×3 (08:42→20:09)
[2016-07-23] MEDS: ASPIRIN 81 MG TAB PO SCH (08:42)
[2016-07-23] MEDS: ENOXAPARIN 40 MG/0.4 ML SYG SC SCH (08:43)
[2016-07-23] MEDS: METOPROLOL 25 MG TAB PO SCH ×2 (08:43→20:10)
[2016-07-23] MEDS: CEFEPIME 1GM/50 ML (PMX) 50 ML IV SCH ×2 (08:45→20:10)
[2016-07-23] MEDS ORDERED: predniSONE 20 MG TAB PO SCH (09:00)
--- NOTE | 2016-07-23 09:53 | CONS ---
Date/Time of Note Date/Time of Note DATE: 07/23/16 TIME: 09:51 Assessment/Plan Assessment/Plan Additional Assessment/Plan Assessment recommendations; next 1. Patient admitted for pulmonary fibrosis exacerbation with superimposed bronchopneumonia clinically improving. 2. Leukocytosis, likely a steroid response. 3. History of hypertension or diabetes. With mild hypoglycemia this morning. 4. Underlying severe rheumatoid arthritis with advanced pulmonary fibrosis. Discontinue long-acting insulin. Monitor blood sugars. Continue current antibiotics for at least another 24 hours. Continue prednisone at 40 mg a day. Overall prognosis remains poor. Consultation Date/Type/Reason Admit Date/Time July 17, 2016 at 09:51 Initial Consult Date 07/17/16 Type of Consultation: Pulmonary 24 HR Interval Summary Free Text/Dictation Patient's condition is gradually improving. The breath is improving as well as chest congestion. General exam; elderly lady, awake alert currently in no distress. Exam/Review of Systems Vital Signs Vitals Vital Signs Date Time Temp Pulse Resp B/P Pulse Ox O2 Delivery O2 Flow Rate FiO2 07/23/16 08:13 68 07/23/16 07:59 97.6 19 142/62 94 07/23/16 04:47 Nasal Cannula 3.0 Intake and Output 07/22/16 07/22/16 07/23/16 15:00 23:00 07:00 Intake Total 50 ml 1300 ml 600 ml Balance 50 ml 1300 ml 600 ml Exam HEENT examination; supple neck, no JVD. No lymphadenopathy. Midline trachea. No thyromegaly. Patient has multiple missing teeth. Pupils are small bilaterally. Chest examined; bilateral crackles. S1-S2 audible, no murmurs. Regular rhythm. Abdomen examination; soft, nontender. No organomegaly. Bowel sounds audible. Extremity examination; no peripheral edema. Patient has S changes of severe rheumatoid arthritis. OB GYN PHYSICIAN ASSISTANT examination; no focal deficit. Results Result Diagram: 07/23/16 0642 07/23/16 0642 Results 24 hrs Laboratory Tests Test 07/22/16 12:37 07/22/16 17:03 07/22/16 20:30 07/23/16 02:11 Bedside Glucose 171 197 205 122 Test 07/23/16 06:42 07/23/16 08:11 07/23/16 08:40 07/23/16 09:10 White Blood Count 27.1 #H Red Blood Count 3.95 L Hemoglobin 10.1 L Hematocrit 34.0 L Mean Corpuscular Volume 86.1 Mean Corpuscular Hemoglobin 25.6 L Mean Corpuscular Hemoglobin Concent 29.7 L Red Cell Distribution Width 18.0 H Platelet Count 358 Mean Platelet Volume 10.2 Neutrophils % Eosinophils % Neutrophils # Eosinophils # Sodium Level 135 Potassium Level 3.8 Chloride Level 98 Carbon Dioxide Level 32 H Anion Gap 9 Blood Urea Nitrogen 37 H Creatinine 0.74 Glucose Level 54 #L Calcium Level 9.2 Phosphorus Level 3.7 Magnesium Level 2.3 Bedside Glucose 54 L 161 155 Medications Medications Current Medications Lorazepam (Ativan) 0.5 mg Q6H PRN IV ANXIETY Last administered on 07/22/16 12: 38; Admin Dose 0.5 MG; Start 07/17/16 at 13:30 Ondansetron HCl (Zofran Inj) 4 mg Q6H PRN IV NAUSEA AND/OR VOMITING; Start at 13:30 Nitroglycerin (Nitroglycerin (Sl Tab) 0.4 Mg) 1 tab Q5M PRN SL CHEST PAIN; Start 07/17/16 at 13:30 Acetaminophen/ Hydrocodone Bitart ([place] (5/325)) 1 tab Q6H PRN PO PAIN LEVEL 4 -6 Last administered on 07/22/16 22:42; Admin Dose 1 TAB; Start 07/17/16 at 13: 30 Morphine Sulfate (morphine) 2 mg Q4H PRN IV PAIN LEVEL 7-10 Last administered on 07/22/16 09:38; Admin Dose 2 MG; Start 07/17/16 at 13:30 Zolpidem Tartrate (Ambien) 5 mg QHS PRN PO INSOMNIA Last administered on 21:14; Admin Dose 5 MG; Start 07/17/16 at 13:30 Docusate Sodium (Colace) 100 mg Q12H PRN PO CONSTIPATION; Start 07/17/16 at 13: 30 Pantoprazole (Protonix Tab) 40 mg DAILY@06 PO Last administered on 07/23/16 06 :37; Admin Dose 40 MG; Start 07/18/16 at 06:00 Enoxaparin Sodium 40 mg 40 mg DAILY SC Last administered on 07/23/16 08:43; Admin Dose 40 MG; Start 07/18/16 at 09:00 Cefepime HCl (Maxipime 1gm/50 ml (Pmx)) 50 ml @ 100 mls/hr Q12 IV Last administered on 07/23/16 08:45; Admin Dose 100 MLS/HR; Start 07/17/16 at 21:00 Acetaminophen (Tylenol Tab) 650 mg Q6 PRN PO PAIN AND OR ELEVATED TEMP; Start 07/17/16 at 13:30 Aspirin (Aspirin) 81 mg DAILY PO Last administered on 07/23/16 08:42; Admin Dose 81 MG; Start 07/18/16 at 09:00 Baclofen (Lioresal) 10 mg Q8 PRN PO MUSCLE SPASMS; Start 07/17/16 at 13:30 Ferrous Sulfate (Ferrous Sulfate (Ec)) 325 mg DAILY PO Last administered on 08:42; Admin Dose 325 MG; Start 07/18/16 at 09:00 Gabapentin (Neurontin) 300 mg TID PO Last administered on 07/23/16 08:42; Admin Dose 300 MG; Start 07/17/16 at 21:00 Linagliptin (Tradjenta) 5 mg DAILY PO Last administered on 07/23/16 08:42; Admin Dose 5 MG; Start 07/18/16 at 09:00 Lorazepam (Ativan) 0.5 mg Q8 PRN PO ANXIETY; Start 07/17/16 at 13:30 Magnesium Hydroxide (Milk Of Mag) 30 ml Q12H PRN PO CONSTIPATION; Start at 13:30 Metoprolol Tartrate (Lopressor) 25 mg BID PO Last administered on 07/23/16 08: 43; Admin Dose 25 MG; Start 07/17/16 at 21:00 Diagnostic Test (Pha) (Accu-Chek) 1 ea 02 XX Last administered on 07/23/16 02: 13; Admin Dose 1 EA; Start 07/18/16 at 02:00 Miscellaneous Information 1 ea NOTE XX ; Start 07/17/16 at 14:30 Glucose (Glutose) 15 gm Q15M PRN PO DECREASED GLUCOSE; Start 07/17/16 at 14:30 Glucose (Glutose) 22.5 gm Q15M PRN PO DECREASED GLUCOSE; Start 07/17/16 at 14: 30 Dextrose (D50w Syringe) 25 ml Q15M PRN IV DECREASED GLUCOSE Last administered on 07/23/16 08:39; Admin Dose 25 ML; Start 07/17/16 at 14:30 Dextrose (D50w Syringe) 50 ml Q15M PRN IV DECREASED GLUCOSE; Start 07/17/16 at 14:30 Glucagon (Glucagen) 1 mg Q15M PRN IM DECREASED GLUCOSE; Start 07/17/16 at 14:30 Glucose (Glutose) 15 gm Q15M PRN BUCCAL DECREASED GLUCOSE; Start 07/17/16 at 14 :30 Insulin Glargine (Lantus) 35 unit DAILY@20 SC Last administered on 07/22/16 20 :40; Admin Dose 35 UNIT; Start 07/18/16 at 20:00 Ascorbic Acid (Vitamin C) 500 mg DAILY PO Last administered on 07/23/16 08:41 ; Admin Dose 500 MG; Start 07/19/16 at 09:00 Zinc Sulfate (Zinc Sulfate) 220 mg DAILY PO Last administered on 07/23/16 08: 42; Admin Dose 220 MG; Start 07/18/16 at 14:00 Fluconazole (Diflucan) 100 mg DAILY PO Last administered on 07/23/16 08:42; Admin Dose 100 MG; Start 07/20/16 at 14:00 Amlodipine Besylate (Norvasc) 5 mg BID PO Last administered on 07/23/16 08:42 ; Admin Dose 5 MG; Start 07/21/16 at 09:00 Lactulose (Enulose) 20 gm Q6H PRN PO CONSTIPATION; Start 07/21/16 at 08:30 Prednisone 40 mg 40 mg DAILY PO Last administered on 07/23/16 08:42; Admin Dose 40 MG; Start 07/23/16 at 09:00 Vancomycin HCl (Vancocin) 100 ml @ 100 mls/hr Q12H IVPB Last administered on 04:53; Admin Dose 100 MLS/HR; Start 07/23/16 at 04:00 Miscellaneous Information (*Rx Drug Level Order Reminder*) VANCO TROUGH @ 0, 300 ON... ONCE ONCE XX ; Start 07/24/16 at 03:00; Stop 07/24/16 at 03:01 GARRET SOARES July 23, 2016 09:53
[2016-07-23 10:00] LABS: EOSINOPHILS # 0.5 10^3/ul (0.0-0.5); LYMPHOCYTES # 7.9 10^3/ul (0.8-2.9); MONOCYTE # 1.9 10^3/ul (0.3-0.9); MYELOCYTES # 0.8; NEUTROPHIL # 15.4 10^3/ul (1.6-7.5)
[2016-07-23 10:01] LABS: POLYCHROMASIA OCCASIONAL
[2016-07-23] MEDS: HYDROCODONE/APAP (5/325) TAB PO PRN ×2 (14:27→20:09)
[2016-07-23] MEDS: metroNIDAZOLE 500 MG/NS (PMX) 100 ML IVPB SCH ×2 (15:30→21:51)
--- NOTE | 2016-07-23 19:01 | PN ---
DATE: 07/23/2016 SUBJECTIVE: The patient overall is upset that she is in the hospital. She is complaining of back p ain and stated that she wants to have surgery. I told her that right now we are treating her underlying pulmonary issue. The patient unfortunately has upset. Overall, I do believe vianney huddleston tolerate any surgical intervention with her advanced pulmonary disease. Unfortunately, patient's white count has increased further to 27,000. This may be secondary to steroids, but the patient has been on steroids for quite some time and this is just somewhat unusual and noted also brief mild hy poglycemia at night. Dr. Hernandez stopped all her basal insulin. Case discussed with nursing staff. I also ordered stool for C. diff. PHYSICAL EXAMINATION: VITAL SIGNS: Temperature 98.6, pulse 71, respirations 24, blood pressure 149/68, saturation 96% on 3 liters. GENERAL: The patient is in no acute distress. HEENT: Decreased dentition. Pale. CARDIOVASCULAR: S1 and S2. LUNGS: Still mild diffuse rhonchi, chronic. ABDOMEN: Soft, nontender. EXTREMITIES: No clubbing, cyanosis, or edema. LABORATORY DATA: White count is 27.1, hemoglobin 10.1, hematocrit 34, platelet count 358. Neutroph ils now is 57%, lymphocytes 29%. Chemistry: Sodium 135, potassium 3.8, chloride 98, bicarb 32. BU N is 37, creatinine 0.74. Glucose this morning was 54, definitely we will need to reduce all basal insulin, but I would not stop. Last glucose level 288, before this was 155. Urine culture was nega tive. Respiratory culture showed both Pseudomonas aeruginosa and MRSA. MEDICATIONS: 1. Vancomycin, dose per pharmacy. 2. Prednisone 4 mg daily. 3. Insulin NovoLog 10 units q.a.c. meals. 4. Norvasc 5 mg b.i.d. 5. Lactulose p.r.n. 6. Diflucan 100 mg daily. 7. Vitamin C 500 mg daily. 8. Zinc sulfate 220 daily. 9. Lovenox 40 mg subcutaneously daily. 10. Aspirin 81 mg daily. 11. Ferrous sulfate 325 mg daily. 12. Tradjenta 5 mg daily. 13. Protonix 40 daily. 13. Accu-Chek q.a.c. and at bedtime. 14. Cefepime 1 gram q.12. 15. Neurontin 300 t.i.d. 16. Metoprolol 25 b.i.d. 17. Insulin aspart per sliding scale. 18. DuoNeb every 4 hours. 19. Hypoglycemia protocol as directed. 20. Ativan p.r.n. 21. Zofran p.r.n. 22. Nitroglycerin p.r.n. 23. [place] p.r.n. 24. Morphine p.r.n. 25. Ambien p.r.n. 26. Colace p.r.n. 27. Tylenol p.r.n. 28. Baclofen p.r.n. 29. Ativan p.r.n. 30. Milk of magnesia p.r.n. ASSESSMENT AND PLAN: This is a 75-year-old female with advanced pulmonary fibrosis, O2 dep endent, rheumatoid arthritis, diabetes mellitus, chronic pain, overall debilitated, presented with r ecurrent respiratory failure, was found to have Pseudomonas aeruginosa and methicillin-resistant Sta phylococcus aureus pneumonia, also now with worsening leukocytosis. 1. Respiratory. Continue tapering down steroids. Continue breathing treatment. Continue O2 suppo rt. 2. Infectious disease. The patient with the above pneumonia, on vancomycin and cefepime. White co unt has increased, so I consulted infectious disease. I am concerned about Clostridium difficile de spite patient does not have diarrhea, but we will follow. Consider adding Flagyl. De-escalate anti biotics soon. 3. Diabetes mellitus. Decrease dose of Lantus to 10 units. Continue short-acting insulin. 4. Anemia. H and H remain stable. No need for transfusion. 5. Continue deep vein thrombosis prophylaxis and gastrointestinal prophylaxis. 6. Back pain. Continue [place] for now. Physical therapy as tolerated. 7. Rheumatoid arthritis. Follow up with rheumatology as an outpatient basis. 8. Constipation, on stool softeners. 9. Disposition. Once white count is slightly improved, etiology is more clear. Again, this may be just due to patient's steroids and be reactive in nature. We will follow. Dictated By: FAISAL ALVAREZ/NGHIA Conf#: [id number] DID#: [id number]
[2016-07-23] MEDS: ZOLPIDEM 5 MG TAB PO PRN (22:27)
[2016-07-24] VITALS (12 sets, daily range): BP systolic 140–157; BP diastolic 60–75; PULSE 77–85; RESP 18–20
--- NOTE | 2016-07-24 00:33 | CONS ---
DATE OF ADMISSION: 07/17/2016 DATE OF CONSULTATION: 07/23/2016 TYPE OF CONSULTATION: Infectious Disease. REASON FOR CONSULTATION: Antibiotic management. HISTORY OF PRESENT ILLNESS: Suad Mitchell is a 75-year-old female patient of Dr. Pelletier who comes in with acute respiratory failure, pneumonia and sepsis. PAST MEDICAL HISTORY: Her past problems include: 1. End-stage pulmonary fibrosis with oxygen dependency. 2. Advanced COPD. 3. Dyslipidemia. 4. Diabetes mellitus. 5. DJD. 6. C-spine injury. 7. Anemia 8. Rheumatoid arthritis. 9. Hypoxia. 10. Congestive heart failure with diastolic dysfunction. 11. Status post spine surgery. 12. Total abdominal hysterectomy. 13. Status post hernia repair surgery. 14. History of tracheobronchitis. The patient was recently discharged from the hospital 2 weeks ago with acute respiratory failure, tr acheobronchitis, hypoxia and congestive heart failure. She is very debilitated with hand contractur es and lives in a assisted facility. She was tachycardic on the 17th to 150 and was admitted to [facility] with a temperature of 101 and a heart rate of 140. White count of 19.2 with 20 bands. Chest x-ray showed chronic pulmonary fibrosis. She was started on broad spectrum antibiotics. On ad mission her white count was 19.2, H and H of 9.8 and 32, platelet count 442,000 with 55% neutrophils , 20% bands, 13% lymphocytes. BUN and creatinine 28/0.75. Lactic acid was only 1.7. Chest x-ray showed extensive chronic interstitial changes with pulmonary fibrosis and possible right upper lobe infiltrate. The patient was started on vancomycin and cefepime. She recently finished a course of Levaquin. Her sputum is growing Pseudomonas aeruginosa, methicillin-resistant Staphyloc occus and normal respiratory raúl. Her white count today is up to 27.1. BUN and creatinine 37/0.7. Urine negative for nitrites and leukocyte esterase. The patient was placed on prednisone and is c urrently on vancomycin and also on fluconazole and cefepime. The pseudomonas is sensitive to cefepi me. Currently, the patient's white count as noted was 27,000, probably secondary to steroids. PAST SURGICAL HISTORY: Operations as outlined. FAMILY HISTORY: Noncontributory. SOCIAL HISTORY: She lives in a senior care. She does not smoke, drink or abuse drugs. ALLERGIES: NONE TO PENICILLIN, SULFA OR FOODS. MEDICATIONS: Per chart. REVIEW OF SYSTEMS: Noncontributory. PHYSICAL EXAMINATION: GENERAL: The patient is an elderly appearing female who is complaining of back pain and is tachypne ic. SKIN: Without generalized rash. HEENT: Within normal limits. NECK: Supple. LYMPH NODES: None palpable. CHEST: Decreased breath sounds at the bases with diffuse wheezing and rhonchi, right greater than l eft. HEART: Without murmur or gallop. ABDOMEN: Soft, nontender, without organosplenomegaly or masses. EXTREMITIES: Without cyanosis, clubbing, or edema. She has contractures of the hands. RECTAL AND GENITAL: Deferred. NEUROLOGIC: No focal neurological abnormalities. IMPRESSION AND PLAN: The patient currently is on reasonable antibiotics with vancomycin, cefepime a nd fluconazole. I believe that her white count elevation is due to her steroids. She was seen by Gunner Hernandez also who feels that the leukocytosis is likely a steroid response. We will continue her on current therapy. I will dictate my findings to Dr. Pelletier. Dictated By: CARINE POTTER MD, JD/NGHIA Conf#: [id number] DID#: [id number]
[2016-07-24] MEDS: ALBUTEROL/IPRATROPIUM (NEB) 3 ML AMP NEB SCH ×6 (01:09→21:57)
[2016-07-24] MEDS: ACCU-CHEK XX SCH (02:46)
[2016-07-24] MEDS: VANCOMYCIN 500MG/NS (PMX) 100 ML IVPB SCH ×2 (04:49→16:24)
[2016-07-24] MEDS: PANTOPRAZOLE (EC) 40 MG TAB PO SCH (05:13)
[2016-07-24] MEDS: metroNIDAZOLE 500 MG/NS (PMX) 100 ML IVPB SCH ×3 (06:09→21:33)
[2016-07-24 07:35] LABS: ADD SCAN DIFF NO
[2016-07-24 07:43] LABS: ABNORMAL IP MESSAGE 1; BASOPHIL # 0.1 10^3/ul (0.0-0.1); BASOPHILS % 0.2 % (0.0-2.0); EOSINOPHILS # 0.5 10^3/ul (0.0-0.5); EOSINOPHILS % 1.9 % (0.0-7.0); LYMPHOCYTES # 3.6 10^3/ul (0.8-2.9); LYMPHOCYTES % 14.5 % (15.0-51.0); MEAN CORPUSCULAR HEMOGLOBIN 25.6 pg (29.0-33.0); MEAN CORPUSCULAR HGB CONC 29.7 g/dl (32.0-37.0); MEAN CORPUSCULAR VOLUME 86.2 fl (82.0-101.0); MEAN PLATELET VOLUME 10.1 fl (7.4-10.4); MONOCYTE # 1.3 10^3/ul (0.3-0.9); MONOCYTES % 5.5 % (0.0-11.0); NEUTROPHIL # 17.2 10^3/ul (1.6-7.5); NEUTROPHILS % 70.2 % (39.0-77.0); PLATELET COUNT 303 10^3/UL (140-415); RED BLOOD COUNT 4.29 10^6/ul (4.20-5.40); RED CELL DISTRIBUTION WIDTH 18.2 % (11.5-14.5); WHITE BLOOD COUNT 24.6 10^3/ul (4.8-10.8)
[2016-07-24] MEDS ORDERED: INSULIN GLARGINE [LANtus] 3 ML PEN SC SCH (08:00)
[2016-07-24 08:03] LABS: MAGNESIUM 1.9 mg/dl (1.7-2.5); PHOSPHORUS 3.2 mg/dl (2.5-4.9)
[2016-07-24 08:30] LABS: POTASSIUM 4.1 mmol/L (3.5-5.1)
[2016-07-24 08:32] LABS: CREATININE 0.71 mg/dl (0.44-1.00)
[2016-07-24 08:33] LABS: CALCIUM 9.2 mg/dl (8.4-10.2)
[2016-07-24] MEDS: INSULIN ASPART [NOVOLOG] 3 ML PEN SC SCH ×7 (08:35→21:05)
[2016-07-24] MEDS: INSULIN GLARGINE [LANtus] 3 ML PEN SC SCH (08:35)
[2016-07-24] MEDS: ENOXAPARIN 40 MG/0.4 ML SYG SC SCH (08:36)
[2016-07-24] MEDS: CEFEPIME 1GM/50 ML (PMX) 50 ML IV SCH ×2 (08:36→20:56)
[2016-07-24] MEDS: FLUCONAZOLE 100 MG TAB PO SCH (08:37)
[2016-07-24] MEDS: ZINC SULFATE 220 MG CAP PO SCH (08:37)
[2016-07-24] MEDS: ASCORBIC ACID 500 MG TAB PO SCH (08:37)
[2016-07-24] MEDS: ASPIRIN 81 MG TAB PO SCH (08:37)
[2016-07-24] MEDS: FERROUS SULFATE (EC) 325 MG TAB PO SCH (08:37)
[2016-07-24] MEDS: GABAPENTIN 300 MG CAP PO SCH ×3 (08:37→20:52)
[2016-07-24] MEDS: LINAGLIPTIN 5 MG TABLET PO SCH (08:37)
[2016-07-24] MEDS: AMLODIPINE 5 MG TAB PO SCH ×2 (08:38→20:52)
[2016-07-24] MEDS: predniSONE 10 MG TAB PO SCH (08:38)
[2016-07-24] MEDS: METOPROLOL 25 MG TAB PO SCH ×2 (08:38→20:52)
--- NOTE | 2016-07-24 09:59 | CONS ---
Date/Time of Note Date/Time of Note DATE: 07/24/16 TIME: 09:56 Assessment/Plan Assessment/Plan Additional Assessment/Plan Assessment and recommendations; 1. Patient admitted for bronchopneumonia and pulmonary fibrosis exacerbation with significant clinical improvement. 2. Diabetes. 3. Advanced rheumatoid arthritis. 4. Leukocytosis is likely a steroid response. 5. MRSA and Pseudomonas isolated from sputum. Consider stopping antibiotics. The patient likely is colonized with both MRSA as well as Pseudomonas due to repeated hospitalizations as well as advanced lung disease. Continue prednisone 30 mg a day in hospital as well as on outpatient basis. Prognosis remains guarded. Consultation Date/Type/Reason Admit Date/Time July 17, 2016 at 09:51 Initial Consult Date 07/17/16 Type of Consultation: Pulmonary 24 HR Interval Summary Free Text/Dictation Patient condition is stable. She wants to go home. Reports significantly improved respiratory status with marked reduction in shortness of breath. Denies any chest congestion sputum production wheezing fever. General exam; elderly lady, awake alert currently in no distress. Exam/Review of Systems Vital Signs Vitals Vital Signs Date Time Temp Pulse Resp B/P Pulse Ox O2 Delivery O2 Flow Rate FiO2 07/24/16 08:07 3.0 07/24/16 08:07 72 18 95 Nasal Cannula 07/24/16 08:04 98.3 145/70 Intake and Output 07/23/16 07/23/16 07/24/16 15:00 23:00 07:00 Intake Total 1200 ml 600 ml Balance 1200 ml 600 ml Exam HEENT examination; supple neck, no JVD. No lymphadenopathy. Midline trachea. No thyromegaly. Pupils are midsize and reactive to light bilaterally. Patient has a few missing teeth. Chest examined; diminished breath sounds bilaterally with scattered crackles. S1-S2 audible, no murmurs. Regular rhythm. Abdomen examination; soft, non-tender. No organomegaly. Bowel sounds audible. Extremity exam; no peripheral edema. There are changes of severe rheumatoid arthritis. ART SUPERVISOR exam is; no focal deficit. Results Result Diagram: 07/24/16 0725 07/24/16 0725 Results 24 hrs Laboratory Tests Test 07/23/16 12:12 07/23/16 17:48 07/23/16 20:07 07/24/16 02:44 Bedside Glucose 288 H 235 H 283 H 224 H Test 07/24/16 03:00 07/24/16 07:25 07/24/16 07:55 Vancomycin Level Trough 11.5 White Blood Count 24.6 H Red Blood Count 4.29 Hemoglobin 11.0 L Hematocrit 37.0 Mean Corpuscular Volume 86.2 Mean Corpuscular Hemoglobin 25.6 L Mean Corpuscular Hemoglobin Concent 29.7 L Red Cell Distribution Width 18.2 H Platelet Count 303 Mean Platelet Volume 10.1 Neutrophils % 70.2 Lymphocytes % 14.5 L Monocytes % 5.5 Eosinophils % 1.9 Basophils % 0.2 Nucleated Red Blood Cells % 0.0 Neutrophils # 17.2 H Lymphocytes # 3.6 H Monocytes # 1.3 H Eosinophils # 0.5 Basophils # 0.1 Nucleated Red Blood Cells # 0.0 Sodium Level 138 Potassium Level 4.1 Chloride Level 99 Carbon Dioxide Level 31 Anion Gap 12 Blood Urea Nitrogen 37 H Creatinine 0.71 Glucose Level 185 # Calcium Level 9.2 Phosphorus Level 3.2 Magnesium Level 1.9 Bedside Glucose 179 Medications Medications Current Medications Lorazepam (Ativan) 0.5 mg Q6H PRN IV ANXIETY Last administered on 07/22/16 12: 38; Admin Dose 0.5 MG; Start 07/17/16 at 13:30 Ondansetron HCl (Zofran Inj) 4 mg Q6H PRN IV NAUSEA AND/OR VOMITING; Start at 13:30 Nitroglycerin (Nitroglycerin (Sl Tab) 0.4 Mg) 1 tab Q5M PRN SL CHEST PAIN; Start 07/17/16 at 13:30 Zolpidem Tartrate (Ambien) 5 mg QHS PRN PO INSOMNIA Last administered on 22:27; Admin Dose 5 MG; Start 07/17/16 at 13:30 Docusate Sodium (Colace) 100 mg Q12H PRN PO CONSTIPATION; Start 07/17/16 at 13: 30 Pantoprazole (Protonix Tab) 40 mg DAILY@06 PO Last administered on 07/24/16 05 :13; Admin Dose 40 MG; Start 07/18/16 at 06:00 Enoxaparin Sodium 40 mg 40 mg DAILY SC Last administered on 07/24/16 08:36; Admin Dose 40 MG; Start 07/18/16 at 09:00 Cefepime HCl (Maxipime 1gm/50 ml (Pmx)) 50 ml @ 100 mls/hr Q12 IV Last administered on 07/24/16 08:36; Admin Dose 100 MLS/HR; Start 07/17/16 at 21:00 Acetaminophen (Tylenol Tab) 650 mg Q6 PRN PO PAIN AND OR ELEVATED TEMP; Start 07/17/16 at 13:30 Aspirin (Aspirin) 81 mg DAILY PO Last administered on 07/24/16 08:37; Admin Dose 81 MG; Start 07/18/16 at 09:00 Baclofen (Lioresal) 10 mg Q8 PRN PO MUSCLE SPASMS; Start 07/17/16 at 13:30 Ferrous Sulfate (Ferrous Sulfate (Ec)) 325 mg DAILY PO Last administered on 08:37; Admin Dose 325 MG; Start 07/18/16 at 09:00 Gabapentin (Neurontin) 300 mg TID PO Last administered on 07/24/16 08:37; Admin Dose 300 MG; Start 07/17/16 at 21:00 Linagliptin (Tradjenta) 5 mg DAILY PO Last administered on 07/24/16 08:37; Admin Dose 5 MG; Start 07/18/16 at 09:00 Lorazepam (Ativan) 0.5 mg Q8 PRN PO ANXIETY; Start 07/17/16 at 13:30 Magnesium Hydroxide (Milk Of Mag) 30 ml Q12H PRN PO CONSTIPATION; Start at 13:30 Metoprolol Tartrate (Lopressor) 25 mg BID PO Last administered on 07/24/16 08: 38; Admin Dose 25 MG; Start 07/17/16 at 21:00 Diagnostic Test (Pha) (Accu-Chek) 1 ea 02 XX Last administered on 07/24/16 02: 46; Admin Dose 1 EA; Start 07/18/16 at 02:00 Miscellaneous Information 1 ea NOTE XX ; Start 07/17/16 at 14:30 Glucose (Glutose) 15 gm Q15M PRN PO DECREASED GLUCOSE; Start 07/17/16 at 14:30 Glucose (Glutose) 22.5 gm Q15M PRN PO DECREASED GLUCOSE; Start 07/17/16 at 14: 30 Dextrose (D50w Syringe) 25 ml Q15M PRN IV DECREASED GLUCOSE Last administered on 07/23/16 08:39; Admin Dose 25 ML; Start 07/17/16 at 14:30 Dextrose (D50w Syringe) 50 ml Q15M PRN IV DECREASED GLUCOSE; Start 07/17/16 at 14:30 Glucagon (Glucagen) 1 mg Q15M PRN IM DECREASED GLUCOSE; Start 07/17/16 at 14:30 Glucose (Glutose) 15 gm Q15M PRN BUCCAL DECREASED GLUCOSE; Start 07/17/16 at 14 :30 Ascorbic Acid (Vitamin C) 500 mg DAILY PO Last administered on 07/24/16 08:37 ; Admin Dose 500 MG; Start 07/19/16 at 09:00 Zinc Sulfate (Zinc Sulfate) 220 mg DAILY PO Last administered on 07/24/16 08: 37; Admin Dose 220 MG; Start 07/18/16 at 14:00 Fluconazole (Diflucan) 100 mg DAILY PO Last administered on 07/24/16 08:37; Admin Dose 100 MG; Start 07/20/16 at 14:00 Amlodipine Besylate (Norvasc) 5 mg BID PO Last administered on 07/24/16 08:38 ; Admin Dose 5 MG; Start 07/21/16 at 09:00 Lactulose 20 gm 20 gm Q6H PRN PO CONSTIPATION; Start 07/21/16 at 08:30 Vancomycin HCl (Vancocin) 100 ml @ 100 mls/hr Q12H IVPB Last administered on 04:49; Admin Dose 100 MLS/HR; Start 07/23/16 at 04:00 Prednisone (Prednisone) 30 mg DAILY PO Last administered on 07/24/16 08:38; Admin Dose 30 MG; Start 07/24/16 at 09:00 Acetaminophen/ Hydrocodone Bitart 1 tab 1 tab Q4 PRN PO PAIN LEVEL 4-6 Last administered on 07/23/16 20:09; Admin Dose 1 TAB; Start 07/23/16 at 17:00 Metronidazole (Flagyl 500 Mg (Pmx)) 100 ml @ 100 mls/hr Q8 IVPB Last administered on 07/24/16 06:09; Admin Dose 100 MLS/HR; Start 07/23/16 at 15:00 Insulin Glargine (Lantus) 20 unit DAILY@08 SC Last administered on 07/24/16 08 :35; Admin Dose 20 UNIT; Start 07/24/16 at 08:00 GARRET SOARES July 24, 2016 09:59
[2016-07-24] MEDS: HYDROCODONE/APAP (5/325) TAB PO PRN ×2 (14:17→18:56)
--- NOTE | 2016-07-24 14:19 | PN ---
DATE: 07/24/2016 SUBJECTIVE: No acute changes. The patient is lying comfortably in bed, lethargic. No fevers. WBC 24.6, H 11 and 37, platelets 303, no shift, no bands. BUN 37, creatinine 0.71. MICROBIOLOGY: Sputum culture growing pseudomonas and MRSA. ANTIMICROBIALS: The patient is on: 1. Flagyl. 2. Vancomycin. 3. Cefepime. PHYSICAL EXAMINATION: GENERAL: This is a fragile, chronically ill-appearing, elderly woman who is lying comfortably in be d. HEENT: Head atraumatic, normocephalic. Sclerae anicteric. Buccal mucosa dry. NECK: Supple, trachea midline. CHEST: Rise symmetrical. Breath sounds diminished to bases with expiratory wheezes and prolonged e xpiratory phase. HEART: S1, S2. ABDOMEN: Soft, bowel tones present. EXTREMITIES: Without cyanosis. ASSESSMENT: 1. Sepsis with acute encephalopathy, fevers and leukocytosis on admission. 2. Pneumonia with chronic obstructive pulmonary disease exacerbation. 3. Rheumatoid arthritis. 4. Diabetes. 5. Persistent leukocytosis, multifactorial, possibly steroid induced. PLAN: The patient remains stable on appropriate antimicrobials. Pulmonary on case. Continue presen t care, anti-aspiration measures, steroid taper. Dictated By: HELEN GARCIA JAILER/TRAINING OFFICER for CARINE CISSE/NGHIA Conf#: [id number] DID#: [id number]
--- NOTE | 2016-07-24 20:55 | PN ---
DATE: 07/24/2016 SUBJECTIVE: The patient's white count improved today to 24,000. I appreciate ID input. I reviewed their recommendations. Again, leukocytosis may be due to an underlying infection and steroid use. Fortunately, white count has improved today. The patient overall feeling better or ____. She is c omplaining of spinal disk disease at the C-spine and she said she wants surgery or interventions don e. If not, she wants to be discharged. I told her that if the white count is improved by tomorrow, we will discharge her. I appreciate ID involvement and assistance. PHYSICAL EXAMINATION: VITAL SIGNS: Temperature 98.5, pulse 71, respirations 20, blood pressure 149/67, saturation 94% on 2 liters. GENERAL: The patient is in no acute distress. The patient is pale. HEENT: Decreased dentition. CARDIOVASCULAR: S1 and S2. LUNGS: Mild rhonchi bilaterally, chronic. ABDOMEN: Soft, nontender. EXTREMITIES: No clubbing, cyanosis, or edema. LABORATORY DATA: White count 24.6, hemoglobin 11, hematocrit 37, platelet count is 203, neutrophils 70%, lymphocytes 15%. Chemistry: Sodium is 138, potassium 4.1, chloride 99, bicarbonate 31, BUN i s 37, creatinine 0.71, glucose of 185. Last glucose level 298, before was 125. Respiratory culture did show Pseudomonas aeruginosa and MRSA. Urine culture on 07/30/2016 negative. MEDICATIONS: Reviewed. Include: 1. Prednisone 30 mg daily. 2. Lantus 20 units daily. 3. Mulberry p.r.n. 4. Flagyl 500 IV q.8h. 5. Vancomycin dose per pharmacy. 6. Insulin aspart 10 units q.a.c. 7. Norvasc 5 mg daily. 8. Lactulose 20 mg p.r.n. 9. Diflucan 1 mg daily. 10. Vitamin C 500 mg daily. 11. Zinc sulfate 220 daily. 12. Lovenox 40 mg subcutaneous daily. 13. Aspirin 81 mg daily. 14. Ferrous sulfate 325 daily. 15. Tradjenta 5 mg daily. 16. Protonix 40 mg daily. 17. Accu-Chek q.a.c. and at bedtime. 18. Cefepime 1 gram q.12h. 19. Neurontin 300 t.i.d. 20. Lopressor 25 b.i.d. 21. Insulin aspart per sliding scale. 22. Ativan p.r.n. 23. Zofran p.r.n. 24. Ambien p.r.n. 25. Colace p.r.n. 26. DuoNeb p.r.n. 27. Tylenol p.r.n. 28. Docusate 100 mg p.r.n. 29. Ativan p.r.n. 30. Milk of magnesia p.r.n. ASSESSMENT AND PLAN: This is a 75-year-old female with history of advanced pulmonary fibro sis, O2 dependent, rheumatoid arthritis, diabetes mellitus, chronic pain, overall is very debilitate d and probably also spinal disk disease presented with Pseudomonas aeruginosa and methicillin-resist ant Staphylococcus aureus pneumonia. 1. Respiratory. Continue steroid taper. Continue breathing 18 and O2 support. 2. Infectious disease. The patient with Pseudomonas aeruginosa and methicillin resistant Staphyloc occus aureus of the sputum. Continue above antibiotics. I did add Flagyl. White count has improve d. 3. Diabetes mellitus. Continue current regimen. We are tapering down her steroids. Remains on pr ednisone 30 mg daily. 4. Anemia. Hemoglobin and hematocrit stable. No need for transfusion. 5. Continue deep vein thrombosis prophylaxis and gastrointestinal prophylaxis. 6. Back pain. Continue oral opioids. 7. Rheumatoid arthritis. We will refer her to rheumatology as an outpatient basis. Previously she was on methotrexate. 8. Disposition to senior care facility if the white count is improved tomorrow. I did ask for stool for C. diff, but the patient does not have diarrhea or abdominal pain. 9. Noted speech therapy recommendation as patient had a video swallow today. She recommended to pu t the patient on a mechanical soft diet. Continue that diet. We will follow. Dictated By: FAISAL ALVAREZ/NGHIA Conf#: [id number] DID#: [id number]
[2016-07-24] MEDS: ZOLPIDEM 5 MG TAB PO PRN (22:38)
[2016-07-25] VITALS (9 sets, daily range): BP systolic 139–163; BP diastolic 63–73; PULSE 82–95; RESP 17–24
[2016-07-25] MEDS: ALBUTEROL/IPRATROPIUM (NEB) 3 ML AMP NEB SCH ×4 (01:18→14:13)
[2016-07-25] MEDS: ACCU-CHEK XX SCH (02:09)
[2016-07-25] MEDS: VANCOMYCIN 500MG/NS (PMX) 100 ML IVPB SCH ×2 (04:21→15:49)
[2016-07-25] MEDS: PANTOPRAZOLE (EC) 40 MG TAB PO SCH (05:04)
[2016-07-25] MEDS: metroNIDAZOLE 500 MG/NS (PMX) 100 ML IVPB SCH ×2 (05:07→13:23)
[2016-07-25 07:16] LABS: ADD SCAN DIFF NO
[2016-07-25 07:25] LABS: ABNORMAL IP MESSAGE 1; BASOPHIL # 0.1 10^3/ul (0.0-0.1); BASOPHILS % 0.3 % (0.0-2.0); EOSINOPHILS # 0.9 10^3/ul (0.0-0.5); EOSINOPHILS % 3.5 % (0.0-7.0); HEMATOCRIT 31.9 % (37.0-47.0); HEMOGLOBIN 9.7 g/dl (12.0-16.0); LYMPHOCYTES # 3.7 10^3/ul (0.8-2.9); LYMPHOCYTES % 15.1 % (15.0-51.0); MEAN CORPUSCULAR HEMOGLOBIN 26.1 pg (29.0-33.0); MEAN CORPUSCULAR HGB CONC 30.4 g/dl (32.0-37.0); MEAN PLATELET VOLUME 10.2 fl (7.4-10.4); MONOCYTES % 4.2 % (0.0-11.0); NEUTROPHILS % 70.1 % (39.0-77.0); PLATELET COUNT 320 10^3/UL (140-415); RED BLOOD COUNT 3.71 10^6/ul (4.20-5.40); RED CELL DISTRIBUTION WIDTH 18.4 % (11.5-14.5); WHITE BLOOD COUNT 24.3 10^3/ul (4.8-10.8)
[2016-07-25 07:34] LABS: MAGNESIUM 1.6 mg/dl (1.7-2.5)
[2016-07-25 07:35] LABS: CALCIUM 8.6 mg/dl (8.4-10.2); CREATININE 0.67 mg/dl (0.44-1.00); POTASSIUM 4.3 mmol/L (3.5-5.1)
[2016-07-25] MEDS: GABAPENTIN 300 MG CAP PO SCH ×2 (08:43→13:23)
[2016-07-25] MEDS: predniSONE 10 MG TAB PO SCH (08:43)
[2016-07-25] MEDS: FLUCONAZOLE 100 MG TAB PO SCH (08:43)
[2016-07-25] MEDS: ZINC SULFATE 220 MG CAP PO SCH (08:43)
[2016-07-25] MEDS: ASPIRIN 81 MG TAB PO SCH (08:43)
[2016-07-25] MEDS: LINAGLIPTIN 5 MG TABLET PO SCH (08:43)
[2016-07-25] MEDS: FERROUS SULFATE (EC) 325 MG TAB PO SCH (08:44)
[2016-07-25] MEDS: METOPROLOL 25 MG TAB PO SCH (08:44)
[2016-07-25] MEDS: AMLODIPINE 5 MG TAB PO SCH (08:44)
[2016-07-25] MEDS: ASCORBIC ACID 500 MG TAB PO SCH (08:44)
[2016-07-25] MEDS: ENOXAPARIN 40 MG/0.4 ML SYG SC SCH (08:47)
[2016-07-25] MEDS: INSULIN ASPART [NOVOLOG] 3 ML PEN SC SCH ×4 (08:47→12:24)
[2016-07-25] MEDS: INSULIN GLARGINE [LANtus] 3 ML PEN SC SCH (08:48)
[2016-07-25] MEDS: CEFEPIME 1GM/50 ML (PMX) 50 ML IV SCH (08:53)
[2016-07-25] MEDS: HYDROCODONE/APAP (5/325) TAB PO PRN (08:53)
--- NOTE | 2016-07-25 11:25 | CONS ---
Date/Time of Note Date/Time of Note DATE: 07/25/16 TIME: 11:23 Assessment/Plan Assessment/Plan Additional Assessment/Plan Assessment recommendations; next 1. Patient admitted for probably fibrosis exacerbation with bilateral bronchopneumonia with marked clinical improvement. 2. History of hypertension diabetes. Patient to be discharged home off antibiotics. She needs to continue with prednisone 30 mg daily. Patient does have home oxygen. Overall prognosis does remain very guarded. Consultation Date/Type/Reason Admit Date/Time July 17, 2016 at 09:51 Initial Consult Date 07/17/16 Type of Consultation: Pulmonary 24 HR Interval Summary Free Text/Dictation Patient condition is stable. She wants to go home today. Denies any coughing, wheezing, chest congestion is markedly improved as well as shortness of breath. General exam; elderly lady, awake alert currently in no distress. Exam/Review of Systems Vital Signs Vitals Vital Signs Date Time Temp Pulse Resp B/P Pulse Ox O2 Delivery O2 Flow Rate FiO2 07/25/16 09:22 97 32 93 Nasal Cannula 3.0 07/25/16 07:33 98.0 163/73 Intake and Output 07/24/16 07/24/16 07/25/16 15:00 23:00 07:00 Intake Total 150 ml 1250 ml 900 ml Balance 150 ml 1250 ml 900 ml Exam HEENT exam; supple neck, no JVD. No lymphadenopathy. Midline trachea. No thyromegaly. Pharynx is clear. Patient has multiple missing teeth. Chest exam; markedly decreased crackles bilaterally. Patient does have mild basilar crackles. S1-S2 audible, no murmurs. Regular rhythm. Abdomen examination; soft, nondistended. No organomegaly. Bowel sounds audible. Extremity exam; no peripheral edema. There are changes of severe rheumatoid arthritis. REGISTERED NURSE BONE MARROW TRANSPLANT examination; no focal deficit. Results Result Diagram: 07/25/16 0655 07/25/16 0655 Results 24 hrs Laboratory Tests Test 07/24/16 12:06 07/24/16 16:57 07/24/16 20:57 07/25/16 02:04 Bedside Glucose 125 298 H 202 141 Test 07/25/16 06:55 07/25/16 07:57 White Blood Count 24.3 H Red Blood Count 3.71 L Hemoglobin 9.7 L Hematocrit 31.9 L Mean Corpuscular Volume 86.0 Mean Corpuscular Hemoglobin 26.1 L Mean Corpuscular Hemoglobin Concent 30.4 L Red Cell Distribution Width 18.4 H Platelet Count 320 Mean Platelet Volume 10.2 Neutrophils % 70.1 Lymphocytes % 15.1 Monocytes % 4.2 Eosinophils % 3.5 Basophils % 0.3 Nucleated Red Blood Cells % 0.0 Neutrophils # 17.0 H Lymphocytes # 3.7 H Monocytes # 1.0 H Eosinophils # 0.9 H Basophils # 0.1 Nucleated Red Blood Cells # 0.0 Sodium Level 136 Potassium Level 4.3 Chloride Level 102 Carbon Dioxide Level 31 Anion Gap 7 L Blood Urea Nitrogen 35 H Creatinine 0.67 Glucose Level 184 Calcium Level 8.6 Phosphorus Level 3.0 Magnesium Level 1.6 L Bedside Glucose 185 Medications Medications Current Medications Lorazepam (Ativan) 0.5 mg Q6H PRN IV ANXIETY Last administered on 07/22/16 12: 38; Admin Dose 0.5 MG; Start 07/17/16 at 13:30 Ondansetron HCl (Zofran Inj) 4 mg Q6H PRN IV NAUSEA AND/OR VOMITING; Start at 13:30 Nitroglycerin (Nitroglycerin (Sl Tab) 0.4 Mg) 1 tab Q5M PRN SL CHEST PAIN; Start 07/17/16 at 13:30 Zolpidem Tartrate (Ambien) 5 mg QHS PRN PO INSOMNIA Last administered on 22:38; Admin Dose 5 MG; Start 07/17/16 at 13:30 Docusate Sodium (Colace) 100 mg Q12H PRN PO CONSTIPATION; Start 07/17/16 at 13: 30 Pantoprazole (Protonix Tab) 40 mg DAILY@06 PO Last administered on 07/25/16 05 :04; Admin Dose 40 MG; Start 07/18/16 at 06:00 Enoxaparin Sodium 40 mg 40 mg DAILY SC Last administered on 07/25/16 08:47; Admin Dose 40 MG; Start 07/18/16 at 09:00 Cefepime HCl (Maxipime 1gm/50 ml (Pmx)) 50 ml @ 100 mls/hr Q12 IV Last administered on 07/25/16 08:53; Admin Dose 100 MLS/HR; Start 07/17/16 at 21:00 Acetaminophen (Tylenol Tab) 650 mg Q6 PRN PO PAIN AND OR ELEVATED TEMP; Start 07/17/16 at 13:30 Aspirin (Aspirin) 81 mg DAILY PO Last administered on 07/25/16 08:43; Admin Dose 81 MG; Start 07/18/16 at 09:00 Baclofen (Lioresal) 10 mg Q8 PRN PO MUSCLE SPASMS; Start 07/17/16 at 13:30 Ferrous Sulfate (Ferrous Sulfate (Ec)) 325 mg DAILY PO Last administered on 08:44; Admin Dose 325 MG; Start 07/18/16 at 09:00 Gabapentin (Neurontin) 300 mg TID PO Last administered on 07/25/16 08:43; Admin Dose 300 MG; Start 07/17/16 at 21:00 Linagliptin (Tradjenta) 5 mg DAILY PO Last administered on 07/25/16 08:43; Admin Dose 5 MG; Start 07/18/16 at 09:00 Lorazepam (Ativan) 0.5 mg Q8 PRN PO ANXIETY; Start 07/17/16 at 13:30 Magnesium Hydroxide (Milk Of Mag) 30 ml Q12H PRN PO CONSTIPATION; Start at 13:30 Metoprolol Tartrate (Lopressor) 25 mg BID PO Last administered on 07/25/16 08: 44; Admin Dose 25 MG; Start 07/17/16 at 21:00 Diagnostic Test (Pha) (Accu-Chek) 1 ea 02 XX Last administered on 07/25/16 02: 09; Admin Dose 1 EA; Start 07/18/16 at 02:00 Miscellaneous Information 1 ea NOTE XX ; Start 07/17/16 at 14:30 Glucose (Glutose) 15 gm Q15M PRN PO DECREASED GLUCOSE; Start 07/17/16 at 14:30 Glucose (Glutose) 22.5 gm Q15M PRN PO DECREASED GLUCOSE; Start 07/17/16 at 14: 30 Dextrose (D50w Syringe) 25 ml Q15M PRN IV DECREASED GLUCOSE Last administered on 07/23/16 08:39; Admin Dose 25 ML; Start 07/17/16 at 14:30 Dextrose (D50w Syringe) 50 ml Q15M PRN IV DECREASED GLUCOSE; Start 07/17/16 at 14:30 Glucagon (Glucagen) 1 mg Q15M PRN IM DECREASED GLUCOSE; Start 07/17/16 at 14:30 Glucose (Glutose) 15 gm Q15M PRN BUCCAL DECREASED GLUCOSE; Start 07/17/16 at 14 :30 Ascorbic Acid (Vitamin C) 500 mg DAILY PO Last administered on 07/25/16 08:44 ; Admin Dose 500 MG; Start 07/19/16 at 09:00 Zinc Sulfate (Zinc Sulfate) 220 mg DAILY PO Last administered on 07/25/16 08: 43; Admin Dose 220 MG; Start 07/18/16 at 14:00 Fluconazole (Diflucan) 100 mg DAILY PO Last administered on 07/25/16 08:43; Admin Dose 100 MG; Start 07/20/16 at 14:00 Amlodipine Besylate (Norvasc) 5 mg BID PO Last administered on 07/25/16 08:44 ; Admin Dose 5 MG; Start 07/21/16 at 09:00 Lactulose 20 gm 20 gm Q6H PRN PO CONSTIPATION; Start 07/21/16 at 08:30 Vancomycin HCl (Vancocin) 100 ml @ 100 mls/hr Q12H IVPB Last administered on 04:21; Admin Dose 100 MLS/HR; Start 07/23/16 at 04:00 Prednisone (Prednisone) 30 mg DAILY PO Last administered on 07/25/16 08:43; Admin Dose 30 MG; Start 07/24/16 at 09:00 Acetaminophen/ Hydrocodone Bitart 1 tab 1 tab Q4 PRN PO PAIN LEVEL 4-6 Last administered on 07/25/16 08:53; Admin Dose 1 TAB; Start 07/23/16 at 17:00 Metronidazole (Flagyl 500 Mg (Pmx)) 100 ml @ 100 mls/hr Q8 IVPB Last administered on 07/25/16 05:07; Admin Dose 100 MLS/HR; Start 07/23/16 at 15:00 Insulin Glargine (Lantus) 20 unit DAILY@08 SC Last administered on 07/25/16 08 :48; Admin Dose 20 UNIT; Start 07/24/16 at 08:00 GARRET SOARES July 25, 2016 11:25
--- NOTE | 2016-07-25 11:39 | RADRPT ---
PROCEDURE: Video-fluoroscopy swallowing study. CLINICAL INDICATION: Dysphagia. TECHNIQUE: Fluoroscopic guided video swallowing study was done in conjunction with the speech ther apist. The study was confined to the oral, pharyngeal, and cervical phases of the swallowing mechani sm. 1.9 minutes of fluoroscopy time was used. COMPARISON: No prior study is available for comparison. FINDINGS: There is penetration during swallowing thin liquids with straw. There is no evidence of aspiration during the exam. There is a region of prevertebral soft tissue thickening at the C3-4 level. IMPRESSION: 1. Penetration during swallowing thin liquids with straw. 2. No aspiration during swallowing. 3. Region of prevertebral soft tissue thickening at the C3-4 level. 4. Please refer to the speech therapist's recommendations for future feedings. RPTAT: QQ .Jd Flores MD, MD Date Time Electronically viewed and signed by .Jd Flores MD, MD on 07/25/2016 11:38 .R/
--- NOTE | 2016-07-25 13:09 | PDOCDIS ---
Discharge Instructions CONDITION Patient Condition: Stable HOME CARE INSTRUCTIONS: Special Diet: MECHANICAL SOFT ACTIVITY: Activity Restrictions: Slowly Increase Activity FOLLOW UP/APPOINTMENTS Appointments dc to [facility] on O2 2-4 liter NC, see reconciliation FAISAL BENITEZ MD July 25, 2016 13:09
--- NOTE | 2016-07-25 14:45 | DS ---
DATE OF ADMISSION: 07/17/2016 DATE OF DISCHARGE: 07/25/2016 REASON FOR ADMISSION: Acute respiratory failure, pneumonia, sepsis. HOSPITAL COURSE: The patient is an unfortunate 75-year-old female with end-stage pulmonary fibrosis, O2 dependent with frequent hospitalizations. Unfortunately, she is very immunocompromise d. The patient was previously hospitalized for tracheobronchitis, worsening hypoxia and congestive heart failure exacerbation. The patient has a history also of diabetes mellitus, anemia, dyslipidem ia, osteoarthritis, rheumatoid arthritis, overall debilitated, not ambulatory, with hand contracture s. She is able to feed herself. On the day of admission, she was noted to be tachycardic in the 15 0s, had a temperature of 101. She was sent to [facility] by 911. She was found t o have a white count of 19.2 with 20% bands. X-ray showed chronic pulmonary fibrosis with possible d eveloping right upper lung infiltrate. She was admitted for further care. She was placed on nonreb reather mask and p.r.n. BiPAP and broad spectrum antibiotics. I consulted multiple physicians elpidio g her hospitalization including Dr. Núñez the senior product engineer and Dr. Hein, the infectious disease specialist. Sputum culture ultimately came back as Pseudomonas aeruginosa, MRSA, pseudomonas was se nsitive to cefepime, and MRSA was sensitive to Bactrim and vancomycin. The patient responded to the treatment and she was placed on nasal cannula. She was started also on IV steroids as her white co unt shot up but she remains afebrile. I was concerned because of the increased overall white count as she had worsening leukocytosis to 27,000, so I did not discharge her at that point; consulted ID. Overall, appears the infection is under control as patient is afebrile and she clinically looks mu ch better. So this is likely leukemoid reaction secondary to steroids. Empirically, I also added F lagyl. The patient does not have diarrhea. The patient has been adamantly requesting to be dischar ged in the last few days. As white count remains the same at 24,000 and noted ID and pulmonary carolyne mmendations, patient will be discharged today back to the [facility] w ith the following medications: 1. Accu-Cheks in morning and at bedtime. 2. Tylenol 650 p.r.n. 3. DuoNeb every 4 hours and p.r.n. 4. Norvasc 5 mg b.i.d. 5. Vitamin C 500 mg daily. 6. Aspirin 81 mg daily. 7. Baclofen 10 mg were given routine q. 8 hours. Patient has chronic back pain. Continue Cefepime 1 gram q.12h for 5 more days. 8. Colace 100 q.12 hours, will discontinue the Lovenox. 9. Ferrous sulfate 325 mg daily. 10. Diflucan 100 mg daily for 7 days. 11. Neurontin 300 mg t.i.d. 12. ____ 30 mL t.i.d. 13. [place]idd[place] 5/325 q.4h. p.r.n. for moderate pain. 14. Insulin aspart per sliding scale. 15. Insulin aspart 10 units q.a.c. meal routine. 16. Insulin Lantus 20 units daily p.r.n. 17. Lactulose p.r.n. 18. Tradjenta 5 mg daily. 19. Ativan 0.5 p.o. q.6h. p.r.n. 20. Milk of magnesia p.r.n. 21. Lopressor 25 b.i.d. 22. Flagyl 500 mg p.o. t.i.d. for 5 days for treatment of hypoglycemia. 23. Nitroglycerin p.r.n. for chest pain. 24. Zofran 4 mg p.o. q.6h. p.r.n. for nausea and vomiting. 25. Protonix 40 mg daily. 26. Prednisone 40 mg daily for 5 days, then 20 mg p.o. daily x5 days, then 10 mg p.o. daily routine . 27. Vancomycin IV dose per pharmacy for 5 more days. 28. Zinc sulfate 220 daily. 29. Ambien 5 mg at bedtime p.r.n. for insomnia. 30. Multivitamin with minerals 1 tab daily. FINAL DIAGNOSES: 1. Acute respiratory failure. 2. Pneumonia, both Pseudomonas aeruginosa and methicillin-resistant Staphylococcus aureus. 3. Advanced pulmonary fibrosis, O2 dependent. 4. Rule out sepsis. 5. Diabetes mellitus. 6. Leukocytosis, combination of infectious process and steroids. 7. Chronic back pain. 8. Rheumatoid arthritis. 9. Hypertension. I will add also Cozaar 50 mg daily or Losartan 50 mg daily. 10. Anemia. No need for transfusion. 11. Tendency to congestive diastolic dysfunction, compensated. 12. Dysphagia, on soft mechanical. She refused to be on pureed diet. Otherwise, she will not eat. This was discussed with speech therapy. 13. Overall long-term prognosis is not very good because of her advanced pulmonary fibrosis and palak quent hospitalizations. Will obtain a CBC and basic metabolic panel on 07/30/2016. 14. Mild protein malnutrition. Albumin is 2.8 on admission. Dictated By: FAISAL ALVAREZ/NGHIA Conf#: [id number] DID#: [id number]
--- NOTE | 2016-07-26 08:07 | PN ---
DATE: 07/25/2016 SUBJECTIVE: Patient is awake, slightly tachypneic, in no distress. She is afebrile. WBC today 24. 3, platelets 320, no shift, no bands. BUN 35, creatinine 0.67. ANTIMICROBIALS: 1. Vancomycin. 2. Flagyl. 3. Cefepime. 4. Fluconazole. PHYSICAL EXAMINATION: GENERAL: Fragile, elderly woman who is awake, in no distress. HEENT: Head atraumatic, normocephalic. Sclerae anicteric. Buccal mucosa dry. NECK: Supple, trachea midline. CHEST: Rise symmetrical. Breath sounds with expiratory wheezes bilaterally. HEART: S1, S2. ABDOMEN: Soft. Bowel tones present. EXTREMITIES: Without cyanosis. ASSESSMENT: 1. Pneumonia with chronic obstructive pulmonary disease exacerbation. 2. Resolving sepsis. 3. Resolving encephalopathy. 4. Diabetes. 5. History of rheumatoid arthritis. 6. Leukocytosis, patient is on steroid taper. PLAN: The patient remains stable. Continue present care. Discontinue Flagyl as the patient has no diarrhea. Keep on fluconazole for oral thrush. Follow up pulmonary recommendations. Dictated By: HELEN GARCIA [employer] SUPERVISOR for CARINE POTTER MD NI/NTS Conf#: [id number] DID#: [id number]
== END 2016-07-25 16:26 | DRG 871 ==
LOC: E/R 08:52 → MS4 09:51
PROVIDERS: ADMIT Internal Medicine; ATTEND Internal Medicine
DX: A41.9 Sepsis, unspecified organism (principal); J96.02 Acute respiratory failure with hypercapnia; J15.1 Pneumonia due to Pseudomonas; J15.211 Pneumonia due to Methicillin susceptible Staphylococcus aureus; I50.30 Unspecified diastolic (congestive) heart failure; E11.9 Type 2 diabetes mellitus without complications; D63.8 Anemia in other chronic diseases classified elsewhere; J84.10 Pulmonary fibrosis, unspecified; J44.0 Chronic obstructive pulmonary disease with (acute) lower respiratory infection; R13.10 Dysphagia, unspecified; E44.1 Mild protein-calorie malnutrition; I10 Essential (primary) hypertension; R65.20 Severe sepsis without septic shock; Z68.24 Body mass index [BMI] 24.0-24.9, adult; Z87.891 Personal history of nicotine dependence; M06.9 Rheumatoid arthritis, unspecified; G89.29 Other chronic pain; K59.00 Constipation, unspecified; Z79.52 Long term (current) use of systemic steroids
CPT/HCPCS: 36415; 36600; 71010; 74230; 80048; 80053; 80202; 81001; 81003; 82803; 82962; 83605; 83735; 84100; 84443; 84484; 85025; 85610; 85730; 87040; 87070; 87086; 92526; 92610; 92611; 93005; 94640; 94660; 94664; 96374; 96375; J0692; J1650; J1815; J2060; J2270; J2920; J2930; J3370; J3475; J7030; J7512

== ENCOUNTER 2016-09-17 16:42 | Inpatient (IN) | END 2016-10-14 12:37 | disposition EXP | DRG 4 | DX: A41.9 Sepsis, unspecified organism (principal); R65.21 Severe sepsis with septic shock; J69.0 Pneumonitis due to inhalation of food and vomit; J15.1 Pneumonia due to Pseudomonas; N17.9 Acute kidney failure, unspecified; B37.89 Other sites of candidiasis; J96.21 Acute and chronic respiratory failure with hypoxia; J84.10 Pulmonary fibrosis, unspecified; E87.0 Hyperosmolality and hypernatremia; N18.9 Chronic kidney disease, unspecified; Z66 Do not resuscitate; E11.9 Type 2 diabetes mellitus without complications; B95.62 Methicillin resistant Staphylococcus aureus infection as the cause of diseases classified elsewhere; J44.9 Chronic obstructive pulmonary disease, unspecified; D64.9 Anemia, unspecified; Z79.4 Long term (current) use of insulin; R13.10 Dysphagia, unspecified; E87.5 Hyperkalemia; Z22.322 Carrier or suspected carrier of Methicillin resistant Staphylococcus aureus; M05.10 Rheumatoid lung disease with rheumatoid arthritis of unspecified site; G89.29 Other chronic pain; R33.9 Retention of urine, unspecified; B37.2 Candidiasis of skin and nail; K31.84 Gastroparesis; I46.9 Cardiac arrest, cause unspecified ==